=== PATIENT | female | born 1970 | race Caucasian/White ===

== ENCOUNTER 2018-02-24 13:50 | Emergency (ER) | payer SELFPAY ==
[2018-02-24 13:51] VITALS: BP 129/89; PULSE 70; RESP 16; TEMP 36.6; O2SAT 98; BMI 18.6
--- NOTE | 2018-02-24 15:19 | ED.VISSUMM ---
- ER Visit Summary Date of Service: 02/24/18 Chief Complaint: Dental pain and facial swelling History of Present Illness: The patient is a 47 F who presents with increasing dental pain for the past 4 days and now complains of facial swelling. Left side. She denies fever, chills night sweats. Has a history of rheumatic fever, murmur, SPE, IV drug use or being immune suppressed. She has no antibiotic allergies. She has no doctor. She states she is self-pay. She denies change in voice or difficulty swallowing. She denies any skin lesions or rash. She denies headache. Physical Examination: Vital signs are noted. HEENT exam is remarkable for strabismus. She has dental decay. The left lower first molar versus second bicuspid is decayed to the pulp/gumline. There is soft tissue swelling with facial swelling. There is no facial cellulitis. There is no trismus. There is no evidence of Isaías's angina. Trachea is midline. There is no carotid bruit. There is no stridor. Heart is regular without murmur, gallop or rub. Lungs are clear to auscultation. Neuro exam is nonfocal. Test Results: None Emergency Department Course and Treatment: Prescription for pen VK, Naprosyn and [place] and first dose in the department Treatment Plan: Outpatient follow-up with dentist. was informed to take his to the [facility] on Monday to be seen by a dentist. Disposition: Discharged to home Impression: Dental pain secondary to dental abscess This note was generated with [employer] dictation software. It may contain incorrect words, spelling, and punctuation that were not noted in review of the chart prior to signing ED Disposition - Plan for ED Patient: Disposition: Home or Assisted Living Chief Complaint: Dental Instructions: ED Abscess Dental Prescriptions: Hydrocodone Bitart/Apap 5-325 [[place] 5MG-325MG] 1 tab PO Q6H PRN PRN 3 Days #10 tab PRN Reason: Pain Naproxen [Naprosyn] 500 mg PO BID #14 tab Penicillin V Potassium 500 mg PO 4X/DAY #40 tab Referrals: Care Physician,No Primary [Primary Care Provider] - Additional Instructions: Go to [facility] Monday to be seen by dentist. If unable to open mouth completely, fever with chills or trouble swallowing or breathing return to the emergency department.
[2018-02-24] MEDS: Penicillin Vk 250 MG Tablet 500 MG PO (16:00)
[2018-02-24] MEDS: Naproxen 250 MG Tablet 500 MG PO (16:00)
[2018-02-24] MEDS: HYDROcodone Bitartrate/Apap 5/325 Tablet PO (16:00)
== END 2018-02-24 16:02 | disposition home or self-care (01) ==
LOC: ED 15:50
PROVIDERS: Emergency Provider Emergency Medicine
DX: K04.7 Periapical abscess without sinus (principal); K02.9 Dental caries, unspecified; K05.10 Chronic gingivitis, plaque induced
CPT/HCPCS: 99283

== ENCOUNTER → 2018-08-31 10:12 | Outpatient (CLI) | payer BC, SELFPAY ==
[2018-08-31 14:13] LABS: Prolactin 5.6 ng/mL; Thyroid Stim Hormone (TSH) 1.71 uIU/mL (0.358-3.74)
== END ==
PROVIDERS: Family Provider Family Medicine; PCP Family Medicine; Visit Provider Family Medicine
DX: N64.3 Galactorrhea not associated with childbirth (principal)
CPT/HCPCS: 36415; 84146; 84443

== ENCOUNTER → 2018-09-11 09:10 | Outpatient (CLI) | payer BC, SELFPAY ==
--- NOTE | 2018-09-11 09:12 | BI_ITS ---
MAMMOGRAPHY - BILATERAL DIAGNOSTIC REASON FOR EXAM: Female, 48 years old. PERTINENT HISTORY: FAM HX -MAT GMA AGE 40-50S PRIOR 10+ YRS AGO -NOT AVAILABLE FOR COMPARISON BILAT DISCHARGE X 2-3 YRS GREEN/WHITISH COLOR, SOMETIMES DISCHARGE IS A Tquot;RUSTYTquot; COLOR PT C/O BILAT BREAST PAIN AT TIMES, TODAY LEFT PAIN 12 OCLOCK BILAT EXC BX 10+ YRS AGO LT SKIN TAG AMD MOLE MARKED NO LUMPS FELT TODAY TECHNIQUE: Digital bilateral breast kalli (3D mammographic acquisition) in the CC and MLO projections. 2-D mediolateral oblique (MLO) and craniocaudad (CC) views of both breasts were obtained. CAD: Full Field Digital Mammography with Computer Added Detection was performed. COMPARISON: None. FINDINGS: Breast Composition: The breasts are extremely dense, which lowers the sensitivity of mammography. There are no dominant masses or suspicious calcifications. Due to the fact the patient has nipple discharge ultrasound study would be recommended. No other significant abnormalities are identified. BI/DIAG MAMM W/CAD, BILAT IMPRESSION: Further ultrasonographic evaluation recommended, as described above. (I) ASSESSMENT CATEGORY: BIRADS Category 0: Incomplete. Need additional imaging evaluation. A letter regarding these results will be sent to the patient by the facility within 30 days. Approximately 10% of breast cancers are not detected by mammography. A normal mammogram should not delay biopsy of a clinically suspicious abnormality. Electronically Signed: Amando Martinez, at 10:40 EDT Tel , Service support ,
--- NOTE | 2018-09-11 09:43 | US_ITS ---
STUDY: ULTRASOUND BREAST - RIGHT REASON FOR EXAM: Female, 48 years old. BILAT DISHARGE PAIN UIQ PER PATIENT MAMMO TODAY ALSO TECHNIQUE: Axial and longitudinal images of the RIGHT breast were performed with a high resolution ultrasound transducer. COMPARISON: None. FINDINGS: RIGHT Breast: There is a lesion #1 in the retroareolar region. The lesion measures 0.7 x 1 x 2.3 cm in size. Clock notation: 1 o'clock position. Posterior Enhancement: No. Posterior Shadowing: None. Margins: Sharp and smooth. Echogenicity: Hypoechoic. Compression effect on Shape: No change. IMPRESSION: Probably benign lesion. No definite abnormality is seen that explains the nipple discharge further evaluation by MRI without and with IV contrast of the breast would be recommended to exclude a neoplastic process. ASSESSMENT CATEGORY: BIRADS Category 0: Incomplete. Need additional imaging evaluation. A letter regarding these results will be sent to the patient by the facility within 30 days. Electronically Signed: Amando Martinez, at 16:41 EDT Tel , Service support , STUDY: ULTRASOUND BREAST - LEFT REASON FOR EXAM: Female, 48 years old. Nipple discharge TECHNIQUE: Axial and longitudinal images of the LEFT breast were performed with a high resolution ultrasound transducer. COMPARISON: None. FINDINGS: LEFT Breast: There is a lesion #1 in the upper outer quadrant. The lesion measures 0.7 x 0.8 x 0.4 cm in size. Clock notation: 9 o'clock position. Distance from nipple: 2 cm. Posterior Enhancement: No. Posterior Shadowing: None. Margins: Sharp and smooth. Echogenicity: Hypoechoic. Compression effect on Shape: No change. There is a lesion #2 in the upper outer quadrant. The lesion measures 0.5 x 0.4 x 0.2 cm in size. Clock notation: 11 o'clock position. Distance from nipple: 6 cm. Posterior Enhancement: No Posterior Shadowing: None. Margins: Sharp and smooth. Echogenicity: Hypoechoic Compression effect on Shape: No change. US/Breast Limited Unilateral IMPRESSION: Probably benign lesions. No definite abnormality is seen that explains the nipple discharge further evaluation by MRI without and with IV contrast of the breast would be recommended to exclude a neoplastic process ASSESSMENT CATEGORY: BIRADS Category 0: Incomplete. Need additional imaging evaluation. A letter regarding these results will be sent to the patient by the facility within 30 days. Electronically Signed: Amando Martinez, at 16:46 EDT Tel , Service support ,
[2018-09-11 12:01] LABS: Absolute Lymphocyte Count 1.67 X10^3/ul (0.83-4.51); Absolute Neutrophil Count 7.6 X10^3/uL (2.0-7.7); Basophil# 0.03 X10^3/uL; Basophil% 0.3 % (0-1); Hematocrit 36.9 % (37-47); Hemoglobin 11.6 g/dl (12.0-15.0); Lymphocyte # 1.67 X10^3/ul (4.0); Lymphocyte % 16.9 % (19-41); Mean Corp Hgb Conc 31.4 g/gl (32-36); Mean Corpuscular Hgb 29.5 pg (27.0-32.0); Mean Corpuscular Volume 93.9 fL (81-99); Mean Platelet Vol. 9.4 fl (6.2-12.0); Monocyte# 0.48 X10^3/uL; Monocyte% 4.9 % (0-10); Neutrophil # 7.58 X10^3/uL (2.7-7.7); Neutrophil % 76.8 % (47-70); POSITIVE COUNT NO; POSITIVE DIFFERENTIAL NO; POSITIVE MORPHOLOGY NO; Platelet Count 282 K/mm3 (150-450); RBC Distribution Width SD 58.1 fl (35.1-43.9); Red Blood Count 3.93 M/mm3 (4.2-5.4); White Blood Count 9.9 K/mm3 (4.4-11.0)
[2018-09-11 16:31] LABS: Chlamydia Trachomatis by PCR Negative (Negative); Neisserai gonorrhoeae by PCR Negative (Negative); Probe Check PASS; Sample Adequacy Control PASS; Specimen Processing Control PASS
[2018-09-13 13:07] LABS: HPV APTIMA, High Risk Negative (Negative)
== END ==
LOC: OPUS 09:13 → PAVLAB 11:46
PROVIDERS: Nurse Practitioner Women's Health; Family Provider Family Medicine; PCP Family Medicine; Referring Provider Obstetrics & Gynecology; Visit Provider Obstetrics & Gynecology
DX: Z12.4 Encounter for screening for malignant neoplasm of cervix (principal); Z11.3 Encounter for screening for infections with a predominantly sexual mode of transmission; N92.1 Excessive and frequent menstruation with irregular cycle; N64.52 Nipple discharge
CPT/HCPCS: 36415; 76642; 77066; 85025; 87491; 87591; 87624; 88175; G0145

== ENCOUNTER → 2018-09-18 08:08 | Outpatient (CLI) | payer BC, SELFPAY ==
[2018-09-11 11:14] VITALS: BMI 18.6
--- NOTE | 2018-09-18 08:09 | US_ITS ---
STUDY: ULTRASOUND OF THE FEMALE PELVIS - COMPLETE REASON FOR EXAM: Female, 48 years old. Menorrhagia. LMP: August 14, 2018. TECHNIQUE: Transabdominal and Transvaginal TECHNICAL QUALITY: Adequate. COMPARISON: None. FINDINGS: The uterus is retroverted and is in a midline position. The uterus measures 8.9 cm x 6.1 cm x 5.4 cm. Normal uterine cervix. The endometrium measures 6.0 mm in thickness, and is hyperechoic. There is no demonstrated endometrial mass. There is no demonstrated myometrial mass. I.U.D. - The patient does not have an I.U.D. The right ovary is visualized. The right ovary measures 4.3 cm x 2.5 cm x 2.9 cm. 2 dominant follicles are seen. The larger measures 1.8 cm x 1.5 cm x 1.0 cm. There is also evidence of a 1.3 cm x 1.6 cm x 1.2 cm hypoechoic nodular density. This may represent an hemorrhagic cyst. Follow-up is recommended. There is no visualized right adnexal mass or complex lesion. There is normal arterial and normal venous vascularity. The left ovary is visualized. The left ovary measures 4.0 cm x 1.9 cm x 1.8 cm. There is no left ovarian cyst or ovarian mass. There is no visualized left adnexal mass or complex lesion. There is normal arterial and normal venous vascularity. There is no fluid in the cul-de-sac. The pre void volume of the bladder was 71.3 ml. Polycystic ovary disease: No. US/Pelvic (Non ) IMPRESSION: 2 dominant follicles are seen in the right ovary. Is also suggestion of a 1.3 cm x 1.6 cm x 1.2 cm hemorrhagic cyst in the right ovary. Electronically Signed: Eric Vela, at 13:26 EDT , Service support ,
--- NOTE | 2018-09-18 08:09 | US_ITS ---
STUDY: ULTRASOUND OF THE FEMALE PELVIS - COMPLETE REASON FOR EXAM: Female, 48 years old. Menorrhagia. LMP: August 14, 2018. TECHNIQUE: Transabdominal and Transvaginal TECHNICAL QUALITY: Adequate. COMPARISON: None. FINDINGS: The uterus is retroverted and is in a midline position. The uterus measures 8.9 cm x 6.1 cm x 5.4 cm. Normal uterine cervix. The endometrium measures 6.0 mm in thickness, and is hyperechoic. There is no demonstrated endometrial mass. There is no demonstrated myometrial mass. I.U.D. - The patient does not have an I.U.D. The right ovary is visualized. The right ovary measures 4.3 cm x 2.5 cm x 2.9 cm. 2 dominant follicles are seen. The larger measures 1.8 cm x 1.5 cm x 1.0 cm. There is also evidence of a 1.3 cm x 1.6 cm x 1.2 cm hypoechoic nodular density. This may represent an hemorrhagic cyst. Follow-up is recommended. There is no visualized right adnexal mass or complex lesion. There is normal arterial and normal venous vascularity. The left ovary is visualized. The left ovary measures 4.0 cm x 1.9 cm x 1.8 cm. There is no left ovarian cyst or ovarian mass. There is no visualized left adnexal mass or complex lesion. There is normal arterial and normal venous vascularity. There is no fluid in the cul-de-sac. The pre void volume of the bladder was 71.3 ml. Polycystic ovary disease: No. US/Transvaginal Non- IMPRESSION: 2 dominant follicles are seen in the right ovary. Is also suggestion of a 1.3 cm x 1.6 cm x 1.2 cm hemorrhagic cyst in the right ovary. Electronically Signed: Eric Vela, at 13:26 EDT , Service support ,
== END ==
PROVIDERS: Family Provider Family Medicine; PCP Family Medicine; Referring Provider Nurse Practitioner Women's Health; Visit Provider Nurse Practitioner Women's Health
DX: N92.1 Excessive and frequent menstruation with irregular cycle (principal)
CPT/HCPCS: 76830; 76856; 93976

== ENCOUNTER 2018-10-19 16:57 | Emergency (ER) | payer BC, SELFPAY ==
[2018-10-01 13:40] VITALS: BMI 18.6
[2018-10-19 16:58] VITALS: BP 130/74; PULSE 71; RESP 16; TEMP 36.4; O2SAT 98; BMI 20.9
--- NOTE | 2018-10-19 17:33 | CT_ITS ---
STUDY: CT ABDOMEN AND PELVIS WITH CONTRAST REASON FOR EXAM: Female, 48 years old. Left lower quadrant pain. RADIATION DOSAGE (If Supplied By Facility): CTDIvol = ( 13.38 ) mGy, DLP = ( 318.26 ) mGycm TECHNIQUE: Transaxial images were obtained from the dome of the diaphragm to the symphysis pubis without oral contrast. 100ML IV Isovue 300 was administered. Sagittal and coronal images were reconstructed. Individualized dose optimization techniques were used for this CT. COMPARISON: None. FINDINGS: The visualized lung bases are unremarkable. The visualized portions of the heart are within normal limits. Normal liver. Normal gallbladder and extrahepatic biliary system. Normal spleen. Normal pancreas. Normal bilateral adrenal glands. Normal right kidney. Normal left kidney. Evaluation of the GI tract is limited by absence of oral contrast. Cannot exclude stomach wall thickening. No dilated loops of bowel or evidence for obstruction. Cannot exclude segmental thickening of the beyer of the small or large bowel. Cannot exclude enteritis or colitis. There is very marked diffuse fecal retention. Appendix within normal limits. Normal abdominal aorta. Normal inferior vena cava. Normal retroperitoneum. Normal urinary bladder. Normal visualized uterus. There are bilateral ovarian cysts, as much is 2.7 cm on the left. Both ovaries appear prominent. Suggest repeat pelvic ultrasound. Normal abdominal wall. Normal osseous structures. CT/Abdomen/Pelvis W IV Cont ONLY IMPRESSION: Very marked diffuse fecal retention. Bilateral prominent ovaries with probable cysts, especially on the left. Electronically Signed: Marcos Gonzales MD at 19:08 EDT , Service support ,
--- NOTE | 2018-10-19 17:37 | ED.VISSUMM ---
- ER Visit Summary Date of Service: 10/19/18 Chief Complaint: Left lower quadrant abdominal pelvic pain. History of Present Illness: The patient is a 48 F history of depression. Scheduled for D&C in mid October due to heavy vaginal bleeding. Patient states she had a recent heavy period but that has stopped for several weeks. She is been constipated for more than a month. Today says she had a vaginal discharge that looked like wet coffee ground material. But otherwise is not bleeding. Denies any dysuria fever. Complaining of left lower quadrant medially pain. Had a recent ultrasound was really unremarkable. She denies nausea, vomiting or diarrhea. No melena or fever. No dysuria. No prior abdominal surgeries. Physical Examination: Well-appearing female no acute distress. Vital signs are stable afebrile. HEENT exam unremarkable. Lungs clear to auscultation. Heart regular rhythm no murmur. Abdomen soft. Nondistended. Normal bowel sounds. Very minimal left lower quadrant just lateral to the umbilicus and inferior tenderness. Otherwise completely nondistended. Nontender. No signs of obstruction. Both the right upper right lower quadrant unremarkable. No hernias or masses. Normal bowel sounds. No peritoneal signs. Patient is moving all 4 extremities. Neurologically she is awake and alert. Tender. Test Results: CBC has a white count of 6. Hemoglobin 10.7. No bands. Lites lites unremarkable. Normal creatinine gap. UA shows 10-25 white cells but no nitrates or bacteria. Serum test negative. CAT scan abdomen pelvis with IV contrast only shows bilateral small ovarian cyst that was seen in her prior pelvic ultrasound. Significant diffuse constipation. The appendix was normal. I did review the film that was read by the radiologist. Emergency Department Course and Treatment: The prescription left medial to the left lower quadrant abdominal pain that is very mild on exam. I went back to discuss to the patient her test results and discharge her and go over her plan she got upset with nursing staff and that I had not been able to make it back and she left prior to being discharged. We will attempt to call her via phone. I was going to give her magnesium citrate for home. Treatment Plan: Left prior to discharge Disposition: Discharge Impression: Acute abdominal pain secondary to constipation Left prior to discharge This note was generated with [facility] dictation software. It may contain incorrect words, spelling, and punctuation that were not noted in review of the chart prior to signing ED Disposition - Plan for ED Patient: Referrals: Stephanie Aguilar MD [Primary Care Provider] -
[2018-10-19 17:52] LABS: Absolute Lymphocyte Count 1.56 X10^3/ul (0.83-4.51); Absolute Neutrophil Count 4.1 X10^3/uL (2.0-7.7); Basophil# 0.03 X10^3/uL; Basophil% 0.5 % (0-1); Eosinophil# 0.18 X10^3/uL; Eosinophils% 2.9 % (0-5); Hematocrit 34.2 % (37-47); Hemoglobin 10.7 g/dl (12.0-15.0); Lymphocyte # 1.56 X10^3/ul (4.0); Lymphocyte % 25.3 % (19-41); Mean Corp Hgb Conc 31.3 g/gl (32-36); Mean Corpuscular Hgb 28.5 pg (27.0-32.0); Mean Corpuscular Volume 91.2 fL (81-99); Mean Platelet Vol. 10.1 fl (6.2-12.0); Monocyte# 0.33 X10^3/uL; Monocyte% 5.3 % (0-10); Neutrophil # 4.06 X10^3/uL (2.7-7.7); Neutrophil % 65.8 % (47-70); Platelet Count 207 K/mm3 (150-450); RBC Distribution Width CV 16.1 % (11.6-14.6); RBC Distribution Width SD 54.2 fl (35.1-43.9); Red Blood Count 3.75 M/mm3 (4.2-5.4); White Blood Count 6.2 K/mm3 (4.4-11.0)
[2018-10-19 18:03] LABS: POSITIVE COUNT NO; POSITIVE DIFFERENTIAL NO; POSITIVE MORPHOLOGY NO
[2018-10-19 18:04] LABS: Anion Gap 4 (5-15); BUN 8 mg/dL (7-18); BUN/Creat Ratio 10.3 RATIO (10-20); Calcium,Total 8.8 mg/dL (8.5-10.1); Chloride 109 mmol/L (98-107); Creatinine, Serum 0.78 mg/dL (0.55-1.02); EST Glomerular Filtration Rate 84 mL/min (>60); Est Glom Filt Rate - Afr Amer 101 mL/min (>60); Estimated Creatinine Clearance 82.02 ml/min; Glucose 108 mg/dL (74-106); Potassium 3.9 mmol/L (3.5-5.1); Sodium Level 142 mmol/L (136-145)
[2018-10-19 18:10] LABS: Bacteria 0 SEEN /hpf (None Seen); Mucous, Urine 0 SEEN /hpf (<or=2+); Red Blood Cells-Urine 0 SEEN /hpf (0-5)
[2018-10-19 18:18] LABS: Color, Urine Yellow (Yellow); Glucose, Dipstick Normal (Normal); Ketone-Dipstick Negative (Negative); Leukocyte Esterase-Dipstick 25 /ul (Negative); Nitrite-Dipstick Negative (Negative); Occult Blood-Urine 50 /ul (Negative); Protein-Dipstick Negative (Negative); Urine Bilirubin Dipstick Negative (Negative); Urine Clarity Sl. Cloudy (Clear); Urine Urobilinogen 1 mg/dl (Normal)
[2018-10-19 18:21] LABS: Internal QC Validated? YES +Cl - CLEAR BKGD; Pregnancy, Serum, hCG Quali. NEGATIVE Negative
[2018-10-19 18:31] LABS: Squamous Epithelial Cells - UA 0-5 SEEN /hpf (5-10); White Blood Cells 10-25 SEEN /hpf (0-5)
[2018-10-19 19:53] VITALS: BP 130/79; PULSE 64; RESP 14; O2SAT 98
--- NOTE | 2018-10-19 20:51 | ED.RN ---
pt was very agitated about waiting for physician. was yelling at this RN across [facility] while discharging another pt. frustrated with pt but pt would not stay. informed MD and he stated he ordered mag citrate for pt for her constipation. this RN called patient on phone and informed her. pt was receptive to information but stated she does not want to come back in. This RN stated she can get the medication over the counter as well.
== END 2018-10-19 20:57 | disposition home or self-care (01) ==
LOC: ED 17:44
PROVIDERS: Emergency Provider Emergency Medicine; Family Provider Family Medicine; PCP Family Medicine
DX: K59.00 Constipation, unspecified (principal); N83.202 Unspecified ovarian cyst, left side; N83.201 Unspecified ovarian cyst, right side; F32.9 Major depressive disorder, single episode, unspecified; Z72.0 Tobacco use
CPT/HCPCS: 74177; 80048; 81001; 84703; 85025; 99284; Q9967; A4216

== ENCOUNTER 2018-12-19 12:04 | Emergency (ER) | payer BC, SELFPAY ==
[2018-11-01 11:39] VITALS: BMI 20.9
[2018-12-19 12:06] VITALS: BP 127/80; PULSE 80; RESP 14; TEMP 36.6; O2SAT 97; BMI 20.9
--- NOTE | 2018-12-19 12:43 | CT_ITS ---
STUDY: CT BRAIN WITHOUT CONTRAST REASON FOR EXAM: Female, 48 years old. Is RADIATION DOSAGE (If Supplied By Facility): CTDIvol = ( 44.99 ) mGy, DLP = ( 745.49 ) mGycm TECHNIQUE: Transaxial CT imaging of the brain was performed without administration of intravenous contrast material. Individualized dose optimization techniques were used for this CT. COMPARISON: No relevant priors. FINDINGS: Normal soft tissue structures. Normal calvarium. Normal size ventricles and extra-axial spaces for the patient's age. Normal white matter tracts of the cerebral hemispheres. Normal basal ganglia and thalami. Normal brainstem. Normal cerebellum. There is no intracranial hemorrhage. There are no findings of an acute ischemic infarction. Normal visualized paranasal sinuses. CT/Brain/Head without Contrast IMPRESSION: Normal unenhanced CT scan of the brain. Electronically Signed: Rocio Smith, at 13:48 EDT Tel , Service support ,
[2018-12-19 13:05] LABS: Absolute Neutrophil Count 4.5 X10^3/uL (2.0-7.7); Basophil# 0.03 X10^3/uL; Basophil% 0.5 % (0-1); Eosinophil# 0.21 X10^3/uL; Eosinophils% 3.2 % (0-5); Hematocrit 37.6 % (37-47); Hemoglobin 11.9 g/dl (12.0-15.0); Lymphocyte % 19.7 % (19-41); Mean Corp Hgb Conc 31.6 g/gl (32-36); Mean Corpuscular Hgb 27.8 pg (27.0-32.0); Mean Corpuscular Volume 87.9 fL (81-99); Mean Platelet Vol. 9.6 fl (6.2-12.0); Monocyte# 0.59 X10^3/uL; Neutrophil # 4.45 X10^3/uL (2.7-7.7); Neutrophil % 67.4 % (47-70); Platelet Count 200 K/mm3 (150-450); RBC Distribution Width CV 16.6 % (11.6-14.6); Red Blood Count 4.28 M/mm3 (4.2-5.4); White Blood Count 6.6 K/mm3 (4.4-11.0)
[2018-12-19 13:07] LABS: POSITIVE COUNT NO; POSITIVE DIFFERENTIAL NO; POSITIVE MORPHOLOGY NO
[2018-12-19 13:12] LABS: Internal QC Validated? YES +Cl - CLEAR BKGD; Pregnancy, Serum, hCG Quali. NEGATIVE Negative
[2018-12-19 13:22] LABS: ALB/GLOB Ratio 1.2 RATIO (0.9-2.4); AST(SGOT) 19 U/L (15-37); Alanine Aminotransfer ALT/SGPT 22 U/L (13-56); Albumin, Serum 3.7 g/dL (3.2-5.0); Alkaline Phosphatase 58 U/L (45-117); Anion Gap 5 (5-15); BUN 14 mg/dL (7-18); BUN/Creat Ratio 17.1 RATIO (10-20); Calcium,Total 8.9 mg/dL (8.5-10.1); Chloride 111 mmol/L (98-107); Creatinine, Serum 0.82 mg/dL (0.55-1.02); EST Glomerular Filtration Rate 79 mL/min (>60); Est Glom Filt Rate - Afr Amer 96 mL/min (>60); Globulin 3.2 g/dL (2.2-4.2); Glucose 84 mg/dL (74-106); Protein, Total 6.9 g/dL (6.4-8.2); Sodium Level 140 mmol/L (136-145)
--- NOTE | 2018-12-19 13:25 | RAD_ITS ---
STUDY: X-RAY - RIGHT RADIUS AND ULNA REASON FOR EXAM: Female, 48 years old. TECHNIQUE: view(s) of the forearm. COMPARISON: None. FINDINGS: There is no demonstrated soft tissue swelling. Normal visualized radius. Normal visualized ulna. RAD/Forearm 2 Views IMPRESSION: Normal x-ray examination of the radius and ulna. Electronically Signed: Rocio Smith, at 13:48 EDT Tel , Service support ,
[2018-12-19 13:29] LABS: Amphetamine Urine VISTA NEGATIVE (<1000 ng/mL); Barbiturate Urine VISTA NEGATIVE (< 200 ng/mL); Benzodiazepine Urine VISTA NEGATIVE (< 200 ng/mL); Cocaine Urine VISTA NEGATIVE (< 300 ng/mL); Ecstacy Urine VISTA NEGATIVE (< 500 ng/mL); Methadone Urine VISTA NEGATIVE (< 300 ng/mL); PCP Urine VISTA NEGATIVE (< 25 ng/mL); THC Urine VISTA NEGATIVE (< 50 ng/mL); Vista UDS pH Range 5
--- NOTE | 2018-12-19 14:00 | NURSING ---
told marcin, crisis, about patient
--- NOTE | 2018-12-19 14:06 | ED.VIS.PSYCH ---
History of Present Illness Chief Complaint: Suicidal Informant: Patient Onset: Hours - around 12 Conflict: - - unknown Timing: Continuous Current Severity: Severe Maximum Severity: Severe Associated Symptoms: Depressed, Suicidal Thoughts Specific plan (suicidal thought): overdosed on her medications Narrative: Patient states after she got off of work last night, which was around 11, at some point she overdosed on a handful of her Klonopin 0.5 mg tablets that she is prescribed. She does not know how many she took but estimates it was over 10. There are still 10-20 left in her bottle. She states she took an extra Paxil yesterday as well while she was at work. She states that she was trying to kill herself and doing these overdosing yesterday/last night. She tells nursing here, just let me go home so that I can finish what I started. states he talked to her on his way home from work at 1:30 AM last night and notes that she was talking like she is now which is not typical of her. He is concerned about what could be going on and assumes that it is due to the medications that she took. She states she took no other pills, illicit substances, or medications. 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 Past Medical History - Allergies and Home Meds Allergies/Adverse Reactions: Allergies No Known Allergies Allergy (Verified 11/01/18 11:39) Primary Care Physician: Stephanie Aguilar MD [Primary Care Provider] - Lives: Spouse/ Significant Other Smoking Status: Light Smoker (<10/day) Drugs: None Review of Systems General: Denies: Chills, Fever, Sweats Eyes: Denies: Visual changes - bilaterally, Diplopia ENT: Denies: Rhinorrhea, Sore throat Cardiovascular: Denies: Chest pain, Palpitations Respiratory: Denies: Dyspnea, Cough, Dyspnea on exertion Gastrointestinal: Denies: Abdominal pain, Nausea, Vomiting, Diarrhea, Melena, Hematochezia Genitourinary: Denies: Dysuria, Hematuria, Frequency Musculoskeletal: Denies: Back pain, Extremity Pain Skin: Denies: Rash, Wounds Neurological: Denies: Headache, Weakness, Numbness Psych: Reports: Depression, Anxiety, Suicidal thoughts, Suicidal ideations Physical Exam Vital Signs/Narrative: Vital Signs Temp Pulse Resp BP Pulse Ox 12/19/18 12:06 98 F 80 14 127/80 H 97 Inital Vital Signs reviewed: Yes General: Well nourished, Well developed Head: Normocephalic, Atraumatic Eyes: Perrl, EOMI, - - lazy right eye, chronic per pt/ ENT: Moist mucous membranes, No rhinorrhea Neck: Supple, Nontender Cardiovascular: Regular rate, Regular rhythm, No murmurs Respiratory: No distress, CTA bilaterally, Chest nontender Abdomen: Soft, Nontender, Nondistended, Normal bowel sounds Back: Nontender, Normal Inspection Extremities: Nontender, No Edema Skin: Normal color, No rash, No Trauma Neurological: Alert, Oriented x3, Cranial nerves II-XII grossly intact, Normal Strength, Normal Sensation, Normal Gait Psych: Normal Speech Pattern, Depressed, Incoherent thoughts - at times; just focusing on wanting to go home so that she can finish what she started, Suicidal thoughts, Poor Insight, Poor Judgement. Negative for: Homicidal thoughts, Hallucinations, Delusions Diagnostic/Tx/Re-eval Clinical Impression(s) from Imaging Studies Brain CT 12/19/18 12:43 IMPRESSION: Normal unenhanced CT scan of the brain. Electronically Signed: Rocio Smith, at 13:48 EDT Tel , Service support , Forearm X-Ray 12/19/18 13:25 IMPRESSION: Normal x-ray examination of the radius and ulna. Electronically Signed: Rocio Smith, at 13:48 EDT Tel , Service support , Labs, , toxicology all negative. This is not surprising given that clonazepam often does not trigger the benzodiazepine test. Alcohol is negative. I do not think an ingestion of either of these medications would be solely responsible for her behavior, she does not appear to be able to reason with me or her right now, continuing to say that she wants to go home. However, when discussing a contusion on her forearm, which we x-rayed and is negative, she becomes quite verbally hostile since I elicited a minor amount of temporary pain during the exam, and demands AMA papers and states things like I know my rights, I can leave if I want to. Given this I do not think she has acute delirium and she is medically cleared for psychiatric evaluation. Crisis evaluated her and agrees she should be admitted to a psychiatric facility so we have pink slipped her. I ordered Geodon for the nurses to give if needed, she was becoming quite agitated and threatening to leave, however before medicating her we had crisis talk with her at her initial evaluation first. ED Disposition - Plan for ED Patient: Disposition: Psychiatric Hospital or Unit Diagnosis: Suicide gesture, Intentional benzodiazepine overdose Referrals: Stephanie Aguilar MD [Primary Care Provider] -
--- NOTE | 2018-12-19 14:11 | NURSING ---
LORE, CRISIS, COMING IN TO SEE PATIENT
[2018-12-19 14:13] VITALS: RESP 22
[2018-12-19 14:19] LABS: Bacteria 0 SEEN /hpf (None Seen); Mucous, Urine 0 SEEN /hpf (<or=2+); Red Blood Cells-Urine 0 SEEN /hpf (0-5)
--- NOTE | 2018-12-19 14:23 | NURSING ---
LORE, CRISIS, IN ROOM
[2018-12-19] MEDS: Ziprasidone IM 20 MG/ML VIAL 10 MG IM (14:43)
[2018-12-19 14:52] LABS: Color, Urine Yellow (Yellow); Glucose, Dipstick Normal (Normal); Ketone-Dipstick Negative (Negative); Leukocyte Esterase-Dipstick 25 /ul (Negative); Nitrite-Dipstick Positive (Negative); Occult Blood-Urine Negative /ul (Negative); Protein-Dipstick Negative (Negative); Specific Gravity, Urine 1.015 (1.002-1.030); Urine Bilirubin Dipstick Negative (Negative); Urine Clarity Sl. Cloudy (Clear); Urine Urobilinogen Normal (Normal)
[2018-12-19 14:54] LABS: Acetaminophen (Tylenol) Level < 2.0 ug/mL (10.0-30.0); Salicylate 4.3 mg/dL (2.8-20.0)
[2018-12-19 15:11] LABS: Squamous Epithelial Cells - UA 10-25 SEEN /hpf (5-10); White Blood Cells 0-5 SEEN /hpf (0-5)
--- NOTE | 2018-12-19 15:56 | NURSING ---
NO OLD EKGS
--- NOTE | 2018-12-19 16:06 | EKG12_ITS ---
Test Reason : MHC Blood Pressure : / mmHG Vent. Rate : 062 BPM Atrial Rate : 062 BPM P-R Int : 128 ms QRS Dur : 086 ms QT Int : 402 ms P-R-T Axes : -06 054 036 degrees QTc Int : 408 ms Normal sinus rhythm Normal ECG Confirmed by MEGHANN BRENNAN, GUNNER ([id number]), proposal editor KEVIN KATZ ([id number]) on 12/21/2018 10:50:58 AM Referred By: KAMARI Confirmed By:JOVON ZAVALETA MD
[2018-12-19 17:02] VITALS: RESP 18
--- NOTE | 2018-12-19 17:44 | NURSING ---
CALLED CRISIS FOR UPDATE. THEY WILL CALL US BACK
[2018-12-19 19:35] VITALS: BP 136/78; PULSE 66; RESP 14; TEMP 36.4; O2SAT 99
[2018-12-19 20:01] VITALS: BP 138/68; PULSE 66; RESP 17; O2SAT 98
== END 2018-12-19 20:02 ==
PROVIDERS: Emergency Provider Emergency Medicine; Family Provider Family Medicine; PCP Family Medicine
DX: T42.4X2A Poisoning by benzodiazepines, intentional self-harm, initial encounter (principal); F43.10 Post-traumatic stress disorder, unspecified; H53.031 Strabismic amblyopia, right eye
CPT/HCPCS: 70450; 73090; 80053; 80307; 80320; 80329; 81001; 84703; 85025; 93005; 96372; 99285; G0480; J3486

== ENCOUNTER 2019-04-01 23:38 | Emergency (ER) | payer SELFPAY ==
[2019-04-01 23:38] VITALS: BP 118/73; PULSE 66; RESP 14; TEMP 36.7; O2SAT 100; BMI 20.9
--- NOTE | 2019-04-01 23:48 | ED.VIS.GEN ---
History of Present Illness Chief Complaint: Dental Informant: Patient Onset: Weeks - 1 Narrative: 1 week worsening right lower dental pain, hot and cold sensitivities. No fevers. History of poor dentition. No current dentist. Has had problems with this tooth in the past. No trouble swallowing. Prior similar symptoms: Yes Past Medical History - Allergies and Home Meds Allergies/Adverse Reactions: Allergies No Known Allergies Allergy (Verified 04/01/19 23:41) Primary Care Physician: Stephanie Aguilar MD [Primary Care Provider] - Smoking Status: Current every day smoker Review of Systems All systems negative except as indicated General: Denies: Chills, Fever, Sweats Eyes: Denies: Visual changes - bilaterally, Diplopia ENT: Denies: Rhinorrhea, Sore throat Cardiovascular: Denies: Chest pain, Palpitations Respiratory: Denies: Dyspnea, Cough, Dyspnea on exertion Gastrointestinal: Denies: Abdominal pain, Nausea, Vomiting, Diarrhea, Melena, Hematochezia Genitourinary: Denies: Dysuria, Hematuria, Frequency Musculoskeletal: Denies: Back pain, Extremity Pain Skin: Denies: Rash, Wounds Neurological: Denies: Headache, Weakness, Numbness Physical Exam Vital Signs/Narrative: Vital Signs Temp Pulse Resp BP Pulse Ox 04/01/19 23:38 98.0 F 66 14 118/73 100 Inital Vital Signs reviewed: Yes General: Well nourished, Well developed, No Acute Distress Head: Normocephalic, Atraumatic Eyes: Perrl, EOMI ENT: Moist mucous membranes, No rhinorrhea, - - Missing tooth 30 and 31, Decay at the base of 29 and 28, no fluctuance, no subungual edema. Tender percussion tooth 29. Airway patent. Neck: Supple, Nontender Cardiovascular: Regular rate, Regular rhythm, No murmurs Respiratory: No distress, CTA bilaterally, Chest nontender Abdomen: Soft, Nontender, Nondistended, Normal bowel sounds Back: Nontender, Normal Inspection Extremities: Nontender, No edema Skin: Normal color, No rash Neurological: Alert, Oriented x3, Cranial nerves II-XII grossly intact, Normal Strength, Normal Sensation Psychological: Normal affect, Normal Mood Diagnostic/Tx/Re-eval - Medical Decision Making Patient with dental caries with dentalgia. No signs of abscess. Offered dental block however she declined. Prescription for ibuprofen and penicillin filled here at the hospital to start taking. Dental list given. Follow-up with dentist for definitive treatment. ED Disposition - Plan for ED Patient: Disposition: Home or Assisted Living Diagnosis: Dental cavities, Dentalgia Instructions: Dental Cavity Prescriptions: Ibuprofen [Motrin] 600 mg PO Q6H PRN PRN #20 tablet PRN Reason: Pain Score 1-10/10 Penicillin V Potassium 500 mg PO 4X/DAY #40 tablet Referrals: Stephanie Aguilar MD [Primary Care Provider] - Additional Instructions: follow up with dentist for definitive treatment.
[2019-04-02 00:10] VITALS: RESP 14
== END 2019-04-02 00:11 | disposition home or self-care (01) ==
LOC: ED 04-02 00:06
PROVIDERS: Emergency Provider Emergency Medicine; Family Provider Family Medicine; PCP Family Medicine
DX: K02.9 Dental caries, unspecified (principal); F17.200 Nicotine dependence, unspecified, uncomplicated
CPT/HCPCS: 99282

== ENCOUNTER 2019-05-21 08:20 | Day surgery (SDC) | payer BC, SELFPAY ==
[2019-05-13 10:45] VITALS: BMI 20.9
[2019-05-21] VITALS (12 sets, daily range): BP systolic 83–120; BP diastolic 42–72; PULSE 59–96; RESP 14–16; TEMP 36.2–36.5; O2SAT 93–100; BMI 20.3
--- NOTE | 2019-05-21 06:49 | PCM.HPOB.BLA ---
- Problem List (1) Abnormal uterine bleeding (AUB) Status: Acute Comment: d and c hysterosocpy liam ablation, laparosopic bilateral salpingectomy (2) Galactorrhea Status: Acute (3) Irregular menses Status: Acute History and Physical Date of Admission: 05/21/19 Intake Vital Signs 05/13/19 Body Mass Index (BMI) 20.9 05/13/19 Height 5 ft 6 in 05/13/19 Weight: 131 lb 6 oz 05/13/19 Body Mass Index (BMI) 21.2 05/13/19 Blood Pressure 116/72 Intake Visit Reasons: pre op Allergies No Known Allergies Allergy (Verified 04/01/19 23:41) [facility] Medical History Galactorrhea (Acute) PTSD (post-traumatic stress disorder) (Acute) Strabismic amblyopia, right eye (Acute) Tobacco dependence (Acute) Surgical History H/O ovarian cystectomy (Acute) History of bilateral breast biopsy (Acute) Family History Father Cancer Lung Grandmother Breast cancer Kidney disease Uncle Myocardial infarction Mother Myocardial infarction Social History (Updated 05/13/19 @ 11:10 by Sheryl Puga MD) 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 Female Reproductive History Menopausal Symptoms: No night sweats Pregancy History 2 Elective abortions Hx Para 1 Spontaneous abortions Hx # Term Pregnancies Ectopic pregnancies Hx # Pregnancies Multiple births # of living children Past Pregnancies Del. Date Name GA/Weeks Outcome Route Bth Weight Infant Gen Labor Lgth Anesthesia Del Locatn Provider FOB Unknown -1998 ROS Const Constitutional: Denies fatigue, night sweats, weight gain or weight loss ENT ENT: Reports system reviewed and no additional complaints, except as docu Cardio Card: Denies chest pain Resp Resp: Denies cough or dyspnea GI GI: Reports as per HPI; denies abdominal pain, constipation, nausea or vomiting : Denies nipple discharge, urinary frequency, urinary incontinence, urinary hesitancy, urinary urgency, vaginal discharge, vaginal dryness, vaginal odor or vaginal itching Musc Musc: Denies joint pain, back pain or muscle weakness Skin Skin/Breast: Denies hair loss, change in hair, dry skin, breast lump, breast pain, breast skin changes or nipple discharge Neuro Neuro: Reports system reviewed and no additional complaints, except as docu Psych Psych: Reports system reviewed and no additional complaints, except as docu Endo Endo: Denies cold intolerance, excessive sweating, heat intolerance or increased thirst Mahesh/Lymph Hematologic/Lymphatic: Denies easy bleeding, Denies easy bruising, Denies enlarged lymph nodes Exam Const General: cooperative, healthy appearing, comfortable, no acute distress, well developed Orientation: alert [facility] Head: normal to inspection, normocephalic Ears: hearing grossly normal bilaterally, external ears normal Nose: external nose normal, nares normal Face and sinus: normal facial exam Neck Neck: normal visual inspection, no lymphadenopathy Thyroid: thyroid normal Chest Chest palpation & inspection: normal inspection of the chest Resp Effort & Inspection: normal respiratory effort Cardio Rate: regular rate Rhythm: regular rhythm GI Inspection: normal to inspection, non-distended Palpation: soft, no hepatosplenomegaly Musc Other: gross motor intact no deficits, full bilateral strength Skin General: no rashes or lesions noted Neuro General: alert, awake, moves all extremities, no focal motor deficits Motor: muscle tone normal throughout Extrem General: normal to inspection, no pedal edema Psych Appearance: grossly normal Mental Status: mental status grossly normal Affect: normal affect Speech and Movement: speech and movement normal Assessment & Plan Problems 1. Abnormal uterine bleeding (AUB) N93.9 d and c hysterosocpy liam ablation, laparosopic bilateral salpingectomy Plan After discussing the patient's diagnosis and treatment plan options, patient wishes to proceed with surgical management. I have discussed with the patient the risks, benefits, and alternatives of the procedure which include but are not limited to risks of anesthesia, bleeding, infection, possible damage to bowel, bladder, or surrounding vasculature which could lead to additional surgery to evaluate any complications. Patient agrees to procedure and wishes to proceed. ACOG/uptodate references given for additional information regarding procedure. Coding Level of Care Code No Charge Diagnoses Abnormal uterine bleeding (AUB) N93.9 UPDATE- I have seen the patient and performed any clinically relevant updates to the history and physical exam. Sheryl Puga MD
--- NOTE | 2019-05-21 08:37 | EKG12_ITS ---
Test Reason : PRE OP Blood Pressure : / mmHG Vent. Rate : 072 BPM Atrial Rate : 072 BPM P-R Int : 168 ms QRS Dur : 078 ms QT Int : 388 ms P-R-T Axes : 067 056 056 degrees QTc Int : 424 ms Sinus rhythm with Premature supraventricular complexes Otherwise normal ECG When compared with ECG of 19-DEC-2018 16:21, Premature supraventricular complexes are now Present Confirmed by ОЛЬГА WARREN ([id number]), online editor SRINIVASA WHITLOCK ([id number]) on 05/24/2019 11:38:17 AM Referred By: Sheryl Puga Confirmed By:ОЛЬГА WARREN
--- NOTE | 2019-05-21 08:43 | PCM.OPRPT ---
Problem List (1) Abnormal uterine bleeding (AUB) Status: Acute Comment: d and c hysterosocpy rochelle ablation, laparosopic bilateral salpingectomy (2) Galactorrhea Status: Acute (3) Irregular menses Status: Acute Report of Operation Date of Procedure: 05/21/19 Pre-Operative Diagnosis: aub sterilization Post-Operative Diagnosis: same plus pelvic adhesions Surgery/Procedure Performed:: d nd c hysteroscopy laparoscopic bilateral salpingectomy Description of Surgical Findings:: bilateral ovarian to ovarian fossa adhesions sigmoid to pelvic side wall adhesions clubbed tubes environmental health officer: Izabela Diaz Type of Anesthesia:: General Special Medications: none Specimen's removed: tubes emc Drains: none Estimated Blood Loss (mL): minimal Fluids Replaced: crystalloid Description of Procedure: Patient was taken in the operating room and was placed under general anesthesia was prepped and draped in normal sterile fashion in the dorsal lithotomy position. Bladder was drained of clear urine and SCDs were on preoperatively. Uterus was sounded and a uterine manipulator was placed after dilating. Attention was then paid to the abdominal portion of the procedure and the umbilicus was elevated with towel clamps and injected with Marcaine and after a 5 mm incision was made and the Veress needle was entered into the abdomen confirmed to be intra-abdominal with a low opening pressure of less than 5 mmHg. Abdomen was insufflated with CO2 gas and a 5 mm optical trocar was placed under direct visualization. A left lower quadrant 5 mm port and a 5 mm port suprapubically were placed under direct visualization. Uterus was well visualized and bilateral fallopian tubes identified and significant scar tissue was seen which was taken down sharply and with the Enseal device. Ovarian fossa adhesions were also seen and taken down sharply with upper endoscopic scissors. Gama placed over the area to obtain excellent hemostasis. And bilateral tubes were elevated and transecting across the mesosalpinx and the attachment to the uterine corpus bilaterally the tubes were removed without complication. Excellent hemostasis was noted. Fallopian tubes were removed through the lower port sites without complication. Liver and upper abdomen were visualized notably within normal limits and no other gross abnormalities were seen in the abdomen. All instruments removed from the abdomen after gas was desufflated. Port sites were closed with 3-0 Monocryl Steri's and op sites were applied. A weighted speculum was placed in the vagina and the anterior lip of the cervix was grasped with a single-tooth tenaculum. A paracervical block was placed with 1% lidocaine. Cervix was progressively dilated to allow passage of a 5 mm hysteroscope. The lining was fully visualized and noted to have no significant lesions. Uterine sounded to 9 cm. Curettage was performed and moderate amount of tissue removed, sent to pathology. The Rochelle device was opened and the cavity length was found to be 5 cm. Device was inserted into the uterus and balloon inflated and device deployed. Integrity of the cavity was confirmed and a 2 minute treatment cycle was completed without complication. All instruments were removed from the vagina and excellent hemostasis was noted. Patient was awoken and taken to recovery in stable condition. Grafts/Implants Used: none - Complications none - Admit VTE Documentation VTE Present on Admission: No Multi Select Codes - Urinary/Genital Urinary/Genital CPT Codes: 12858 Rochelle/Novasure, 19866 Laproscopic BS/O
--- NOTE | 2019-05-21 08:49 | PCM.DC.TUB ---
Discharge Diet: No Restrictions - Increase fluid intake for the next 48 hours. Discharge Activity: Return to Normal Activity, May Drive - when you are no longer taking narcotic pain medications., May Shower, May Take a Tub Bath - in 7 days Additional Activity Instructions:: Ambulate often the next week after surgery. Nothing in the vagina for 5 days. Call your doctor if your incision/area has: Continuous Slow Oozing, Sudden Increased Bleeding, Increased Pain/ Swelling, Increased Redness, Foul Smelling Discharge Call your doctor if you observe: Fever of 101 or Higher Allergies/Adverse Reactions: Allergies No Known Allergies Allergy (Verified 05/14/19 13:05) Medications to take at Discharge Naproxen [Naprosyn] 250 - 500 mg PO Q8H PRN PRN #30 tab 05/21/19 Oxycodone HCl/Acetaminophen [Percocet 5-325] 1 - 2 tablet PO Q6H PRN PRN 7 Days #15 tablet 05/21/19 The following prescriptions were given: Naproxen [Naprosyn] 250 - 500 mg PO Q8H PRN PRN #30 tab PRN Reason: MILD PAIN Transmission Status: Pending to [facility] Oxycodone HCl/Acetaminophen [Percocet 5-325] 1 - 2 tablet PO Q6H PRN PRN 7 Days #15 tablet PRN Reason: Pain Transmission Status: Sent to [facility] Orders to be completed after discharge: Type & Screen Time Frame: 05/21/19, Facility: [facility], Location: Laboratory CBC-Complete Blood Cnt No Diff Time Frame: 05/21/19, Facility: [facility], Location: Laboratory ,Urine Time Frame: 05/21/19, Facility: [facility], Location: Laboratory Primary Care Physician: Stephanie Aguilar MD [Primary Care Provider] - Test Results: Test results from this visit will be discussed in further detail at your follow-up appointment, if applicable. Please Follow Up With: Sheryl Puga MD - [phone]
[2019-05-21 08:53] LABS: Internal QC Validated? YES +Cl - CLEAR BKGD; Pregnancy, Urine Negative Negative
[2019-05-21 08:54] LABS: Hematocrit 38.4 % (37-47); Hemoglobin 11.9 g/dL (12.0-15.0); Mean Corpuscular Hgb 28.1 pg (27.0-32.0); Mean Corpuscular Volume 90.6 fL (81-99); Mean Platelet Vol. 10.1 fl (6.2-12.0); Platelet Count 247 K/mm3 (150-450); RBC Distribution Width CV 17.2 % (11.6-14.6); RBC Distribution Width SD 57.8 fl (35.1-43.9); Red Blood Count 4.24 M/mm3 (4.2-5.4); White Blood Count 6.8 K/mm3 (4.4-11.0)
[2019-05-21] MEDS: Lactated Ringers 1,000 ML 125 ML IV (09:04)
--- NOTE | 2019-05-21 10:05 | FALS_PTH ---
PATIENT: THAO EDWARDS LOC: [facility] U#:[id number] AGE/SX: 48/F ROOM: RE05/21/[address]: Dr. Sheryl Puga MD : 1970 BED: DIS: 05/21/2019 SPEC #: [id number] RECD: 05/21/19 12:28 STATUS: LATISHA LEONEL #: [id number] NICHOLE: 05/21/19 10:[address]: Sheryl Puga DEPT: SURGICAL PATHOLOGY RECD BY: Octaviano Hills ENTERED: 05/21/19 13:13 SP TYPE: FALL TUBES OTHR DR: Dr. Stephanie Aguilar MD Tissues: A - Fallopian tube B - Endometrium, NOS Procedures: Surgery Specimen Level II Surgery Specimen Level IV HEADER OPERATION: Hysteroscopy, D & C Rochelle, laparoscopic salpingectomy PRE-OP DIAGNOSIS: Abnormal uterine bleeding, galactorrhea, irregular menses TISSUE SUBMITTED: A. Bilateral fallopian tubes, B. Endometrial curettings MICROSCOPIC DIAGNOSIS A. Right and left fallopian tubes, salpingectomies: Two complete segments of benign fallopian tubes. Paratubal cyst. B. Endometrium, curettings: Transition endometrium. Rare fragments of benign superficial endocervix. AM:maribel 05/22/19 MICROSCOPIC DESCRIPTION Slides are reviewed. GROSS DESCRIPTION A - Received is one container labeled with the patient's name and designated bilateral fallopian tubes. The fallopian tubes are not identified as right or left. One fallopian tube measures 6.5 cm in length and up to 0.5 cm in diameter. The fimbrial end is identified. A paratubal cyst is noted measuring 1 x 0.5 x 0.5 cm. The second fallopian tubes measures 5 cm in length and 0.7 cm in diameter. A fimbrial end is not identified. Sections of both fallopian tubes reveal unremarkable cut surfaces. Lye Machine Operator sections are submitted in two cassettes as follows: 1 - one fallopian tube and paratubal cyst, 2 - second fallopian tube. B - Received in fixative is one container labeled with the patient's name and designated endometrial curettings. The specimen consists of multiple irregular fragments of martinez-pink soft tissue that in aggregate measure 2.5 x 2.5 x 0.3 cm. The specimen is totally submitted in one cassette. / SJ:maribel 05/21/19 TC:5 CPT: 25832, 85257 x2
[2019-05-21] MEDS: Bupivacaine 0.25% 30 ML Vial (11:00)
== END 2019-05-21 16:37 | disposition home or self-care (01) ==
LOC: SDC 08:21 → AC 08:22
PROVIDERS: Family Provider Family Medicine; PCP Family Medicine; Referring Provider Obstetrics & Gynecology; Visit Provider Obstetrics & Gynecology
PROC: 0U5B8ZZ Destruction of Endometrium, Via Natural or Artificial Opening Endoscopic (ICD-10-PCS; CPT 58558; principal; 2019-05-21 09:50)
DX: N93.9 Abnormal uterine and vaginal bleeding, unspecified (principal); N83.8 Other noninflammatory disorders of ovary, fallopian tube and broad ligament; N73.6 Female pelvic peritoneal adhesions (postinfective); Z30.2 Encounter for sterilization; F17.200 Nicotine dependence, unspecified, uncomplicated
CPT/HCPCS: 00840; 58563; 58661; 81025; 85027; 86850; 86900; 86901; 88302; 88305; 93005; J7120; C1760; J2405

== ENCOUNTER → 2019-05-28 13:57 | Outpatient (CLI) | payer BC, SELFPAY ==
[2019-05-28 11:08] VITALS: BMI 20.3
== END ==
PROVIDERS: Family Provider Family Medicine; PCP Family Medicine; Visit Provider Nurse Practitioner Women's Health
DX: N39.0 Urinary tract infection, site not specified (principal)
CPT/HCPCS: 87086; 87088; 87186

== ENCOUNTER 2019-06-04 01:15 | Inpatient (IN) | payer BC, SELFPAY ==
[2019-06-03 13:39] VITALS: BMI 20.3
[2019-06-04] VITALS (40 sets, daily range): BP systolic 90–119; BP diastolic 40–76; PULSE 57–81; RESP 6–27; TEMP 36.7–36.9; O2SAT 77–100; BMI 20.2; BMI 21.1
--- NOTE | 2019-06-04 01:16 | RAD_ITS ---
STUDY: X-RAY CHEST REASON FOR EXAM: Female, 48 years old. Chest pain. TECHNIQUE: Single AP portable view of the chest. COMPARISON: None. FINDINGS: The lungs are clear and slightly hyperexpanded. There is no demonstrated pleural abnormality. Normal size heart. Normal mediastinum and kadi. Normal visualized pulmonary arteries. Normal visualized aortic arch and descending thoracic aorta. Normal visualized thoracic spine. Normal visualized ribs, clavicles, and shoulders. There is no demonstrated abnormality of the visualized soft tissue structures of the upper abdomen. RAD/Chest 1 View (Portable) IMPRESSION: Slightly hyperexpanded lungs otherwise normal x-ray examination of the chest. Electronically Signed: Jacque Shetty MD at 2:07 EST , Service support ,
[2019-06-04] MEDS: Ondansetron 4 MG/2 ML Vial IV (01:20)
[2019-06-04 01:26] LABS: Absolute Lymphocyte Count 4.91 X10^3/uL (0.83-4.51); Absolute Neutrophil Count 7.6 X10^3/uL (2.0-7.7); Basophil# 0.07 X10^3/uL; Basophil% 0.5 % (0-1); Eosinophil# 0.46 X10^3/uL; Eosinophils% 3.3 % (0-5); Hematocrit 33.2 % (37-47); Hemoglobin 10.6 g/dL (12.0-15.0); Lymphocyte # 4.91 X10^3/ul (4.0); Lymphocyte % 35.5 % (19-41); Mean Corp Hgb Conc 31.9 g/dL (32-36); Mean Corpuscular Hgb 28.4 pg (27.0-32.0); Mean Platelet Vol. 10.6 fl (6.2-12.0); Monocyte# 0.72 X10^3/uL; Monocyte% 5.2 % (0-10); NRBC Flagged by Analyzer 0 % (0-5); Neutrophil # 7.63 X10^3/uL (2.7-7.7); Neutrophil % 55.2 % (47-70); POSITIVE MORPHOLOGY YES; Platelet Count 274 K/mm3 (150-450); RBC Distribution Width SD 51.8 fl (35.1-43.9); Red Blood Count 3.73 M/mm3 (4.2-5.4); White Blood Count 13.8 K/mm3 (4.4-11.0)
[2019-06-04] MEDS: Heparin Injection (Vial) 5,000 UNIT/ML VIAL 3600 UNIT IV (01:27)
--- NOTE | 2019-06-04 01:27 | ED.DCSUM_ITS ---
History of Present Illness Chief Complaint: CPR Informant: Patient, Family Narrative: Patient pulled out of the car in the triage area by nursing staff. On arrival to the room 2 no pulse was felt and CODE BLUE was called. CPR was started and after a few chest compressions patient started to moan. She is placed on nasal cannula and hooked up to patient monitor. She became nauseated and did vomit. arrives to the room stating that approximately 15 minutes prior to arrival patient is complained of chest pain into her back and down both arms. She then became unresponsive in the car on the way to the hospital. - Past Medical History (1) Abnormal uterine bleeding (AUB) Status: Chronic Comment: d and c hysterosocpy liam ablation, laparosopic bilateral salpingectomy (2) Tobacco dependence Status: Chronic (3) PTSD (post-traumatic stress disorder) Status: Chronic Past Medical History - Allergies and Home Meds Allergies/Adverse Reactions: Allergies No Known Allergies Allergy (Verified 06/03/19 13:25) Primary Care Physician: Stephanie Aguilar MD [Primary Care Provider] - Doctors: Dr. Puga Surgical History: - - Recent uteroscopy and tubal ligation Lives: Spouse/ Significant Other Smoking Status: Current every day smoker Review of Systems ROS: Unable to Obtain - Patient not able to answer questions on arrival Physical Exam Vital Signs/Narrative: Vital Signs Pulse Resp 06/04/19 01:16 74 6 L Inital Vital Signs reviewed: Yes General: Well nourished, Well developed ENT: Moist mucous membranes Neck: Supple Cardiovascular: Regular rate, Regular rhythm Respiratory: CTA bilaterally Abdomen: Soft, Nontender Neurological: - - Patient became alert after a few chest compressions. She had a difficult time answering questions initially due to her nausea. She is moving all 4 extremities. Diagnostic/Tx/Re-eval 06/04/19 01:16 Chest 1 View (Portable) [RAD] Stat Laboratory Results 06/04/19 01:15 WBC 13.8 H RBC 3.73 L Hgb 10.6 L Hct 33.2 L MCV 89.0 MCH 28.4 MCHC 31.9 L RDW Std Deviation 51.8 H RDW Coeff of Zuleyma 16.0 H Plt Count 274 MPV 10.6 Immature Gran % (Auto) 0.300 Neut % (Auto) 55.2 Lymph % (Auto) 35.5 Floyd % (Auto) 5.2 Eos % (Auto) 3.3 Baso % (Auto) 0.5 Absolute Neuts (auto) 7.6 Absolute Lymphs (auto) 4.91 H Nucleated RBC % 0 - EKG Initial EKG Interpretation: Sinus Rhythm - Sinus at [address] elevation. - Medical Decision Making EKG obtained reveals acute ST elevation in the anterior leads. I did discuss this with her as well as our ability to perform heart cath and cardiac stenting here at this hospital. I did discuss with her we do not have surgical backup if she would need surgical intervention. She agrees to proceed. I discussed the case with Dr. Gruber. Patient has been given Zofran for nausea and will attempt to take aspirin and Brilinta. Heparin has been ordered. Hospitalist has been contacted to escort the patient to the Assurance Specialist. - Critical Care Time Critical care time (excluding procedures): 30-74 minutes ED Disposition - Plan for ED Patient: Disposition: Acute Care Hospital [facility] Diagnosis: STEMI (ST elevation myocardial infarction) Referrals: Stephanie Aguilar MD [Primary Care Provider] -
[2019-06-04 01:30] LABS: Differential Indicated SCAN CRITERIA MET
[2019-06-04] MEDS: TICAGRELOR 90 MG TABLET 180 MG PO (01:31)
[2019-06-04] MEDS: 0.9% Normal Saline 1,000 ML 1000 ML IV (01:32)
[2019-06-04] MEDS: 0.9% Normal Saline 1,000 ML 999 ML IV (01:35)
[2019-06-04] MEDS: Aspirin 81 MG TAB.CHEW 324 MG PO (01:37)
[2019-06-04 01:40] LABS: AST(SGOT) 16 U/L (15-37); Alanine Aminotransfer ALT/SGPT 26 U/L (13-56); Albumin, Serum 4.1 g/dL (3.2-5.0); Alkaline Phosphatase 58 U/L (45-117); Anion Gap 8 (5-15); BUN 18 mg/dL (7-18); BUN/Creat Ratio 15.8 RATIO (10-20); Bilirubin, Direct 0.15 mg/dL (0.00-0.30); Calcium,Total 9.1 mg/dL (8.5-10.1); Chloride 107 mmol/L (98-107); Creatinine, Serum 1.14 mg/dL (0.55-1.02); EST Glomerular Filtration Rate 54 mL/min (>60); Est Glom Filt Rate - Afr Amer 65 mL/min (>60); Estimated Creatinine Clearance 57.45 ml/min; Globulin 3.2 g/dL (2.2-4.2); Glucose 151 mg/dL (74-106); Lipase 96 U/L (73-393); Potassium 3.2 mmol/L (3.5-5.1); Protein, Total 7.3 g/dL (6.4-8.2); Sodium Level 138 mmol/L (136-145)
[2019-06-04 01:41] LABS: Internal QC Validated? YES +Cl - CLEAR BKGD; Pregnancy, Serum, hCG Quali. NEGATIVE Negative
[2019-06-04 01:44] LABS: Alcohol, Blood (Medical)-Serum < 3.0 mg/dL
[2019-06-04 01:48] LABS: D-Dimer Quantitative (DVT/PE) 0.93 FEU/ug/m (0.27-0.49); International Normalized Ratio 1.1; Partial Thromboplast Time 28.5 Seconds (24.1-36.2); Prothrombin Time (Protime)PT. 13.9 SECONDS (11.7-14.9)
--- NOTE | 2019-06-04 01:48 | ED.RN ---
SESAR FROM LAB CALLED WITH D-DIMER 0.93.
[2019-06-04 01:51] LABS: Reactive Lymphocyte 1+
--- NOTE | 2019-06-04 01:57 | ED.RN ---
LACTIC ACID 2.5 PER SESAR IN LAB.
[2019-06-04 01:58] LABS: Lactic Acid 2.5 mmol/L (0.4-1.9)
--- NOTE | 2019-06-04 02:13 | ED.RN ---
0113 - PULSE PRESENT 0114 - PT VOMITING. PT STARTING TO ANSWER QUESTIONS
--- NOTE | 2019-06-04 03:00 | PCM.HP.STD ---
Problem List (1) STEMI (ST elevation myocardial infarction) Status: Acute (2) Tobacco dependence Status: Chronic (3) PTSD (post-traumatic stress disorder) Status: Chronic History of Present Illness Date of Admission: 06/04/19 Chief Complaint: chest pain,cardiac arrest resucitated , STEMI The patient is a 48 year old female with a past medical history of smoking, dysfunctional uterine bleeding status post partial hysterectomy 2 weeks ago presents to the emergency room with acute chest pain. The onset of pain began 20 minutes prior to arrival by personal vehicle to the hospital upon arrival patient was found to be pulseless and apneic and CPR was initiated for a very brief period of time, chest compressions revived the patient almost immediately. EKG was done which found ST elevations in anterior leads and STEMI alert was called the patient was found to have a 90% lesion in her left anterior descending artery which was balloon angioplastied and stented. The patient was stabilized from the [facility] [employer] and transferred to the ICU for intensive care monitoring. Past Medical History Past Medical History (Chronic Problems): Chronic Problems (Last Updated 06/03/19 @ 13:28 by Stephanie Kam) Abnormal uterine bleeding (AUB) (Chronic) d and c hysterosocpy liam ablation, laparosopic bilateral salpingectomy Tobacco dependence (Chronic) Strabismic amblyopia of right eye (Chronic) PTSD (post-traumatic stress disorder) (Chronic) Medical History: Medical History (Last Updated 06/03/19 @ 13:28 by Stephanie Kam) Galactorrhea N64.3 PTSD (post-traumatic stress disorder) F43.10 Status post hysteroscopy Onset Date: ~05/21/19 Z98.890 D&C lap BS Strabismic amblyopia, right eye H53.031 Tobacco dependence F17.200 Allergies No Known Allergies Allergy (Verified 06/03/19 13:25) Home Medications: Ambulatory Orders Medication Instructions Recorded NK 06/03/19 Surgical History: Surgical History (Last Reviewed 06/03/19 @ 13:25 by Stephanie Kam) H/O ovarian cystectomy Z98.890, Z87.42 Left History of bilateral breast biopsy Z98.890 Surgical History: - - Recent uteroscopy and tubal ligation Lives: Spouse/ Significant Other Smoking Status: Current every day smoker Tobacco Use: Cigarettes - *Family History Maternal Family History: Family History (Last Reviewed 06/03/19 @ 13:25 by Stephanie Kam) Father Cancer Grandmother Breast cancer Kidney disease Uncle Myocardial infarction Mother Myocardial infarction History Items: No pertinent history Review of Systems Constitutional: Denies: Chills, Fever, Weight Change HEENT: Denies: Head Aches, Sinus Congestion, Sinus Drainage Cardiovascular: Reports: Chest Pain. Denies: Palpitations Respiratory: Reports: Shortness of breath at rest. Denies: Cough, Sputum production Gastrointestinal: Denies: Abdominal Pain, Nausea, Vomiting Genitourinary: Denies: Dysuria Musculoskeletal: Denies: Joint Pain, Joint Tenderness Skin: Denies: Rash, Wounds Neurological: Denies: Numbness, Tingling, Focal weakness Psychiatric: Reports: Anxiety. Denies: Depression, Homicidal Ideations, Suicidal Ideations Hematologic/ Lymphatic: Denies: Easy Bruising, Easy Bleeding VTE Information - Inpt Only VTE Present on Admission: No VTE Mechan Device Prophylaxis: None VTE Pharm Prophylaxis ordered?: Yes Patient Problems: Active and Suspected Problems (Last Updated 06/03/19 @ 13:28 by Stephanie Kam) STEMI (ST elevation myocardial infarction) (Acute) - Physical Exam Vitals/I&O's: Vital Signs Temp Pulse Resp BP Pulse Ox 98.1 F 80 24 H 107/40 L 100 06/04/19 01:26 06/04/19 01:45 06/04/19 01:45 06/04/19 01:45 06/04/19 01:45 Oxygen Flow Rate (L/min) 3 Oxygen Delivery Method Nasal Cannula Weight: 132 lb 15.02 oz Body Mass Index (BMI) 20.2 General: Alert, Oriented x3, Cooperative HEENT: Atraumatic, Normocephalic Neck: Supple Lungs: Clear to auscultation, Normal air movement Cardiovascular: Regular rate, Normal S1, Normal S2, No murmurs Abdomen: Bowel Sounds Present, Soft, Non Tender Extremities: No edema Skin: No rashes Musculoskeletal: No Tenderness to Palpation of Joints or Extremities Neurological: Neuro grossly intact Psych/Mental Status: Appropriate, Anxious Laboratory Results 06/04/19 01:15: WBC 13.8 H, RBC 3.73 L, Hgb 10.6 L, Hct 33.2 L, MCV 89.0, MCH 28.4, MCHC 31.9 L, RDW Std Deviation 51.8 H, RDW Coeff of Zuleyma 16.0 H, Plt Count 274, MPV 10.6, Immature Gran % (Auto) 0.300, Neut % (Auto) 55.2, Lymph % (Auto) 35.5, [place] % (Auto) 5.2, Eos % (Auto) 3.3, Baso % (Auto) 0.5, Absolute Neuts (auto) 7.6, Absolute Lymphs (auto) 4.91 H, Nucleated RBC % 0, Reactive Lymphocytes 1+ 06/04/19 01:15: D-Dimer Quant (PE/DVT) 0.93 H* 06/04/19 01:15: Sodium 138, Potassium 3.2 L, Chloride 107, Carbon Dioxide 23.0, Anion Gap 8, BUN 18, Creatinine 1.14 H, Estim Creat Clear Calc 57.45, Est GFR (MDRD) Af Amer 65, Est GFR (MDRD) Non-Af 54 L, BUN/Creatinine Ratio 15.8, Glucose 151 H, Calcium 9.1, Total Bilirubin 0.50, Direct Bilirubin 0.15, AST 16, ALT 26, Alkaline Phosphatase 58, Troponin I < 0.015, Total Protein 7.3, Albumin 4.1, Globulin 3.2, Lipase 96 06/04/19 01:15: Ethyl Alcohol < 3.0 06/04/19 01:15: Serum , Qual NEGATIVE 06/04/19 01:15: PT 13.9, INR 1.1, APTT 28.5 06/04/19 01:28: Lactic Acid 2.5 H* Current Medications Sodium Chloride () 1,000 mls @ 150 mls/hr IV .Q6H40M [facility] Assessment/Plan All Active Problems (Last Updated 06/03/19 @ 13:28 by Stephanie Kam) STEMI (ST elevation myocardial infarction) (Acute) Irregular menses (Acute) Galactorrhea (Acute) Chronic Problems (Last Updated 06/03/19 @ 13:28 by Stephanie Kam) Abnormal uterine bleeding (AUB) (Chronic) d and c hysterosocpy liam ablation, laparosopic bilateral salpingectomy Tobacco dependence (Chronic) Strabismic amblyopia of right eye (Chronic) PTSD (post-traumatic stress disorder) (Chronic) Plan 1. Pain/cardiac arrest/ST elevation MA?patient resuscitated successfully with heart catheterization and stent placed transferred to the intensive care unit for care. Dr. Gruber presided over the case and will manage her cardiac care in the intensive care unit. 2. Tobacco dependence?cessation encouraged 3. DVT prophylaxis?patient will be heparinized Continue routine medications for chronic medical conditions Code Visit Inpatient E&M: 83254 Init Hosp L3
--- NOTE | 2019-06-04 03:04 | EKG12_ITS ---
Test Reason : POST CATH Blood Pressure : / mmHG Vent. Rate : 079 BPM Atrial Rate : 079 BPM P-R Int : 196 ms QRS Dur : 084 ms QT Int : 412 ms P-R-T Axes : 072 067 056 degrees QTc Int : 472 ms Normal sinus rhythm Normal ECG When compared with ECG of 04-JUN-2019 01:19, MANUAL COMPARISON REQUIRED, DATA IS UNCONFIRMED Confirmed by MEGHANN BRENNAN, GUNNER ([id number]), editor school photograph SRINIVASA WHITLOCK ([id number]) on 06/17/2019 12:52:31 PM Referred By: Ramses Garibay Confirmed By:JOVON ZAVALETA MD
--- NOTE | 2019-06-04 03:04 | ECHOD_ITS ---
Reason For Study: CAD/ASHD Procedure This was a 2D Doppler, Color Flow transthoracic echocardiogram. The study was technically difficult. Exam performed portable in ICU/CCU. Left Ventricle Normal size and thickness. The estimated ejection fraction is 65 %. Normal diastology for age. No regional wall motion abnormalities noted. Right Ventricle Normal size and thickness. A moderator band is seen in the right ventricle. Normal systolic function. Atria Normal left atrium. Normal right atrium. Normal atrial septum. Mitral Valve The mitral valve is structurally normal. No prolapse or stenosis seen. Trivial posteriorly directed mitral valve insufficiency. Tricuspid Valve Normal tricuspid valve. Trivial tricuspid valve insufficiency. Right ventricular systolic pressure estimated to be 30 mmHg. Aortic Valve Trisinus/trileaflet aortic valve. Pulmonic Valve Normal pulmonic valve. Great Vessels Normal aortic root. Normal arch. Normal inferior vena cava. Inferior vena cava collapse with sniff. Pericardium/Pleural No pericardial effusion. MMode/2D Measurements & Calculations LVIDd: 4.4 cm IVSd: 1.1 cm Ao root diam: 2.8 cm LVIDs: 2.9 cm LVPWd: 0.89 cm RVDd: 3.3 cm FS: 35.5 % LAV(MOD-bp): 40.9 ml LA A4 area: 15.5 cm2 LA dimension(2D): 2.8 cm LAV(MOD-bp) Indexed: 24.1 ml/m2 LAV(MOD-sp2): 30.1 ml LAV(MOD-sp4): 43.8 ml RA A4 area: 12.3 cm2 Time Measurements MV dec time: 0.21 sec Doppler Measurements & Calculations MV E max hossein: 101.5 cm/sec Lat Peak E' Hossein: 11.3 cm/sec Med Peak E' Hossein: 11.1 cm/sec MV A max hossein: 84.4 cm/sec E/E' lat: 9.0 E/E' med: 9.1 MV E/A: 1.2 Ao V2 max: 154.5 cm/sec LV V1 max: 97.0 cm/sec PA V2 max: 123.1 cm/sec Ao max P.6 mmHg LV V1 max P.8 mmHg TR max hossein: 251.3 cm/sec TR max P.3 mmHg Interpretation Summary The estimated ejection fraction is 65 %. Normal diastology for age. Trivial posteriorly directed mitral valve insufficiency. Trivial tricuspid valve insufficiency. Right ventricular systolic pressure estimated to be 30 mmHg. There is no comparison study available. Ordering Physician: Clifford Gruber Referring Physician: Ramses Garibay Performed By: Kylah Lentz, GUILLERMINA, RVT
[2019-06-04] MEDS: 0.9% Normal Saline 1,000 ML 150 ML IV (03:10)
--- NOTE | 2019-06-04 03:13 | CL.I_ITS ---
Patient Name: THAO EDWARDS Study Date: 06/04/2019 Performing: Clifford Gruber MD Ht: 68.11 inches 173 cm : 1970 Wt: 132.28 lbs 60 kg Age: 48 Gender: female BSA: 1.72 PROCEDURE(S) PERFORMED [id number], BRIT AND/OR PTCA, ARTERY OR GRAFT, SINGLE VESSEL SY26-QMC/COR/LV CLINICAL PROFILE AND CO-MORBIDITIES Patient presents with STEMI for emergent cardiac cath. Indications: ACS <= 24 hrs, Worsening Angina, Suspected CAD Heart Failure: None Stress/Imaging Stress/Image Study Performed: No Angina Classification Anginal Classification w/in 2 Weeks: CCS IV CAD Presentations: STEMI. Symptom onset Date/Time: 06/04/2019 23:00:00 Time Estimated Comorbidities/Risk Factors: Current/Recent Smoker (< 1year) Family History of Premature CAD CONCLUSIONS Normal LV size, wall motion,and systolic function Perserved Left Ventricular systolic function with normal EDP LVEF: by LV gram 75 % Non obstructive coronary arteries Single vessel CAD of the mid LAD Successful PTCA/BRIT mid LAD with a 2.25 x 16 Promus Synergy, post dilated with a 2.5 x 12 NC, followe d proximally with a 3.0 x 8 NC balloon; 85%-->0%, no dissection. RECOMMENDATIONS Referred for immediate PCI Highly recommend quitting all tobacco products Follow up with primary railway signalling engineer Risk factor modification ASA Indefinitley Plavix for at least 12 months Routine post interventional care Refer for Outpatient Cardiac Rehab Manual sheath removal per protocol Follow up with Dr. Gruber Stress echo in 2-3 weeks to eval DIAG and RCA lesions. No additional PCI of DIAG perfomed given pt's recent OB/Gyne surgery and ongoing uterine bleeding, as well as uncertain severity of DIAG lesion. Remove sheath at 0730 this am. Pt too thin for Mynx closure. DESCRIPTION OF PROCEDURE The patient arrived to the procedure lab. The risks and benefits of the procedure as well as a full d escription of our services here and lack of surgical backup were fully explained to the patient and/o r their significant other prior to the catheterization. The Timeout was completed, verifying the desire ect patient and procedure. The patient's procedural site was prepped and draped in the usual fashion. Local anesthetic was given subcutaneously to right groin region with Lidocaine 2%. Using a modified Seldinger technique, arterial access was obtained via the right femoral artery, a 6Fr sheath was inse rted.. Right Coronary Artery selective angiography was then performed in multiple views using a 4 Fr . 3DRC catheter. Left Coronary Artery selective angiography was performed in multiple views using a 6 Fr.. Left Ventriculography was performed in HARDY projection using a 4 Fr. Pigtail catheter. LV to AO pullback pressures were then recorded ebu 3.5 Guide catheter was inserted and engaged into the LCA. runthrough Guide wire was advanced to the LAD. emerge 2.00 x 12 Balloon catheter was advanced across lesion in the LAD, mid. PTCA balloo n inflated at 6 atms for 7 secs. Angiogram performed post balloon dilatation. synergy 2.25 x 16 Drug Eluting stent was advanced across the lesion in the LAD, mid. Angiogram performed post stent deployme nt. nc emerge 2.5 x 12 Balloon catheter was inserted post stent. Balloon catheter was inserted post s tent 3.00 x 8 Angiogram performed post balloon dilatation. The arterial sheath was sutured in place and capped CORONARY ANGIOGRAPHY DOMINANCE: Right Dominant LEFT HEART ASSESSMENT Left Ventricular Ejection Fraction: by LV Gram 75 % Normal Left Ventricular systolic function LVEDP: 15 mmHg Normal Left Ventricular End Diastolic Pressure Normal LV wall motion LEFT MAIN: Angiographically normal LEFT ANTERIOR DESCENDING ARTERY: MID LAD: 85 % Stenosis DIAGONAL 1: Proximal - 60 % Stenosis CIRCUMFLEX ARTERY: Angiographically normal RIGHT CORONARY ARTERY: MID RCA: Moderate luminal irregularities up to 50% INTERVENTION INFORMATION LESION SITE: LAD (Mid) Lesion Complexity: High/C, lesion at bifurcation: No, thrombus present: No, lesion length: 16 mm, cul prit lesion: Yes Pre Stenosis: 85 % Pre intervention HOWARD flow: 3 PROCEDURE: Drug Eluting Stent with pre and post dilatation Post Stenosis: 0 % Post intervention HOWARD flow: 3 Lesion Devices: Vonjourtronic 6 Fr EBU3.5 100cm Guide Catheter Shaquille Sci EMERGE MR 2.00x12 BALLOON Shaquille Sci Synergy MR BRIT 2.25x16 Shaquille Sci NC EMERGE MR 3.00x08 BALLOON Shaquille Sci NC EMERGE MR 2.50x12 BALLOON COMPLICATIONS No Complications PROCEDURE MEDICATIONS Oxygen: 2 L/min via nasal cannula Heparin 6000 unit(s) IV 06/04/2019 02:21:49 Nitro 200 mcg IC 06/04/2019 02:22:19 Nitro 200 mcg IC 06/04/2019 02:22:19 SUMMARY OF HEMODYNAMIC DATA Time AIR REST ECG 01:55:07 AO 128/67 (92) SA 02:17:19 AO 109/61 (82) 02:20:50 LV 101/-8, 15 02:41:28 LV 100/-8, 15 02:41:35 LVp 101/-7, 15 02:41:58 AOp 95/50 (70) 02:42:03 Signed By Clifford Gruber MD On 06/04/2019 8:40:13 AM Signed By Clifford Gruber MD On 06/04/2019 03:12:45 Clifford Gruber MD
[2019-06-04 04:11] LABS: Hematocrit 28.2 % (37-47); Mean Corp Hgb Conc 31.9 g/dL (32-36); Mean Corpuscular Hgb 28.6 pg (27.0-32.0); Mean Corpuscular Volume 89.5 fL (81-99); Mean Platelet Vol. 10.4 fl (6.2-12.0); Platelet Count 205 K/mm3 (150-450); RBC Distribution Width CV 16.2 % (11.6-14.6); RBC Distribution Width SD 53.1 fl (35.1-43.9); Red Blood Count 3.15 M/mm3 (4.2-5.4); White Blood Count 14.9 K/mm3 (4.4-11.0)
[2019-06-04 04:24] LABS: Cholesterol 156 mg/dL (200); High Density Lipoprotein 69 mg/dL; Triglycerides 27 mg/dL; Very Low Density Lipoprotein 5 mg/dL (5-40)
[2019-06-04 04:55] LABS: ALB/GLOB Ratio 1.2 RATIO (0.9-2.4); AST(SGOT) 16 U/L (15-37); Alanine Aminotransfer ALT/SGPT 23 U/L (13-56); Albumin, Serum 3.2 g/dL (3.2-5.0); Alkaline Phosphatase 49 U/L (45-117); Anion Gap 5 (5-15); BUN 14 mg/dL (7-18); Calcium,Total 7.6 mg/dL (8.5-10.1); Chloride 112 mmol/L (98-107); Creatinine, Serum 0.78 mg/dL (0.55-1.02); EST Glomerular Filtration Rate 84 mL/min (>60); Est Glom Filt Rate - Afr Amer 101 mL/min (>60); Estimated Creatinine Clearance 82.57 ml/min; Globulin 2.6 g/dL (2.2-4.2); Glucose 109 mg/dL (74-106); Potassium 3.7 mmol/L (3.5-5.1); Protein, Total 5.8 g/dL (6.4-8.2); Sodium Level 139 mmol/L (136-145)
[2019-06-04 04:59] LABS: Bacteria 0 SEEN /hpf (None Seen); Mucous, Urine 0 SEEN /hpf (<or=2+); Red Blood Cells-Urine 0 SEEN /hpf (0-5); White Blood Cells 0 SEEN /hpf (0-5)
[2019-06-04 05:16] LABS: Color, Urine Yellow (Yellow); Glucose, Dipstick Normal (Normal); Ketone-Dipstick Negative (Negative); Leukocyte Esterase-Dipstick Negative /ul (Negative); Nitrite-Dipstick Negative (Negative); Occult Blood-Urine Negative /ul (Negative); Protein-Dipstick Negative (Negative); Urine Bilirubin Dipstick Negative (Negative); Urine Clarity Clear (Clear); Urine Urobilinogen Normal (Normal); Urine pH 6.5 (5.0 - 8.0)
[2019-06-04 05:31] LABS: Reflex Lactate? Y
[2019-06-04 05:37] LABS: Squamous Epithelial Cells - UA 0-5 SEEN /hpf (5-10)
[2019-06-04 06:11] LABS: Amphetamine Urine VISTA NEGATIVE (<1000 ng/mL); Barbiturate Urine VISTA NEGATIVE (< 200 ng/mL); Benzodiazepine Urine VISTA NEGATIVE (< 200 ng/mL); Cocaine Urine VISTA NEGATIVE (< 300 ng/mL); Ecstacy Urine VISTA NEGATIVE (< 500 ng/mL); Methadone Urine VISTA NEGATIVE (< 300 ng/mL); PCP Urine VISTA NEGATIVE (< 25 ng/mL); THC Urine VISTA NEGATIVE (< 50 ng/mL); Vista UDS pH Range 6
[2019-06-04 06:12] LABS: Lactic Acid 0.7 mmol/L (0.4-1.9)
[2019-06-04 06:38] LABS: Prealbumin 14.8 mg/dL (20.0-40.0)
[2019-06-04 07:15] LABS: ACT Activated Clotting Time 142 sec (74-137)
--- NOTE | 2019-06-04 07:45 | CRPHASE1_ITS ---
Patient Communication PHII Cardiac Rehab Discussed with Patient:: Yes Guide to Cardiac Rehab Given to Patient:: Yes Cardiac Rehab Facility Choice List Given to Patient:: Yes Choice Program [facility] CR PHII:: Communication Given to CR, Refer to [facility] Risk Factors/Lifestyle Smoking Status: Current every day smoker Hx Hypertension: No Hx Diabetes Mellitus Type 1: No Hx Diabetes Mellitus Type 2: No Hx Metabolic Disorders: No Hx Dyslipidemia: No Hx Obesity: No Height: 5 ft 8 in Weight:: 132 lb BMI: 20.0 Stress: Recent, Long-standing Family History: Family History (Last Reviewed 06/03/19 @ 13:25 by Stephanie Kam) Father Cancer Grandmother Breast cancer Kidney disease Uncle Myocardial infarction Mother Myocardial infarction Laboratory Values: Cardiac Rehab Phase I Labs Triglycerides 27 mg/dL (-199) 06/04/19 04:00 Cholesterol 156 mg/dL (200) 06/04/19 04:00 LDL Cholesterol 82 mg/dL (0-130) 06/04/19 04:00 HDL Cholesterol 69 mg/dL (40-) 06/04/19 04:00 Issues Affecting Care:: None Knowledge of Condition:: No Hospital Course Presenting Symptoms:: PT STATES SHE HAD CP, INTO HER BACK AND DOWN LT ARM. NAUSEA AND SWEATING Medical/Surgical History CAD:: Yes Pulmonary:: No COPD:: No Asthma:: No Diabetes:: No Hypertension:: No Dyslipidemia:: No Arrhythmias:: No PE:: No DVT:: No PVD:: No PAD:: No GERD:: No Cancer:: No Renal:: No Thyroid:: No PTCA:: Yes - STENT X1 ICD:: No Pacemaker:: No Discharge/Home/Social Eval Discharge Disposition: Home Marital Status: Cardiac Rehabilitation Info Cardiac Rehabilitation Program Information: Cardiac Rehabilitation is important for patients like you who are recovering from a heart problem. Cardiac rehabilitation programs are recognized as integral to the continued care of the patient with coronary heart disease. The cardiac rehabilitation program is designed to optimize a patient's physical, psychological, and social functioning. Health director of critical care work in cardiac rehabilitation programs and assist you with getting the treatments you need to get stronger and healthier - like exercise, healthy eating habits, and medications. Cardiac rehabilitation has been show to help people with heart problems live longer and have better life enjoyment than people who do not go to cardiac rehabilitation. Please contact the Cardiac Rehabilitation Program at [facility] at in two weeks if you have not heard from them.
--- NOTE | 2019-06-04 07:48 | CRPH1.INST_ITS ---
General Education CAD and cardiac anatomy and function:: Not instructed Explanation of diagnoses and procedures:: Not instructed Sign/Symptoms of [place]:: Not instructed Antiplatelet therapy: Patient communicates acknowledgment, Needs reinforcement Proper use of NTG-SL: Not instructed Emergency procedures and activation of EMS: Patient communicates acknowledgment Compliance of all prescribed medications: Patient communicates acknowledgment Smoking Patient Nicotine/Smoking Risk Factors Are:: Cigarettes Recommendations Include:: Smoking cessation strategies/Smoking packet, Second- hand smoke recommendation, Participation in a smoking cessation program, Previous smoker; encourage continued cessation - CR BOOKLET ALSO GIVEN OF RISK FACTORS Nicotine/Smoking Response Code:: Not instructed Dyslipidemia Patient Dyslipidemia Risk Factors Are:: Total Cholesterol - 156, Triglycerides - 27, HDL - 69, LDL - 82 Recommendations Include:: Lipid profile provided Dyslipidemia Response Code:: Not instructed Overweight/Obesity Patient Overweight/Obesity Risk Factors Are:: BMI Normal [18-25 & < 65 years old] Overweight/Obesity:: Not instructed Hypertension Patient Hypertension Risk Factors Are:: No documented hx of HTN Heart Disease Patient Heart Disease Risk Factors Are:: Family history of heart disease < 65 years old - MOTHER , HEART DISEASE Heart Disease Response Code:: Not instructed Diabetes Patient Diabetes Risk Factors Are:: No documented hx of diabetes Metabolic Syndrome Metabolic Syndrome Response Code:: Not instructed Sedentary Sedentary Response Code:: Not instructed Stress Recommendations Include:: Identification of stressors, and assessment of coping skills, Stress management techniques - PT STATES SHE DOES HAVE STRESS, SOURCE (S) NOT ADDRESSES AT THIS TIME
--- NOTE | 2019-06-04 07:57 | NURSING ---
0757- Jaime RN from laboratory apparatus glass grinder here to pull sheath. 0801- Dr Gruber at bedside. 0802- sheath pulled. 117/71, hr 79. 0805- 130/64, HR 74. 96% on RA. 0810- 107/59 HR 72 0815- 115/61 HR 72 0820- 107/65 HR 70 0825- 101/64 HR 72. 0826- Hemostasis. 5lb sandbag placed.
--- NOTE | 2019-06-04 09:58 | PN.CARD_ITS ---
Subjectve: Patient seen and examined this morning conjunction with [employer] Instructor staff and ICU nursing staff. Telemetry overnight is negative. EKG is pending. Right groin is clean/dry/intact without evidence of thrills, bruits or hematoma. Sheath to be removed this morning. Patient denies any chest pain. Hemoglobin and creatinine are within nominal limits. Echo pending. Peak troponin 0 0.140 thus far. Objective: Vital Signs Temp Pulse Resp BP Pulse Ox 98.0 F 67 20 H 115/74 98 06/04/19 03:05 06/04/19 09:30 06/04/19 09:30 06/04/19 09:30 06/04/19 09:30 Oxygen Flow Rate (L/min) 2 Oxygen Delivery Method Room Air Weight: 132 lb Body Mass Index (BMI) 21.1 Intake and Output for Last 24 Hours 06/02/19 06/03/19 06/04/19 23:59 23:59 23:59 Intake Total 2000 / 2000 Output Total 500 / 500 Balance 1500 / 1500 General: Awake, Alert, Oriented x 3 HEENT: PERRL, EOMI, Sclera Non Icteric Neck: Supple, Good ROM, No Lymph Node Enlargement Lungs: Clear to auscultation Cardiovascular: Regular Rhythm, Normal S1, Normal S2, No Murmurs, No Rubs, No Gallops Vascular: No Carotid Bruits, Normal Femoral Pulses, Normal Radial Pulses, Normal Dorsalis Pedal Pulse, Normal Posterior Tibial Pulses Abdomen: Bowel Sounds Present, Soft, Non Tender, No HSM, No Organomegaly Extremities: No Cyanosis, No Clubbing, No edema Neurological: No Focal Motor or Sensory Deficit 06/04/19 01:15: WBC 13.8 H, RBC 3.73 L, Hgb 10.6 L, Hct 33.2 L, MCV 89.0, MCH 28.4, MCHC 31.9 L, Plt Count 274, MPV 10.6, Immature Gran % (Auto) 0.300, Neut % (Auto) 55.2, Lymph % (Auto) 35.5, [place] % (Auto) 5.2, Eos % (Auto) 3.3, Baso % (Auto) 0.5, Absolute Neuts (auto) 7.6, Nucleated RBC % 0 06/04/19 01:15: D-Dimer Quant (PE/DVT) 0.93 H* 06/04/19 01:15: Sodium 138, Potassium 3.2 L, Chloride 107, Carbon Dioxide 23.0, Anion Gap 8, BUN 18, Creatinine 1.14 H, Est GFR (MDRD) Af Amer 65, Est GFR (MDRD) Non-Af 54 L, BUN/Creatinine Ratio 15.8, Glucose 151 H, Calcium 9.1, Total Bilirubin 0.50, Direct Bilirubin 0.15, Troponin I < 0.015 06/04/19 01:15: PT 13.9, INR 1.1, APTT 28.5 06/04/19 01:28: Lactic Acid 2.5 H* 06/04/19 04:00: Triglycerides 27, Cholesterol 156, LDL Cholesterol 82, VLDL C holesterol 5, HDL Cholesterol 69 06/04/19 04:00: WBC 14.9 H, RBC 3.15 L, Hgb 9.0 L, Hct 28.2 L, MCV 89.5, MCH 28.6, MCHC 31.9 L, Plt Count 205, MPV 10.4 06/04/19 04:00: Sodium 139, Potassium 3.7, Chloride 112 H, Carbon Dioxide 22.0, Anion Gap 5, BUN 14, Creatinine 0.78, Est GFR (MDRD) Af Amer 101, Est GFR (MDRD) Non-Af 84, BUN/Creatinine Ratio 18.0, Glucose 109 H, Calcium 7.6 L, Total Bilirubin 0.50 06/04/19 04:00: Troponin I 0.120 H 06/04/19 04:45: Urine Color Yellow, Urine Clarity Clear, Urine pH 6.5, Ur Specific [place] 1.010, Urine Protein Negative, Urine Glucose (UA) Normal, Urine Ketones Negative, Urine Occult Blood Negative, Urine Nitrite Negative, Urine Bilirubin Negative, Urine Urobilinogen Normal, Ur Leukocyte Esterase Negative, U rine RBC 0 SEEN, Urine WBC 0 SEEN 06/04/19 05:40: Lactic Acid 0.7 06/04/19 06:50: Troponin I 0.140 H Rhythm: Telemetry negative. EKG: Pending ECHO: Pending Stress Test: Cardiac Cath: PCI: CT Surgery: Holter monitor: EPS: PPM: CXR: Chest CT Scan: Medical Necessity - Tobacco Use Smoking Status: Current every day smoker Tobacco Use: Cigarettes Assessment/Plan 1. Coronary artery disease: The patient presents with new onset substernal chest pain and anterior ST elevation myocardial infarction with acute STEMI team activated followed by emergent angioplasty and drug-eluting stenting to the mid LAD receiving a 2.25X 16 Promus Synergy stent, postdilated for appropriate vessel apposition. In addition the patient has a possibly significant proximal diagonal branch which was left for medical management she just had recent partial hysterectomy and continues to have vaginal bleeding postoperatively. In addition she has a 50% mid RCA stenosis, both of which will be evaluated with stress testing in 2 to 3 weeks time. The patient will continue baby aspirin, Brilinta, beta blockers, and ARB's. In addition she will undergo a 2D echo with Doppler to document her baseline LV function post procedure. If the patient has evidence of anterior anterior lateral or inferior/posterior ischemia on stress testing, I have a low threshold for the patient to return for elective PCI of her diagonal branch and/or her mid RCA in 3 weeks time. If however her stress test is negative we will continue medical management going forward. 2. Hyperlipidemia: Patient be treated with aggressive antilipid therapy. Repeat lipid profile in 6 weeks time. 3. Tobacco cessation: I have strongly encouraged the patient discontinue all tobacco products, and to that end I have placed her on a nicotine patch at 14 mg followed by as needed Ativan. Hopefully the patient will withdraw from tobacco addiction while she is here in the hospital. I also strongly encouraged her to discontinue all tobacco products as well to assist his with tobacco cessation. 4. The patient continue ICU therapy for the next 24 hours possibly discharge home tomorrow pending her troponins or telemetry. 5. Thank you very much for the opportunity to precipitate in the cardiac care of your patient. Code Visit Inpatient E&M: 66194 Subs Hosp L2
--- NOTE | 2019-06-04 10:00 | EKG12_ITS ---
Test Reason : AM EKG Blood Pressure : / mmHG Vent. Rate : 066 BPM Atrial Rate : 066 BPM P-R Int : 182 ms QRS Dur : 094 ms QT Int : 426 ms P-R-T Axes : 055 059 054 degrees QTc Int : 446 ms Normal sinus rhythm Normal ECG Confirmed by COLUMBA BRENNAN, RAMSES ([id number]), editor managing director SALENA BURDEN ([id number]) on 06/12/2019 1:17:44 PM Referred By: Ramses Garibay Confirmed By:RAMSES WATERMAN MD
[2019-06-04] MEDS: Metoprolol Tartrate 25 MG Tablet 12.5 MG PO ×2 (11:25→22:18)
[2019-06-04] MEDS: Aspirin E.C. 81 MG Tablet PO (11:25)
[2019-06-04] MEDS: TICAGRELOR 90 MG TABLET PO ×2 (11:25→22:17)
[2019-06-04] MEDS: Acetaminophen 325 MG Tablet 650 MG PO (11:25)
[2019-06-04] MEDS: 0.9% Saline Lock 10 ML Syringe IV (11:26)
[2019-06-04] MEDS: Losartan Potassium 25 MG Tablet 12.5 MG PO (13:28)
--- NOTE | 2019-06-04 13:44 | CASEMGMT ---
RN CM Assessment Presentation: STEMI Intro role of CM and purpose of RN CM assessment to patient in room. Pt is awake, alert and able to participate in assessment. Demographics, PCP and Pharmacy verified. Pt states she is generally independent, no use of DME, works. PCP: Dr. Aguilar Specialists: Dr. Gruber Preferred Pharmacy: [facility]. Insurance: [place] Prescription Benefit: no. Pt states her insurance does not cover medications. RN CM called to [facility] to verify that they do not submit her prescriptions to any insurance, but they use a saver card. Pt states her insurance has an [employer] account for reimbursement of medical expenses and she can use this for prescriptions. -Brilinta savings card given to pt for 30 day free, however after 30 days, cost will be prohibitive for this pt. Note placed on front of chart to update cardiology also. -Explained savings card and 30 day free, but also let pt know to speak with cardiology on f/u visit re: further medications as Brilinta cost will be prohibitive. Discounted Brilinta cost ranges from $378.76 to $409.21 LNOK: Living Arrangements: Lives independently with her . States no care needs at home. Transportation: Drives or family can drive. DME: none Patient DC goals: Home DC PLAN: Home Christina PAVON RN ACM
[2019-06-04 15:16] LABS: ACT Activated Clotting Time 208 sec (74-137)
[2019-06-04 15:16] LABS: ACT Activated Clotting Time 153 sec (74-137)
[2019-06-04] MEDS: Atorvastatin Calcium 80 MG Tablet PO (22:17)
[2019-06-04] MEDS: MELATONIN 3 MG TABLET 6 MG PO (22:17)
[2019-06-05] VITALS (15 sets, daily range): BP systolic 95–115; BP diastolic 45–65; PULSE 61–78; RESP 11–24; TEMP 36.1–36.9; O2SAT 96–100
[2019-06-05 04:23] LABS: Absolute Lymphocyte Count 1.95 X10^3/uL (0.83-4.51); Absolute Neutrophil Count 4.4 X10^3/uL (2.0-7.7); Basophil# 0.04 X10^3/uL; Basophil% 0.6 % (0-1); Eosinophil# 0.39 X10^3/uL; Eosinophils% 5.4 % (0-5); Hematocrit 28.2 % (37-47); Lymphocyte # 1.95 X10^3/ul (4.0); Lymphocyte % 26.9 % (19-41); Mean Corp Hgb Conc 31.9 g/dL (32-36); Mean Corpuscular Hgb 29.1 pg (27.0-32.0); Mean Corpuscular Volume 91.3 fL (81-99); Mean Platelet Vol. 10.7 fl (6.2-12.0); Monocyte# 0.45 X10^3/uL; Monocyte% 6.2 % (0-10); NRBC Flagged by Analyzer 0 % (0-5); Neutrophil % 60.6 % (47-70); Platelet Count 191 K/mm3 (150-450); RBC Distribution Width CV 16.6 % (11.6-14.6); RBC Distribution Width SD 54.2 fl (35.1-43.9); Red Blood Count 3.09 M/mm3 (4.2-5.4); White Blood Count 7.3 K/mm3 (4.4-11.0)
[2019-06-05 04:33] LABS: Anion Gap 4 (5-15); BUN 10 mg/dL (7-18); Chloride 113 mmol/L (98-107); Creatinine, Serum 0.62 mg/dL (0.55-1.02); EST Glomerular Filtration Rate 108 mL/min (>60); Est Glom Filt Rate - Afr Amer 130 mL/min (>60); Estimated Creatinine Clearance 104.89 ml/min; Glucose 102 mg/dL (74-106); Sodium Level 142 mmol/L (136-145)
--- NOTE | 2019-06-05 09:23 | PN.CARD_ITS ---
Subjectve: Patient feeling much better this morning, no 24-hour events. Telemetry negative. EKG shows normal sinus rhythm with resolution of her anterior ST el evation. Right groin is clean/dry/intact without evidence of thrills, bruits or hematoma. Hemoglobin and creatinine are within nominal limits. Objective: Vital Signs Temp Pulse Resp BP Pulse Ox 97 F L 69 17 111/58 L 100 06/05/19 08:00 06/05/19 08:00 06/05/19 08:00 06/05/19 08:00 06/05/19 08:00 Oxygen Flow Rate (L/min) 2 Oxygen Delivery Method Room Air Weight: 130 lb 4.691 oz Body Mass Index (BMI) 21.1 Intake and Output for Last 24 Hours 06/03/19 06/04/19 06/05/19 23:59 23:59 23:59 Intake Total 3550 / 3890 430 / 430 Output Total 1250 / 1750 900 / 900 Balance 2300 / 2140 -470 / -470 General: Awake, Alert, Oriented x 3 HEENT: PERRL, EOMI, Sclera Non Icteric Neck: Supple, Good ROM, No Lymph Node Enlargement Lungs: Clear to auscultation Cardiovascular: Regular Rhythm, Normal S1, Normal S2, No Murmurs, No Rubs, No Gallops Vascular: No Carotid Bruits, Normal Femoral Pulses, Normal Radial Pulses, Normal Dorsalis Pedal Pulse, Normal Posterior Tibial Pulses Abdomen: Bowel Sounds Present, Soft, Non Tender, No HSM, No Organomegaly Extremities: No Cyanosis, No Clubbing, No edema Neurological: No Focal Motor or Sensory Deficit 06/05/19 03:50: WBC 7.3, RBC 3.09 L, Hgb 9.0 L, Hct 28.2 L, MCV 91.3, MCH 29.1, MCHC 31.9 L, Plt Count 191, MPV 10.7, Immature Gran % (Auto) 0.300, Neut % (Auto) 60.6, Lymph % (Auto) 26.9, [place] % (Auto) 6.2, Eos % (Auto) 5.4 H, Baso % (Auto) 0.6, Absolute Neuts (auto) 4.4, Nucleated RBC % 0 06/05/19 03:50: Sodium 142, Potassium 4.0, Chloride 113 H, Carbon Dioxide 25.0, Anion Gap 4 L, BUN 10, Creatinine 0.62, Est GFR (MDRD) Af Amer 130, Est GFR (MDRD) Non-Af 108, BUN/Creatinine Ratio 16.0, Glucose 102, Calcium 8.0 L Rhythm: EKG: ECHO: Stress Test: Cardiac Cath: PCI: CT Surgery: Holter monitor: EPS: PPM: CXR: Chest CT Scan: Medical Necessity - Tobacco Use Smoking Status: Current every day smoker Tobacco Use: Cigarettes Assessment/Plan 1. Coronary artery disease: The patient presents with new onset substernal chest pain and anterior ST elevation myocardial infarction with acute STEMI team activated followed by emergent angioplasty and drug-eluting stenting to the mid LAD receiving a 2.25X 16 Promus Synergy stent, postdilated for appropriate vessel apposition. In addition the patient has a possibly significant proximal diagonal branch which was left for medical management she just had recent partial hysterectomy and continues to have vaginal bleeding postoperatively. In addition she has a 50% mid RCA stenosis, both of which will be evaluated with stress testing in 2 to 3 weeks time. The patient will continue baby aspirin, Brilinta, beta blockers, and ARB's. 2D echo with Doppler done yesterday, which shows intact LV function, and relatively normal pulmonary pressures. No pericardial effusion. If the patient has evidence of anterior anterior lateral or inferior/posterior ischemia on stress testing, I have a low threshold for the patient to return for elective PCI of her diagonal branch and/or her mid RCA in 3 weeks time. If however her stress test is negative we will continue medical management going forward. Patient may return to work on Monday. 2. Hyperlipidemia: Patient be treated with aggressive antilipid therapy. Repeat lipid profile in 6 weeks time. 3. Tobacco cessation: I have strongly encouraged the patient discontinue all tobacco products, and to that end I have placed her on a nicotine patch at 14 mg followed by as needed Ativan. Hopefully the patient will withdraw from tobacco addiction while she is here in the hospital. I also strongly encouraged her to discontinue all tobacco products as well to assist his with tobacco cessation. 4. Patient may be discharged home. Peak troponin 0 0.14. 5. Thank you very much for the opportunity to precipitate in the cardiac care of your patient. Follow-up with Dr. Gruber going forward. Code Visit Inpatient E&M: 44529 Subs Hosp L2
[2019-06-05] MEDS: Metoprolol Tartrate 25 MG Tablet 12.5 MG PO (09:40)
[2019-06-05] MEDS: Aspirin E.C. 81 MG Tablet PO (09:41)
[2019-06-05] MEDS: TICAGRELOR 90 MG TABLET PO (09:41)
[2019-06-05] MEDS: Losartan Potassium 25 MG Tablet 12.5 MG PO (09:42)
--- NOTE | 2019-06-05 10:00 | EKG12_ITS ---
Test Reason : CP Blood Pressure : / mmHG Vent. Rate : 061 BPM Atrial Rate : 061 BPM P-R Int : 186 ms QRS Dur : 096 ms QT Int : 438 ms P-R-T Axes : 079 074 031 degrees QTc Int : 440 ms Normal sinus rhythm ST elevation consider anterior injury or acute infarct ACUTE CA / STEMI Abnormal ECG Confirmed by SULEMA BRENNAN, NIYA ([id number]), assignment desk editor KEVIN KATZ ([id number]) on 06/18/2019 9:55:07 AM Referred By: Ramses Garibay Confirmed By:NIYA LEONE MD
--- NOTE | 2019-06-05 10:09 | PCM.DC ---
- Discharge Diagnoses Current Active Problems: Current Active and Chronic Problems (Last Updated 06/04/19 @ 09:31 by Jenn Issa) Atherosclerosis of coronary artery of [place] heart without angina pectoris (Chronic) STEMI (ST elevation myocardial infarction) (Acute) You will use the following diet at home:: Cardiac Your food should be the consistency of: Regular Discharge Activity: Return to Normal Activity Return to work on:: 06/10/19 Weight Bearing Status: Full weight bearing Call your doctor if you observe: Fever of 101 or Higher, Shortness of breath, Dizziness, Fainting spells, Swelling in the ankles, Chest pain, Increased palpitations (irregular heartbeat), Uncontrolled pain Instructions: Coronary Stents, Heart Attack Allergies/Adverse Reactions: Allergies No Known Allergies Allergy (Verified 06/03/19 13:25) Medications to take at Discharge Aspirin E.C. [Ecotrin] 81 mg PO DAILY@0800 #90 tab 06/05/19 Atorvastatin Calcium [Lipitor] 80 mg PO QHS #90 tab 06/05/19 Losartan Potassium [Cozaar] 12.5 mg PO DAILY #90 tab 06/05/19 Metoprolol Tartrate [Lopressor (beta gm)] 12.5 mg PO BID #90 tab 06/05/19 Ticagrelor [Brilinta] 90 mg PO BID #90 tab 06/05/19 The following prescriptions were given: Ticagrelor [Brilinta] 90 mg PO BID #90 tab Transmission Status: Pending to [facility] Losartan Potassium [Cozaar] 12.5 mg PO DAILY #90 tab Transmission Status: Pending to [facility] Aspirin E.C. [Ecotrin] 81 mg PO DAILY@0800 #90 tab Transmission Status: Pending to [facility] Atorvastatin Calcium [Lipitor] 80 mg PO QHS #90 tab Transmission Status: Pending to [facility] Metoprolol Tartrate [Lopressor (beta gm)] 12.5 mg PO BID #90 tab Transmission Status: Pending to [facility] Orders to be completed after discharge: Phase II, Outpatient Cardiac Rehab Location: None Selected Primary Care Physician: Stephanie Aguilar MD [Primary Care Provider] - Please follow up with your Primary Care Physician in: 1 week. Test Results: Test results from this visit will be discussed in further detail at your follow-up appointment, if applicable. Please Follow Up With: Clifford Gruber MD When: 2-4 weeks.
--- NOTE | 2019-06-05 11:17 | CASEMGMT ---
BECKY MCLEOD NOTE: BECKY MCLEOD informed pt had questions re: medications and cost and would like to talk to BECKY MCLEOD. BECKY MCLEOD to room to talk with pt. She voiced concerns re: cost of meds that she will be discharging home on. Call placed to [facility]. Brilinta savings card applied. Cost of Brilinta for 30-days will be $5. Remainder of meds that were e-scribed will all be under $10. Pt made aware of this. Also reinforced with pt the importance of not stopping the Brilinta and to talk with building drafter about other alternatives to this medication as refills will be not be affordable. Pt voices understanding. Vanna PAVON RN, CM
--- NOTE | 2019-06-05 13:45 | PCM.DC.SUM ---
Discharge Date and Diagnosis - Problem List Patient Problems: Active and Suspected Problems (Last Updated 06/04/19 @ 09:31 by Jenn Issa) STEMI (ST elevation myocardial infarction) (Acute) Date of Admission: 06/04/19 Date of Discharge: 06/05/19 - Primary Discharge Diagnosis Active and Suspected Problems (Last Updated 06/04/19 @ 09:31 by Jenn Issa) #1 cardiac arrest resuscitated with chest compressions, no intubation or mechanical ventilation performed. #[address] elevation SD. #3 lactic acidosis, attributed to cardiac arrest. - Secondary Discharge Diagnosis Chronic Problems (Last Updated 06/04/19 @ 09:31 by Jenn Issa) Atherosclerosis of coronary artery of [place] heart without angina pectoris (Chronic) Abnormal uterine bleeding (AUB) (Chronic) d and c hysterosocpy liam ablation, laparosopic bilateral salpingectomy Tobacco dependence (Chronic) Strabismic amblyopia of right eye (Chronic) PTSD (post-traumatic stress disorder) (Chronic) Hospital Course and Treatment Imaging Results: Clinical Impression(s) from Imaging Studies Chest X-Ray 06/04/19 01:16 IMPRESSION: Slightly hyperexpanded lungs otherwise normal x-ray examination of the chest. Electronically Signed: Jacque Shetty MD at 2:07 EST , Service support , Dr. Gruber, cardiology. Procedures: 2-D Echocardiogram, Cardiac catheterization, CPR performed, EKG Summary of Care Provided: Patient seen and examined on the day of discharge and appeared to be stable to be discharged home. She denied any more chest pain or shortness of breath. She ambulated last night and she did very well. Denies dizziness or lightheadedness. Her vital signs are stable. The patient is a 48 year old F patient was found unresponsive in her car, there was no pulse and [facility] was called. CPR started and after few chest compressions, patient started to woke up. Later, patient's arrived and he mentioned that the patient complained of chest pain prior to the arrival to the hospital where she was found on her car in the parking lot near to the triage area. She went into cardiac arrest which was resuscitated and she was found to have acute ST depression SD. Patient was not intubated and there was no indication for mechanical ventilation. Patient underwent emergent cardiac catheterization, found to have 85% stenosis on the mid LAD, status post PTCA/BRIT to mid LAD. Later, patient was admitted to intensive care unit and she was started on aspirin, Brilinta, losartan and metoprolol as well as statins. Her routine blood work was remarkable for leukocytosis which is attributed to acute stress and illness, found to have lactic acid of 2.5 which also attributed to cardiac arrest and returned back to normal after treatment. There was no evidence of infection, sepsis or severe sepsis. 2D echocardiogram revealed ejection fraction 65%, normal by histology, RVSP of 30 mm.Hg. afterwards, patient did very well, her vital signs were stable. She remained without chest pain or shortness of breath overnight. She ambulated without any difficulties and no symptoms. Patient discharged home in a stable medical condition, discharged on aspirin, Brilinta, Lipitor, losartan and metoprolol, counseled about smoking cessation, plan to follow-up with PCP in 1 week and follow-up with cardiology in 2 to 4 weeks. Patient Problems: Active and Suspected Problems (Last Updated 06/04/19 @ 09:31 by Jenn Issa) STEMI (ST elevation myocardial infarction) (Acute) - Physical Exam Vitals/I&O's: Vital Signs Temp Pulse Resp BP Pulse Ox 97.8 F 69 17 103/55 L 99 06/05/19 10:23 06/05/19 10:23 06/05/19 10:23 06/05/19 10:23 06/05/19 10:23 Oxygen Flow Rate (L/min) 2 Oxygen Delivery Method Room Air Weight: 130 lb 4.691 oz Body Mass Index (BMI) 21.1 Intake and Output for Last 24 Hours 06/03/19 06/04/19 06/05/19 23:59 23:59 23:59 Intake Total 3550 / 3890 430 / 430 Output Total 1250 / 1750 900 / 900 Balance 2300 / 2140 -470 / -470 General: Alert, Oriented x3, Cooperative, No apparent distress HEENT: Atraumatic, PERRLA, EOMI, Normocephalic Oral: Moist Mucosa, No Gingival or Mucosal Lesions/ Ulcerations Neck: Supple, No JVD, Negative Carotid Bruits, Trachea Midline, Thyroid Normal Size and Texture Lungs: Clear to auscultation, Normal air movement, No rhonchi, No wheeze, No rales Cardiovascular: Regular rate, Regular Rhythm, Normal S1, Normal S2, PMI Normal Abdomen: Bowel Sounds Present, Soft, Non Tender, Non-Distended, No Hepato-splenomegaly Extremities: No clubbing, No cyanosis, No edema Skin: No rashes, No breakdown Lymphatic: No Cervical, Supraclavicular, or Inguinal Adenopathy Neurological: Cranial nerves II-XII grossly intact, Motor Exam 5/5 strength throughout Psych/Mental Status: Normal Affect, Appropriate Laboratory Results 06/04/19 02:19: Activated Clotting Time 153 H 06/04/19 02:42: Activated Clotting Time 208 H 06/05/19 03:50: WBC 7.3, RBC 3.09 L, Hgb 9.0 L, Hct 28.2 L, MCV 91.3, MCH 29.1, MCHC 31.9 L, RDW Std Deviation 54.2 H, RDW Coeff of Zuleyma 16.6 H, Plt Count 191, MPV 10.7, Immature Gran % (Auto) 0.300, Neut % (Auto) 60.6, Lymph % (Auto) 26.9, [place] % (Auto) 6.2, Eos % (Auto) 5.4 H, Baso % (Auto) 0.6, Absolute Neuts (auto) 4.4, Absolute Lymphs (auto) 1.95, Nucleated RBC % 0 06/05/19 03:50: Sodium 142, Potassium 4.0, Chloride 113 H, Carbon Dioxide 25.0, Anion Gap 4 L, BUN 10, Creatinine 0.62, Estim Creat Clear Calc 104.89, Est GFR (MDRD) Af Amer 130, Est GFR (MDRD) Non-Af 108, BUN/Creatinine Ratio 16.0, Glucose 102, Calcium 8.0 L Current Medications Acetaminophen (Tylenol) 650 mg PO Q6H PRN PRN PRN Reason: Pain Score 1-04/04 Last Admin: 06/04/19 11:25 Dose: 650 mg Documented by: Aspirin (Ecotrin) 81 mg PO DAILY@0800 [facility] Last Admin: 06/05/19 09:41 Dose: 81 mg Documented by: Atorvastatin Calcium (Lipitor) 80 mg PO QHS [facility] Last Admin: 06/04/19 22:17 Dose: 80 mg Documented by: Atropine Sulfate () 0.5 mg IV UD PRN PRN Reason: HR <50 bpm Heparin Sodium (Beef Lung) (Heparin 500 Unit/5 Ml (100/Ml)) 500 unit IV UD PRN PRN Reason: HEPARIN FLUSH Last Admin: 06/04/19 07:04 Dose: 500 unit Documented by: Sodium Chloride () 250 mls @ 15 mls/hr IV .[id number] PRN PRN Reason: Saline Flush Labetalol HCl (Trandate) 5 mg IV X1 PRN PRN Reason: SBP > 160 when pulling sheath Lorazepam (Ativan) 0.5 mg PO Q8H PRN PRN PRN Reason: ANXIETY Losartan Potassium (Cozaar) 12.5 mg PO DAILY [facility] Last Admin: 06/05/19 09:42 Dose: 12.5 mg Documented by: Melatonin (Melatonin) 6 mg PO QHS PRN PRN PRN Reason: SLEEP Last Admin: 06/04/19 22:17 Dose: 6 mg Documented by: Metoclopramide HCl (Reglan) 5 mg IV Q6H PRN PRN PRN Reason: NAUSEA/VOMITING Metoprolol Tartrate (Lopressor (Beta Aden)) 12.5 mg PO BID [facility] Last Admin: 06/05/19 09:40 Dose: 12.5 mg Documented by: Morphine Sulfate () 2 mg IV Q4H PRN PRN PRN Reason: Mild back pain (-2) Nicotine (Nicoderm Cq (Pbkc)) 14 mg TRANSDERM. DAILY [facility] Last Admin: 06/05/19 09:40 Dose: 14 mg Documented by: Nitroglycerin (Nitrostat) 0.4 mg SUBLINGUAL Q5M PRN PRN Reason: CARDIAC/CHEST PAIN Sodium Chloride () 500 ml IV BOLUS PRN PRN Reason: VASO-VAGAL PROTOCOL Sodium Chloride () 10 - 40 ml IV UD PRN PRN Reason: SALINE FLUSH Last Admin: 06/04/19 11:26 Dose: 30 ml Documented by: Ticagrelor (Brilinta) 90 mg PO BID [facility] Last Admin: 06/05/19 09:41 Dose: 90 mg Documented by: Discharge Activity: Return to Normal Activity Return to work on:: 06/10/19 Weight Bearing Status: Full weight bearing Call your doctor if you observe: Fever of 101 or Higher, Shortness of breath, Dizziness, Fainting spells, Swelling in the ankles, Chest pain, Increased palpitations (irregular heartbeat), Uncontrolled pain Home Medications: Medications to take at Discharge Aspirin E.C. [Ecotrin] 81 mg PO DAILY@0800 #90 tab 06/05/19 Atorvastatin Calcium [Lipitor] 80 mg PO QHS #90 tab 06/05/19 Losartan Potassium [Cozaar] 12.5 mg PO DAILY #90 tab 06/05/19 Metoprolol Tartrate [Lopressor (beta aden)] 12.5 mg PO BID #90 tab 06/05/19 Ticagrelor [Brilinta] 90 mg PO BID #90 tab 06/05/19 Following Prescrptions Were Given to Patient: Ticagrelor [Brilinta] 90 mg PO BID #90 tab Transmission Status: Received by [facility] Losartan Potassium [Cozaar] 12.5 mg PO DAILY #90 tab Transmission Status: Received by [facility] Aspirin E.C. [Ecotrin] 81 mg PO DAILY@0800 #90 tab Transmission Status: Received by [facility] Atorvastatin Calcium [Lipitor] 80 mg PO QHS #90 tab Transmission Status: Received by [facility] Metoprolol Tartrate [Lopressor (beta aden)] 12.5 mg PO BID #90 tab Transmission Status: Received by [facility] Other Amb Orders: Phase II, Outpatient Cardiac Rehab Location: None Selected Primary Care Physician: Stephanie Aguilar MD [Primary Care Provider] - Please follow up with your Primary Care Physician in: 1 week. Please Follow Up With: Clifford Gruber MD When: 2-4 weeks. Patient Instructions: Coronary Stents, Heart Attack Disposition: Home Minutes spent on discharge:: 32 Patient Condition:: Stable Medical Necessity - Tobacco Use Smoking Status: Current every day smoker Tobacco Use: Cigarettes Meaningful Use Info Meaningful Use Diagnoses (Choose all that apply): AMI - AMI Aspirin given w/in 24hrs of arrival?: Yes ASA at discharge?: Yes Statins at discharge?: Yes Landon/ARB at discharge?: Yes Beta Aden at discharge?: Yes Done w/ Acute SD measure.: Yes Documented LVEF (%): 65 Code Visit Inpatient E&M: 33215 Disch Hosp
== END 2019-06-05 11:30 | disposition home or self-care (01) | DRG 246 ==
LOC: ED 01:32 → ICU 03:08
PROVIDERS: Internal Medicine Cardiovascular Disease; Admitting Provider Family Medicine; Emergency Provider Emergency Medicine; Family Provider Family Medicine; PCP Family Medicine; Referring Provider Family Medicine; Visit Provider Hospitalist
DX: I21.09 ST elevation (STEMI) myocardial infarction involving other coronary artery of anterior wall (principal); I46.2 Cardiac arrest due to underlying cardiac condition; E87.2 Acidosis; F17.210 Nicotine dependence, cigarettes, uncomplicated; I25.10 Atherosclerotic heart disease of native coronary artery without angina pectoris; Z82.49 Family history of ischemic heart disease and other diseases of the circulatory system
CPT/HCPCS: 71045; 80048; 80053; 80061; 80076; 80307; 80320; 81001; 83605; 83690; 84134; 84484; 84703; 85025; 85027; 85347; 85379; 85610; 85730; 92941; 93005; 93306; 93458; 99285; 99406; J7030; J7040; A4216; C1725; C1769; C1874; C1887; C9606; G0480; J2405; Q9967

== ENCOUNTER → 2019-06-21 10:01 | Outpatient (CLI) | payer BC, SELFPAY ==
[2019-06-04 03:04] VITALS: BMI 21.1
[2019-06-17 09:27] VITALS: BMI 20.5
--- NOTE | 2019-06-21 10:03 | STE_ITS ---
Reason For Study: CAD/ASHD Stress Results Protocol: Stress Echocardiogram Maximum Predicted HR: 171 bpm Target HR: 145 bpm % Maximum Predicted HR: 85 % Heart Stage Duration Rate BP Comment (mm:ss) (bpm) PT TOOK METOPROLOL, PT C/O CP 5/10 PRIOR TO STARTING. STATES BASELINE 66 122/70SHE ALWAYS FEELS CP. DR GRUBER AWARE. TOLD TO PROCEED. OSMANY PROTOCOL- STAGE 1 3:00 113 144/74SL SOB, CP REMAINS 5/10 OSMANY PROTOCOL- STAGE 2 3:00 107 138/68SL SOB, CP REMAINS 5/10 OSMANY PROTOCOL- STAGE 3 3:00 118 150/78SL SOB, CP REMAINS 5/10 OSMANY PROTOCOL- STAGE 4 1:37 146 / SOB, CP UNCHANGED RECOVERY 81 118/72SOB SUBSIDED, CP REMAINS UNCHANGED Stress Duration: 10:37 mm:ss Maximum Stress HR: 146 bpm Baseline Echocardiogram Findings The estimated ejection fraction is 65 %. Stress Echo Wall motion Data Resting WM Intermediate WM Stress WM Resting Wall Motion Wall Motion Stress No regional wall motion No regional wall motion abnormalities noted. abnormalities noted. EKG Data The baseline ECG displays normal sinus rhythm. The patient exercised according to the regular Osmany protocol for a total duration of 10:37. The maximum heart rate attained was 146 beats per minute. This was 85% of maximum predicted heart rate. The patient exercised into stage 4 of the Osmany protocol. During stress, there were no ST or T wave changes noted to suggest ischemia. No arrhythmias noted. No clinical angina was noted. Interpretation Summary The estimated ejection fraction is 65 %. Normal, adequate, treadmill echocardiogram. Negative for ischemia by EKG and echocardiographic criteria. No anginal symptoms noted. No arrhythmias noted. Appropriate blood pressure response to exercise. Average exercise capacity for age. Test terminated due to attainment target heart rate and dyspnea. The patient had baseline atypical 5 out of 10 chest pain at the beginning of the procedure which did not worsen during exercise. Final LVEF is 75%. No complications. Ordering Physician: Mj^Rosaura^Katia^^PA Referring Physician: Clifford Gruber Performed By: Lila Johnson LEXX
== END ==
PROVIDERS: Family Provider Family Medicine; PCP Family Medicine; Referring Provider Internal Medicine Cardiovascular Disease; Visit Provider Internal Medicine Cardiovascular Disease
DX: I25.10 Atherosclerotic heart disease of native coronary artery without angina pectoris (principal); I25.2 Old myocardial infarction; Z95.5 Presence of coronary angioplasty implant and graft
CPT/HCPCS: 93017; 93350

== ENCOUNTER 2019-07-12 15:05 | Emergency (ER) | payer BC, SELFPAY ==
[2019-06-17 09:27] VITALS: BMI 20.5
[2019-07-12 15:06] VITALS: BP 108/56; PULSE 65; RESP 20; TEMP 36.4; O2SAT 100; BMI 19.8
--- NOTE | 2019-07-12 15:24 | EKG12_ITS ---
Test Reason : CP Blood Pressure : / mmHG Vent. Rate : 063 BPM Atrial Rate : 063 BPM P-R Int : 150 ms QRS Dur : 086 ms QT Int : 432 ms P-R-T Axes : 068 073 062 degrees QTc Int : 442 ms Normal sinus rhythm Normal ECG Confirmed by SULEMA BRENNAN, NIYA ([id number]), book or script editor KEVIN KATZ ([id number]) on 07/16/2019 9:04:49 AM Referred By: BUFFY/DEVI Confirmed By:NIYA LEONE MD
--- NOTE | 2019-07-12 15:25 | RAD_ITS ---
STUDY: X-RAY CHEST REASON FOR EXAM: Female, 49 years old. Sob and weakness TECHNIQUE: 2 frontal images of the chest were obtained. COMPARISON: June 04, 2019 FINDINGS: The lungs remain hyperinflated. There is no new focal consolidation. Normal size heart. Normal mediastinum and kadi. Normal visualized pulmonary arteries. Normal visualized aortic arch and descending thoracic aorta. Normal visualized thoracic spine. Normal visualized ribs, clavicles, and shoulders. There is no demonstrated abnormality of the visualized soft tissue structures of the upper abdomen. RAD/Chest 1 View (Portable) IMPRESSION: No acute cardiopulmonary process. Electronically Signed: Lenore Ny MD at 16:01 EST Tel , Service support ,
--- NOTE | 2019-07-12 15:26 | ED.VIS.GEN ---
History of Present Illness Chief Complaint: Nausea/Vomiting Informant: Patient, Family Onset: Today Narrative: Patient presents stating that she does feel sick. Sounds like she felt okay when she left to go to work today. That was approximately 2 hours ago. While going to work patient started to feel ill with dizziness and lightheadedness. She felt nauseated. Patient had a STEMI and cardiac arrest approximate 1 month ago and states that she had significant nausea prior to the onset of this. She denies any chest pain or abdominal pain currently. - Past Medical History (1) Atherosclerosis of coronary artery of [place] heart without angina pectoris Status: Chronic (2) History of ST elevation myocardial infarction (STEMI) Status: Chronic (3) History of coronary artery stent placement Status: Chronic Comment: BRIT mid LAD with a 2.25 x 16 Promus Synergy 06/04/2019 (4) History of sudden cardiac arrest successfully resuscitated Status: Chronic (5) PTSD (post-traumatic stress disorder) Status: Chronic Past Medical History - Allergies and Home Meds Allergies/Adverse Reactions: Allergies No Known Allergies Allergy (Verified 07/12/19 15:06) Primary Care Physician: Stephanie Aguilar MD [Primary Care Provider] - Prior records reviewed: Yes Surgical History: - - Recent uteroscopy and tubal ligation Lives: Spouse/ Significant Other Smoking Status: Current every day smoker - Family History Maternal Family History: Family History (Last Reviewed 06/17/19 @ 09:27 by Anna Rosenbaum) Father Cancer Grandmother Breast cancer Kidney disease Uncle Myocardial infarction Mother Myocardial infarction Family History: Reports: No pertinent history Review of Systems General: Denies: Chills, Fever Eyes: Denies: Visual changes - bilaterally ENT: Denies: Bilateral ear pain Cardiovascular: Denies: Chest pain, Palpitations Respiratory: Reports: Dyspnea, Cough, Sputum Gastrointestinal: Reports: Nausea, Vomiting. Denies: Abdominal pain Genitourinary: Denies: Dysuria Musculoskeletal: Denies: Swelling, Extremity Pain Skin: Denies: Rash Neurological: Denies: Headache Allergy: Denies: Uticaria Physical Exam Vital Signs/Narrative: Vital Signs Temp Pulse Resp BP Pulse Ox 07/12/19 15:06 97.6 F L 65 20 H 108/56 L 100 Inital Vital Signs reviewed: Yes General: Well nourished, Well developed Head: Normocephalic ENT: Moist mucous membranes Neck: Supple Cardiovascular: Regular rate, Regular rhythm Respiratory: No distress, CTA bilaterally Abdomen: Soft, Nontender, Hypoactive bowel sounds Extremities: Nontender Skin: Pallor Neurological: Alert, Oriented x3 Psychological: - - Flat affect Diagnostic/Tx/Re-eval Impressions Chest X-Ray 07/12/19 15:25 IMPRESSION: No acute cardiopulmonary process. Electronically Signed: Lenore Ny MD at 16:01 EST Tel , Service support , 07/12/19 15:25 Chest 1 View (Portable) [RAD] Stat Laboratory Results 07/12/19 07/12/19 15:10 15:10 WBC 10.7 RBC 3.88 L Hgb 11.3 L Hct 35.4 L MCV 91.2 MCH 29.1 MCHC 31.9 L RDW Std Deviation 55.7 H RDW Coeff of Zuleyma 16.7 H Plt Count 255 MPV 10.2 Immature Gran % (Auto) 0.300 Neut % (Auto) 75.2 H Lymph % (Auto) 15.3 L Miner % (Auto) 4.4 Eos % (Auto) 4.4 Baso % (Auto) 0.4 Absolute Neuts (auto) 8.1 H Absolute Lymphs (auto) 1.64 Nucleated RBC % 0 Sodium 141 Potassium 3.6 Chloride 110 H Carbon Dioxide 24.0 Anion Gap 7 BUN 11 Creatinine 0.89 Estim Creat Clear Calc 71.22 Est GFR (MDRD) Af Amer 86 Est GFR (MDRD) Non-Af 71 BUN/Creatinine Ratio 12.3 Glucose 121 H Calcium 9.0 Total Bilirubin 0.90 Direct Bilirubin 0.26 AST 22 ALT 42 Alkaline Phosphatase 72 Troponin I < 0.015 Total Protein 7.2 Albumin 3.8 Globulin 3.4 Lipase 79 - EKG Initial EKG Interpretation: Sinus Rhythm - Sinus at 63 with no acute ischemia. - Medical Decision Making Patient is given IV fluids and Phenergan. On repeat evaluation she does feel improved. She was offered something to eat or drink here but wishes to just eat at home. Although nursing notes do document the patient's only symptom prior to her last AR was nausea and vomiting that is not accurate. Patient had been complaining of pain in her chest, back, and left arm before becoming unresponsive and after regaining responsiveness. Patient is adamant that she has had none of those symptoms currently. 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 Patient be given a prescription for Phenergan at home. ED Disposition - Plan for ED Patient: Disposition: Home or Assisted Living Diagnosis: Vomiting Instructions: VOMITING (6y-Adult) Prescriptions: proMETHazine tablet [Phenergan] 0.5 - 1 tab PO Q6H PRN PRN #10 tab PRN Reason: Nausea Transmission Status: Pending to [id number] Referrals: Stephanie Aguilar MD [Primary Care Provider] - 3-5 Days if not improving Clifford Gruber MD [STAFF PHYSICIAN] - As Needed
[2019-07-12 15:37] LABS: Absolute Lymphocyte Count 1.64 X10^3/uL (0.83-4.51); Absolute Neutrophil Count 8.1 X10^3/uL (2.0-7.7); Basophil# 0.04 X10^3/uL; Basophil% 0.4 % (0-1); Eosinophil# 0.47 X10^3/uL; Eosinophils% 4.4 % (0-5); Hematocrit 35.4 % (37-47); Hemoglobin 11.3 g/dL (12.0-15.0); Lymphocyte # 1.64 X10^3/ul (4.0); Lymphocyte % 15.3 % (19-41); Mean Corp Hgb Conc 31.9 g/dL (32-36); Mean Corpuscular Hgb 29.1 pg (27.0-32.0); Mean Corpuscular Volume 91.2 fL (81-99); Mean Platelet Vol. 10.2 fl (6.2-12.0); Monocyte# 0.47 X10^3/uL; Monocyte% 4.4 % (0-10); NRBC Flagged by Analyzer 0 % (0-5); Neutrophil # 8.05 X10^3/uL (2.7-7.7); Neutrophil % 75.2 % (47-70); Platelet Count 255 K/mm3 (150-450); RBC Distribution Width CV 16.7 % (11.6-14.6); RBC Distribution Width SD 55.7 fl (35.1-43.9); Red Blood Count 3.88 M/mm3 (4.2-5.4); White Blood Count 10.7 K/mm3 (4.4-11.0)
[2019-07-12 15:52] LABS: AST(SGOT) 22 U/L (15-37); Alanine Aminotransfer ALT/SGPT 42 U/L (13-56); Albumin, Serum 3.8 g/dL (3.2-5.0); Alkaline Phosphatase 72 U/L (45-117); Anion Gap 7 (5-15); BUN 11 mg/dL (7-18); BUN/Creat Ratio 12.3 RATIO (10-20); Bilirubin, Direct 0.26 mg/dL (0.00-0.30); Chloride 110 mmol/L (98-107); Creatinine, Serum 0.89 mg/dL (0.55-1.02); EST Glomerular Filtration Rate 71 mL/min (>60); Est Glom Filt Rate - Afr Amer 86 mL/min (>60); Estimated Creatinine Clearance 71.22 ml/min; Globulin 3.4 g/dL (2.2-4.2); Glucose 121 mg/dL (74-106); Lipase 79 U/L (73-393); Potassium 3.6 mmol/L (3.5-5.1); Protein, Total 7.2 g/dL (6.4-8.2); Sodium Level 141 mmol/L (136-145)
[2019-07-12] MEDS: proMETHazine 25 MG/ML Syringe 12.5 MG IV (16:05)
[2019-07-12] MEDS: 0.9% Normal Saline 1,000 ML 150 ML IV (16:05)
[2019-07-12 17:22] VITALS: PULSE 74; RESP 19
== END 2019-07-12 17:27 | disposition home or self-care (01) ==
PROVIDERS: Emergency Provider Emergency Medicine; PCP Family Medicine
DX: R11.2 Nausea with vomiting, unspecified (principal); I25.2 Old myocardial infarction; I25.10 Atherosclerotic heart disease of native coronary artery without angina pectoris; F17.200 Nicotine dependence, unspecified, uncomplicated; Z86.74 Personal history of sudden cardiac arrest; Z95.5 Presence of coronary angioplasty implant and graft; Z79.02 Long term (current) use of antithrombotics/antiplatelets; Z79.899 Other long term (current) drug therapy
CPT/HCPCS: 71045; 80048; 80076; 83690; 84484; 85025; 93005; 96361; 96374; 99284

== ENCOUNTER 2019-08-15 22:40 | Observation (INO) | payer BC, SELFPAY ==
[2019-08-15 22:42] VITALS: BP 157/128; PULSE 65; RESP 30; TEMP 36.6; O2SAT 100; BMI 21.4
--- NOTE | 2019-08-15 23:09 | EKG12_ITS ---
Test Reason : CP Blood Pressure : / mmHG Vent. Rate : 063 BPM Atrial Rate : 063 BPM P-R Int : 144 ms QRS Dur : 082 ms QT Int : 438 ms P-R-T Axes : 073 070 061 degrees QTc Int : 448 ms Normal sinus rhythm Normal ECG Confirmed by MEGHANN BRENNAN, GUNNER ([id number]), editor at large SALENA BURDEN ([id number]) on 08/19/2019 2:22:48 PM Referred By: JOE Confirmed By:JOVON ZAVALETA MD
--- NOTE | 2019-08-15 23:10 | ED.DCSUM_ITS ---
History of Present Illness Chief Complaint: Chest Pain Informant: Patient, Family Onset: Today Current Severity: Moderate Maximum Severity: Moderate Narrative: Patient presents secondary to shortness of breath and chest pain. She states she was on a break at work around 9 PM when she felt short of breath. Within the next hour she started noticing some heaviness in her chest that radiated through to her back and up to the left shoulder. She states symptoms seem to be improving now. In route with EMS she was given aspirin as well as 3 sublingual nitroglycerin. Patient noted no change in the pain with that. Past history significant for cardiac arrest with STEMI and cardiac stent placement in May. She is no longer on Brilinta but is on Plavix and aspirin. - Past Medical History (1) STEMI (ST elevation myocardial infarction) Status: Resolved (2) Atherosclerosis of coronary artery of [place] heart without angina pectoris Status: Chronic (3) History of coronary artery stent placement Status: Chronic Comment: BRIT mid LAD with a 2.25 x 16 Promus Synergy 06/04/2019 (4) History of sudden cardiac arrest successfully resuscitated Status: Chronic (5) PTSD (post-traumatic stress disorder) Status: Chronic Past Medical History - Allergies and Home Meds Allergies/Adverse Reactions: Allergies No Known Allergies Allergy (Verified 07/12/19 15:06) Primary Care Physician: Stephanie Aguilar MD [Primary Care Provider] - Doctors: Dr. Gruber Prior records reviewed: Yes Surgical History: - - Recent uteroscopy and tubal ligation Lives: Spouse/ Significant Other Smoking Status: Current every day smoker - Family History Maternal Family History: Family History (Last Reviewed 06/17/19 @ 09:27 by Anna Rosenbaum) Father Cancer Grandmother Breast cancer Kidney disease Uncle Myocardial infarction Mother Myocardial infarction Family History: Reports: No pertinent history Review of Systems General: Denies: Chills, Fever Eyes: Denies: Visual changes - bilaterally ENT: Denies: Bilateral ear pain Cardiovascular: Reports: Chest pain. Denies: Palpitations, Heart racing Respiratory: Reports: Dyspnea. Denies: Cough Gastrointestinal: Denies: Abdominal pain, Nausea, Vomiting, Diarrhea Genitourinary: Denies: Dysuria Musculoskeletal: Denies: Extremity Pain Skin: Denies: Rash Neurological: Denies: Headache Allergy: Denies: Uticaria Physical Exam Vital Signs/Narrative: Vital Signs Temp Pulse Resp BP Pulse Ox 08/15/19 22:42 97.9 F 65 30 H 157/128 H 100 Inital Vital Signs reviewed: Yes General: Well nourished, Well developed Head: Normocephalic ENT: Moist mucous membranes Neck: Supple Cardiovascular: Regular rate, Regular rhythm Respiratory: No distress, CTA bilaterally Abdomen: Soft, Nontender Back: Nontender Extremities: Nontender, - - Strong and equal distal pulses Skin: Normal color Neurological: Alert, Oriented x3 Psychological: - - Anxious Diagnostic/Tx/Re-eval Impressions Chest X-Ray 08/15/19 23:12 IMPRESSION: 1. No acute cardiopulmonary disease. No significant interval change. 2. COPD. at 2354 Reported and signed by: Fuentes Lopez MD Electronically Signed: Fuentes Lopez, at 23:53 EST Tel , Service support , Chest CTA 08/16/19 23:37 IMPRESSION: 1. No PE, pneumonia, or acute chest disease identified. 2. Moderate emphysema. No pneumothorax. Individualized dose optimization techniques were used for this CT. at 6238 Reported and signed by: Fuentes Lopez MD Electronically Signed: Fuentes Lopez, at 1:37 EST Tel , Service support , 08/15/19 23:12 Chest 1 View (Portable) [RAD] Stat 08/16/19 23:37 CTA Chest W/WO Contrast [CT] Stat Laboratory Results 08/15/19 08/15/19 08/15/19 22:50 22:50 22:50 WBC 7.0 RBC 3.72 L Hgb 10.8 L Hct 34.1 L MCV 91.7 MCH 29.0 MCHC 31.7 L RDW Std Deviation 56.7 H RDW Coeff of Zuleyma 16.9 H Plt Count 243 MPV 10.6 Immature Gran % (Auto) 0.400 Neut % (Auto) 57.2 Lymph % (Auto) 29.0 Bledsoe % (Auto) 6.0 Eos % (Auto) 6.4 H Baso % (Auto) 1.0 Absolute Neuts (auto) 4.0 Absolute Lymphs (auto) 2.04 Nucleated RBC % 0 D-Dimer Quant (PE/DVT) 0.84 H* Sodium 141 Potassium 3.7 Chloride 110 H Carbon Dioxide 23.0 Anion Gap 8 BUN 12 Creatinine 0.79 Estim Creat Clear Calc 80.64 Est GFR (MDRD) Af Amer 99 Est GFR (MDRD) Non-Af 82 BUN/Creatinine Ratio 15.1 Glucose 81 Calcium 9.2 Troponin I < 0.015 - EKG Initial EKG Interpretation: Sinus Rhythm - Sinus at 63 with no acute ischemia. - Medical Decision Making Patient been given 3 sublingual nitroglycerin with squad without improvement. Blood pressure is in the mid to upper 90s systolic. She was given 2 mg of morphine along with Zofran and IV fluids. On repeat evaluation she is improved, but states she still has pressure in her chest. Given her significant cardiac history I did recommend observation overnight for cycling of cardiac enzymes to ensure she does not have any acute event. She is in agreement with this and I will speak with the hospitalist. ED Disposition - Plan for ED Patient: Disposition: Acute Care [facility] Diagnosis: Chest pain Referrals: Stephanie Aguilar MD [Primary Care Provider] -
--- NOTE | 2019-08-15 23:12 | RAD_ITS ---
HISTORY: CHEST PAIN EXAMINATION/TECHNIQUE: XR Chest 1 View: Portable COMPARISON: 07/12/2019 FINDINGS: Cardiac telemetry leads in place. No significant change. Normal heart size. Hyperinflation compatible with COPD. No vascular congestion, pleural effusion, or acute pulmonary infiltration. No pneumothorax. The bony thorax appears intact. RAD/Chest 1 View (Portable) IMPRESSION: 1. No acute cardiopulmonary disease. No significant interval change. 2. COPD. at 2354 Reported and signed by: Fuentes Lopez MD Electronically Signed: Fuentes Lopez, at 23:53 EST Tel , Service support ,
[2019-08-15 23:19] LABS: Absolute Lymphocyte Count 2.04 X10^3/uL (0.83-4.51); Basophil# 0.07 X10^3/uL; Eosinophil# 0.45 X10^3/uL; Eosinophils% 6.4 % (0-5); Hematocrit 34.1 % (37-47); Hemoglobin 10.8 g/dL (12.0-15.0); Lymphocyte # 2.04 X10^3/ul (4.0); Mean Corp Hgb Conc 31.7 g/dL (32-36); Mean Corpuscular Volume 91.7 fL (81-99); Mean Platelet Vol. 10.6 fl (6.2-12.0); Monocyte# 0.42 X10^3/uL; NRBC Flagged by Analyzer 0 % (0-5); Neutrophil # 4.02 X10^3/uL (2.7-7.7); Neutrophil % 57.2 % (47-70); Platelet Count 243 K/mm3 (150-450); RBC Distribution Width CV 16.9 % (11.6-14.6); RBC Distribution Width SD 56.7 fl (35.1-43.9); Red Blood Count 3.72 M/mm3 (4.2-5.4)
[2019-08-15] MEDS: 0.9% Normal Saline 1,000 ML 150 ML IV (23:26)
[2019-08-15] MEDS: Morphine 4 MG/ML Syringe 2 MG IV (23:26)
[2019-08-15] MEDS: Ondansetron 4 MG/2 ML Vial IV (23:26)
[2019-08-15 23:29] LABS: D-Dimer Quantitative (DVT/PE) 0.84 FEU/ug/m (0.27-0.49)
[2019-08-15 23:35] LABS: Anion Gap 8 (5-15); BUN 12 mg/dL (7-18); BUN/Creat Ratio 15.1 RATIO (10-20); Calcium,Total 9.2 mg/dL (8.5-10.1); Chloride 110 mmol/L (98-107); Creatinine, Serum 0.79 mg/dL (0.55-1.02); EST Glomerular Filtration Rate 82 mL/min (>60); Est Glom Filt Rate - Afr Amer 99 mL/min (>60); Estimated Creatinine Clearance 80.64 ml/min; Glucose 81 mg/dL (74-106); Potassium 3.7 mmol/L (3.5-5.1); Sodium Level 141 mmol/L (136-145)
[2019-08-15 23:50] VITALS: BP 103/67; PULSE 52; RESP 18; O2SAT 96; O2SAT 98
[2019-08-16] VITALS (27 sets, daily range): BP systolic 91–124; BP diastolic 28–74; PULSE 57–76; RESP 14–18; TEMP 36.6–37; O2SAT 97–99; BMI 20.9; BMI 21.0
--- NOTE | 2019-08-16 02:16 | HP.PCM_ITS ---
Problem List (1) Chest pain Status: Acute (2) History of sudden cardiac arrest successfully resuscitated Status: Chronic (3) History of ST elevation myocardial infarction (STEMI) Status: Chronic (4) History of coronary artery stent placement Status: Chronic Comment: BRIT mid LAD with a 2.25 x 16 Promus Synergy 06/04/2019 (5) Atherosclerosis of coronary artery of [place] heart without angina pectoris Status: Chronic (6) Tobacco dependence Status: Chronic (7) PTSD (post-traumatic stress disorder) Status: Chronic (8) Abnormal uterine bleeding (AUB) Status: Chronic Comment: d and c hysterosocpy liam ablation, laparosopic bilateral salpingectomy (9) Tobacco dependence Status: Chronic (10) 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 Her chest pain started about 30 minutes prior to presentation. 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 Her symptoms started first with shortness of breath and about 30 minutes thereafter she developed excruciating chest pain as stated above. Associated with symptoms is nausea, dry heaving, and diaphoresis. Paramedics brought her to emergency department. En-route to the emergency department she was given 3 baby aspirin and 3 nitroglycerin which she thinks did not help the pain. She denies any aggravating factors. At the emergency department she was given morphine that helped with her pain. After her ST elevation [place] (May 2019)with stent patient was on Brilinta but because of cost, Brilinta was changed to Plavix. Patient thought that her Plavix was prescribed twice a day but she is only able to take it once a day in the morning. She is on metoprolol twice daily that she takes usually only in the mornings. On 06/04/2019 patient had a drug-eluting stent stent placed in the LAD. Her mother from heart attack at age 61. Her mother's first heart attack was between age 51-52. Past Medical History Past Medical History (Chronic Problems): Chronic Problems (Last Reviewed 08/16/19 @ 03:[address] Gumaro Loaiza MD) History of sudden cardiac arrest successfully resuscitated (Chronic 06/04/19) History of [address] elevation myocardial infarction (STEMI) (Chronic 06/04/19) History of coronary artery stent placement (Chronic 06/04/19) BRIT mid LAD with a 2.25 x 16 Promus Synergy 06/04/2019 Atherosclerosis of coronary artery of [place] heart without angina pectoris (Chronic) Tobacco dependence (Chronic) PTSD (post-traumatic stress disorder) (Chronic) Abnormal uterine bleeding (AUB) (Chronic) d and c hysterosocpy liam ablation, laparosopic bilateral salpingectomy Tobacco dependence (Chronic) Strabismic amblyopia of right eye (Chronic) PTSD (post-traumatic stress disorder) (Chronic) Medical History: Medical History (Last Reviewed 08/16/19 @ 03:[address] Gumaro Loaiza MD) History of sudden cardiac arrest successfully resuscitated (Chronic) Onset Date: 06/04/[address] elevation myocardial infarction (STEMI) (Chronic) Onset Date: 06/04/19 I25.2 Atherosclerosis of coronary artery of [place] heart without angina pectoris (Chronic) I25.10 Tobacco dependence (Chronic) F17.200 PTSD (post-traumatic stress disorder) (Chronic) F43.10 Galactorrhea N64.3 Status post hysteroscopy Onset Date: 05/21/19 Z98.890 D&C lap BS Strabismic amblyopia, right eye H53.031 Allergies No Known Allergies Allergy (Verified 07/12/19 15:06) Home Medications: Ambulatory Orders Medication Instructions Recorded Aspirin E.C. [Ecotrin] 81 mg PO DAILY@0800 #90 tab 06/05/19 atorvastatin 80 mg tablet 80 mg PO QHS #90 tab 06/17/19 clopidogrel 75 mg tablet 75 mg PO .COMPLEX #94 tab 06/17/19 metoprolol tartrate 25 mg tablet 12.5 mg PO BID #90 tab 06/17/19 nitroglycerin 0.4 mg sublingual 0.4 mg SUBLINGUAL Q5-15M PRN 06/17/19 tablet Surgical History: Surgical History (Last Reviewed 08/16/19 @ 03:[address] Gumaro Loaiza MD) History of coronary artery stent placement (Chronic) Onset Date: 06/04/19 Z95.5 BRIT mid LAD with a 2.25 x 16 Promus Synergy 06/04/2019 H/O ovarian cystectomy Z98.890, Z87.42 Left History of bilateral breast biopsy Z98.890 Surgical History: - - Recent uteroscopy and tubal ligation Lives: Spouse/ Significant Other Smoking Status: Current every day smoker - *Family History Maternal Family History: Family History (Last Reviewed 08/16/19 @ 03:[address] Gumaro Loaiza MD) Father Cancer Grandmother Breast cancer Kidney disease Uncle Myocardial infarction Mother Myocardial infarction History Items: No pertinent history Review of Systems Constitutional: Denies: Chills, Fever, Weight Change HEENT: Denies: Head Aches, Sinus Congestion, Sinus Drainage Cardiovascular: Reports: Chest Pain, Heaviness. Denies: Palpitations Respiratory: Reports: Shortness of Breath. Denies: Cough Gastrointestinal: Reports: Nausea. Denies: Abdominal Pain, Vomiting Genitourinary: Denies: Dysuria Musculoskeletal: Denies: Joint Pain, Joint Tenderness Skin: Denies: Rash, Wounds Neurological: Denies: Numbness, Tingling, Focal weakness Psychiatric: Denies: Anxiety, Depression, Homicidal Ideations, Suicidal Ideations Hematologic/ Lymphatic: Denies: Easy Bruising, Easy Bleeding VTE Information - Inpt Only VTE Present on Admission: No VTE Mechan Device Prophylaxis: None VTE Pharm Prophylaxis ordered?: Yes Patient Problems: Active and Suspected Problems (Last Reviewed 08/16/19 @ 03:[address] Gumaro Loaiza MD) Chest pain (Acute) - Physical Exam Vitals/I&O's: Vital Signs Temp Pulse Resp BP Pulse Ox 97.9 F 58 L 15 113/57 L 98 08/15/19 22:42 08/16/19 01:53 08/16/19 01:53 08/16/19 01:53 08/16/19 01:53 Oxygen Delivery Method Room Air Weight: 60.4 kg Body Mass Index (BMI) 21.4 Intake and Output for Last 24 Hours 08/14/19 08/15/19 08/16/19 23:59 23:59 23:59 Intake Total 1000 / 1000 Balance 1000 / 1000 General: Alert, Oriented x3, Cooperative HEENT: Atraumatic, PERRLA, EOMI, Normocephalic Neck: Supple, No JVD, Negative Carotid Bruits Lungs: Clear to auscultation, Normal air movement Cardiovascular: Normal S1, Normal S2, No murmurs, Bradycardic Abdomen: Bowel Sounds Present, Soft, Non Tender Extremities: No edema, Capillary Refill Less than 3 Seconds Skin: No rashes, No breakdown Musculoskeletal: No Tenderness to Palpation of Joints or Extremities Neurological: Cranial nerves II-XII grossly intact Psych/Mental Status: Normal Affect, Appropriate Laboratory Results 08/15/19 22:50: WBC 7.0, RBC 3.72 L, Hgb 10.8 L, Hct 34.1 L, MCV 91.7, MCH 29.0, MCHC 31.7 L, RDW Std Deviation 56.7 H, RDW Coeff of Zuleyma 16.9 H, Plt Count 243, MPV 10.6, Immature Gran % (Auto) 0.400, Neut % (Auto) 57.2, Lymph % (Auto) 29.0, Piatt % (Auto) 6.0, Eos % (Auto) 6.4 H, Baso % (Auto) 1.0, Absolute Neuts (auto) 4.0, Absolute Lymphs (auto) 2.04, Nucleated RBC % 0 08/15/19 22:50: D-Dimer Quant (PE/DVT) 0.84 H* 08/15/19 22:50: Sodium 141, Potassium 3.7, Chloride 110 H, Carbon Dioxide 23.0, Anion Gap 8, BUN 12, Creatinine 0.79, Estim Creat Clear Calc 80.64, Est GFR (MDRD) Af Amer 99, Est GFR (MDRD) Non-Af 82, BUN/Creatinine Ratio 15.1, Glucose 81, Calcium 9.2, Troponin I < 0.015 Current Medications Sodium Chloride () 1,000 mls @ 150 mls/hr IV .Q6H40M [facility] Last Infusion: 08/16/19 01:35 Dose: Infused Documented by: Assessment/Plan All Active Problems (Last Reviewed 08/16/19 @ 03:[address] Gumaro Loaiza MD) Chest pain (Acute) STEMI (ST elevation myocardial infarction) (Resolved) The patient is a 49 year old F with a significant history of ST elevation [place] status post stent in May 2019; and tobacco abuse who presents emergency department with excruciating substernal chest pain; shortness of breath; nausea with dry heaving and diaphoresis concerning for typical chest pain. Chest pain Place on a monitored bed at PCU CXR independently reviewed confirms no acute cardiopulmonary process. D-dimer was elevated. Follow-up chest CTA showed no acute cardiopulmonary process. It showed moderate emphysema. EKG independently reviewed confirms sinus rhythm. Continue ASA 81 mg p.o. daily. At the emergency department due to low normal blood pressure nitroglycerin was not given. Morphine was given. Patient had some relief with morphine. Morphine as needed for pain Anti-P2Y12 Receptor antibody:Continue 75 mg of Plavix daily Metoprolol continued. Serial cardiac enzymes Stat EKG as needed for chest pain On 06/04/2019 patient had a drug-eluting stent stent placed in the LAD. Stress echocardiogram on 06/21/2019 was unremarkable. Due to patient having a recent stent; still smoking and not not taking her medication as prescribed patient is a high risk. Will consult cardiology. Keep patient n.p.o. Tobacco abuse Counseled Nicotine patch placed at the emergency department. Nicotine patch continued. DVT prophylaxis Heparin subcutaneous Advance care planning including discussion of various types of code was discussed. Patient elected to be DNR CCA with no compression but with intubation. She does not want to live indefinitely on mechanical ventilation . Patient stated that her will make further decisions if she is unable to make her wishes known. Advised to get a living will or power of mergers and acquisitions attorney. Time for advanced care planning was 16 minutes. Code Visit Inpatient E&M: 88463 Init Hosp L2 Procedures: 74645 Advncd Care Plan addl 30 Min
--- NOTE | 2019-08-16 03:20 | EKG12_ITS ---
Test Reason : CP ADMIT Blood Pressure : / mmHG Vent. Rate : 061 BPM Atrial Rate : 061 BPM P-R Int : 184 ms QRS Dur : 094 ms QT Int : 434 ms P-R-T Axes : 068 067 058 degrees QTc Int : 436 ms Normal sinus rhythm Normal ECG When compared with ECG of 12-JUL-2019 15:08, No significant change was found Confirmed by MEGHANN BRENNAN, GUNNER ([id number]), scientific publications editor SALENA BURDEN ([id number]) on 08/19/2019 2:49:44 PM Referred By: DR NAILS Confirmed By:JOVON ZAVALETA MD
[2019-08-16] MEDS: Heparin Injection (Vial) 5,000 UNIT/ML VIAL 5000 UNIT SC ×2 (06:20→21:53)
[2019-08-16] MEDS: Clopidogrel Bisulfate 75 MG Tablet PO (09:44)
[2019-08-16] MEDS: Aspirin E.C. 81 MG Tablet PO (09:44)
--- NOTE | 2019-08-16 10:41 | PCM.CONS.C ---
<SilvereveFrancy madera - Last Filed: 08/16/19 12:12> Reason for Consult History of Present Illness: The patient is a 49 year old F [] Past Medical History Allergies/Adverse Reactions: Allergies No Known Allergies Allergy (Verified 07/12/19 15:06) Home Medications: Ambulatory Orders Medication Instructions Recorded Aspirin E.C. [Ecotrin] 81 mg PO DAILY@0800 #90 tab 06/05/19 atorvastatin 80 mg tablet 80 mg PO QHS #90 tab 06/17/19 clopidogrel 75 mg tablet 75 mg PO .COMPLEX #94 tab 06/17/19 metoprolol tartrate 25 mg tablet 12.5 mg PO BID #90 tab 06/17/19 nitroglycerin 0.4 mg sublingual 0.4 mg SUBLINGUAL Q5-15M PRN 06/17/19 tablet Past Medical History (Chronic Problems): Chronic Problems (Last Reviewed 08/16/19 @ 03:[address] Gumaro Loaiza MD) History of sudden cardiac arrest successfully resuscitated (Chronic 06/04/19) History of ST elevation myocardial infarction (STEMI) (Chronic 06/04/19) History of coronary artery stent placement (Chronic 06/04/19) BRIT mid LAD with a 2.25 x 16 Promus Synergy 06/04/2019 Atherosclerosis of coronary artery of [place] heart without angina pectoris (Chronic) Tobacco dependence (Chronic) PTSD (post-traumatic stress disorder) (Chronic) Abnormal uterine bleeding (AUB) (Chronic) d and c hysterosocpy liam ablation, laparosopic bilateral salpingectomy Tobacco dependence (Chronic) Strabismic amblyopia of right eye (Chronic) PTSD (post-traumatic stress disorder) (Chronic) Objective: Vital Signs Temp Pulse Resp BP Pulse Ox 97.8 F 63 18 97/53 L 97 08/16/19 09:40 08/16/19 09:40 08/16/19 09:40 08/16/19 09:40 08/16/19 09:40 Oxygen Delivery Method Room Air Weight: 129 lb 13.636 oz Body Mass Index (BMI) 20.9 Intake and Output for Last 24 Hours 08/14/19 08/15/19 08/16/19 23:59 23:59 23:59 Intake Total 1050 / 1050 Balance 1050 / 1050 08/15/19 22:50: WBC 7.0, RBC 3.72 L, Hgb 10.8 L, Hct 34.1 L, MCV 91.7, MCH 29.0, MCHC 31.7 L, Plt Count 243, MPV 10.6, Immature Gran % (Auto) 0.400, Neut % (Auto) 57.2, Lymph % (Auto) 29.0, Ventura % (Auto) 6.0, Eos % (Auto) 6.4 H, Baso % (Auto) 1.0, Absolute Neuts (auto) 4.0, Nucleated RBC % 0 08/15/19 22:50: D-Dimer Quant (PE/DVT) 0.84 H* 08/15/19 22:50: Sodium 141, Potassium 3.7, Chloride 110 H, Carbon Dioxide 23.0, Anion Gap 8, BUN 12, Creatinine 0.79, Est GFR (MDRD) Af Amer 99, Est GFR (MDRD) Non-Af 82, BUN/Creatinine Ratio 15.1, Glucose 81, Calcium 9.2, Troponin I < 0.015 08/16/19 03:34: Troponin I < 0.015 08/16/19 06:24: Troponin I < 0.015 08/16/19 09:25: Troponin I < 0.015 Rhythm: EKG: ECHO: Stress Test: Cardiac Cath: PCI: CT Surgery: Holter monitor: EPS: PPM: CXR: Chest CT Scan: Assessment/Plan Patient was seen, evaluated and discussed with JOEL Odom. Agree with above. 49-year-old female with recent STEMI coming back to the hospital with symptoms similar to her presentation at the time of her ID. We will proceed with coronary angiography to evaluate her coronary arteries. Risks and benefits discussed with the patient in detail. Patient prefers this approach as well. 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 <Rosaura Barker M - Last Filed: 08/16/19 12:45> Problem List (1) Chest pain Status: Acute (2) Atherosclerosis of coronary artery of [place] heart without angina pectoris Status: Chronic (3) Tobacco dependence Status: Chronic (4) Tobacco dependence Status: Chronic Reason for Consult Date of Consultation: 08/16/19 History of Present Illness: This is a 49-year-old female that we were asked to consult on for chest discomfort. Patient had a [facility] in May 2019. At that time she did have cardiac arrest and did require CPR. It was felt that this was related to PEA. She did urgently undergo a heart catheterization and had stenting to her LAD. She was also noted to have 50% stenosis of her RCA. Post hospital stay she did undergo a stress echocardiogram which was negative. Patient presented to the hospital last night with chest discomfort. She states that this occurred while she was working. This was similar to what she had prior to her myocardial infarction. She was given 3 nitroglycerin which did not help. She states that the discomfort was significant for approximately 30 minutes. She notes that she still feels uncomfortable in her chest. She also does note that she has been fatigued since her previous ID. And she also notes that she continues to have heartburn symptoms since her previous ID. Her troponins were negative x3. She was noted to have an elevated d-dimer and did undergo a CTA which was negative. It did demonstrate moderate emphysema. She does have a history of smoking and does not plan on quitting. She cannot tell me if she has been compliant with her Plavix. She feels that she may have missed a few doses. She is does have a strong family history for early coronary artery disease. Past Medical History Surgical History: - - Recent uteroscopy and tubal ligation - *Family History Maternal Family History: Family History (Last Reviewed 08/16/19 @ 03:[address] Gumaro Loaiza MD) Father Cancer Grandmother Breast cancer Kidney disease Uncle Myocardial infarction Mother Myocardial infarction History Items: No pertinent history Lives: Spouse/ Significant Other Smoking Status: Current every day smoker Tobacco Use: Cigarettes Review of Systems - Review of Systems General: Reports: Fatigue, Malaise. Denies: Fever, Night Sweats, Weakness, Decreased Appetite HEENT: Denies: Vision Change, Blurred Vision, Head Aches Cardiovascular: Reports: Chest Discomfort, Chest Pressure. Denies: Shortness of Breath with Exertion, Orthopnea, Peripheral Edema, Palpitations, Lightheadedness, Dizziness, Near Syncope, Syncope Respiratory: Denies: Cough Gastrointestinal: Reports: Heart Burn Genitourinary: Reports: Hematuria. Denies: Dysuria Muscoloskeletal: Denies: Myalgias, Muscle Weakness, Muscle Cramps Skin: Denies: Rash Neurological: Denies: Dizziness Objective: Vital Signs Temp Pulse Resp BP Pulse Ox 97.8 F 63 18 97/53 L 97 08/16/19 09:40 08/16/19 09:40 08/16/19 09:40 08/16/19 09:40 08/16/19 09:40 Oxygen Delivery Method Room Air Weight: 129 lb 13.636 oz Body Mass Index (BMI) 20.9 Intake and Output for Last 24 Hours 08/14/19 08/15/19 08/16/19 23:59 23:59 23:59 Intake Total 1050 / 1050 Balance 1050 / 1050 General: Healthy Appearing, Awake, Alert, Oriented x 3, No Acute Distress HEENT: Atraumatic, Normocephalic, PERRL, EOMI Oral: Moist Mucosa Neck: Supple, No JVD Lungs: Diminished Pedro Bases, Expiratory Wheezes-Right Cardiovascular: Regular Rhythm, Normal S1, Normal S2, No Murmurs Vascular: No Carotid Bruits, Normal Radial Pulses Abdomen: Bowel Sounds Present, Soft, Non Tender, No HSM, No Organomegaly Extremities: No Cyanosis, No Clubbing, No edema Neurological: No Focal Motor or Sensory Deficit, CN II-XII Intact 08/15/19 22:50: WBC 7.0, RBC 3.72 L, Hgb 10.8 L, Hct 34.1 L, MCV 91.7, MCH 29.0, MCHC 31.7 L, Plt Count 243, MPV 10.6, Immature Gran % (Auto) 0.400, Neut % (Auto) 57.2, Lymph % (Auto) 29.0, Ventura % (Auto) 6.0, Eos % (Auto) 6.4 H, Baso % (Auto) 1.0, Absolute Neuts (auto) 4.0, Nucleated RBC % 0 08/15/19 22:50: D-Dimer Quant (PE/DVT) 0.84 H* 08/15/19 22:50: Sodium 141, Potassium 3.7, Chloride 110 H, Carbon Dioxide 23.0, Anion Gap 8, BUN 12, Creatinine 0.79, Est GFR (MDRD) Af Amer 99, Est GFR (MDRD) Non-Af 82, BUN/Creatinine Ratio 15.1, Glucose 81, Calcium 9.2, Troponin I < 0.015 08/16/19 03:34: Troponin I < 0.015 08/16/19 06:24: Troponin I < 0.015 08/16/19 09:25: Troponin I < 0.015 Rhythm: EKG: ECHO: Stress Test: Cardiac Cath: PCI: CT Surgery: Holter monitor: EPS: PPM: CXR: Chest CT Scan: Assessment/Plan 1. Chest discomfort: With patient's history of coronary artery disease and recent stenting and similar symptoms to her previous myocardial infarction would like to pursue a diagnostic heart catheterization. Would like to also pursue this because it appears that she may have missed a few doses of her antiplatelet. 2. Coronary artery disease: Based on the above we will be pursuing a heart catheterization. Would recommend continued Plavix, aspirin,statin. It appears that her losartan has been discontinued due to low blood pressure readings. 3. Tobacco abuse: Strongly encouraged smoking cessation. Addendum: Heart catheterization demonstrated patent LAD stent and flow wire to her RCA was negative. Feel that her chest discomfort could be related to possible microvascular disease. Due to her low blood pressure readings do not feel that she would be able to tolerate isosorbide or Norvasc. We will add Ranexa 500 mg twice a day.
[2019-08-16] MEDS: Clopidogrel Bisulfate 300 MG Tablet PO (10:55)
--- NOTE | 2019-08-16 10:55 | CASEMGMT ---
According to the [place] website, the following are in-network tertiary facilities: [facility], [facility], [facility], [facility], [facility], [facility], [facility], [facility], [facility], and . Luz Maria PENA CM
[2019-08-16] MEDS: Morphine 2 MG/ML Syringe IV ×2 (11:00→16:06)
[2019-08-16] MEDS: 0.9% Saline Lock 10 ML Syringe IV ×2 (11:00→16:06)
[2019-08-16] MEDS: DiphenhydrAMINE 25 MG Capsule 50 MG PO (11:39)
--- NOTE | 2019-08-16 12:49 | PN_ITS ---
Patient Problems: Active and Suspected Problems (Last Reviewed 08/16/19 @ 03:[address] Gumaro Loaiza MD) Chest pain (Acute) Reason for Visit: chest pain Subjective: Still chest pain. Feels similar but also different than other chest pain events. Vitals/I&O's: Vital Signs Temp Pulse Resp BP Pulse Ox 36.6 C 63 18 97/53 L 97 08/16/19 09:40 08/16/19 09:40 08/16/19 09:40 08/16/19 09:40 08/16/19 09:40 Oxygen Delivery Method Room Air Weight: 58.9 kg Body Mass Index (BMI) 20.9 Intake and Output for Last 24 Hours 08/14/19 08/15/19 08/16/19 23:59 23:59 23:59 Intake Total 1170 / 1170 Balance 1170 / 1170 General: Alert, No apparent distress HEENT: Atraumatic, Normocephalic Oral: Moist Mucosa, No Gingival or Mucosal Lesions/ Ulcerations Neck: No Nodes, Trachea Midline Lungs: Clear to auscultation, Normal air movement, No rhonchi, No wheeze, No rales Cardiovascular: Regular rate, Regular Rhythm, Normal S1, Normal S2, No murmurs Abdomen: Bowel Sounds Present, Soft, Non Tender, Non-Distended, No Hepato- splenomegaly Extremities: No edema, No Calf Tenderness Skin: No rashes, No breakdown Psych/Mental Status: Normal Affect, Appropriate Laboratory Results 08/15/19 22:50: WBC 7.0, RBC 3.72 L, Hgb 10.8 L, Hct 34.1 L, MCV 91.7, MCH 29.0, MCHC 31.7 L, RDW Std Deviation 56.7 H, RDW Coeff of Zuleyma 16.9 H, Plt Count 243, MPV 10.6, Immature Gran % (Auto) 0.400, Neut % (Auto) 57.2, Lymph % (Auto) 29.0, Lander % (Auto) 6.0, Eos % (Auto) 6.4 H, Baso % (Auto) 1.0, Absolute Neuts (auto) 4.0, Absolute Lymphs (auto) 2.04, Nucleated RBC % 0 08/15/19 22:50: D-Dimer Quant (PE/DVT) 0.84 H* 08/15/19 22:50: Sodium 141, Potassium 3.7, Chloride 110 H, Carbon Dioxide 23.0, Anion Gap 8, BUN 12, Creatinine 0.79, Estim Creat Clear Calc 80.64, Est GFR (MDRD) Af Amer 99, Est GFR (MDRD) Non-Af 82, BUN/Creatinine Ratio 15.1, Glucose 81, Calcium 9.2, Troponin I < 0.015 08/16/19 03:34: Troponin I < 0.015 08/16/19 06:24: Troponin I < 0.015 08/16/19 09:25: Troponin I < 0.015 Current Medications Acetaminophen (Tylenol) 650 mg PO Q6H PRN PRN PRN Reason: Pain Score 1-10/Temp > 100.7 F Amlodipine Besylate (Norvasc) 2.5 mg PO DAILY [facility] Aspirin (Ecotrin) 81 mg PO DAILY@0800 [facility] Last Admin: 08/16/19 09:44 Dose: 81 mg Documented by: Atorvastatin Calcium (Lipitor) 80 mg PO QHS [facility] Clopidogrel Bisulfate (Plavix) 75 mg PO DAILY [facility] Last Admin: 08/16/19 09:44 Dose: 75 mg Documented by: Glucagon () 1 mg IM .X1 PRN PRN Reason: Hypoglycemia Heparin Sodium (Beef Lung) (Heparin 500 Unit/5 Ml (100/Ml)) 500 unit IV UD PRN PRN Reason: HEPARIN FLUSH Heparin Sodium (Porcine) (Heparin Na) 5,000 unit SC Q8 [facility] Last Admin: 08/16/19 06:20 Dose: 5,000 unit Documented by: Dextrose (Dextrose 10%-Water) 250 mls @ 999 mls/hr IV .Q16M PRN; Protocol PRN Reason: HYPOGLYCEMIA Sodium Chloride () 250 mls @ 15 mls/hr IV .[id number] PRN PRN Reason: Saline Flush Sodium Chloride () 250 mls @ 15 mls/hr IV .[id number] PRN PRN Reason: Additional IVPB Infusion Sodium Chloride () 1,000 mls @ 0 mls/hr IV .Q0M [facility] Labetalol HCl (Trandate) 5 mg IV X1 PRN PRN Reason: SBP > 160 prior to sheath pull Stop: 08/18/19 12:42 Metoprolol Tartrate (Lopressor (Beta Aden)) 12.5 mg PO BID [facility] Last Admin: 08/16/19 10:46 Dose: Not Given Documented by: Morphine Sulfate () 2 mg IV Q3H PRN PRN PRN Reason: Pain Score 6-10/10 Last Admin: 08/16/19 11:00 Dose: 2 mg Documented by: Nicotine (Nicoderm Cq (Pbkc)) 14 mg TRANSDERM. DAILY [facility] Ranolazine (Ranexa) 500 mg PO BID [facility] Sodium Chloride () 10 - 40 ml IV UD PRN PRN Reason: SALINE FLUSH Last Admin: 08/16/19 11:00 Dose: 10 ml Documented by: STROKE Vital Signs/Narrative: Vital Signs Temp Pulse Resp BP Pulse Ox 08/16/19 09:40 36.6 C 63 18 97/53 L 97 Medical Necessity - Tobacco Use Smoking Status: Current every day smoker Tobacco Use: Cigarettes Assessment/Plan All Active Problems (Last Reviewed 08/16/19 @ 03:[address] Gumaro Loaiza MD) Chest pain (Acute) STEMI (ST elevation myocardial infarction) (Resolved) 1. chest pain * plan for [facility] today * on ASA, clopidogrel, atorvastatin Code Visit OBSV E&M: 91824 Subsequent observation care L2
[2019-08-16 12:51] LABS: ACT Activated Clotting Time 186 sec (74-137)
--- NOTE | 2019-08-16 12:53 | CL.I_ITS ---
Patient Name: THAO EDWARDS Study Date: 08/16/2019 Performing: Clifford Gruber MD Ht: 66 inches 167.64 cm : 1970 Wt: 128.99 lbs 58.51 kg Age: 49 Gender: female BSA: 1.66 PROCEDURE(S) PERFORMED [id number]/COR/LV [id number], CORONARY OR GRAFT, INITIAL VESSEL CLINICAL PROFILE AND CO-MORBIDITIES Indications: ACS <= 24 hrs, Worsening Angina, Stable Known CAD Heart Failure: None Stress/Imaging Date: 06/21/2019 Stress Echocardiogram: Negative Angina Classification Anginal Classification w/in 2 Weeks: CCS IV CAD Presentations: Unstable angina. Comorbidities/Risk Factors: Current/Recent Smoker (< 1year) Hypertension Dyslipidemia Prior PCI CONCLUSIONS Normal LV size, wall motion,and systolic function Single vessel CAD of the RCA Widely patent LAD stent Non obstructive coronary arteries Negative FFR of RCA. RECOMMENDATIONS Management as per referring Supervisor Dock Staged for FFR Highly recommend quitting all tobacco products Follow up with primary supervisor testing Risk factor modification ASA Indefinitley Plavix for at least 12 months Routine post interventional care Refer for Outpatient Cardiac Rehab Manual sheath removal per protocol Manual sheath removal Start amlodipine 2.5 mg po daily for microvascular vasospasm., DESCRIPTION OF PROCEDURE The patient arrived to the procedure lab. The risks and benefits of the procedure as well as a full d escription of our services here and lack of surgical backup were fully explained to the patient and/o r their significant other prior to the catheterization. The Timeout was completed, verifying the desire ect patient and procedure. The patient's procedural site was prepped and draped in the usual fashion. Local anesthetic was given subcutaneously to right groin region with Lidocaine 2%. Using a modified Seldinger technique, arterial access was obtained via the right femoral artery, a 4Fr sheath was inse rted. Left Coronary Artery selective angiography was performed in multiple views using a 4 Fr. JL5 c atheter. Right Coronary Artery selective angiography was then performed in multiple views using a 4 F r. 3DRC catheter. Left Ventriculography was performed in HARDY projection using a 4 Fr. Pigtail cathete r. LV to AO pullback pressures were then recordedThe images were reviewed and options discussed. A decision was then made to proceed with an Intervention, IVUS or other adjunct procedure. Arterial sheath was exchanged for a 6 Fr Sheath. HS 1 Guide catheter was inserted and engaged int o the RCA. The FFR/iFR wire was inserted. Adenosine was then given per protocol. FFR Ratio Baseline: 1.0 FFR Ratio post Adenosine: 0.94 The FFR/iFR wire was then removed. The arterial sheath was sutur ed in place and capped CORONARY ANGIOGRAPHY DOMINANCE: Right Dominant LEFT HEART ASSESSMENT Left Ventricular Ejection Fraction: by LV Gram 65 % Normal Left Ventricular systolic function Normal LV wall motion LEFT MAIN: Angiographically normal LEFT ANTERIOR DESCENDING ARTERY: MID LAD: Previously placed stent is patent DIAGONAL 1: Proximal - Mild luminal irregularities less than 30% CIRCUMFLEX ARTERY: Angiographically normal RIGHT CORONARY ARTERY: MID RCA: Moderate luminal irregularities up to 50% INTERVENTION INFORMATION LESION SITE: RCA (Mid) Lesion Complexity: High/C, lesion at bifurcation: No, thrombus present: No, lesion length: 24 mm, cul prit lesion: Yes Pre Stenosis: 50 % Pre intervention HOWARD flow: 3 PROCEDURE: FFR Post Stenosis: 50 % Post intervention HOWARD flow: 3 Lesion Devices: [employer] 6 Fr HS1 100cm Guide Catheter IGT Devices ( [facility]) Coronary FFR Wire COMPLICATIONS No Complications PROCEDURE MEDICATIONS Oxygen: 2 L/min via nasal cannula Adenosine drip for FFR 16 ml IV @ 08/16/2019 12:38:47 Heparin 4000 unit(s) IV 08/16/2019 12:31:16 Nitro 200 mcg IC 08/16/2019 12:23:12 Nitro 200 mcg IC 08/16/2019 12:23:12 IV Bolus: .9 NaCl 400 ml total throughout procedure 08/16/2019 12:42:10 SUMMARY OF HEMODYNAMIC DATA Time AIR REST ECG 11:58:17 AO 122/61 (85) SA 12:18:32 LV 128/-15, 13 12:27:32 LV 128/-15, 14 12:27:39 LVp 137/-20, 14 12:28:02 AOp 132/69 (93) 12:28:07 Signed By Clifford Gruber MD On 08/16/2019 12:52:41 Clifford Gruber MD
[2019-08-16 13:51] LABS: ACT Activated Clotting Time 158 sec (74-137)
[2019-08-16] MEDS: Atorvastatin Calcium 80 MG Tablet PO (21:52)
[2019-08-16] MEDS: Metoprolol Tartrate 25 MG Tablet 12.5 MG PO (21:52)
--- NOTE | 2019-08-16 23:37 | CT_ITS ---
HISTORY: SOB SINCE 2099, SUBSTERNAL CP RADIATING TO LEFT ARM, NAUSEA, OH IN DEC EXAMINATION: CTA Chest W Contrast Injection TECHNIQUE: Helically acquired images were obtained of the chest following IV contrast as per pulmonary angiogram protocol with 3D reconstructions. A radiation dose optimization technique was used for this scan. IV Contrast dosage and agent: 75mL [id number]-370 IV COMPARISON: Portable chest 08/15/2019 FINDINGS: PULMONARY ARTERIES: Normal in caliber. No pulmonary embolism. AORTA AND GREAT VESSELS: No aortic aneurysm or dissection. HEART AND PERICARDIUM: Heart size is normal. No pericardial effusion. MEDIASTINUM AND JOSE RAMON: No mediastinal or hilar adenopathy. LUNGS, PLEURA AND LARGE AIRWAYS: Hyperinflation with bilateral moderate centrilobular emphysema. Right apical mild pleural parenchymal scarring and left apical minor scarring. No acute infiltrate or suspicious lesion. No pneumothorax. BONES: No acute osseous abnormality. UPPER ABDOMEN: No acute pathology. CT/CTA Chest W/WO Contrast IMPRESSION: 1. No PE, pneumonia, or acute chest disease identified. 2. Moderate emphysema. No pneumothorax. Individualized dose optimization techniques were used for this CT. at 0138 Reported and signed by: Fuentes Lopez MD Electronically Signed: Fuentes Lopez, at 1:37 EST Tel , Service support ,
[2019-08-17 02:04] VITALS: BP 108/50; PULSE 73; RESP 18; TEMP 36.9; O2SAT 97
[2019-08-17] MEDS: Morphine 2 MG/ML Syringe IV (02:05)
[2019-08-17] MEDS: 0.9% Saline Lock 10 ML Syringe IV (02:05)
[2019-08-17 02:59] VITALS: PULSE 67
[2019-08-17 06:18] VITALS: BP 95/53; PULSE 72; RESP 18; TEMP 36.5; O2SAT 97
[2019-08-17] MEDS: Heparin Injection (Vial) 5,000 UNIT/ML VIAL 5000 UNIT SC (06:20)
[2019-08-17 06:55] VITALS: PULSE 59
--- NOTE | 2019-08-17 08:38 | PCM.DC ---
- Discharge Diagnoses Current Active Problems: Current Active and Chronic Problems (Last Reviewed 08/16/19 @ 03:[address] Gumaro Loaiza MD) Chest pain (Acute) You will use the following diet at home:: Cardiac Your food should be the consistency of: Regular Your liquids should be the consistency of: Regular/Thin Discharge Activity: Return to Normal Activity Call your doctor if you observe: Shortness of breath, Chest pain Allergies/Adverse Reactions: Allergies No Known Allergies Allergy (Verified 07/12/19 15:06) Medications to take at Discharge Aspirin E.C. [Ecotrin] 81 mg PO DAILY@0800 #90 tab 06/05/19 atorvastatin 80 mg tablet 80 mg PO QHS #90 tab 06/17/19 clopidogrel 75 mg tablet 75 mg PO .COMPLEX #94 tab 06/17/19 metoprolol tartrate 25 mg tablet 12.5 mg PO BID #90 tab 06/17/19 nitroglycerin 0.4 mg sublingual tablet 0.4 mg SUBLINGUAL Q5-15M PRN 06/17/19 Amlodipine [Norvasc] 2.5 mg PO DAILY #30 tab 08/17/19 Omeprazole 20 mg PO DAILY #30 tablet.dr 08/17/19 The following prescriptions were given: Amlodipine [Norvasc] 2.5 mg PO DAILY #30 tab Transmission Status: Pending to [facility] [place] Omeprazole 20 mg PO DAILY #30 tablet. Orders to be completed after discharge: Phase II, Outpatient Cardiac Rehab Location: None Selected Primary Care Physician: Stephanie Aguilar MD [Primary Care Provider] - Within 2 Weeks Test Results: Test results from this visit will be discussed in further detail at your follow-up appointment, if applicable. Please Follow Up With: Rosaura Novak When: 09/04/2019, already scheduled Please Follow Up With: Jl Nicolas MD - gastroenterology When: 1-2 months Proposed Discharge Date: 08/17/19
--- NOTE | 2019-08-17 08:40 | PCM.WORK.EX ---
Work/School Excuse Work/School Excuse for:: Patient Please excuse this person from:: Work From: 08/15/19 through: 08/17/19 Restrictions: Other - None
--- NOTE | 2019-08-17 08:42 | PCM.DC.SUM ---
Discharge Date and Diagnosis - Problem List Patient Problems: Active and Suspected Problems (Last Reviewed 08/16/19 @ 03:[address] Gumaro Loaiza MD) Chest pain (Acute) Date of Admission: 08/16/19 Date of Discharge: 08/17/19 - Primary Discharge Diagnosis Active and Suspected Problems (Last Reviewed 08/16/19 @ 03:[address] Gumaro Loaiza MD) Chest pain (Acute) - Secondary Discharge Diagnosis Chronic Problems (Last Reviewed 08/16/19 @ 03:[address] Gumaro Loaiza MD) History of sudden cardiac arrest successfully resuscitated (Chronic 06/04/19) History of ST elevation myocardial infarction (STEMI) (Chronic 06/04/19) History of coronary artery stent placement (Chronic 06/04/19) BRIT mid LAD with a 2.25 x 16 Promus Synergy 06/04/2019 08/16/2019:Normal LV size, wall motion,and systolic function; Single vessel CAD of the RCA; Widely patent LAD stent. Non obstructive coronary arteries. Negative FFR of RCA. Atherosclerosis of coronary artery of [place] heart without angina pectoris (Chronic) Tobacco dependence (Chronic) PTSD (post-traumatic stress disorder) (Chronic) Abnormal uterine bleeding (AUB) (Chronic) d and c hysterosocpy liam ablation, laparosopic bilateral salpingectomy Tobacco dependence (Chronic) Strabismic amblyopia of right eye (Chronic) PTSD (post-traumatic stress disorder) (Chronic) Hospital Course and Treatment Imaging Results: Clinical Impression(s) from Imaging Studies Chest X-Ray 08/15/19 23:12 IMPRESSION: 1. No acute cardiopulmonary disease. No significant interval change. 2. COPD. at 2354 Reported and signed by: Fuentes Lopez MD Electronically Signed: Fuentes Lopez at 23:53 EST Tel , Service support , Chest CTA 08/16/19 23:37 IMPRESSION: 1. No PE, pneumonia, or acute chest disease identified. 2. Moderate emphysema. No pneumothorax. Individualized dose optimization techniques were used for this CT. at 0138 Reported and signed by: Fuentes Lopez MD Electronically Signed: Fuentes Lopez, at 1:37 EST Tel , Service support , Clifford Gruber MD: cardiology Operations: None Procedures: Cardiac catheterization - CONCLUSIONS Normal LV size, wall motion,and systolic function Single vessel CAD of the RCA Widely patent LAD stent Non obstructive coronary arteries Negative FFR of RCA. 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 Chest pain was midsternal going to her back and up to her left shoulder. Similar but somewhat different than what she has had with previous myocardial infarctions. Patient brought in and her initial work-up was unremarkable. Patient underwent a left heart catheterization that showed a normal LV, wall motion and systolic function. She did have a single-vessel disease involving the mid right coronary but was only 50%. Cardiology recommending amlodipine 2.5 mg daily for microvascular vasospasm though that was not clearly identified on the heart catheterization. Discussed with the patient further about the etiology of her chest pain as she also underwent a CT angiogram that was negative for pulmonary embolism. Given this could be also esophageal spasm. Patient does have a reported history of reflux occurs frequently. Patient advised to take 20 mg omeprazole [id number] daily. Recommend patient follow-up with gastroenterology patient will be following up with cardiology next month. Patient may return to normal work duties. [] Patient Problems: Active and Suspected Problems (Last Reviewed 08/16/19 @ 03:[address] Gumaro Loaiza MD) Chest pain (Acute) - Physical Exam Vitals/I&O's: Vital Signs Temp Pulse Resp BP Pulse Ox 36.5 C L 59 L 18 95/53 L 97 08/17/19 06:18 08/17/19 06:55 08/17/19 06:18 08/17/19 06:18 08/17/19 06:18 Oxygen Delivery Method Room Air Weight: 58.9 kg Body Mass Index (BMI) 20.9 Intake and Output for Last 24 Hours 08/15/19 08/16/19 08/17/19 23:59 23:59 23:59 Intake Total 1829 / 1829 150 / 150 Balance 1829 150 / 150 General: Alert, No apparent distress HEENT: Atraumatic, Normocephalic Oral: Moist Mucosa, No Gingival or Mucosal Lesions/ Ulcerations Skin: - - groin site without ecchymosis Psych/Mental Status: Normal Affect, Appropriate Laboratory Results 08/16/19 09:25: Troponin I < 0.015 08/16/19 12:41: Activated Clotting Time 186 H 08/16/19 13:44: Activated Clotting Time 158 H Current Medications Acetaminophen (Tylenol) 650 mg PO Q6H PRN PRN PRN Reason: Pain Score 1-10/Temp > 100.7 F Amlodipine Besylate (Norvasc) 2.5 mg PO DAILY [facility] Aspirin (Ecotrin) 81 mg PO DAILY@0800 [facility] Last Admin: 08/16/19 09:44 Dose: 81 mg Documented by: Atorvastatin Calcium (Lipitor) 80 mg PO QHS [facility] Last Admin: 08/16/19 21:52 Dose: 80 mg Documented by: Clopidogrel Bisulfate (Plavix) 75 mg PO DAILY [facility] Last Admin: 08/16/19 09:44 Dose: 75 mg Documented by: Glucagon () 1 mg IM .X1 PRN PRN Reason: Hypoglycemia Heparin Sodium (Beef Lung) (Heparin 500 Unit/5 Ml (100/Ml)) 500 unit IV UD PRN PRN Reason: HEPARIN FLUSH Heparin Sodium (Porcine) (Heparin Na) 5,000 unit SC Q8 [facility] Last Admin: 08/17/19 06:20 Dose: 5,000 unit Documented by: Dextrose (Dextrose 10%-Water) 250 mls @ 999 mls/hr IV .Q16M PRN; Protocol PRN Reason: HYPOGLYCEMIA Sodium Chloride () 250 mls @ 15 mls/hr IV .[id number] PRN PRN Reason: Saline Flush Sodium Chloride () 250 mls @ 15 mls/hr IV .[id number] PRN PRN Reason: Additional IVPB Infusion Sodium Chloride () 1,000 mls @ 0 mls/hr IV .Q0M [facility] Labetalol HCl (Trandate) 5 mg IV X1 PRN PRN Reason: SBP > 160 prior to sheath pull Stop: 08/18/19 12:42 Metoprolol Tartrate (Lopressor (Beta Aden)) 12.5 mg PO BID [facility] Last Admin: 08/16/19 21:52 Dose: 12.5 mg Documented by: Morphine Sulfate () 2 mg IV Q3H PRN PRN PRN Reason: Pain Score 6-10/10 Last Admin: 08/17/19 02:05 Dose: 2 mg Documented by: Nicotine (Nicoderm Cq (Pbkc)) 14 mg TRANSDERM. DAILY [facility] Last Admin: 08/16/19 15:18 Dose: 14 mg Documented by: Sodium Chloride () 10 - 40 ml IV UD PRN PRN Reason: SALINE FLUSH Last Admin: 08/17/19 02:05 Dose: 10 ml Documented by: Discharge Diet: Low fat/ Low Cholesterol Discharge Activity: Return to Normal Activity Call your doctor if you observe: Shortness of breath, Chest pain Home Medications: Medications to take at Discharge Aspirin E.C. [Ecotrin] 81 mg PO DAILY@0800 #90 tab 06/05/19 atorvastatin 80 mg tablet 80 mg PO QHS #90 tab 06/17/19 clopidogrel 75 mg tablet 75 mg PO .COMPLEX #94 tab 06/17/19 metoprolol tartrate 25 mg tablet 12.5 mg PO BID #90 tab 06/17/19 nitroglycerin 0.4 mg sublingual tablet 0.4 mg SUBLINGUAL Q5-15M PRN 06/17/19 Amlodipine [Norvasc] 2.5 mg PO DAILY #30 tab 08/17/19 Omeprazole 20 mg PO DAILY #30 tablet. 08/17/19 Following Prescrptions Were Given to Patient: Amlodipine [Norvasc] 2.5 mg PO DAILY #30 tab Transmission Status: Pending to [facility] [place] Omeprazole 20 mg PO DAILY #30 tablet.dr Chang Amb Orders: Phase II, Outpatient Cardiac Rehab Location: None Selected Primary Care Physician: Stephanie Aguilar MD [Primary Care Provider] - Within 2 Weeks Please Follow Up With: Rosaura Novak When: 09/04/2019, already scheduled Please Follow Up With: Jl Nicolas MD - gastroenterology When: 1-2 months Patient Instructions: CHEST PAIN, NonCardiac Disposition: Home Minutes spent on discharge:: 28 Patient Condition:: Good Medical Necessity - Tobacco Use Smoking Status: Current every day smoker Tobacco Use: Cigarettes Meaningful Use Info Meaningful Use Diagnoses (Choose all that apply): None applicable Code Visit OBSV E&M: 89552 Observation care discharge
[2019-08-17 09:27] VITALS: BP 98/52; PULSE 74; RESP 18; TEMP 36.8; O2SAT 98
[2019-08-17] MEDS: Aspirin E.C. 81 MG Tablet PO (09:32)
[2019-08-17] MEDS: Clopidogrel Bisulfate 75 MG Tablet PO (09:43)
[2019-08-17 09:48] VITALS: PULSE 74
[2019-08-17] MEDS: Metoprolol Tartrate 25 MG Tablet 12.5 MG PO (09:48)
[2019-08-17] MEDS: amLODIPine 2.5 MG Tablet PO (09:49)
== END 2019-08-17 08:40 | disposition home or self-care (01) ==
LOC: ED 08-16 01:52 → PCU 08-16 03:13
PROVIDERS: Admitting Provider Hospitalist; Emergency Provider Emergency Medicine; PCP Family Medicine
DX: R07.89 Other chest pain (principal); I25.10 Atherosclerotic heart disease of native coronary artery without angina pectoris; R06.02 Shortness of breath; I25.2 Old myocardial infarction; F43.12 Post-traumatic stress disorder, chronic; H53.031 Strabismic amblyopia, right eye; F17.210 Nicotine dependence, cigarettes, uncomplicated; Z86.74 Personal history of sudden cardiac arrest; Z79.899 Other long term (current) drug therapy; Z79.82 Long term (current) use of aspirin; Z79.02 Long term (current) use of antithrombotics/antiplatelets; Z95.5 Presence of coronary angioplasty implant and graft; E78.5 Hyperlipidemia, unspecified
CPT/HCPCS: 36415; 71045; 71275; 80048; 84484; 85025; 85347; 85379; 93005; 93458; 93571; 96361; 96372; 96374; 96375; 96376; 99218; 99285; 99406; J0153; J7040; Q9967; A4216; C1769; C1887; C1894; G0378; J2405

== ENCOUNTER → 2019-08-27 | Outpatient (CLI) | payer BC, SELFPAY ==
[2019-08-16 03:36] VITALS: BMI 20.9
--- NOTE | 2019-08-27 10:26 | PCM.CR.HP2 ---
CR - History & Physical - General Arrival date:: 08/27/19 Arrival time:: 10:05 Date of Referral:: 06/04/19 Date of CR Evaluation:: 08/27/19 Referring Physician: DR. WARREN Primary Diagnosis: PCI WITH STENT - History of Present Cardiac Event Onset Date: Enter Onset Date of cardiac illnesses in Comment field below Current stable Angina Pectoris:: No Acute Myocardial Infarction within 12 months:: Yes Coronary Artery Bypass Graft:: No Heart valve replacement or repair:: No PTCA or coronary stenting:: Yes - STENT 1 Heart or Heart-Lung Transplant:: No Heart Failure EF <35%:: No - EF 65% Type of Symptoms:: CHEST PAIN THAT RADIATED TO THE BACK AND DOWN HER ARM Interventions with present event:: STENT X1 Were there any complications?: NONE - Medications Home Medications: Ambulatory Orders Medication Instructions Recorded Aspirin E.C. [Ecotrin] 81 mg PO DAILY@0800 #90 tab 06/05/19 atorvastatin 80 mg tablet 80 mg PO QHS #90 tab 06/17/19 clopidogrel 75 mg tablet 75 mg PO .COMPLEX #94 tab 06/17/19 metoprolol tartrate 25 mg tablet 12.5 mg PO BID #90 tab 06/17/19 nitroglycerin 0.4 mg sublingual 0.4 mg SUBLINGUAL Q5-15M PRN 06/17/19 tablet Amlodipine [Norvasc] 2.5 mg PO DAILY #30 tab 08/17/19 Omeprazole 20 mg PO DAILY #30 tablet. 08/17/19 - Allergies Allergies/Adverse Reactions: Allergies No Known Allergies Allergy (Verified 07/12/19 15:06) - Sleep Disorder Evaluation Hx of Sleep Apnea: No Do you snore loudly (louder than talking or can be heard through closed doors)?: No Do you often feel tired/ fatigued/ sleepy during daytime?: No Has anyone observed you stop breathing during sleep?: No History of Hypertension (for STOP score): No STOP Results: Negative Advanced Directives - Advanced Directives Power of Customer Service Supervisor: No - PT REQUESTS INFO., WILL TAKE HER AND TO [facility] FOR PACKET TODA Living Will: No Advance Directives Information Provided: No Advance Directives on File: No DNR Order?:: No Past Medical History - Past Medical Illness Medical History: Past Medical History (Last Reviewed 08/16/19 @ 03:[address] Gumaro Loaiza MD) History of sudden cardiac arrest successfully resuscitated (Chronic) Onset Date: 06/04/[address] elevation myocardial infarction (STEMI) (Chronic) Onset Date: 06/04/19 I25.2 Atherosclerosis of coronary artery of [place] heart without angina pectoris (Chronic) I25.10 Tobacco dependence (Chronic) F17.200 PTSD (post-traumatic stress disorder) (Chronic) F43.10 Galactorrhea N64.3 Status post hysteroscopy Onset Date: 05/21/19 Z98.890 D&C lap BS Strabismic amblyopia, right eye H53.031 - Past Surgical History Surgical History: Past Surgical History (Last Updated 08/16/19 @ 13:43 by Anna Rosenbaum) History of coronary artery stent placement (Chronic) Onset Date: 06/04/19 Z95.5 BRIT mid LAD with a 2.25 x 16 Promus Synergy 06/04/2019 08/16/2019:Normal LV size, wall motion,and systolic function; Single vessel CAD of the RCA; Widely patent LAD stent. Non obstructive coronary arteries. Negative FFR of RCA. H/O ovarian cystectomy Z98.890, Z87.42 Left History of bilateral breast biopsy Z98.890 Surgical History: hysterectomy - PARTIAL HYSTERECTOMY, - - Recent uteroscopy and tubal ligation - Family History Summary Family History: Family History (Last Reviewed 08/16/19 @ 03:[address] Gumaro Loaiza MD) Father Cancer Lung Grandmother Breast cancer Kidney disease Uncle Myocardial infarction Mother Myocardial infarction Social History - Smoking History Smoking Status: Current every day smoker Years Smokin Packs Smoked per Day: 1 Hx Tobacco Use: Yes Hx Smoking Exposure: Yes - Alcohol Use Alcohol Usage: No - Substance Abuse Hx Substance Use: No - Occupation Occupation (List type of work in comments):: Employed Hours worked per day:: 8 Returned to work on:: 08/19/19 - Hobbies, Recreation, Social Activities Hobbies: None Recreational Activities: I am able to engage in most, but not all activities Social Environment - Status Marital Status: - Current Living Arrangements Living Environment:: Spouse - Children How many children do you have?: 1 Do any of your children live nearby?: No - Safety Do you feel safe in your surroundings?: Yes - Assistance Do you need any assistance at home?: NONE Review of Systems - Review of Systems Hints: Right click = Denies (Slash). Left click = Reports ([place]) Review of Present Symptoms: Reports: Shortness of Breath with Exertion, Fatigue, Appetite - Normal, Sleep - Normal. Denies: Shortness of Breath at Rest, PVD, Operative Discomfort, Angina, Wound Healing, Dizziness/Lightheadedness, Heart Arrhythmia/Irregularities - Pain Is Patient Pain Free?: Yes Risk Factor Assessment - Chief Complaint Chief Complaint: CURRENT PCI WITH STENT PT HERE TODAY FOR INITIAL CR EVALUATION - Vital Signs Temperature: 98.6 F Respiratory Rate: 16 Pulse Ox: 99 Blood Pressure: 102/60 Nailbeds:: PINK - Pulse Pulse Rate: 56 Pulse Rhythm: Regular - Hypertension How long have you been treated?: NEVER DIAGNOSED Blood Pressure Sitting - Left Arm: 102/60 - Stress Stress: Recent, Long-standing, Work-related, Home/Family - IM ALL ABOUT THE STRESS - Blood Cholesterol/Lipids Total Cholesterol (mg/dL) Goal = less than 200 mg/dL: 156 HDL Cholesterol (mg/dL) Goal = less than 40 mg/dL: 69 LDL Cholesterol (mg/dL) Goal = less than 70 mg/dL: 82 Triglycerides (mg/dL) Goal = less than 150 mg/dL: 27 - Obesity Height: 5 ft 6 in Weight:: 129 lb Weight in Pounds: 129.0 lbs Weight Source: Stated by Patient Body Mass Index (BMI): 20.8 Nutritional Referral for Obesity: No - Physical Inactivity Physical Inactivity: Physically demanding job - Risk Stratification Risk Guidelines: Lowest Risk: Risk Factor for Dyslipidemia, Risk Factor for Diabetes, Risk Factor for Obesity, Risk Factor for Hypertension, Risk Factor for Sedentary Lifestyle, Risk Factor for Depression - PT STATES HAS HAD SOME ANXIETY AND DEPRESSION IN PAST, Highest Risk: Risk Factor for Smoking - For Smoking Smoking Risk Guidelines: Smoking Low Risk: None or quit greater than 6 months ago. Smoking Moderate Risk: Smoker or quit 6 months or less ago. Smoking High Risk: Smoker - For Dyslipidemia Dyslipidemia Risk Guidelines: Low Risk: Moderate Risk: High Risk: 15-25% fat 25.1-29% fat >/= 30% fat. <7% sat fat 7-9% sat fat >9% sat fat. <150 mg chol 150-299 mg chol >/= 300 mg chol. LDL <100 LDL 100-129 LDL >/= 130. Chol/HDL ratio <5.0 Chol/HDL ratio 5.0-6.0 Chol/HDL ratio >6.0. Triglycerides <100 Triglycerides 100-149 Triglycerides >/= 150 - For Diabetes Mellitus Diabetes Risk Guidelines: Diabetes Low Risk: HgA1c <6.5% and/or FBG <120. Diabetes Moderate Risk: HgA1c 6.6-7.9% and/or FBG 120-180. Diabetes High Risk: HgA1c >/= 8% and/or FBG >180 - For Obesity/Overweight Obesity/Overweight Risk Guidelines: Obesity Low Risk: BMI <25.0. Obesity Moderate Risk: BMI 25-29.9. Obesity High Risk: BMI >/= 30.0 - For Hypertension Hypertension Risk Guidelines: Hypertension Low Risk: Systolic <120 and Diastolic <80. Hypertension Moderate Risk: Systolic 120-139 and Diastolic 80-89. Hypertension High Risk: Systolic >/= 140 and Diastolic >/= 90 - For Sedentary Lifestyle Sedentary Lifestyle Risk Guidelines: Sedentary Lifestyle Low Risk: >/= 1,500 kcal/week. Sedentary Lifestyle Moderate Risk: 700-1,499 kcal/week. Sedentary Lifestyle High Risk: < 700 kcal/week - For Depression Depression Risk Guidelines: Depression Low Risk: Not clinically depressed. Depression Moderate Risk: Mildly depressed. Depression High Risk: Clinically depressed - Family History Family History: Family History (Last Reviewed 08/16/19 @ 03:[address] Gumaro Loaiza MD) Father Cancer Grandmother Breast cancer Kidney disease Uncle Myocardial infarction Mother Myocardial infarction Motivation - Motivation to Participate On a scale of 1 to 10, how prepared are you to commit to attending program?: 3 What do you see as barriers to successfully being able to complete the program?: WORK/SCHEDULING What do you see as the benefits of succesfully completing the program? In other words, what do you hope to get out of participating in the program?: IMPROVED ENERGY Are there issues you are dealing with that will interfere with completing the program?: CURRENTLY WORKING Do you have a spouse or signficant other, family or friends who will help support you to complete the program?: SPOUSE
--- NOTE | 2019-08-27 10:27 | CR.ITP_ITS ---
Diagnosis - General Information Admitting Diagnosis: PCI WITH STENT Personal Learning Style:: Audio/Visual, Demonstration, Group, Individual Preference, Written Barriers to Learning: No Barriers Stage of change r/t lifestyle modifications:: Action Gave educational material for:: Treating Heart Disease, Emotions & Heart Disease, Stress Management & Relaxation, Sleep Disorders & Heart Disease, How The Heart Works - INFORMED OF ONLINE EDUCATION MATERIAL AVAILABILITY, What it means to have Heart Disease, How Coronary Artery Disease is Diagnosed, Heart Procedures, What Heart Medications Do, Risk Factors & Modifications, Living an Active Life, Nutrition - Education/Goals Individual Counseling: Initial Assessment: Nicotine/Smoking, Stress - PT STATES STRESS HAS BEEN AN ISSUE Cardiac Rehabilitation Goals: 1. Maintain the individual as the primary focus of care. 2. To improve the patient's quality of life. 3. Identification of cardiac risk factors and provide cardiac risk factor management. 4. Enhance the psychosocial status of the patient. 5. Reconditioning enough to allow the patient to resume customary activities. 6. Control symptoms of cardiac disease Personal Goals: Initial Assessment: Improve management of stress and emotions, Improve energy level, Participate in home exercise program, Get back to work, or to resume activities faster, Improve knowledge of cardiac disease, Improve muscle strength and endurance, Improve diet and eating habits (eat healthier), Control risk factors (learn risk factor modification) Scale for measuring improvement of personal goals: Enter appropriate number in Comments. 2 = Unchanged. 3 = Slightly Better. 4 = Moderate Improvement. 5 = Met my Goal - Diagnosis & Disease Process Outcomes/Goals: Pt IDs own risk factors & lifestyle modifications by Session 10, Verbalizes symptoms of angina & response by session 3., Pt independently manages, Other Additional Outcomes/Goals: Plan/Interventions: Assist Pt to ID & engage in lifestyle modification to reduce CVD risk, Instruct on individual risk factors, Review symptoms of angina & emergency actions, Review secondary diagnosis & identify educational needs., Other see comment - Safety Referral to Physical Therapy: No Referral to [facility] Case Management: No Fall Risk Assessed:: Yes - PT STEADY ON FEET Assistive Devices:: None - NEW START CR PATIENT Exercise - Initial Assessment - Visit Date of Eval: 08/27/19 Mets: Pre-: >5 METS for 30 minutes by discharge - Physician Prescribed Exercise Modalities: Treadmill, Biodyne, Rower, Airdyne, NuStep, SciFit Frequency: 3x/week for 12 weeks [36 sessions] Intensity: 60-80% of age predicted maximum heart rate reserve Target Heart Rate:: 111-145 Resting Blood Pressure: 102/60 EKG Type: NSR - Outcomes & Goals Goals:: Verbalizes understanding of THR, RPE & goal METS by session 6, Documents in home exercise log/reports 30 min aerobic 5 day/wk by DC, Demonstrates accurate pulse taking by DC, Other additional outcome/goals: see below - Intervention & Plan Exercise Program Goals: Instruct on personal THR & RPE, Instruct on MET level & personal MET goal, Show patient to take own pulse /validate performance until accurate, Instruct on home exercise, Other additional plan/int - Physical Activity Home Exercise Physical Activity - Home Exercise: Safe Exercise, Warm-up, Self-monitoring, Cool-Down, Home Exercise > 30 min Daily, Sitting Time <3 hours/daily - Intervention & Plan Plan/Intervention: Instruct warm-up & cool-down if exercising at > 2 METs, Instruct on symptoms of exercise intolerance & actions to take - NEW START CR PATIENT, Instruct & monitor on saf, Assess intial functional capacity & safety risk, Other See below Nutrition - Initial Assessment - Program Goals Nutrition Program Goals: LDL <100 optimal. 100 - 129 Near optimal. 130 - 159 Borderline High. 160 - 189 High. Total Cholesterol <200 desirable. 200 - 239 Borderline High. >/= 240 High. HDL < 40 Low >/=60 High. Triglycerides <150 desirable. <199 optimal. VlDL 5 - 40. HgbA1C <7%. BMI <25 Patient has diagnosis of Hyperlipidemia (ICD E78)?: No - Visit Date of Assessment:: 08/27/19 - Cholesterol/Lipids Triglycerides (mg/dL): 27 Total Cholesterol (mg/dL): 156 LDL Cholesterol (mg/dL): 82 HDL Cholesterol (mg/dL): 69 Lipid Medication: ATORVASTATIN Determine presence & major risk factors that modify LDL goal: Cigarette smoking, Hypertension or hypertensive medication, Low HDL cholesterol <40 mg/dL*, Family history of premature CHD in Male < 55 years: female <65 yearsFa, Age men > 45 years; women >/= 55 years Outcomes/Goals: Pt IDs own risk factors & lifestyle modifications by Session 10, Verbalizes symptoms of angina & response by session 3., Pt independently manages, Other Additional Outcomes/Goals: Intervention/Plan: Advocate for lipid panel cholesterol medication if applicable, Instruct on personal lipid levels & lipid goals/NCEP guidelines, Instruct on cholesterol, Other additional plan/int Referral to dietitian:: No - Diabetes (Other Core Measures) Diabetes Type: Not Applicable - Weight Mgt (Other Care) Not Applicable: No Height: 5 ft 6 in Weight:: 129 lb BMI: 20.8 Diagnosis Overweight/Obesity BMI> 30% ICD-10 E66: No Intervention/Plan: Other additional plan/interventions - Healthy Eating Habits Will attend diet classes:: Yes Outcomes/Goals:: Consume diet rich in vegs,fruits,whole grain/high fiber,fish,lean meat, Limit sat/trans fats,cholesterol & added salts & sugars, Other additional outcome/goals: Intervention/Plan:: Assess current eating habits, Other Additional plan/interventions - Education Gave educational materials for:: Signs & symptoms of hypoglycemia, Signs & symptoms of hyperglycemia, Relate diabetes to coronary artery disease, Healthy eating Medical - Initial Assessment - Visit Date of Eval: 08/27/19 - Medication Compliance Preventative Medication(s):: Aspirin, Clopidogrel/P2Y12 inhibit, Statin/lipid, Beta gm H/O mental health issues: depression, anxiety, or addiction?: Yes Doesn?t believe in the benefits of treatment?: Yes - PT AND TALK ABOUT PREVIOUS TX FOR ANXIETY AND DEPRESSION Believes medications are unnecessary or harmful?: Yes Has a concern about medication side effects?: Yes Expresses concern over the cost of medications?: No Outcomes/Goals: Verbalizes medications,desired effect & common side effects @ DC, Pt self-reports following medication regimen, Keeps card in wallet w/medications listed by DC, Other additional outcome/goals: Interventions/plans: Instruct on medication effects & side effects, Review medication list w/patient every two weeks, Instruct importance of taking meds as ordered & assist problem solving, Other additional - Tobacco Use Tobacco Use: Cigarettes How many cigarettes do you smoke per day?: 20 Years Smokin Do you use smokeless tobacco?: No Outcomes/Goals: Smoking cessation achieved or maintained by discharge, Identify aids/strategies for achieving smoking cessation by session 6 - PT NOT INTERESTED IN QUITING SMOKING AT PRESENT, Other additional outcome/goals Interventions/plan: Instruct on effects of smoking & provide smoking cessation resource, Assist pt to set quit date & provide encouragement, Assist pt to develop strategies to achieve/maintain quit date, Assist pt w/nicotine replacement & medication for cessation success, Other additional plan/interventions - Hypertension Resting Blood Pressure:: 102/60 [employer] Hypertension Guidelines: [place] [employer] Hypertension Guidelines. Normal BP Less than 120/80. Elevated BP 120/80. Hypertension Stage 1: BP 130-139/80-89. Hypertesnion Stage 2: BP 140 or higher/90 or higher. Hypertension Crisis: BP higher than 180/120 Outcomes/Goals: Able to verbalize/achieve optimal blood pressure <130/80, Incorporates diet changes & exercise for blood pressure control by DC, Other additional outcomes/goals Interventions/plan: Instruct on optimal blood pressure, hypertension & medications, Instruct on effects of sodium, alcohol, stress, exercise &hypertension, Other additional plan/interventions - Tobacco Cessation Referral Smoking Cessation Referral:: No - PT DECLINES AT PRESENT Individual Education/Counseling:: No Education Schedule Given:: Yes - INFORMED OF ON-LINE MATERIAL WELL Psychosocial - Initial Assess - VIsit Date of Eval: 08/27/19 History of previous Mental disease:: Yes - ANXIETY AND DEPRESSION History of Emotional Disorders: Anxious, Depression Self-reported stressors: Financial, Medical/Health, Other - NORMAL LIFE - Target Goals Target Goals: Assess presence or absence of depression. Using a valid screening tool, maximizes coping skills. Positive support system - Psychosocial Test Tool Used:: PHQ-9 Questionnaire phq-9 Severity: Severity. 1-4 Minimal Depression. 5-9 Mild Depression. 10-14 Moderate Depression. 15-19 Moderately Sever Depression. 20-27 Severe Depression. Rule: See PHQ-9 Score: 2 Total Score:: 2 - Referral to Behavioral Health PS - Interventions: Yes Attend Stress Management Classes - ATTEND CR CLASSES, No Referral to Behavioral Health if PHQ-9 score >9:, No Referral to [facility], No Referral to Physician if PHQ-9 if score is 5-9: - Outcomes/Goals: See list Psychosocial Outcomes/Goals:: ID's personal stressors & 2 strategies to manage stress by discharge, Other Additional outcome/goals: - Intervention/Plan: See List Interventions/Plan:: Assess stressors,coping strategies & signs of derpression on admission, Instruct/assist pt to develop coping & personal stress Mgt strategies - PT STATES SHE WAS ON MEDICATION IN PAST FOR ANXIETY/DEPRESSION, Refer to Behavioral Health if appropriate, Refer to Physician if appropriate, Instruct patient to recognize signs & symptoms of depression, Instruct patient to recog, Other additional plan/intervention Patient Health Questionnaire Initial Assessment 1. Little interest or pleasure in doing things: Not at all 2. Feeling down, depressed, or hopeless: Not at all 3. Trouble falling or staying asleep, or sleeping too much: Several days 4. Feeling tired or having little energy: Several days 5. Poor appetite or overeating: Not at all 6. Feeling bad about yourself -- or that you are a failure or have let yourself or your family down: Not at all 7. Trouble concentrating on things, such as reading the newspaper or watching television: Not at all 8. Moving or speaking so slowly that other people could have noticed. Or the opposite - being so fidgety or restless that you have been moving around a lot more than usual: Not at all 9. Thoughts that you would be better off , or of hurting yourself in some way: Not at all How difficult have these problems made it for you to do your work, take care of things at home, or get along with other people?: Somewhat difficult Total Score: 2 TIESHA-Q SV Test - Statements CAD is a disease of the arteries in the heart: False Examples of risk factors for heart disease: True Angina is chest pain or discomfort: True The benefits of resistance training include: True Eating more meat and dairy products: I Don't Know Anti-platelet medications such as aspirin are important: True The only effective way to manage stress: False An exercise warm-up slowly increases heart rate: I Don't Know Prepared, processed foods usually have high sodium: True Depression is common after a heart attack: True The statin medications lower cholesterol: True To control blood pressure, lower the amount of sodium: True If someone gets chest discomfort during walking: False Transfats are partially hydrogenated vegetable oils: True Sleep apnea that is not treated increases the risk: I Don't Know To control cholesterol, one should become a vegetarian: False Someone knows if he/she is exercising at the right level: I Don't Know Diabetes cannot be prevented with exercise & health eating: False Stress is a large risk for heart attack: True A diet that can help lower blood pressure is rich in: I Don't Know - Total Score Total Correct Responses: 15 Self-Efficacy Initial Assessment We would like to know how confident you are in doing certain activities. Please select your confidence level for:: Select your confidence level for the following using the scale 1-10 where 1 is not at all confident and 10 is totally confident. Your score is the average of all 6 responses. Fatigue: How confident are you that you can keep the fatigue caused by your disease from interfering with the things you want to do? Select Number: 5 Physical Discomfort or Pain: How confident are you that you can keep the physical discomfort or pain of your disease from interfering with the things you want to do? Select Number: 5 Emotional Distress: How confident are you that you can keep the emotional distress caused by your disease from interfering with the things you want to do? Select Number: 3 Other Symptoms or Health Problems: How confident are you that you can keep other symptoms or health problems from interfering with the things you want to do? Different Tasks and Activities: How confident are you that you can do the different tasks and activities needed to manage your health condition so as to reduce your need to see a doctor? Select Number: 3 Medication: How confident are you that you can do things other than just taking medication to reduce how much your illness affects your everyday life? Select Number: 3 - PT DIDN'T ANSWER 34 Nutrition Survey - Nutrition Survey Instructions Scoring Instructions: Scoring is as follows: Yes = 1 points. No = 0 point. Patient score that is >/=12 is considered to be at potential nutritional risk and could benefit from a referral to a registered dietitian. - Nutrition Survey Initial Have you lost >10 lbs over the past 2 months without trying?: No Are you following a special diet at home for diabetes, low fat, or low salt?: No Are you interested in meeting with a dietitian for help understanding your diet?: Yes Do you eat less than 3 meals a day?: Yes Do you eat fatty meats (lundberg, sausage, ribs, etc), fried foods, desserts, large amounts of salad dressings, margarine, butter, or cheese most days?: Yes Do you have food allergies? [Enter types in comment field]: No Do you eat in restaurants more than 3 times a week?: Yes Do you season food with salt, seasoning salt, or garlic salt?: Yes Do you used canned, boxed, frozen meals, or soups, seasoning packets?: Yes Total Score:: 6
[2019-08-27 10:56] VITALS: BP 102/60; PULSE 56; RESP 16; TEMP 37; O2SAT 99; BMI 20.8
[2019-08-27 11:30] VITALS: BP 102/60; BMI 20.8
== END | disposition home or self-care (01) ==
PROVIDERS: PCP Family Medicine; Referring Provider Internal Medicine Cardiovascular Disease; Visit Provider Internal Medicine Cardiovascular Disease
DX: Z95.5 Presence of coronary angioplasty implant and graft (principal)

== ENCOUNTER 2019-09-04 06:17 | Outpatient (RCR) | payer BC, SELFPAY ==
[2019-08-27 10:56] VITALS: BMI 20.8
== END 2019-09-24 23:59 ==
LOC: CR 06:17
PROVIDERS: PCP Family Medicine; Referring Provider Internal Medicine Cardiovascular Disease; Visit Provider Internal Medicine Cardiovascular Disease
DX: I25.2 Old myocardial infarction (principal); I21.3 ST elevation (STEMI) myocardial infarction of unspecified site; Z95.5 Presence of coronary angioplasty implant and graft; Z86.74 Personal history of sudden cardiac arrest
CPT/HCPCS: 93798

== ENCOUNTER → 2020-01-14 | Outpatient (CLI) | payer BC, SELFPAY ==
[2019-08-27 11:30] VITALS: BMI 20.8
[2019-09-04 14:24] VITALS: BMI 20.8
== END | disposition home or self-care (01) ==
LOC: MTDU 18:04
PROVIDERS: PCP Family Medicine; Referring Provider Family Medicine; Visit Provider Family Medicine
DX: Z20.828 Contact with and (suspected) exposure to other viral communicable diseases (principal)
CPT/HCPCS: 87635; G2023; U0003

== ENCOUNTER → 2020-02-12 | Outpatient (CLI) | payer BC, SELFPAY ==
[2019-08-27 11:30] VITALS: BMI 20.8
[2020-01-23 10:28] VITALS: BMI 19.7
--- NOTE | 2020-02-12 11:09 | ECHOD_ITS ---
Reason For Study: CP Procedure This was a 2D Doppler, Color Flow transthoracic echocardiogram. Exam performed in department. Left Ventricle Normal size and thickness. The estimated ejection fraction is 65 %. Normal diastology for age. No regional wall motion abnormalities noted. Right Ventricle Normal size and thickness. Normal systolic function. Atria Normal left atrium. Normal right atrium. Normal atrial septum. Mitral Valve Mild diffuse mitral valve thickening. Mild (1+) posteriorly directed mitral valve insufficiency. Tricuspid Valve Normal tricuspid valve. Trivial tricuspid valve insufficiency. Right ventricular systolic pressure estimated to be 29 mmHg. Aortic Valve Normal aortic valve. Trisinus/trileaflet aortic valve. Pulmonic Valve Normal pulmonic valve. Great Vessels Normal aortic root. Normal arch. Normal inferior vena cava. Inferior vena cava collapse with sniff. Pericardium/Pleural No pericardial effusion. MMode/2D Measurements & Calculations LVIDd: 4.5 cm IVSd: 0.82 cm LA dimension: 2.9 cm LVIDs: 3.0 cm LVPWd: 0.78 cm RVDd: 2.9 cm FS: 32.4 % LAV(MOD-bp): 40.2 ml LA A4 area: 13.5 cm2 RA A4 area: 9.4 cm2 LAV(MOD-bp) Indexed: 25.0 ml/m2 LAV(MOD-sp2): 43.2 ml LAV(MOD-sp4): 30.2 ml Time Measurements MV dec time: 0.33 sec Doppler Measurements & Calculations MV E max hossein: 92.9 cm/sec Lat Peak E' Hossein: 12.3 cm/sec Med Peak E' Hossein: 10.8 cm/sec MV A max hossein: 63.0 cm/sec E/E' lat: 7.6 E/E' med: 8.6 MV E/A: 1.5 MV V2 max: 137.4 cm/sec MV P1/2t max hossein: 137.4 cm/sec Ao V2 max: 153.6 cm/sec MV max P.6 mmHg MV P1/2t: 84.9 msec Ao max P.4 mmHg MV V2 mean: 62.1 cm/sec MV dec slope: 474.1 cm/sec2 Ao V2 mean: 97.2 cm/sec MV mean P.9 mmHg MVA(P1/2t): 2.6 cm2 Ao mean P.5 mmHg MV V2 VTI: 44.2 cm Ao V2 VTI: 35.1 cm LV V1 max: 108.7 cm/sec MR max hossein: 532.8 cm/sec PA V2 max: 84.7 cm/sec LV V1 max P.7 mmHg MR max P.6 mmHg LV V1 mean P.5 mmHg MR mean hossein: 428.7 cm/sec LV V1 mean: 74.4 cm/sec MR mean P.7 mmHg LV V1 VTI: 26.1 cm MR VTI: 205.5 cm TR max hossein: 237.7 cm/sec TR max P.6 mmHg Interpretation Summary The estimated ejection fraction is 65 %. Normal diastology for age. Mild (1+) posteriorly directed mitral valve insufficiency. Trivial tricuspid valve insufficiency. Right ventricular systolic pressure estimated to be 29 mmHg. Compared to echo report dated 06/04/2019, LV function has remained the same, mitral regurgitation has gone from trivial to mild, RVSP has remained the same. Ordering Physician: Clifford Gruber Referring Physician: Stephanie Aguilar Performed By: Hansel Hernandez RCS
== END | disposition home or self-care (01) ==
LOC: CVS 11:09
PROVIDERS: PCP Family Medicine; Referring Provider Internal Medicine Cardiovascular Disease; Visit Provider Internal Medicine Cardiovascular Disease
DX: R07.9 Chest pain, unspecified (principal); I25.10 Atherosclerotic heart disease of native coronary artery without angina pectoris; E78.5 Hyperlipidemia, unspecified; F17.200 Nicotine dependence, unspecified, uncomplicated
CPT/HCPCS: 93306

== ENCOUNTER → 2020-02-19 11:01 | Outpatient (CLI) | payer BC, SELFPAY ==
[2019-08-27 11:30] VITALS: BMI 20.8
[2020-01-23 10:28] VITALS: BMI 19.7
--- NOTE | 2020-02-19 11:03 | STE_ITS ---
Reason For Study: CHEST PAIN Stress Results Protocol: [facility]smany Protocol Maximum Predicted HR: 171 bpm Target HR: 145 bpm % Maximum Predicted HR: 85 % DurationHeart Rate Stage (mm:ss) (bpm) BP Comment BASELINE 72 108/72 STAGE 1 3:00 107 120/70SLIGHT SOB STAGE 2 3:00 114 120/60SLIGHT SOB STAGE 3 3:00 130 132/52SOB, NO CHEST PAIN STAGE 4 1:00 146 / SOB, NO CHEST PAIN RECOVERY 97 112/68 Stress Duration: 10:00 mm:ss Maximum Stress HR: 146 bpm Baseline Echocardiogram Findings The estimated ejection fraction is 65 %. Stress Echo Wall motion Data Resting WM Intermediate WM Stress WM Resting Wall Motion Wall Motion Stress No regional wall motion No regional wall motion abnormalities noted. abnormalities noted. EKG Data The baseline ECG displays normal sinus rhythm. The patient exercised according to the regular Osmany protocol for a total duration of 10:01. The maximum heart rate attained was 151 beats per minute. This was 88% of maximum predicted heart rate. The patient exercised into stage 4 of the Osmany protocol. During stress, there were no ST or T wave changes noted to suggest ischemia. No arrhythmias noted. No clinical angina was noted. Interpretation Summary The estimated ejection fraction is 65 %. Normal, adequate, treadmill echocardiogram. Negative for ischemia by EKG and echocardiographic criteria. No anginal symptoms noted. No arrhythmias noted. Appropriate blood pressure response to exercise. Average exercise capacity for age. Test terminated due to dyspnea and target heart rate achieved. Final LVEF is 75%. Patient tolerated procedure well. No complications. Ordering Physician: Clifford Gruber Referring Physician: Clifford Gruber Performed By: Cee Villegas RDCS
== END ==
LOC: CVS 11:03
PROVIDERS: PCP Family Medicine; Referring Provider Internal Medicine Cardiovascular Disease; Visit Provider Internal Medicine Cardiovascular Disease
DX: R07.9 Chest pain, unspecified (principal); I25.10 Atherosclerotic heart disease of native coronary artery without angina pectoris; F17.200 Nicotine dependence, unspecified, uncomplicated; Z95.5 Presence of coronary angioplasty implant and graft
CPT/HCPCS: 93017; 93350

== ENCOUNTER 2020-04-27 21:36 | Emergency (ER) | payer BC, SELFPAY ==
[2019-08-27 11:30] VITALS: BMI 20.8
[2020-01-23 10:28] VITALS: BMI 19.7
[2020-04-27 21:36] VITALS: BP 129/61; PULSE 65; RESP 14; TEMP 36.6; O2SAT 100; BMI 19.5
--- NOTE | 2020-04-27 21:47 | EKG12_ITS ---
Test Reason : REPEAT Blood Pressure : / mmHG Vent. Rate : 061 BPM Atrial Rate : 061 BPM P-R Int : 170 ms QRS Dur : 078 ms QT Int : 404 ms P-R-T Axes : 077 074 071 degrees QTc Int : 406 ms Normal sinus rhythm Normal ECG Confirmed by SULEMA BRENNAN, NIYA ([id number]), editorial specialist KEVIN KATZ ([id number]) on 04/30/2020 11:33:41 AM Referred By: MARSHALL Confirmed By:NIYA LEONE MD
--- NOTE | 2020-04-27 21:48 | ED.DCSUM_ITS ---
History of Present Illness Informant: Patient Onset: Today Timing: Continuous Quality: Pain, Sharp, Tightness Location: Substernal Current Severity: Moderate Maximum Severity: Severe Worsened By: Nothing Relieved By: NTG Associated Symptoms: Nausea, Vomiting, Lightheadedness Narrative: Patient is a 49-year-old female with history of coronary artery disease status post PCI 11 months ago presenting with sudden onset of chest pain. 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 She suddenly had pain in the center of her chest that radiated to her back. She states the front of her chest it feels sharp and is an aching sensation in her back. She states it was approximately 20 minutes prior to arrival. She has associated dizziness and nausea and vomiting. She denies any shortness of breath. She notes has had a cough for the past few days. She states it feels similar but different from her prior heart attack. She did throw up prior to arrival. She did take 2 nitroglycerin with some improvement of her symptoms in route. She denies any known sick contacts or exposures to Covid. She denies any diarrhea or change in bowel habits. She has had some mild lower extremity edema that is been followed with her c java developer, Dr. Grbuer. This is unchanged. No other complaints at this time. Prior Similar Symptoms: With Prior RI CVD Risk Factors: Smoking <Patricia Carney - Last Filed: 04/27/20 23:21> <Corbin Soto - Last Filed: 04/28/20 01:05> Chief Complaint: Chest Pain Past Medical History Past Medical History: - - Hyperlipidemia, coronary artery disease, PTSD Surgical History: hysterectomy - PARTIAL HYSTERECTOMY, - - Recent uteroscopy and tubal ligation Lives: Spouse/ Significant Other Smoking Status: Current every day smoker - Family History Maternal Family History: Family History (Last Reviewed 01/23/20 @ 10:28 by Anna Rosenbaum) Father Cancer Grandmother Breast cancer Kidney disease Uncle Myocardial infarction Mother Myocardial infarction Family History: Reports: No pertinent history <Patricia Carney - Last Filed: 04/27/20 23:21> - Family History Maternal Family History: Family History (Last Reviewed 01/23/20 @ 10:28 by Anna Rosenbaum) Father Cancer Grandmother Breast cancer Kidney disease Uncle Myocardial infarction Mother Myocardial infarction <Corbin Soto - Last Filed: 04/28/20 01:05> - Allergies and Home Meds Allergies/Adverse Reactions: Allergies atorvastatin Adverse Reaction (Intermediate, Verified 04/27/20 21:42) GI upset,nausea Primary Care Physician: Stephanie Aguilar MD [Primary Care Provider] - Review of Systems General: Denies: Chills, Fever, Sweats Eyes: Denies: Visual changes - bilaterally, Diplopia ENT: Denies: Rhinorrhea, Sore throat Cardiovascular: Reports: Chest pain. Denies: Palpitations Respiratory: Reports: Cough. Denies: Dyspnea, Dyspnea on exertion Gastrointestinal: Reports: Nausea, Vomiting. Denies: Abdominal pain, Diarrhea, Melena, Hematochezia Genitourinary: Denies: Dysuria, Hematuria, Frequency Musculoskeletal: Denies: Back pain, Extremity Pain Skin: Denies: Rash, Wounds Neurological: Denies: Headache, Weakness, Numbness <Patricia Carney - Last Filed: 04/27/20 23:21> Physical Exam Vital Signs/Narrative: Vital Signs Temp Pulse Resp BP Pulse Ox 04/27/20 21:36 97.8 F 65 14 129/61 H 100 Inital Vital Signs reviewed: Yes General: Well nourished, Well developed, No Acute Distress, - - anxious Head: Normocephalic, Atraumatic Eyes: Perrl, EOMI ENT: Moist mucous membranes, No rhinorrhea Neck: Supple, Nontender, No JVD Cardiovascular: Regular rate, Regular rhythm, No murmurs Respiratory: No distress, CTA bilaterally, Chest nontender. Negative for: Diminished, Decreased Air Movement Abdomen: Soft, Nontender, Nondistended, Normal bowel sounds Back: Nontender, Normal Inspection Extremities: Nontender, No edema, - - 2+ pulses radial and DP Skin: Normal color, No rash Neurological: Alert, Oriented x3, Cranial nerves II-XII grossly intact, Normal Strength, Normal Sensation Psychological: Normal affect, Normal Mood <Patricia Carney - Last Filed: 04/27/20 23:21> Vital Signs/Narrative: Vital Signs Temp Pulse Resp BP Pulse Ox 04/28/20 01:00 59 L 18 106/78 98 04/28/20 00:00 57 L 14 138/75 H 96 04/27/20 23:00 56 L 18 126/62 H 98 04/27/20 22:26 58 L 12 124/62 H 98 04/27/20 21:54 99 04/27/20 21:53 76 149/77 H 04/27/20 21:36 97.8 F 65 14 129/61 H 100 <Corbin Soto - Last Filed: 04/28/20 01:05> Diagnostic/Tx/Re-eval Chest X-Ray - ED: 1 View, Read by ED Physician, No Acute Disease, - - hyperinflated Clinical Impression(s) from Imaging Studies Chest CTA 04/27/20 22:27 IMPRESSION: 1. No evidence of pulmonary embolus. 2. No aortic dissection or aneurysm. 3. Stable emphysematous changes of lungs without new infiltrate or mass. Electronically Signed: Moises Zaidi DO at 23:09 EST Tel [phone], Service support , Laboratory Data 04/27/20 04/27/20 04/27/20 21:40 21:40 21:40 WBC 9.7 RBC 4.40 Hgb 14.3 Hct 43.6 MCV 99.1 H MCH 32.5 H MCHC 32.8 RDW Std Deviation 49.9 H RDW Coeff of Zuleyma 13.5 Plt Count 220 MPV 11.1 Immature Gran % (Auto) 0.200 Neut % (Auto) 65.6 Lymph % (Auto) 25.3 [place] % (Auto) 5.7 Eos % (Auto) 2.8 Baso % (Auto) 0.4 Absolute Neuts (auto) 6.4 Absolute Lymphs (auto) 2.46 Nucleated RBC % 0 PT 13.2 INR 1.1 APTT 31.5 D-Dimer Quant (PE/DVT) 0.84 H* Sodium 140 Potassium 3.7 Chloride 106 Carbon Dioxide 28.0 Anion Gap 6 BUN 15 Creatinine 0.92 Estim Creat Clear Calc 64.11 Est GFR (MDRD) Af Amer 84 Est GFR (MDRD) Non-Af 69 BUN/Creatinine Ratio 16.4 Glucose 99 Calcium 9.9 Magnesium 2.1 Troponin I < 0.015 B-Natriuretic Peptide TSH 1.03 04/27/20 21:40 WBC RBC Hgb Hct MCV MCH MCHC RDW Std Deviation RDW Coeff of Zulyema Plt Count MPV Immature Gran % (Auto) Neut % (Auto) Lymph % (Auto) [place] % (Auto) Eos % (Auto) Baso % (Auto) Absolute Neuts (auto) Absolute Lymphs (auto) Nucleated RBC % PT INR APTT D-Dimer Quant (PE/DVT) Sodium Potassium Chloride Carbon Dioxide Anion Gap BUN Creatinine Estim Creat Clear Calc Est GFR (MDRD) Af Amer Est GFR (MDRD) Non-Af BUN/Creatinine Ratio Glucose Calcium Magnesium Troponin I B-Natriuretic Peptide 5.5 TSH - Rhythm Strip Rhythm Strip: Sinus Rhythm Rate: 62 Ectopy: None - EKG Initial EKG Interpretation: Sinus Rhythm, - - Normal sinus rhythm at a rate of 62 Poor baseline secondary to motion artifact Normal axis Normal intervals No findings consistent with ACS No change prior to prior EKG on 08/16/2019 Follow-up EKG Interpretation: Sinus Rhythm, - - Normal sinus rhythm at a rate of 61 Normal axis Normal intervals Normal ST segments Treatment: Aspirin, NTG Topical HOWARD Risk: H/O CAD, ASA within 7 days, Severe Angina </=24 hours Score: 3 - Medical Decision Making Patient evaluated for sudden onset of chest pain. Chest pain started proximally 20 minutes prior to arrival. Radiates to her back. She had similar pain like this in the past and sometimes it has led to a negative work-up at other times she is had coronary artery disease/acute RI requiring stent. Patient's last cardiac catheterization was 9 months ago which was showed 50% stenosis of RCA and recommended medical management/modification of lifestyle risk factors. She had a stress echo a months ago which was also grossly normal. Initial troponin is negative. Patient do not have any ischemic changes on her EKG. She does have an elevated D-dimer and CT is obtained which is also negative. She does have some mild emphysematous changes. Patient was initially treated with Nitropaste and morphine with only minimal improvement of her symptoms. She is then given an IV dose of Ativan which significantly improves her symptoms. Case is discussed with cardiology on-call, Dr. St, who feels that if her delta troponin is negative and she remains pain-free she could follow-up outpatient. Patient is agreeable with this plan. Patient be signed out to oncoming provider pending delta troponin and EKG for final disposition. <Patricia Carney - Last Filed: 04/27/20 23:21> - Medical Decision Making The patient's repeat EKG and cardiac enzymes were negative. She has stayed pain-free. She is resting comfortably. At this point, the patient will be discharged with outpatient follow-up with cardiology. <Corbin Soto - Last Filed: 04/28/20 01:05> ED Disposition <Patricia Carney - Last Filed: 04/27/20 23:21> <Corbin Soto - Last Filed: 04/28/20 01:05> - Plan for ED Patient: Diagnosis: Chest pain Instructions: ED Chest Pain Atypical Unkn Cause Referrals: Stephanie Aguilar MD [Primary Care Provider] -
[2020-04-27] MEDS: Morphine 4 MG/ML Syringe IV (21:51)
[2020-04-27] MEDS: Aspirin 81 MG TAB.CHEW 324 MG PO (21:51)
[2020-04-27 21:53] VITALS: BP 149/77; PULSE 76
[2020-04-27] MEDS: Nitroglycerin Oint 1 INCH PACKET 0.5 INCH TRANSDERM. (21:53)
[2020-04-27 21:54] VITALS: O2SAT 99
--- NOTE | 2020-04-27 22:03 | EKG12_ITS ---
Test Reason : CP Blood Pressure : / mmHG Vent. Rate : 062 BPM Atrial Rate : 062 BPM P-R Int : 160 ms QRS Dur : 076 ms QT Int : 408 ms P-R-T Axes : 082 075 078 degrees QTc Int : 414 ms Normal sinus rhythm Normal ECG Confirmed by SULEMA BRENNAN, NIYA ([id number]), associate editor KEVIN KATZ ([id number]) on 04/30/2020 11:33:30 AM Referred By: MARSHALL Confirmed By:NIYA LEONE MD
--- NOTE | 2020-04-27 22:05 | RAD_ITS ---
STUDY: X-RAY CHEST REASON FOR EXAM: Female, 49 years old. CHEST PAIN X 1 HR. PAIN IN MID-CEST AND BACK. HX OF PREVIOUS HEART ATTACK. TECHNIQUE: Single AP portable view of the chest. COMPARISON: 08/15/2019. FINDINGS: The lungs are clear and expanded. There is no demonstrated pleural abnormality. Normal size heart. Normal mediastinum and kadi. Normal visualized pulmonary arteries. Normal visualized aortic arch and descending thoracic aorta. Normal visualized thoracic spine. Normal visualized ribs, clavicles, and shoulders. There is no demonstrated abnormality of the visualized soft tissue structures of the upper abdomen. RAD/Chest 1 View (Portable) IMPRESSION: Normal x-ray examination of the chest. Electronically Signed: Diane George MD at 23:45 EST Tel , Service support ,
[2020-04-27 22:16] LABS: Absolute Lymphocyte Count 2.46 X10^3/uL (0.83-4.51); Absolute Neutrophil Count 6.4 X10^3/uL (2.0-7.7); Basophil# 0.04 X10^3/uL; Basophil% 0.4 % (0-1); Eosinophil# 0.27 X10^3/uL; Eosinophils% 2.8 % (0-5); Hematocrit 43.6 % (37-47); Hemoglobin 14.3 g/dL (12.0-15.0); Lymphocyte # 2.46 X10^3/ul (4.0); Lymphocyte % 25.3 % (19-41); Mean Corp Hgb Conc 32.8 g/dL (32-36); Mean Corpuscular Hgb 32.5 pg (27.0-32.0); Mean Corpuscular Volume 99.1 fL (81-99); Mean Platelet Vol. 11.1 fl (6.2-12.0); Monocyte# 0.55 X10^3/uL; Monocyte% 5.7 % (0-10); NRBC Flagged by Analyzer 0 % (0-5); Neutrophil # 6.39 X10^3/uL (2.7-7.7); Neutrophil % 65.6 % (47-70); Platelet Count 220 K/mm3 (150-450); RBC Distribution Width CV 13.5 % (11.6-14.6); RBC Distribution Width SD 49.9 fl (35.1-43.9); White Blood Count 9.7 K/mm3 (4.4-11.0)
[2020-04-27 22:21] LABS: International Normalized Ratio 1.1; Prothrombin Time (Protime)PT. 13.2 SECONDS (11.7-14.9)
[2020-04-27 22:22] LABS: Partial Thromboplast Time 31.5 Seconds (24.1-36.2)
[2020-04-27 22:26] VITALS: BP 124/62; PULSE 58; RESP 12; O2SAT 98
[2020-04-27 22:27] LABS: D-Dimer Quantitative (DVT/PE) 0.84 FEU/ug/m (0.27-0.49)
--- NOTE | 2020-04-27 22:27 | CT_ITS ---
STUDY: CTA CHEST REASON FOR EXAM: Female, 49 years old. Chest pain. Elevated d-dimer. History of [place] with cardiac stenting May 2019. RADIATION DOSAGE (If Supplied By Facility): CTDIvol = ( 5.09 ) mGy, DLP = ( 171.49 ) mGycm TECHNIQUE: The examination was performed with the intravenous administration of IV 75mL Isovue-370. Post-processing of the angiographic images was performed, with multiplanar reformation and 3D reconstruction. Individualized dose optimization techniques were used for this CT. COMPARISON: CTA of the chest, 08/16/2019. FINDINGS: Normal enhancement of the main pulmonary artery and right and left pulmonary arteries. Normal enhancement of the bilateral peripheral pulmonary arteries. There is no demonstrated pulmonary embolism. Normal thoracic aorta and visualized great vessels. There is no demonstrated aortic dissection. Normal heart and pericardium. Normal mediastinum. Normal hilar regions. Normal visualized trachea and bronchi. The lungs are hyper expanded, with flattening of the hemidiaphragms. Mild emphysematous changes in lungs without acute infiltrate or mass. Normal pleura. Normal chest wall structures. There are degenerative changes of thoracic spine. Normal visualized upper abdomen. CT/CTA Chest W/WO Contrast IMPRESSION: 1. No evidence of pulmonary embolus. 2. No aortic dissection or aneurysm. 3. Stable emphysematous changes of lungs without new infiltrate or mass. Electronically Signed: Moises Zaidi DO at 23:09 EST Tel [phone], Service support ,
[2020-04-27 22:33] LABS: Anion Gap 6 (5-15); BUN 15 mg/dL (7-18); BUN/Creat Ratio 16.4 RATIO (10-20); Calcium,Total 9.9 mg/dL (8.5-10.1); Chloride 106 mmol/L (98-107); Creatinine, Serum 0.92 mg/dL (0.55-1.02); EST Glomerular Filtration Rate 69 mL/min (>60); Est Glom Filt Rate - Afr Amer 84 mL/min (>60); Estimated Creatinine Clearance 64.11 ml/min; Glucose 99 mg/dL (74-106); Magnesium 2.1 mg/dL (1.6-2.6); Potassium 3.7 mmol/L (3.5-5.1); Sodium Level 140 mmol/L (136-145); Thyroid Stim Hormone (TSH) 1.03 uIU/mL (0.358-3.74)
[2020-04-27] MEDS: LORazepam 2 MG/ML Syringe 0.5 MG IV (22:47)
[2020-04-27 23:00] VITALS: BP 126/62; PULSE 56; RESP 18; O2SAT 98
[2020-04-27 23:05] LABS: BNP,B-Type NATRIURETIC PEPTIDE 5.5 pg/mL (0-100)
[2020-04-28] VITALS: BP 138/75; PULSE 57; RESP 14; O2SAT 96
[2020-04-28 01:00] VITALS: BP 106/78; PULSE 59; RESP 18; O2SAT 98
== END 2020-04-28 01:16 | disposition home or self-care (01) ==
LOC: ED 22:19
PROVIDERS: Emergency Medicine; Emergency Provider Emergency Medicine; PCP Family Medicine
DX: R07.9 Chest pain, unspecified (principal); I25.10 Atherosclerotic heart disease of native coronary artery without angina pectoris; I25.2 Old myocardial infarction; E78.5 Hyperlipidemia, unspecified; F17.200 Nicotine dependence, unspecified, uncomplicated; Z95.5 Presence of coronary angioplasty implant and graft; Z79.899 Other long term (current) drug therapy
CPT/HCPCS: 71045; 71275; 80048; 83735; 83880; 84443; 84484; 85025; 85379; 85610; 85730; 93005; 96374; 96375; 99285; Q9967; A4216

== ENCOUNTER → 2020-04-30 14:15 | Outpatient (CLI) | payer BC, SELFPAY ==
[2019-08-27 11:30] VITALS: BMI 20.8
[2020-04-27 21:36] VITALS: BMI 19.5
== END ==
PROVIDERS: PCP Family Medicine; Visit Provider Family Medicine
DX: Z20.828 Contact with and (suspected) exposure to other viral communicable diseases (principal)
CPT/HCPCS: 87635; U0003

== ENCOUNTER → 2020-06-04 10:54 | Outpatient (CLI) | payer BC, SELFPAY ==
[2019-08-27 11:30] VITALS: BMI 20.8
[2020-06-04 12:13] LABS: Absolute Lymphocyte Count 1.69 X10^3/uL (0.83-4.51); Absolute Neutrophil Count 4.8 X10^3/uL (2.0-7.7); Basophil# 0.06 X10^3/uL; Basophil% 0.8 % (0-1); Eosinophil# 0.28 X10^3/uL; Eosinophils% 3.9 % (0-5); Hematocrit 42.2 % (37-47); Hemoglobin 13.7 g/dL (12.0-15.0); Lymphocyte # 1.69 X10^3/ul (4.0); Lymphocyte % 23.3 % (19-41); Mean Corp Hgb Conc 32.5 g/dL (32-36); Mean Corpuscular Hgb 32.6 pg (27.0-32.0); Mean Corpuscular Volume 100.5 fL (81-99); Mean Platelet Vol. 10.9 fl (6.2-12.0); Monocyte# 0.42 X10^3/uL; Monocyte% 5.8 % (0-10); NRBC Flagged by Analyzer 0 % (0-5); Neutrophil # 4.79 X10^3/uL (2.7-7.7); Neutrophil % 66.2 % (47-70); Platelet Count 179 K/mm3 (150-450); RBC Distribution Width CV 13.3 % (11.6-14.6); RBC Distribution Width SD 49.5 fl (35.1-43.9); White Blood Count 7.2 K/mm3 (4.4-11.0)
[2020-06-04 12:22] LABS: Partial Thromboplast Time 31.2 Seconds (24.1-36.2); Prothrombin Time (Protime)PT. 13.1 SECONDS (11.7-14.9)
[2020-06-04 12:26] LABS: AST(SGOT) 19 U/L (15-37); Alanine Aminotransfer ALT/SGPT 33 U/L (13-56); Albumin, Serum 3.6 g/dL (3.2-5.0); Alkaline Phosphatase 74 U/L (45-117); Bilirubin, Direct 0.13 mg/dL (0.00-0.30); Globulin 3.2 g/dL (2.2-4.2); Protein, Total 6.8 g/dL (6.4-8.2)
== END ==
PROVIDERS: PCP Family Medicine; Visit Provider Family Medicine
DX: T07.XXXA Unspecified multiple injuries, initial encounter (principal)
CPT/HCPCS: 36415; 80076; 85025; 85610; 85730

== ENCOUNTER → 2020-07-28 10:43 | Outpatient (CLI) | payer BC, SELFPAY ==
[2019-08-27 11:30] VITALS: BMI 20.8
== END ==
PROVIDERS: PCP Family Medicine; Visit Provider Family Medicine
DX: Z20.822 Contact with and (suspected) exposure to COVID-19 (principal)
CPT/HCPCS: 87633; 87635; U0005; U0003

== ENCOUNTER 2020-08-03 19:39 | Emergency (ER) | payer BC, SELFPAY ==
[2019-08-27 11:30] VITALS: BMI 20.8
[2020-08-03 19:41] VITALS: BP 197/146; PULSE 102; RESP 16; TEMP 36.7; O2SAT 99; BMI 19.0
--- NOTE | 2020-08-03 20:04 | RAD_ITS ---
STUDY: X-RAY - RIGHT HAND REASON FOR EXAM: Female, 50 years old. SLAMMED HAND IN CAR DOOR. PAIN AND BRUISING AT BASE OF THUMB/BASE OF 1ST METACARPAL. ALSO BRUISING IN CENTER OF PALM AND CENTER OF BACK OF HAND. TECHNIQUE: 3 view(s) of the hand. COMPARISON: None. FINDINGS: A small corner chip fracture is present on the medial side of the head of the hamate bone just beneath the fifth metacarpal bone. Normal radiocarpal articulation. Normal distal radioulnar joint. Normal visualized carpal bones. Normal carpal articulations Normal carpometacarpal articulation of the thumb. Normal second through fifth carpometacarpal joints. Normal metacarpi. Normal metacarpophalangeal joint of the thumb. Normal interphalangeal joint of the thumb. Normal proximal and distal phalanges of the thumb. Normal metacarpophalangeal joints of the second through fifth fingers. Normal proximal and distal interphalangeal joints of the second through fifth fingers. Normal phalanges of the second through fifth fingers. The soft tissue structures are unremarkable. RAD/Hand Min 3 Views IMPRESSION: 1. A small corner chip fracture is present on the medial side of the head of the hamate bone just beneath the fifth metacarpal bone. Electronically Signed: Martin Miranda MD at 20:44 EST , Service support ,
--- NOTE | 2020-08-03 20:25 | ED.DCSUM_ITS ---
- ER Visit Summary Date of Service: 08/03/20 Chief Complaint: Right hand pain History of Present Illness: The patient is a 50 F presenting with right hand pain. Patient states just prior to arrival she accidentally slammed her right hand in a car door. She is right-handed. She denies other injuries. Physical Examination: Vitals are stable. Patient is afebrile. Alert no acute distress. HEENT exam is unremarkable. Neck is nontender Lungs are clear and equal bilaterally. Heart is regular rate and rhythm. Extremities bruising third and fourth metacarpal. Active full range of motion. Normal cap refill. Wrist is nontender. Skin is warm and dry. No focal neurologic deficit. Remainder of exam is unremarkable. Emergency Department Course and Treatment: Patient was given naproxen. Right hand x-ray read by myself and radiology shows small corner chip fracture is present on the medial side of the head of the hamate bone just beneath the fifth metacarpal bone. Patient continues to have pain and was given Ono. Ortho- Glass splint was applied. She is advised to follow-up with Dr. Josias Shane. Advised return to the ED for worsening complaints. Disposition: Discharge home Impression: Right hamate chip fracture This note was generated with [employer]) dictation software. It may contain incorrect words, spelling, and punctuation that were not noted in review of the chart imani or to signing ED Disposition - Plan for ED Patient: Instructions: ED Closed Hand Fracture (Adult) Prescriptions: Hydrocodone Bitart/Apap 5-325 [[place] 5MG-325MG] 1 tab PO Q6H PRN PRN 3 Days #10 tab PRN Reason: Pain Prescription Printed Referrals: Stephanie Aguilar MD [Primary Care Provider] - Josias Shane MD [STAFF PHYSICIAN] -
[2020-08-03] MEDS: Naproxen 500 MG Tablet PO (20:43)
--- NOTE | 2020-08-03 22:20 | DCINST.ED_ITS ---
ED Disposition - Plan for ED Patient: Instructions: ED Closed Hand Fracture (Adult) Prescriptions: Hydrocodone Bitart/Apap 5-325 [[place] 5MG-325MG] 1 tab PO Q6H PRN PRN 3 Days #10 tab PRN Reason: Pain Prescription Printed Referrals: Stephanie Aguilar MD [Primary Care Provider] - Josias Shane MD [STAFF PHYSICIAN] -
[2020-08-03 22:34] VITALS: BP 119/67
[2020-08-03] MEDS: HYDROcodone Bitartrate/Apap 5/325 Tablet PO (22:34)
== END 2020-08-03 22:40 | disposition home or self-care (01) ==
PROVIDERS: Emergency Provider Emergency Medicine; PCP Family Medicine
DX: S62.141A Displaced fracture of body of hamate [unciform] bone, right wrist, initial encounter for closed fracture (principal); I25.10 Atherosclerotic heart disease of native coronary artery without angina pectoris; I10 Essential (primary) hypertension; E78.00 Pure hypercholesterolemia, unspecified; Z72.0 Tobacco use; Z79.899 Other long term (current) drug therapy; W23.0XXA Caught, crushed, jammed, or pinched between moving objects, initial encounter; Y93.89 Activity, other specified; Y92.89 Other specified places as the place of occurrence of the external cause; Y99.8 Other external cause status
CPT/HCPCS: 29125; 73130; 99283

== ENCOUNTER → 2021-03-11 15:45 | Outpatient (CLI) | payer BC, SELFPAY ==
[2019-08-27 11:30] VITALS: BMI 20.8
--- NOTE | 2021-03-11 15:50 | RAD_ITS ---
STUDY: X-RAY - CERVICAL SPINE REASON FOR EXAM: Female, 50 years old. Neck pain MUSCLE SPASM TECHNIQUE: XR Spine Cervical 4 or 5 Views COMPARISON: None FINDINGS: Normal anterior atlantoaxial articulation. No acute findings of the odontoid process. There is straightening of the normal cervical lordosis. There is multi-level endplate spondylosis. There is multi-level degenerative disc disease with multilevel disc space narrowing. There is multi-level osseous foraminal stenosis. The soft tissue structures are unremarkable. RAD/Cerv Spine 4 or 5 Views IMPRESSION: There are degenerative changes as noted above. There is mild straightening of the normal cervical lordosis. This can suggest neck strain. Electronically Signed: Justin Monteiro MD at 15:35 EDT , Service support ,
[2021-03-11 17:55] LABS: Absolute Neutrophil Count 3.6 X10^3/uL (2.0-7.7); Basophil# 0.06 X10^3/uL; Basophil% 0.9 % (0-1); Eosinophil# 0.43 X10^3/uL; Eosinophils% 6.2 % (0-5); Hematocrit 43.7 % (37-47); Hemoglobin 14.9 g/dL (12.0-15.0); Lymphocyte % 33.3 % (19-41); Mean Corp Hgb Conc 34.1 g/dL (32-36); Mean Corpuscular Hgb 33.9 pg (27.0-32.0); Mean Corpuscular Volume 99.3 fL (81-99); Mean Platelet Vol. 11.1 fl (6.2-12.0); Monocyte# 0.47 X10^3/uL; Monocyte% 6.8 % (0-10); NRBC Flagged by Analyzer 0 % (0-5); Neutrophil # 3.63 X10^3/uL (2.7-7.7); Neutrophil % 52.7 % (47-70); Platelet Count 207 K/mm3 (150-450); RBC Distribution Width CV 12.3 % (11.6-14.6); White Blood Count 6.9 K/mm3 (4.4-11.0)
[2021-03-11 18:41] LABS: Vitamin B12 1154 pg/mL (211-911); Vitamin D,25 Hydroxy 33.6 ng/mL
[2021-03-11 18:49] LABS: ALB/GLOB Ratio 1.1 RATIO (0.9-2.4); AST(SGOT) 19 U/L (15-37); Alanine Aminotransfer ALT/SGPT 31 U/L (13-56); Albumin, Serum 4.2 g/dL (3.2-5.0); Alkaline Phosphatase 66 U/L (45-117); Anion Gap 6 (5-15); BUN 13 mg/dL (7-18); Calcium,Total 9.7 mg/dL (8.5-10.1); Chloride 106 mmol/L (98-107); Creatinine, Serum 0.93 mg/dL (0.55-1.02); EST Glomerular Filtration Rate 68 mL/min (>60); Est Glom Filt Rate - Afr Amer 82 mL/min (>60); Globulin 3.8 g/dL (2.2-4.2); Glucose 82 mg/dL (74-106); Potassium 3.8 mmol/L (3.5-5.1); Sodium Level 140 mmol/L (136-145)
== END ==
PROVIDERS: PCP Family Medicine; Referring Provider Family Medicine; Visit Provider Family Medicine
DX: M62.838 Other muscle spasm (principal); R53.83 Other fatigue; R63.4 Abnormal weight loss
CPT/HCPCS: 36415; 72050; 80053; 82306; 82607; 84443; 85025

== ENCOUNTER 2021-06-23 10:43 | Emergency (ER) | payer BC, SELFPAY ==
[2019-08-27 11:30] VITALS: BMI 20.8
[2021-06-23 10:44] VITALS: BP 116/93; PULSE 92; RESP 18; TEMP 36.4; O2SAT 100; BMI 18.1
--- NOTE | 2021-06-23 11:12 | EKG12_ITS ---
Test Reason : CP Blood Pressure : / mmHG Vent. Rate : 079 BPM Atrial Rate : 079 BPM P-R Int : 184 ms QRS Dur : 078 ms QT Int : 380 ms P-R-T Axes : 076 077 081 degrees QTc Int : 435 ms Normal sinus rhythm Normal ECG Confirmed by NIYA LEONE MD ([id number]), map editor WILFREDO LERMA ([id number]) on 06/29/2021 10:18:34 AM Referred By: ROBSON Confirmed By:NIYA LEONE MD
--- NOTE | 2021-06-23 11:25 | RAD_ITS ---
INDICATION: chest pain EXAMINATION/TECHNIQUE: X-RAY - XR Chest 1 View COMPARISON: 04/27/2020. FINDINGS: LINES/DEVICES: None. LUNGS: No consolidation, edema or effusion. No pneumothorax. MEDIASTINUM AND CARDIOVASCULAR STRUCTURES: Cardiac silhouette not enlarged. Central airways and mediastinal contour are unremarkable. BONES AND SOFT TISSUES: Unremarkable. RAD/Chest 1 View (Portable) IMPRESSION: No radiographic evidence of acute cardiopulmonary disease. Electronically Signed: Graham Mclaughlin MD at 13:04 EST Tel , Service support ,
[2021-06-23 11:30] LABS: Absolute Lymphocyte Count 0.38 X10^3/uL (0.83-4.51); Absolute Neutrophil Count 8.2 X10^3/uL (2.0-7.7); Basophil# 0.01 X10^3/uL; Basophil% 0.1 % (0-1); Eosinophils% 3.3 % (0-5); Hemoglobin 15.5 g/dL (12.0-15.0); Lymphocyte # 0.38 X10^3/ul (0.83-4.51); Lymphocyte % 4.2 % (19-41); Mean Corp Hgb Conc 35.2 g/dL (32-36); Mean Corpuscular Hgb 34.2 pg (27.0-32.0); Mean Corpuscular Volume 97.1 fL (81-99); Mean Platelet Vol. 10.9 fl (6.2-12.0); Monocyte# 0.14 X10^3/uL; Monocyte% 1.6 % (0-10); NRBC Flagged by Analyzer 0 % (0-5); Neutrophil # 8.17 X10^3/uL (2.7-7.7); Neutrophil % 90.6 % (47-70); POSITIVE DIFFERENTIAL YES; Platelet Count 153 K/mm3 (150-450); RBC Distribution Width CV 12.1 % (11.6-14.6); RBC Distribution Width SD 43.5 fl (35.1-43.9); Red Blood Count 4.53 M/mm3 (4.2-5.4)
[2021-06-23 11:33] LABS: Differential Indicated SCAN CRITERIA MET
[2021-06-23 11:46] LABS: Anion Gap 7 (5-15); BUN 19 mg/dL (7-18); BUN/Creat Ratio 21.7 RATIO (10-20); Calcium,Total 9.4 mg/dL (8.5-10.1); Chloride 108 mmol/L (98-107); Creatinine, Serum 0.88 mg/dL (0.55-1.02); EST Glomerular Filtration Rate 72 mL/min (>60); Est Glom Filt Rate - Afr Amer 88 mL/min (>60); Estimated Creatinine Clearance 60.66 ml/min; Glucose 102 mg/dL (74-106); Sodium Level 140 mmol/L (136-145); Troponin-I HS < 3 pg/mL (3.0-54.0)
[2021-06-23 11:47] LABS: Prothrombin Time (Protime)PT. 12.8 SECONDS (11.7-14.9)
[2021-06-23 12:12] LABS: Platelet Estimate ADEQUATE (ADEQ); Red Cell Morphology NORM C+C NORMAL (NORM C&C)
--- NOTE | 2021-06-23 12:41 | EX.ED.DYSGE1 ---
HPI History of Present Illness Chief Complaint: General Illness Narrative Narrative: 51-year-old female presenting with subjective fevers, chills, body aches, loss of taste and smell. She states she has been this way a couple of days. She has pain all over her entire body. She states that she has vomited a few times. No diarrhea no constipation. Patient denies abdominal pain. Patient was not vaccinated because she states she just does not trust it. PFSH [facility] Medical History Atherosclerosis of coronary artery of [place] heart without angina pectoris Galactorrhea History of ST elevation myocardial infarction (STEMI) (06/04/19) History of sudden cardiac arrest successfully resuscitated (06/04/19) Hyperlipidemia PTSD (post-traumatic stress disorder) Status post hysteroscopy (05/21/19) Strabismic amblyopia, right eye Tobacco dependence Home Medications aspirin 81 mg PO DAILY@0800 #90 tab 06/05/19 [Rx Last Taken 07/12/19] nitroglycerin 0.4 mg sublingual tablet 0.4 mg SUBLINGUAL Q5-15M PRN 06/17/19 [History Last Taken 07/12/19] omeprazole 20 mg PO DAILY #30 tablet. 08/17/19 [Rx Last Taken Unknown] lorazepam 0.5 mg tablet 0.5 mg PO Q6H PRN tab 09/04/19 [History Last Taken Unknown] tizanidine 2 mg tablet 2 mg PO Q6H PRN tab 09/04/19 [History Last Taken Unknown] metoprolol tartrate 25 mg tablet 12.5 mg PO QHS #90 tab 01/23/20 [Rx Last Taken Unknown] sertraline 50 mg PO DAILY 04/27/20 [History Last Taken Unknown] clopidogrel 75 mg tablet 75 mg PO DAILY #90 tab 06/30/20 [Rx Last Taken Unknown] rosuvastatin 10 mg tablet 10 mg PO DAILY #30 tab 03/12/21 [Rx Last Taken Unknown] ondansetron 4 mg PO Q8H PRN PRN #10 tab 06/23/21 [Rx Last Taken Unknown] Allergy/AdvReac Type Severity Reaction Status Date / Time atorvastatin AdvReac Intermediate GI Verified 06/23/21 11:54 upset,nausea Family History Father Cancer Lung Grandmother Breast cancer Kidney disease Uncle Myocardial infarction Mother Myocardial infarction Surgical History H/O ovarian cystectomy History of bilateral breast biopsy History of coronary artery stent placement (06/04/19) Social History 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 Smoking Status: Current every day smoker tobacco type: cigarettes Tobacco: How many years used: 35 alcohol intake: never substance use type: does not use caffeine: Yes what type of physical activity do you participate in: none seatbelt use: sometimes do you feel safe at home: Yes additional social history: - Bud AYALA ROS ED Constitutional Constitutional ED: Reports chills and fever(s) Eyes Eyes: Denies blurry vision or other ENT ENT ED: Denies ear pain, rhinorrhea or sore throat Respiratory/Chest Respiratory/Chest: Reports cough and dyspnea Gastrointestinal Gastrointestinal: Reports nausea and vomiting; Denies abdominal pain Genitourinary Genitourinary ED: Denies dysuria or hematuria Musculoskeletal Musculoskeletal: Reports myalgias; Denies arthralgias or neck pain Integumentary Denies Abrasions or rash Neurologic Neurologic: Denies headache(s), paresthesias or weakness EXAM Physical Exam Const Vital Signs: 06/23/21 10:44 06/23/21 11:12 Temperature 97.5 F L Temperature Source Temporal Pulse Rate 92 Respiratory Rate 18 Blood Pressure 116/93 H Blood Pressure Mean 100 Pulse Ox 100 Oxygen Delivery Method Room Air Room Air Positive well nourished General Appearance ED: NAD; Negative for pallor HEENT Reports moist mucous membranes Negative for trauma Eyes PERRL and EOMs intact bilaterally Neck no lymphadenopathy and supple Chest Wall inspection of chest normal Resp normal respiratory effort and clear to auscultation bilaterally GI normal to inspection, nondistended, normoactive bowel sounds Extremity normal to inspection General Extremety ED: Negative for edema or tenderness General Extremity: Negative for edema Neuro oriented x3, CN's II-XII intact bilaterally and no sensory deficits noted Sensorium / Orientation: alert Motor Exam: strength 5/5 throughout Psych mental status grossly normal Skin no rashes or lesions noted General Skin Exam: Negative for jaundice or pallor MDM MDM MDM Narrative Medical decision making narrative: Patient presenting with pain all over her whole body and symptoms of COVID-19 which is been present for about 3 days. Patient does not appear to be in respiratory distress. She is not hypoxic or tachypneic. Lungs are clear to auscultation. EKG on my interpretation shows a sinus rhythm at 79 bpm without sign of ischemic change. Blood work is obtained and her CBC shows no leukocytosis. She is lymphopenic. Renal function and electrolytes are normal. High-sensitivity troponin is less than 3. Chest x-ray on my interpretation shows no acute cardiopulmonary process and the radiologist does agree. Patient was given a dose of Zofran. Covid testing was negative today. She states that she is not interested in the monoclonal antibodies treatment. She is not hypoxic so she does not require any steroids. Patient counseled she will need to quarantine and alternate Tylenol ibuprofen at home. She is counseled to hydrate well. Impression: 1. Viral syndrome Lab Data Attestation: I reviewed the patient's lab results. Labs: Laboratory Results - last 24 hr 06/23/21 06/23/21 06/23/21 11:18 11:18 11:18 WBC 9.0 RBC 4.53 Hgb 15.5 H Hct 44.0 MCV 97.1 MCH 34.2 H MCHC 35.2 RDW Std Deviation 43.5 RDW Coeff of Zuleyma 12.1 Plt Count 153 MPV 10.9 Immature Gran % (Auto) 0.200 Neut % (Auto) 90.6 H Lymph % (Auto) 4.2 L [place] % (Auto) 1.6 Eos % (Auto) 3.3 Baso % (Auto) 0.1 Absolute Neuts (auto) 8.2 H Absolute Lymphs (auto) 0.38 L Nucleated RBC % 0 Differential Comment Platelet Estimate ADEQUATE RBC Morphology NORM C+C PT 12.8 INR 1.0 Sodium 140 Potassium 4.0 Chloride 108 H Carbon Dioxide 25.0 Anion Gap 7 BUN 19 H Creatinine 0.88 Estim Creat Clear Calc 60.66 Est GFR (MDRD) Af Amer 88 Est GFR (MDRD) Non-Af 72 BUN/Creatinine Ratio 21.7 H Glucose 102 Calcium 9.4 Troponin I High Sens < 3 L Radiography Diagnostic Testing: Clinical Impression(s) from Imaging Studies Chest X-Ray 06/23/21 11:25 IMPRESSION: No radiographic evidence of acute cardiopulmonary disease. Electronically Signed: Graham Mclaughlin MD at 13:04 EST Tel , Service support , Discharge Plan Triage Chief Complaint: General Illness ED Provider: Wilmer Aceves Dx/Rx/DC Orders Instructions: Coronavirus Disease 2019 (COVID-19): Caring for Yourself or Others Prescriptions: New ondansetron 4 mg tablet,disintegrating 4 mg PO Q8H PRN PRN (Reason: Nausea) Qty: 10 RF: 0 No Action nitroglycerin 0.4 mg tablet, sublingual 0.4 mg SUBLINGUAL Q5-15M PRN (Reason: chest pain) RF: 0 metoprolol tartrate 25 mg tablet 12.5 mg PO QHS Qty: 90 RF: 3 tizanidine 2 mg tablet 2 mg PO Q6H PRN (Reason: Anxiety) RF: 0 lorazepam 0.5 mg tablet 0.5 mg PO Q6H PRN (Reason: Anxiety) RF: 0 aspirin 81 MG tablet 81 mg PO DAILY@0800 Qty: 90 RF: 0 omeprazole 20 MG tablet,delayed release (DR/EC) 20 mg PO DAILY Qty: 30 RF: 0 sertraline 50 MG tablet 50 mg PO DAILY RF: 0 clopidogrel [Plavix] 75 mg tablet 75 mg PO DAILY Qty: 90 RF: 3 rosuvastatin [Crestor] 10 mg tablet 10 mg PO DAILY Qty: 30 RF: 11 Primary Care Provider: Stephanie Aguilar Referrals: Stephanie Aguilar MD [Primary Care Provider] - Disposition Disposition: Home, Self Care Discharge Date/Time: 06/23/21 13:09
[2021-06-23] MEDS: Ondansetron 4 MG/2 ML Vial IV (13:01)
== END 2021-06-23 13:09 | disposition home or self-care (01) ==
PROVIDERS: Emergency Provider Student in an Organized Health Care Education/Training Program; PCP Family Medicine
DX: B34.9 Viral infection, unspecified (principal); R68.83 Chills (without fever); R43.9 Unspecified disturbances of smell and taste; R50.9 Fever, unspecified; I25.10 Atherosclerotic heart disease of native coronary artery without angina pectoris; E78.5 Hyperlipidemia, unspecified; I25.2 Old myocardial infarction; F43.10 Post-traumatic stress disorder, unspecified; F17.210 Nicotine dependence, cigarettes, uncomplicated; Z86.74 Personal history of sudden cardiac arrest; Z79.82 Long term (current) use of aspirin; Z79.899 Other long term (current) drug therapy; Z79.02 Long term (current) use of antithrombotics/antiplatelets
CPT/HCPCS: 71045; 80048; 84484; 85025; 85610; 87426; 93005; 96374; 99284; A4216; J2405

== ENCOUNTER 2021-07-26 12:24 | Outpatient (CLI) | payer BC, SELFPAY ==
[2019-08-27 11:30] VITALS: BMI 20.8
--- NOTE | 2021-07-26 12:27 | BI_ITS ---
MAMMOGRAPHY - BILATERAL SCREENING REASON FOR EXAM: Female, 51 years old. Routine annual screening examination. History of prior bilateral breast discharge. PERTINENT HISTORY: Grandmother with breast cancer. TECHNIQUE: Digital bilateral breast flaco (3D mammographic acquisition) in the CC and MLO projections. 2-D mediolateral oblique (MLO) and craniocaudad (CC) views of both breasts were obtained. CAD: Full Field Digital Mammography with Computer Added Detection was performed. COMPARISON: Comparison is made with prior study dated 09/11/2018. FINDINGS: Breast Composition: The breasts are extremely dense, which lowers the sensitivity of mammography. There are no dominant masses or suspicious calcifications. No other significant abnormalities are identified. There has been no significant change since the prior study. BI/SCRN MAMM (CAD)W/FLACO BILAT IMPRESSION: Stable bilateral screening mammogram. Yearly follow-up mammogram recommended. (A) ASSESSMENT CATEGORY: BIRADS Category 1: Negative. A letter regarding these results will be sent to the patient by the facility within 30 days. Approximately 10% of breast cancers are not detected by mammography. A normal mammogram should not delay biopsy of a clinically suspicious abnormality. [id number] Electronically Signed: Eric Vela MD at 13:59 EST ,
== END 2021-07-26 23:59 | disposition short-term general hospital (02) ==
LOC: OPBI 12:25
PROVIDERS: PCP Family Medicine; Referring Provider Nurse Practitioner Women's Health; Visit Provider Nurse Practitioner Women's Health
DX: Z12.31 Encounter for screening mammogram for malignant neoplasm of breast (principal)
CPT/HCPCS: 77063; 77067

== ENCOUNTER 2021-08-17 16:12 | Outpatient (CLI) | payer BC, SELFPAY ==
[2019-08-27 11:30] VITALS: BMI 20.8
[2021-08-19 22:07] LABS: Chlamydia By Nucleic Acid AMP Negative (Negative)
[2021-08-20 09:28] LABS: Gonococcus By Nucleic Acid AMP Negative (Negative)
== END 2021-08-17 23:59 | disposition home or self-care (01) ==
PROVIDERS: PCP Family Medicine; Visit Provider Nurse Practitioner Women's Health
DX: Z11.3 Encounter for screening for infections with a predominantly sexual mode of transmission (principal); N76.0 Acute vaginitis
CPT/HCPCS: 87070; 87205; 87491; 87591

== ENCOUNTER 2022-04-04 15:44 | Emergency (ER) | payer BC, SELFPAY ==
[2019-08-27 11:30] VITALS: BMI 20.8
[2022-04-04 15:45] VITALS: BP 139/112; PULSE 60; RESP 20; TEMP 37.2; O2SAT 98; BMI 18.1
--- NOTE | 2022-04-04 15:47 | EKG12_ITS ---
Test Reason : INCREASED CP Blood Pressure : / mmHG Vent. Rate : 049 BPM Atrial Rate : 049 BPM P-R Int : 200 ms QRS Dur : 080 ms QT Int : 438 ms P-R-T Axes : 076 073 070 degrees QTc Int : 395 ms Sinus bradycardia with sinus arrhythmia Otherwise normal ECG Confirmed by SULEMA BRENNAN, NIYA ([id number]), editor publications SALENA BURDEN ([id number]) on 04/05/2022 9:22:34 AM Referred By: Confirmed By:NIYA LEONE MD
--- NOTE | 2022-04-04 16:00 | RAD_ITS ---
STUDY: X-RAY CHEST REASON FOR EXAM: Female, 51 years old. chest pain TECHNIQUE: AP portable COMPARISON: 06/23/2021 FINDINGS: The lungs are clear and expanded. There is no demonstrated pleural abnormality. Normal size heart. Normal mediastinum and kadi. Normal visualized pulmonary arteries. Normal visualized aortic arch and descending thoracic aorta. Normal visualized thoracic spine. Normal visualized ribs, clavicles, and shoulders. There is no demonstrated abnormality of the visualized soft tissue structures of the upper abdomen. RAD/Chest 1 View (Portable) IMPRESSION: Normal x-ray examination of the chest. Electronically Signed: Sharif Ayala MD at 16:18 EDT ,
[2022-04-04 16:10] LABS: Absolute Lymphocyte Count 1.84 X10^3/uL (0.83-4.51); Absolute Neutrophil Count 3.2 X10^3/uL (2.0-7.7); Basophil# 0.06 X10^3/uL; Basophil% 1.1 % (0-1); Eosinophil# 0.21 X10^3/uL; Eosinophils% 3.7 % (0-5); Hematocrit 40.8 % (37-47); Hemoglobin 13.6 g/dL (12.0-15.0); Lymphocyte # 1.84 X10^3/ul (0.83-4.51); Lymphocyte % 32.4 % (19-41); Mean Corp Hgb Conc 33.3 g/dL (32-36); Mean Corpuscular Hgb 32.9 pg (27.0-32.0); Mean Corpuscular Volume 98.8 fL (81-99); Mean Platelet Vol. 10.7 fl (6.2-12.0); Monocyte# 0.36 X10^3/uL; Monocyte% 6.3 % (0-10); NRBC Flagged by Analyzer 0 % (0-5); Neutrophil % 56.3 % (47-70); Platelet Count 185 K/mm3 (150-450); RBC Distribution Width CV 12.7 % (11.6-14.6); RBC Distribution Width SD 45.7 fl (35.1-43.9); Red Blood Count 4.13 M/mm3 (4.2-5.4); White Blood Count 5.7 K/mm3 (4.4-11.0)
[2022-04-04 16:22] VITALS: PULSE 51; RESP 16; O2SAT 100
[2022-04-04 16:23] LABS: Anion Gap 6 (5-15); BUN 19 mg/dL (7-18); BUN/Creat Ratio 21.4 RATIO (10-20); Calcium,Total 10.8 mg/dL (8.5-10.1); Chloride 107 mmol/L (98-107); Creatinine, Serum 0.89 mg/dL (0.55-1.02); EST Glomerular Filtration Rate 71 mL/min (>60); Est Glom Filt Rate - Afr Amer 86 mL/min (>60); Estimated Creatinine Clearance 59.97 ml/min; Glucose 82 mg/dL (74-106); Potassium 4.3 mmol/L (3.5-5.1); Sodium Level 142 mmol/L (136-145); Troponin-I HS 6 pg/mL (3.0-54.0)
--- NOTE | 2022-04-04 16:35 | EDS_ITS ---
HPI History of Present Illness Chief Complaint: Chest Pain Informant: patient Onset/Context/Timing Onset: Today Activity at onset: - (Woke with pain at 11 AM) Timing: Continuous Quality: Positive for Aching, Heaviness, Pressure, Sharp and Tightness Location: Left Parasternal Current Severity: Mild Maximum Severity: Moderate Narrative Narrative: Patient presents secondary to chest pain. She states she woke at 11 AM this morning with pain in the left parasternal region. She does have some shortness of breath. She is a history of prior STEMI and cardiac arrest with stent placement. She did take baby aspirin today. She states she is out of Crestor and has not been taking that recently. It appears patient had a stress echo in January 2020 that was unremarkable with an EF of 65%. [facility] Medical History (Updated 04/04/22 @ 20:[address] April Huerta MD) Atherosclerosis of coronary artery of [place] heart without angina pectoris Galactorrhea History of ST elevation myocardial infarction (STEMI) (06/04/19) History of sudden cardiac arrest successfully resuscitated (06/04/19) Hyperlipidemia PTSD (post-traumatic stress disorder) Status post hysteroscopy (05/21/19) Strabismic amblyopia, right eye Tobacco dependence Home Medications aspirin 81 mg tablet,delayed release 81 mg PO DAILY@0800 #90 tabs 06/05/19 [Rx Last Taken 07/12/19] nitroglycerin 0.4 mg sublingual tablet 0.4 mg sublingual Q5-15M PRN chest pain 06/17/19 [History Last Taken 07/12/19] lorazepam 0.5 mg tablet 0.5 mg PO Q6H PRN Anxiety 09/04/19 [History Last Taken Unknown] metoprolol tartrate 25 mg tablet 12.5 mg PO QHS #90 tabs 01/23/20 [Rx Last Taken Unknown] rosuvastatin 10 mg tablet (Crestor) 10 mg PO DAILY #30 tabs 03/12/21 [Rx Last Taken Unknown] clopidogrel 75 mg tablet (Plavix) 75 mg PO DAILY #90 tabs 07/27/21 [Rx Last Taken Unknown] sertraline 50 mg tablet (Zoloft) 200 mg PO DAILY 08/17/21 [History Last Taken Unknown] nitroglycerin 0.4 mg sublingual tablet 0.4 mg sublingual Q5M PRN chest pain #14 tabs 04/04/22 [Rx Last Taken Unknown] rosuvastatin 10 mg tablet (Crestor) 10 mg PO DAILY #30 tabs 04/04/22 [Rx Last Taken Unknown] Allergy/AdvReac Type Severity Reaction Status Date / Time atorvastatin AdvReac Intermediate GI Verified 04/04/22 15:45 upset,nausea Family History Father Cancer Lung Grandmother Breast cancer Kidney disease Uncle Myocardial infarction Mother Myocardial infarction Surgical History H/O ovarian cystectomy History of bilateral breast biopsy History of coronary artery stent placement (06/04/19) Social History 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 Smoking Status: Current every day smoker tobacco type: cigarettes Tobacco: How many years used: 35 alcohol intake: never substance use type: does not use caffeine: Yes what type of physical activity do you participate in: none seatbelt use: sometimes do you feel safe at home: Yes additional social history: - Bud AYALA ROS ED Constitutional Constitutional ED: Denies chills or fever(s) Eyes Eyes: Denies change in vision or discharge from eye(s) ENT ENT ED: Denies discharge from eye(s), rhinorrhea or sore throat Cardiovascular Cardiovascular: Reports chest pain; Denies palpitations Respiratory/Chest Respiratory/Chest: Reports dyspnea; Denies cough Gastrointestinal Gastrointestinal: Denies abdominal pain, diarrhea, nausea or vomiting Genitourinary Genitourinary ED: Denies dysuria Musculoskeletal Musculoskeletal: Denies back pain or extremity pain Integumentary Denies Abrasions or rash Neurologic Neurologic: Denies headache(s) or weakness Allergic/Immunologic Allergic/Immunologic ED: Denies lip swelling or urticaria EXAM Physical Exam Const Vital Signs: 04/04/22 15:45 04/04/22 16:22 04/04/22 16:29 Temperature 98.9 F Temperature Source Temporal Pulse Rate 60 51 L Respiratory Rate 20 H 16 Respiratory Effort Normal Non-Labored Blood Pressure 139/112 H Blood Pressure Mean 121 Pulse Ox 98 100 Oxygen Delivery Method Room Air Room Air 04/04/22 17:35 04/04/22 18:33 04/04/22 19:24 Temperature Temperature Source Pulse Rate 50 L 50 L 62 Respiratory Rate 18 18 18 Respiratory Effort Blood Pressure 132/65 H 125/74 H 131/79 H Blood Pressure Mean 87 91 96 Pulse Ox 99 100 98 Oxygen Delivery Method Room Air Room Air Room Air 04/04/22 20:05 Temperature Temperature Source Pulse Rate 52 L Respiratory Rate Respiratory Effort Blood Pressure 116/72 Blood Pressure Mean 86 Pulse Ox Oxygen Delivery Method Positive well nourished and well developed General Appearance ED: well developed HEENT Reports normocephalic and head/scalp atraumatic Eyes PERRL and EOMs intact bilaterally Neck supple Chest Wall inspection of chest normal Chest Narrative: Some reproducible chest wall tenderness. No crepitus. Resp normal respiratory effort and clear to auscultation bilaterally Cardio regular rate and regular rhythm GI normal to inspection, nondistended, normoactive bowel sounds Palpation: soft Back/Spine no CVA tenderness Extremity normal to inspection Neuro oriented x3 and no sensory deficits noted Sensorium / Orientation: alert Motor Exam: strength 5/5 throughout Psych mental status grossly normal Skin no rashes or lesions noted Heart Score History: Moderately Suspicious ECG: Normal Age: >45 - <65 years Risk Factors: >/= 3 Risk Factors or History of CAD Troponin: </= Normal Limit Score: 4 MDM MDM MDM Narrative Medical decision making narrative: Patient took 1 baby aspirin this morning. She was given 3 additional baby aspirin on arrival along with a dose of fentanyl for pain. EKG, chest x-ray, lab work obtained. Lab Data Attestation: I reviewed the patient's lab results. Labs: Laboratory Results - last 24 hr 04/04/22 04/04/22 04/04/22 16:00 16:00 16:54 WBC 5.7 RBC 4.13 L Hgb 13.6 Hct 40.8 MCV 98.8 MCH 32.9 H MCHC 33.3 RDW Std Deviation 45.7 H RDW Coeff of Zuleyma 12.7 Plt Count 185 MPV 10.7 Immature Gran % (Auto) 0.200 Neut % (Auto) 56.3 Lymph % (Auto) 32.4 [place] % (Auto) 6.3 Eos % (Auto) 3.7 Baso % (Auto) 1.1 H Absolute Neuts (auto) 3.2 Absolute Lymphs (auto) 1.84 Nucleated RBC % 0 D-Dimer Quant (PE/DVT) 0.89 H* Sodium 142 Potassium 4.3 Chloride 107 Carbon Dioxide 29.0 Anion Gap 6 BUN 19 H Creatinine 0.89 Estim Creat Clear Calc 59.97 Est GFR (MDRD) Af Amer 86 Est GFR (MDRD) Non-Af 71 BUN/Creatinine Ratio 21.4 H Glucose 82 Calcium 10.8 H Troponin I High Sens 6 04/04/22 18:05 WBC RBC Hgb Hct MCV MCH MCHC RDW Std Deviation RDW Coeff of Zuleyma Plt Count MPV Immature Gran % (Auto) Neut % (Auto) Lymph % (Auto) [place] % (Auto) Eos % (Auto) Baso % (Auto) Absolute Neuts (auto) Absolute Lymphs (auto) Nucleated RBC % D-Dimer Quant (PE/DVT) Sodium Potassium Chloride Carbon Dioxide Anion Gap BUN Creatinine Estim Creat Clear Calc Est GFR (MDRD) Af Amer Est GFR (MDRD) Non-Af BUN/Creatinine Ratio Glucose Calcium Troponin I High Sens 6 Radiography Chest X-Ray - ED: 1 View, Read by ED Physician and - (Hyperinflation with no focal infiltrate.) Diagnostic Testing: Clinical Impression(s) from Imaging Studies Chest X-Ray 04/04/22 16:00 IMPRESSION: Normal x-ray examination of the chest. Electronically Signed: Sharif Ayala MD at 16:18 EDT Reading Location ID and State: [place] / [place] , Service support , Chest CTA 04/04/22 17:31 IMPRESSION: ASHD. Minor atelectasis within the dependent portion of the left lower lobe No gross infiltration or pulmonary edema. No evidence for pulmonary embolus Electronically Signed: Sharif Ayala MD at 18:35 EDT , EKG Initial EKG: Attestation: I personally reviewed and interpreted this EKG as follows: Interpretation: Sinus Bradycardia (Sinus bradycardia 56 bpm with no acute ischemia.) Follow-up EKG: Attestation: I personally reviewed and interpreted this EKG as follows: Interpretation: Sinus Bradycardia (Sinus bradycardia at 49 bpm with sinus arrhythmia. No acute ischemia.) Treatment and Re-Evaluation Narrative: Patient is had intermittent waxing and waning pain while here in the emergency room. She was given a second dose of fentanyl for pain. Repeat EKG revealed no acute ischemic changes. Lab work is largely unremarkable. Troponin is normal at 6 on 2 different readings. D-dimer was slightly elevated at 0.89. CTA of the chest is obtained that reveals no acute findings. Patient does have history of coronary disease with a cardiac arrest. She is very anxious about her chest pain. It appears the patient has not been seen in the office in the last 2 years for follow-up. She is also currently out of her Crestor. I spoke with cardiology, Dr. St. He believes the patient should be able to be seen in the office within the next week. I will write her a refill of her Crestor and her nitroglycerin. Return instructions are provided. Discharge Plan Triage Chief Complaint: Chest Pain ED Provider: April Huerta Dx/Rx/DC Orders Clinical Impression: Chest pain Instructions: ED Chest Pain, Uncertain Cause Prescriptions: New rosuvastatin [Crestor] 10 mg tablet 10 mg PO DAILY Qty: 30 0RF nitroglycerin 0.4 mg tablet, sublingual 0.4 mg sublingual Q5M PRN (Reason: chest pain) Qty: 14 0RF Rx Instructions: do not exceed 3 doses per episode No Action nitroglycerin 0.4 mg tablet, sublingual 0.4 mg SUBLINGUAL Q5-15M PRN (Reason: chest pain) Rx Instructions: until response; do not exceed 3 doses per episode metoprolol tartrate 25 mg tablet 12.5 mg PO QHS Qty: 90 3RF lorazepam 0.5 mg tablet 0.5 mg PO Q6H PRN (Reason: Anxiety) Label Comments: TAKE 1 TABLET up to every 6 hours, as needed for severe anxiety. aspirin 81 MG tablet 81 mg PO DAILY@0800 Qty: 90 0RF sertraline [Zoloft] 50 mg tablet 200 mg PO DAILY rosuvastatin [Crestor] 10 mg tablet 10 mg PO DAILY Qty: 30 11RF clopidogrel [Plavix] 75 mg tablet 75 mg PO DAILY Qty: 90 3RF Primary Care Provider: Stephanie Aguilar Referrals: Song St MD [Med Staff - Active Staff] - As soon as possible Stephanie Aguilar MD [Primary Care Provider] - Disposition Disposition: Home, Self Care
[2022-04-04] MEDS: fentaNYL 100 MCG/2 ML Ampul 12.5 MCG IV (16:50)
[2022-04-04] MEDS: 0.9% Normal Saline 1,000 ML 150 ML IV (16:51)
[2022-04-04] MEDS: Aspirin 81 MG TAB.CHEW 243 MG PO (16:51)
[2022-04-04 17:22] LABS: D-Dimer Quantitative (DVT/PE) 0.89 FEU/ug/m (0.27-0.49)
--- NOTE | 2022-04-04 17:31 | CT_ITS ---
STUDY: CTA CHEST REASON FOR EXAM: Female, 51 years old. chest pain RADIATION DOSAGE (If Supplied By Facility): CTDIvol = ( 7.38 ) mGy, DLP = ( 150.83 ) mGycm TECHNIQUE: The examination was performed with the intravenous administration of IV 100mL Isovue-370. Post-processing of the angiographic images was performed, with multiplanar reformation and 3D reconstruction. Individualized dose optimization techniques were used for this CT. COMPARISON: 04/27/2020 FINDINGS: Normal enhancement of the main pulmonary artery and right and left pulmonary arteries. Normal enhancement of the bilateral peripheral pulmonary arteries. There is no demonstrated pulmonary embolism. Normal thoracic aorta and visualized great vessels. There is no demonstrated aortic dissection. Heart is normal in size. There is coronary artery stent.. Normal mediastinum. Normal hilar regions. Normal visualized trachea and bronchi. The lungs are well expanded. There is minor atelectasis within the dependent portion of the left lower lobe. No focal infiltration or pulmonary nodule. Normal pleura. Normal chest wall structures. Normal osseous structures. Normal visualized upper abdomen. CT/CTA Chest W/WO Contrast IMPRESSION: ASHD. Minor atelectasis within the dependent portion of the left lower lobe No gross infiltration or pulmonary edema. No evidence for pulmonary embolus Electronically Signed: Sharif Ayala MD at 18:35 EDT ,
[2022-04-04 17:35] VITALS: BP 132/65; PULSE 50; RESP 18; O2SAT 99
--- NOTE | 2022-04-04 18:10 | EKG12_ITS ---
Test Reason : CP Blood Pressure : / mmHG Vent. Rate : 056 BPM Atrial Rate : 056 BPM P-R Int : 172 ms QRS Dur : 094 ms QT Int : 406 ms P-R-T Axes : 072 072 066 degrees QTc Int : 391 ms Sinus bradycardia Otherwise normal ECG Confirmed by SULEMA BRENNAN, NIYA ([id number]), editor managing director SALENA BURDEN ([id number]) on 04/05/2022 9:22:52 AM Referred By: ROSALINDA/JOE Confirmed By:NIYA LEONE MD
[2022-04-04] MEDS: fentaNYL 100 MCG/2 ML Ampul 25 MCG IV (18:24)
[2022-04-04 18:30] LABS: Troponin-I HS 6 pg/mL (3.0-54.0)
[2022-04-04 18:33] VITALS: BP 125/74; PULSE 50; RESP 18; O2SAT 100
[2022-04-04 19:24] VITALS: BP 131/79; PULSE 62; RESP 18; O2SAT 98
[2022-04-04 20:05] VITALS: BP 116/72; PULSE 52
== END 2022-04-04 20:17 | disposition home or self-care (01) ==
PROVIDERS: Emergency Provider Emergency Medicine; PCP Family Medicine; Visit Provider Emergency Medicine
DX: R07.9 Chest pain, unspecified (principal); I25.10 Atherosclerotic heart disease of native coronary artery without angina pectoris; R06.02 Shortness of breath; E78.5 Hyperlipidemia, unspecified; F17.210 Nicotine dependence, cigarettes, uncomplicated; Z79.82 Long term (current) use of aspirin
CPT/HCPCS: 71045; 71275; 80048; 84484; 85025; 85379; 93005; 99285; J7030; Q9967; A4216

== ENCOUNTER → 2022-06-10 | Outpatient (CLI) | payer BC, SELFPAY ==
[2019-08-27 11:30] VITALS: BMI 20.8
[2022-06-10 17:48] LABS: Absolute Lymphocyte Count 1.76 X10^3/uL (0.83-4.51); Absolute Neutrophil Count 3.2 X10^3/uL (2.0-7.7); Basophil# 0.05 X10^3/uL; Basophil% 0.9 % (0-1); Eosinophil# 0.13 X10^3/uL; Eosinophils% 2.4 % (0-5); Hemoglobin 14.4 g/dL (12.0-15.0); Lymphocyte # 1.76 X10^3/ul (0.83-4.51); Lymphocyte % 31.8 % (19-41); Mean Corp Hgb Conc 32.7 g/dL (32-36); Mean Corpuscular Hgb 33.6 pg (27.0-32.0); Mean Corpuscular Volume 102.6 fL (81-99); Mean Platelet Vol. 10.9 fl (6.2-12.0); Monocyte# 0.33 X10^3/uL; NRBC Flagged by Analyzer 0 % (0-5); Neutrophil # 3.24 X10^3/uL (2.7-7.7); Neutrophil % 58.5 % (47-70); Platelet Count 176 K/mm3 (150-450); RBC Distribution Width CV 12.5 % (11.6-14.6); RBC Distribution Width SD 46.5 fl (35.1-43.9); Red Blood Count 4.29 M/mm3 (4.2-5.4); White Blood Count 5.5 K/mm3 (4.4-11.0)
[2022-06-10 18:30] LABS: ALB/GLOB Ratio 1.2 RATIO (0.9-2.4); AST(SGOT) 19 U/L (15-37); Alanine Aminotransfer ALT/SGPT 24 U/L (13-56); Albumin, Serum 4.1 g/dL (3.2-5.0); Alkaline Phosphatase 63 U/L (45-117); Anion Gap 3 (5-15); BUN 13 mg/dL (7-18); BUN/Creat Ratio 15.1 RATIO (10-20); Calcium,Total 9.7 mg/dL (8.5-10.1); Chloride 106 mmol/L (98-107); Cholesterol 246 mg/dL (200); Creatinine, Serum 0.86 mg/dL (0.55-1.02); EST Glomerular Filtration Rate 74 mL/min (>60); Est Glom Filt Rate - Afr Amer 89 mL/min (>60); Globulin 3.4 g/dL (2.2-4.2); Glucose 93 mg/dL (74-106); High Density Lipoprotein 82 mg/dL; Potassium 4.3 mmol/L (3.5-5.1); Protein, Total 7.5 g/dL (6.4-8.2); Sodium Level 139 mmol/L (136-145); Triglycerides 87 mg/dL; Very Low Density Lipoprotein 17 mg/dL (5-40)
== END | disposition home or self-care (01) ==
LOC: BFHLAB 15:19
PROVIDERS: PCP Family Medicine; Visit Provider Family Medicine
DX: I21.02 ST elevation (STEMI) myocardial infarction involving left anterior descending coronary artery (principal)
CPT/HCPCS: 36415; 80053; 80061; 85025

== ENCOUNTER 2022-07-08 10:53 | Inpatient (IN) | payer BC, SELFPAY ==
[2019-08-27 11:30] VITALS: BMI 20.8
[2022-07-08] VITALS (22 sets, daily range): BP systolic 88–119; BP diastolic 46–75; PULSE 58–79; RESP 10–24; TEMP 36.1–36.6; O2SAT 95–100; BMI 18.6
[2022-07-08 10:10] LABS: Absolute Lymphocyte Count 2.19 X10^3/uL (0.83-4.51); Absolute Neutrophil Count 3.3 X10^3/uL (2.0-7.7); Basophil# 0.04 X10^3/uL; Basophil% 0.7 % (0-1); Eosinophil# 0.23 X10^3/uL; Eosinophils% 3.8 % (0-5); Hematocrit 34.6 % (37-47); Hemoglobin 11.5 g/dL (12.0-15.0); Lymphocyte # 2.19 X10^3/ul (0.83-4.51); Lymphocyte % 35.9 % (19-41); Mean Corp Hgb Conc 33.2 g/dL (32-36); Mean Corpuscular Hgb 32.1 pg (27.0-32.0); Mean Corpuscular Volume 96.6 fL (81-99); Mean Platelet Vol. 10.7 fl (6.2-12.0); Monocyte# 0.38 X10^3/uL; Monocyte% 6.2 % (0-10); NRBC Flagged by Analyzer 0 % (0-5); Neutrophil # 3.25 X10^3/uL (2.7-7.7); Neutrophil % 53.2 % (47-70); Platelet Count 161 K/mm3 (150-450); RBC Distribution Width CV 12.5 % (11.6-14.6); RBC Distribution Width SD 44.4 fl (35.1-43.9); Red Blood Count 3.58 M/mm3 (4.2-5.4); White Blood Count 6.1 K/mm3 (4.4-11.0)
[2022-07-08 10:19] LABS: International Normalized Ratio 1.4; Prothrombin Time (Protime)PT. 16.4 SECONDS (11.7-14.9)
[2022-07-08 10:27] LABS: Anion Gap 6 (5-15); BUN 18 mg/dL (7-18); BUN/Creat Ratio 23.5 RATIO (10-20); Calcium,Total 8.2 mg/dL (8.5-10.1); Chloride 107 mmol/L (98-107); Creatinine, Serum 0.76 mg/dL (0.55-1.02); EST Glomerular Filtration Rate 84 mL/min (>60); Est Glom Filt Rate - Afr Amer 102 mL/min (>60); Glucose 90 mg/dL (74-106); Potassium 3.8 mmol/L (3.5-5.1); Sodium Level 134 mmol/L (136-145); Troponin-I HS 68 pg/mL (3.0-54.0)
--- NOTE | 2022-07-08 10:59 | PCM.HP.STD ---
HPI - General General Date of Admission: 07/08/22 Date of Service: 07/08/22 Chief Complaint: Chest pain HPI Narrative THAO EDWARDS, is a 52 F with a history of car disease and a STEMI in 2019 with a stent and anxiety who presented to [facility] 07/08/2022 for a stress test and had a STEMI in the stress lab. She was taken to the [facility] and had a stent placed to a 90% lesion on her diagonal and she was transferred to the ICU. At time of evaluation she reports that she still having little bit of chest pain but it is better than prior to the stent and she is not in acute distress, no complaints of her breathing, reports intermittent headaches and anxiety but denies any other complaints. Reports she has been having this chest pain on and off that has been relieved with nitro over the past month or so. [facility] Medical History Atherosclerosis of coronary artery of [place] heart without angina pectoris Galactorrhea History of ST elevation myocardial infarction (STEMI) (06/04/19) History of sudden cardiac arrest successfully resuscitated (06/04/19) Hyperlipidemia PTSD (post-traumatic stress disorder) Status post hysteroscopy (05/21/19) Strabismic amblyopia, right eye Tobacco dependence Home Medications aspirin 81 mg tablet,delayed release 81 mg PO DAILY@0800 #90 tabs 06/05/19 [Rx Last Taken 07/12/19] lorazepam 0.5 mg tablet 0.5 mg PO Q6H PRN Anxiety 09/04/19 [History Last Taken Unknown] metoprolol tartrate 25 mg tablet 12.5 mg PO QHS #90 tabs 01/23/20 [Rx Last Taken Unknown] rosuvastatin 10 mg tablet (Crestor) 10 mg PO DAILY #30 tabs 03/12/21 [Rx Last Taken Unknown] clopidogrel 75 mg tablet (Plavix) 75 mg PO DAILY #90 tabs 07/27/21 [Rx Last Taken Unknown] sertraline 50 mg tablet (Zoloft) 200 mg PO DAILY 08/17/21 [History Last Taken Unknown] nitroglycerin 0.4 mg sublingual tablet 0.4 mg sublingual Q5M PRN chest pain #14 tabs 04/04/22 [Rx Last Taken Unknown] Allergy/AdvReac Type Severity Reaction Status Date / Time atorvastatin AdvReac Intermediate GI Verified 04/07/22 10:51 upset,nausea Family History Father Cancer Lung Grandmother Breast cancer Kidney disease Uncle Myocardial infarction Mother Myocardial infarction Surgical History H/O ovarian cystectomy History of bilateral breast biopsy History of coronary artery stent placement (06/04/19) Social History 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 Smoking Status: Current every day smoker tobacco type: cigarettes Tobacco: How many years used: 35 alcohol intake: never substance use type: does not use caffeine: Yes what type of physical activity do you participate in: none seatbelt use: sometimes do you feel safe at home: Yes additional social history: - Bud JAMIE Constitutional Constitutional: Denies chills, fever(s) or night sweats Eyes Eyes: Reports other Details: Chronically worsening vision ENT HEENT: Reports other Details: Intermittent headaches in the back of her head symmetrically ; Denies nasal congestion or sore throat Cardiovascular Cardiovascular: Reports chest pain and other Details: Chest pain improved from before stent Respiratory/Chest Respiratory/Chest: Denies cough or productive cough Gastrointestinal Gastrointestinal: Reports other Details: denies changes in bowel or bladder ; Denies abdominal pain Genitourinary Genitourinary: Reports other Details: denies changes in urination Musculoskeletal Musculoskeletal: Denies joint pain Neurologic Neurologic: Denies dizziness, focal weakness, numbness or tingling Psychiatric Psychiatric: Denies anxiety Hematologic/Lymphatic Hematologic/Lymphatic: Denies easy bleeding Allergic/Immunologic Allergic/Immunologic: Reports other Details: denies rashes Vital Signs Vital Signs Vital Signs: 07/08/22 10:30 07/08/22 10:12 07/08/22 10:12 Temperature 96.9 F L 96.9 F L Temperature Source Temporal Temporal Pulse Rate 60 60 58 L Respiratory Rate 10 L 14 18 Blood Pressure 97/59 L 97/53 L Blood Pressure [BP] 97/53 L Blood Pressure Mean 71 67 Blood Pressure Mean [BP] 67 Blood Pressure Source Monitor Monitor Blood Pressure Source [BP] Monitor Blood Pressure Position Semi-Fowlers Semi-Fowlers Blood Pressure Position [BP] Semi-Fowlers Blood Pressure Location Left Arm Left Arm Blood Pressure Location [BP] Left Arm Pulse Ox 100 100 Oxygen Delivery Method Nasal Cannula Nasal Cannula Nasal Cannula Oxygen Flow Rate (L/min) 2 2 2 Weight Weight: 115 kg Body Mass Index (BMI) 39.6 Physical Exam Const alert and no apparent distress Constitutional Narrative: Oriented HEENT normocephalic and head/scalp atraumatic Eyes Eyes Narrative: EOM grossly intact, anicteric Neck supple Resp normal respiratory effort and clear to auscultation bilaterally Cardio regular rate and regular rhythm GI soft to palpation, non-tender and non-distended Extremity Extremity Narrative: No edema appreciated Neuro moves all extremities Neuro Narrative: No overt focal deficits appreciated Psych Psych Narrative: Cooperative Results Lab / Micro Data Result Diagrams: 07/08/22 09:55 07/08/22 09:55 Labs: Laboratory Results - last 24 hr 07/08/22 09:55: WBC 6.1, RBC 3.58 L, Hgb 11.5 L, Hct 34.6 L, MCV 96.6, MCH 32.1 H, MCHC 33.2, RDW Std Deviation 44.4 H, RDW Coeff of Zuleyma 12.5, Plt Count 161, MPV 10.7, Immature Gran % (Auto) 0.200, Neut % (Auto) 53.2, Lymph % (Auto) 35.9, [place] % (Auto) 6.2, Eos % (Auto) 3.8, Baso % (Auto) 0.7, Absolute Neuts (auto) 3.3, Absolute Lymphs (auto) 2.19, Nucleated RBC % 0 07/08/22 09:55: Sodium 134 L, Potassium 3.8, Chloride 107, Carbon Dioxide 21.0, Anion Gap 6, BUN 18, Creatinine 0.76, Est GFR (MDRD) Af Amer 102, Est GFR (MDRD) Non-Af 84, BUN/Creatinine Ratio 23.5 H, Glucose 90, Calcium 8.2 L, Troponin I High Sens 68 H 07/08/22 09:55: PT 16.4 H, INR 1.4 Assessment & Plan Assessment/Plan (1) STEMI (ST elevation myocardial infarction): PLAN: Plan #STEMI Status post stent to a 90% lesion in her diagonal Spoke with cardiology?aspirin, Brilinta and switch to aspirin and Plavix at home as they are unable to afford Brilinta Statin On telemetry Cardiology managing. No bruising at site of entry on right wrist appreciated #Anxiety Continue Haydee Has lorazepam on her home med list though it appears she just intermittently has received 3-day supplies over the past several years. She has had significant anxiety and is currently in a stressful situation so we will add 0.5 mg p.o. every 8 as needed of the Ativan #DVT ppx: SCDs ordered Naomi Castellon MD Charges/Coding Visit Charges Inpatient E&M: 91718 Init Hosp L2
[2022-07-08] MEDS: LORazepam 0.5 MG Tablet PO ×2 (11:28→21:06)
[2022-07-08 12:07] LABS: Amphetamine Urine VISTA NEGATIVE (<1000 ng/mL); Barbiturate Urine VISTA NEGATIVE (< 200 ng/mL); Benzodiazepine Urine VISTA POSITIVE (< 200 ng/mL); Cocaine Urine VISTA NEGATIVE (< 300 ng/mL); Ecstacy Urine VISTA NEGATIVE (< 500 ng/mL); Methadone Urine VISTA NEGATIVE (< 300 ng/mL); PCP Urine VISTA NEGATIVE (< 25 ng/mL); THC Urine VISTA POSITIVE (< 50 ng/mL); Vista UDS pH Range 6
[2022-07-08] MEDS: Sertraline 100 MG Tablet 200 MG PO (12:22)
--- NOTE | 2022-07-08 13:30 | EKG12_ITS ---
Test Reason : AM EKG Blood Pressure : / mmHG Vent. Rate : 059 BPM Atrial Rate : 059 BPM P-R Int : 178 ms QRS Dur : 086 ms QT Int : 430 ms P-R-T Axes : 067 075 084 degrees QTc Int : 425 ms Sinus bradycardia Otherwise normal ECG Confirmed by COLUMBA BRENNAN, RONY ([id number]), digital editor SALENA BURDEN ([id number]) on 07/13/2022 10:12:16 AM Referred By: Francy Crawford Confirmed By:RONY WATERMAN MD
--- NOTE | 2022-07-08 13:39 | CON.PCM.CA_ITS ---
Assessment & Plan Assessment/Plan (1) STEMI (ST elevation myocardial infarction): PLAN: Treated with BRIT to D1. Admit to CCU. Recommend ASA, brilinta (can switch to plavix at the time of discharge), statin, BB HPI Consult Data Date of Consult: 07/08/22 HPI Narrative Reason for Consultation: STEMI HPI Narrative: THAO EDWARDS, is a 52 F who presented for a stress test. After the test she started having CP and lateral ST elevation. A STEMI alert was called and she underwent emergent coronary angiography which revealed 90% stenosis in D1. This was treated with BRIT. CP improved but patient continues to have some CP. She is also very anxious. EF is preserved ROS: All systems reviewed. All else is negative except that in the HPI [facility] Medical History Atherosclerosis of coronary artery of wiyot heart without angina pectoris Galactorrhea History of ST elevation myocardial infarction (STEMI) (06/04/19) History of sudden cardiac arrest successfully resuscitated (06/04/19) Hyperlipidemia PTSD (post-traumatic stress disorder) Status post hysteroscopy (05/21/19) Strabismic amblyopia, right eye Tobacco dependence Home Medications aspirin 81 mg tablet,delayed release 81 mg PO DAILY@0800 #90 tabs 06/05/19 [Rx Last Taken 07/12/19] lorazepam 0.5 mg tablet 0.5 mg PO Q6H PRN Anxiety 09/04/19 [History Last Taken Unknown] metoprolol tartrate 25 mg tablet 12.5 mg PO QHS #90 tabs 01/23/20 [Rx Last Taken Unknown] rosuvastatin 10 mg tablet (Crestor) 10 mg PO DAILY #30 tabs 03/12/21 [Rx Last Taken Unknown] clopidogrel 75 mg tablet (Plavix) 75 mg PO DAILY #90 tabs 07/27/21 [Rx Last Taken Unknown] sertraline 50 mg tablet (Zoloft) 200 mg PO DAILY 08/17/21 [History Last Taken Unknown] nitroglycerin 0.4 mg sublingual tablet 0.4 mg sublingual Q5M PRN chest pain #14 tabs 04/04/22 [Rx Last Taken Unknown] Allergy/AdvReac Type Severity Reaction Status Date / Time atorvastatin AdvReac Intermediate GI Verified 04/07/22 10:51 upset,nausea Family History Father Cancer Lung Grandmother Breast cancer Kidney disease Uncle Myocardial infarction Mother Myocardial infarction Surgical History H/O ovarian cystectomy History of bilateral breast biopsy History of coronary artery stent placement (06/04/19) Social History 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 Smoking Status: Current every day smoker tobacco type: cigarettes Tobacco: How many years used: 35 alcohol intake: never substance use type: does not use caffeine: Yes what type of physical activity do you participate in: none seatbelt use: sometimes do you feel safe at home: Yes additional social history: - Bud Physical Exam Const alert and oriented x3 HEENT normocephalic Eyes no scleral icterus Cardio regular rate and regular rhythm Risk Stratification Risk Stratification Applicable: No Charges/Coding Visit Charges Inpatient E&M: 93280 Init Hosp L2 Objective Data Vital Signs: Vital Signs Temp Pulse Resp BP Pulse Ox O2 Del Method O2 Flow Rate 96.9 F L 66 14 101/57 L 99 Nasal Cannula 2 07/08/22 10:30 07/08/22 13:00 07/08/22 13:00 07/08/22 13:00 07/08/22 13:00 07/08/22 13:00 07/08/22 12:30 Oxygen Flow Rate (L/min) 2 Oxygen Delivery Method Nasal Cannula Weight: 253 lb 8.505 oz Body Mass Index (BMI) 39.6 Intake & Output: Intake and Output for Last 24 Hours 07/06/22 07/07/22 07/08/22 23:59 23:59 23:59 Output Total 150 / 150 Balance -150 / -150 Lab / Micro Data Result Diagrams: 07/08/22 09:55 07/08/22 09:55 Labs: Laboratory Results - last 24 hr 07/08/22 09:55: WBC 6.1, RBC 3.58 L, Hgb 11.5 L, Hct 34.6 L, MCV 96.6, MCH 32.1 H, MCHC 33.2, RDW Std Deviation 44.4 H, RDW Coeff of Zuleyma 12.5, Plt Count 161, MPV 10.7, Immature Gran % (Auto) 0.200, Neut % (Auto) 53.2, Lymph % (Auto) 35.9, Bowman % (Auto) 6.2, Eos % (Auto) 3.8, Baso % (Auto) 0.7, Absolute Neuts (auto) 3.3, Absolute Lymphs (auto) 2.19, Nucleated RBC % 0 07/08/22 09:55: Sodium 134 L, Potassium 3.8, Chloride 107, Carbon Dioxide 21.0, Anion Gap 6, BUN 18, Creatinine 0.76, Est GFR (MDRD) Af Amer 102, Est GFR (MDRD) Non-Af 84, BUN/Creatinine Ratio 23.5 H, Glucose 90, Calcium 8.2 L, Troponin I High Sens 68 H 07/08/22 09:55: PT 16.4 H, INR 1.4 07/08/22 11:45: Urine Opiates Screen POSITIVE H, Urine Methadone Screen NEGATIVE, Ur Barbiturates Screen NEGATIVE, Ur Phencyclidine Scrn NEGATIVE, Ur Amphetamines Screen NEGATIVE, MDMA (Ecstasy) Screen NEGATIVE, U Benzodiazepines Scrn POSITIVE H, Urine Cocaine Screen NEGATIVE, U Cannabinoids Screen POSITIVE H , Ur Drug Screen Comment Cardiology Labs/Tests 07/08/22 09:55: WBC 6.1, RBC 3.58 L, Hgb 11.5 L, Hct 34.6 L, MCV 96.6, MCH 32.1 H, MCHC 33.2, Plt Count 161, MPV 10.7, Immature Gran % (Auto) 0.200, Neut % (Auto) 53.2, Lymph % (Auto) 35.9, Bowman % (Auto) 6.2, Eos % (Auto) 3.8, Baso % (Auto) 0.7, Absolute Neuts (auto) 3.3, Nucleated RBC % 0 07/08/22 09:55: Sodium 134 L, Potassium 3.8, Chloride 107, Carbon Dioxide 21.0, Anion Gap 6, BUN 18, Creatinine 0.76, Est GFR (MDRD) Af Amer 102, Est GFR (MDRD) Non-Af 84, BUN/Creatinine Ratio 23.5 H, Glucose 90, Calcium 8.2 L 01/13/23 09:55: PT 16.4 H, INR 1.4 Rhythm: EKG: ECHO: Stress Test: Cardiac Cath: PCI: CT Surgery: Holter monitor: EPS: PPM: CXR: Chest CT Scan:
--- NOTE | 2022-07-08 14:04 | CL.I_ITS ---
Patient Name: THAO EDWARDS Study Date: 07/08/2022 Performing: Vincent Crawford MD Ht: 66 inches 167.64 cm : 1970 Wt: 115.1 lbs 52.16 kg Age: 52 Gender: female BSA: 1.58 PROCEDURE(S) PERFORMED DC01-(93659)LHC/COR/LV IC16-(06240/C9606)AMI, BRIT OR PTCA, ARTERY/GRAFT, SINGLE VESSEL CLINICAL PROFILE AND CO-MORBIDITIES Indications: ACS <= 24 hrs Heart Failure: None Stress/Imaging Stress/Image Study Performed: No CAD Presentations: STEMI. Symptom onset Date/Time: 07/08/22 8:50:00 Time Estimated CONCLUSIONS CAD as described. Preserved EF. No significant or MR. Successful BRIT to D1 RECOMMENDATIONS DESCRIPTION OF PROCEDURE The patient arrived to the procedure lab. The risks and benefits of the procedure as well as a full description of our services here and lack of surgical backup were fully explained to the patient and/or their significant other prior to the catheterization. The Timeout was completed, verifying the correct patient and procedure. The patient's procedural site was prepped and draped in the usual fashion. Local anesthetic was given subcutaneously to right radial region with Lidocaine 2%. Using a modified Seldinger technique, arterial access was obtained via the right radial artery, a 6Fr sheath was inserted.. Left Coronary Artery selective angiography was performed in multiple views using a 5 Fr. JL 3.5 catheter. Right Coronary Artery selective angiography was then performed in multiple views using a 5 Fr. JR 4 catheter. Left Ventriculography was performed in HARDY projection using a 5 Fr. Pigtail catheter XB 3.0 Guide catheter was inserted and engaged into the LCA. BMW Guide wire was advanced to the 1st Diagonal. Emerge 2.00x20 Balloon catheter was inserted. PTCA balloon inflated at 6 atms for 13 secs. Resolute 2.5x30 Drug Eluting stent was inserted. Angiogram performed post stent deployment. The arterial sheath was pulled and a TR Band was applied for hemostasis w/16 air CORONARY ANGIOGRAPHY DOMINANCE: Right Dominant LEFT HEART ASSESSMENT Left Ventricular Ejection Fraction: by LV Gram 60 % Normal LV wall motion LEFT MAIN: Mild luminal irregularities LEFT ANTERIOR DESCENDING ARTERY: Mild luminal irregularities, Previously placed stent is patent DIAGONAL 1: Proximal - 90 % Stenosis CIRCUMFLEX ARTERY: Mild luminal irregularities RIGHT CORONARY ARTERY: MID RCA: 50 % Stenosis VALVE FINDINGS: No Aortic Valve Stenosis No Mitral Insufficency INTERVENTION INFORMATION LESION SITE: 1st Diagonal (Proximal) Lesion Complexity: High/C, chronic total occlusion: No, lesion at bifurcation: No, thrombus present: No, lesion length: 28 mm, culprit lesion: Yes, Previously treated lesion: No Pre Stenosis: 90 % Pre intervention HOWARD flow: 3 PROCEDURE: Drug Eluting Stent with pre dilatation. Post Stenosis: 0 % Post intervention HOWARD flow: 3 Lesion Devices: Cordis 5F XB3 100cm Guide Catheter Garay .014 190cm BMW [place] Straight Shaquille Sci EMERGE MR 2.00x20 BALLOON Medtronic Resolute Ulices RX BRIT 2.5x30 COMPLICATIONS No Complications PROCEDURE MEDICATIONS Morphine 2 mg IV Versed 1 mg IV Fentanyl 50 mcg IV Brilinta 180 mg PO @ 07/08/2022 09:21:54 Heparin 4000 unit(s) IV 07/08/2022 09:21:58 Heparin given IA 07/08/2022 09:27:50 Zofran 4 mg IV 07/08/2022 09:22:08 IV Bolus: .9 NaCl 500 ml total 07/08/2022 09:30:38 SUMMARY OF HEMODYNAMIC DATA Time AIR REST ECG 09:21:03 AO 82/58 (69) SA 09:29:19 LV 98/0, 11 09:32:38 LV 104/8, 19 09:32:44 LVp 95/1, 10 09:33:24 AOp 103/57 (75) 09:33:29 AO 102/51 (75) 09:42:00 LV 133/7, 16 09:52:29 LV 133/10, 29 09:52:35 LV 126/4, 21 09:53:15 LV 135/0, 19 09:53:21 LVp 138/2, 19 09:53:35 AOp 134/68 (95) 09:53:40 Signed By Vincent Crawford MD On 07/08/2022 14:03:35 Vincent Crawford MD
--- NOTE | 2022-07-08 14:08 | CRPHASE1 ---
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 Our purpose is to help you have a full recovery and achieve the goals you set for yourself. Over the years many of our patients have returned to activities they assumed they would never do again! We can help restore your confidence and motivation to make lifestyle changes that can have a significant impact on your health and quality of life! We can help answer questions and concerns you may have about exercise, lifestyle, medications, diet, stress and anxiety which are common following a hospitalization. WE monitor ECG and vital signs during exercise and discuss your progress with you and report to your physician(s). Cardiac Rehab is proven to help reduce readmissions, improve functional capacity and lower recurrence of problems with your heart. Our Cardiac Rehab program is Certified by the [place] [employer] Pulmonary [employer] (AACVPR) and Accredited by the [place] [employer] through our [facility]. You can contact us at . We invite you to call us with your questions or to get started in our program. If you have other questions or concerns be sure to ask your physician/provider during your follow-up visit. WE look forward to seeing you!
--- NOTE | 2022-07-08 14:09 | CRPH1.INSTRU ---
General Education CAD and cardiac anatomy and function:: Patient communicates acknowledgment, Needs reinforcement Explanation of diagnoses and procedures:: Patient communicates acknowledgment, Needs reinforcement Sign/Symptoms of [place]:: Patient communicates acknowledgment, Needs reinforcement Antiplatelet therapy: Patient communicates acknowledgment, Needs reinforcement Proper use of NTG-SL: Patient communicates acknowledgment, Needs reinforcement Emergency procedures and activation of EMS: Patient communicates acknowledgment, Needs reinforcement Compliance of all prescribed medications: Patient communicates acknowledgment, Needs reinforcement Smoking Patient Nicotine/Smoking Risk Factors Are:: Cigarettes Recommendations Include:: Participation in a smoking cessation program Nicotine/Smoking Response Code:: Patient communicates acknowledgment, Needs reinforcement Dyslipidemia Patient Dyslipidemia Risk Factors Are:: Total Cholesterol, Triglycerides, HDL, LDL Recommendations Include:: Lipid profile provided Dyslipidemia Response Code:: Patient communicates acknowledgment, Needs reinforcement Overweight/Obesity Patient Overweight/Obesity Risk Factors Are:: BMI Normal [18-25 & < 65 years old] Recommendations Include:: Exercise 5-7 times/week Overweight/Obesity:: Patient communicates acknowledgment, Needs reinforcement Hypertension Recommendations Include:: Maintain BP <130/85, Moderation of ETOH Hypertension:: Patient communicates acknowledgment, Needs reinforcement Heart Disease Patient Heart Disease Risk Factors Are:: Previous cardiac event Recommendations Include:: Educated family members of their risk Heart Disease Response Code:: Patient communicates acknowledgment, Needs reinforcement Diabetes Patient Diabetes Risk Factors Are:: No documented hx of diabetes Sedentary Patient Sedentary Risk Factors Are:: Lack of regular exercise Recommendations Include:: Aerobic exercise 5-7 times/week for 20-30 minutes continuously, Benefits of regular exercise, Discussed home walking program, Monitored Outpatient Cardiac Rehab Sedentary Response Code:: Patient communicates acknowledgment, Needs reinforcement
[2022-07-08 14:21] LABS: Internal QC Validated? YES +Cl - CLEAR BKGD; Pregnancy, Urine Negative Negative
[2022-07-08] MEDS: 0.9% Normal Saline 1,000 ML 100 ML IV (16:08)
--- NOTE | 2022-07-08 16:27 | STRESSREP ---
Stress Test Report Pharmacologic myocardial perfusion stress test. 52-year-old lady with a history of coronary artery disease Resting EKG demonstrates sinus bradycardia with a rate of 51 bpm. Resting blood pressure is 100/60 mmHg. 0.4 mg of regadenoson was infused per usual protocol followed by rapid intravenous saline flush injection. Continuous EKG monitoring was performed. The maximum heart rate was 111 bpm which was 66% of max impacted heart rate the maximum workload was 1 metabolic equivalent. At rest there were no ST or T wave changes noted to suggest ischemia and at peak infusion nonspecific ST changes were noted with did not meet the criteria for ischemia. At approximately 6 minutes postinfusion patient started complaining of chest discomfort and ST elevation was noted in lead V5 and V6 with ST depression noted in lead V3 and V4. [address] elevation was also noted in lead I and aVL. The patient was administered sublingual nitroglycerin. Premature ventricular complexes were noted. By approximately 9-1/[address] changes returned back to normal. Patient however continued to have chest discomfort and a STEMI was called and the patient was transferred to the cardiac catheterization laboratory. . Myocardial perfusion protocol. 10.1 mCi of technetium 99m sestamibi was injected at rest. 0.4 mg of regadenoson was infused per usual protocol. At peak infusion 35 mCi of technetium 99m sestamibi was injected. Stress images could not be obtained due to patient transitioning with an acute ischemic event. Perfusion SPECT analysis: Review of the rest images demonstrate normal uptake of tracer noted in all areas of the myocardium. Normal resting myocardial perfusion test. Acute coronary ischemia noted immediately post stress. Patient transferred to the cardiac catheterization lab.
--- NOTE | 2022-07-08 17:26 | CASEMGMT ---
Social Work Referral received from RN that pt is expressing concerns over financial situation. SW met with pt and introduced self and role of SW. Pt willing and eager to speak with SW regarding needs. Pt tearful on and off throughout conversation and displaying anxiety over financial problems. Pt lives with her Dylan and does not reveal any concerns with this relationship. Pt states Dylan works flight crew ordnanceman and has health insurance benefits. 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 Pt states 's income is able to cover the rent and utilities but it is not enough to cover monthly expenses and often pt is hungry and unable to afford food. Pt and spouse do have vehicles and transportation is not a concern. SW assisted pt in completing Medicaid application and faxed to [employer]. Original returned to pt with instruction to followup with [employer] in timely manner. Per pt request, SW provided pt with packet of informaton for disability. SW discussed with pt [employer], [employer] and [employer] with food information, [employer] and prescription assistance. Pt was unaware of available community services and was accepting of all written information given including services mentioned. Pt tearful after conversation. SW inquired about mental health. Pt states diagnosis of depression, PTSD and anxiety. Pt follows with PCP for medication management but pt states the medication is not enough to help her. SW inquired about suicidal thoughts. Pt states she attempted suicide in 2019 and was placed in psychiatric hospital for 10 days. When asked if she has attempted suicide any other time pt states, Not that anyone knows about. Pt states that she has been thinking about suicide on and off over the last couple years but now thinks about suicide daily. When asked if she has a plan, pt states not so much of a plan as an idea. Pt refusing to disclose her idea to this SW. SW stepped out of room and reentered with collaborating SW. Suicide questions asked again and pt answers are the same. Prior to completion of assessment pt's spouse entered the room. Pt immediately states, I am done with this conversation. SW exited the room. Phone call to Dr. Castellon and updated on conversation regarding suicide with pt. Per Dr. Castellon, pt to have sitter and to be evaluated by crisis for suicide ideation when medically cleared. SW spoke with bedside nurse Angelita and explained above. SW will remain available as further needs arise. Plan: Suicide precautions, Crisis evaluation when medically cleared. MARY uYen
[2022-07-08] MEDS: TICAGRELOR 90 MG TABLET PO (21:06)
[2022-07-08] MEDS: MELATONIN 3 MG TABLET PO (21:07)
[2022-07-08] MEDS: Acetaminophen 325 MG Tablet 650 MG PO (21:07)
[2022-07-09] VITALS (15 sets, daily range): BP systolic 92–114; BP diastolic 42–68; PULSE 56–69; RESP 13–24; TEMP 36.6–37.2; O2SAT 97–100
[2022-07-09 05:14] LABS: Absolute Lymphocyte Count 1.67 X10^3/uL (0.83-4.51); Basophil# 0.04 X10^3/uL; Basophil% 0.8 % (0-1); Eosinophil# 0.27 X10^3/uL; Eosinophils% 5.1 % (0-5); Hematocrit 36.3 % (37-47); Hemoglobin 11.8 g/dL (12.0-15.0); Lymphocyte # 1.67 X10^3/ul (0.83-4.51); Lymphocyte % 31.3 % (19-41); Mean Corp Hgb Conc 32.5 g/dL (32-36); Mean Corpuscular Hgb 32.1 pg (27.0-32.0); Mean Corpuscular Volume 98.6 fL (81-99); Mean Platelet Vol. 10.7 fl (6.2-12.0); Monocyte# 0.31 X10^3/uL; Monocyte% 5.8 % (0-10); NRBC Flagged by Analyzer 0 % (0-5); Neutrophil # 3.03 X10^3/uL (2.7-7.7); Neutrophil % 56.8 % (47-70); Platelet Count 146 K/mm3 (150-450); RBC Distribution Width CV 12.8 % (11.6-14.6); RBC Distribution Width SD 46.4 fl (35.1-43.9); Red Blood Count 3.68 M/mm3 (4.2-5.4); White Blood Count 5.3 K/mm3 (4.4-11.0)
[2022-07-09 05:39] LABS: ALB/GLOB Ratio 1.1 RATIO (0.9-2.4); AST(SGOT) 12 U/L (15-37); Alanine Aminotransfer ALT/SGPT 18 U/L (13-56); Alkaline Phosphatase 44 U/L (45-117); Anion Gap 5 (5-15); BUN 15 mg/dL (7-18); BUN/Creat Ratio 21.6 RATIO (10-20); Calcium,Total 8.3 mg/dL (8.5-10.1); Chloride 112 mmol/L (98-107); Cholesterol 160 mg/dL (200); EST Glomerular Filtration Rate 94 mL/min (>60); Est Glom Filt Rate - Afr Amer 114 mL/min (>60); Estimated Creatinine Clearance 77.47 ml/min; Globulin 2.7 g/dL (2.2-4.2); Glucose 86 mg/dL (74-106); High Density Lipoprotein 74 mg/dL; Potassium 4.1 mmol/L (3.5-5.1); Protein, Total 5.7 g/dL (6.4-8.2); Sodium Level 142 mmol/L (136-145); Thyroid Stim Hormone (TSH) 1.64 uIU/mL (0.358-3.74); Triglycerides 53 mg/dL; Very Low Density Lipoprotein 11 mg/dL (5-40)
--- NOTE | 2022-07-09 07:36 | PCM.PN.HOSP ---
Subjective Subjective Sitting up in bed no acute distress. Reports she still has some chest soreness in the center of her chest but better than yesterday. No problems with her breathing. Did have to have a safety and security manager placed yesterday due to suicidal ideation with possible plan and unclear intent voiced to social work yesterday. Denying SI today Objective Data Objective Data Vital Signs: Vital Signs Temp Pulse Resp BP Pulse Ox O2 Del Method O2 Flow Rate 98.2 F 60 15 98/62 97 Room Air 2 07/09/22 04:00 07/09/22 07:00 07/09/22 07:00 07/09/22 07:00 07/09/22 07:00 07/09/22 07:00 07/08/22 12:30 Oxygen Flow Rate (L/min) 2 Oxygen Delivery Method Room Air Weight: 52.2 kg Body Mass Index (BMI) 18.6 Intake & Output: Intake and Output for Last 24 Hours 07/07/22 07/08/22 07/09/22 23:59 23:59 23:59 Intake Total 760 / 760 953 / 953 Output Total 150 / 150 Balance 610 / 610 953 / 953 Lab / Micro Data Result Diagrams: 07/09/22 04:50 07/09/22 04:50 Labs: Laboratory Results - last 24 hr 07/08/22 09:55: WBC 6.1, RBC 3.58 L, Hgb 11.5 L, Hct 34.6 L, MCV 96.6, MCH 32.1 H, MCHC 33.2, RDW Std Deviation 44.4 H, RDW Coeff of Zuleyma 12.5, Plt Count 161, MPV 10.7, Immature Gran % (Auto) 0.200, Neut % (Auto) 53.2, Lymph % (Auto) 35.9, [place] % (Auto) 6.2, Eos % (Auto) 3.8, Baso % (Auto) 0.7, Absolute Neuts (auto) 3.3, Absolute Lymphs (auto) 2.19, Nucleated RBC % 0 07/08/22 09:55: Sodium 134 L, Potassium 3.8, Chloride 107, Carbon Dioxide 21.0, Anion Gap 6, BUN 18, Creatinine 0.76, Est GFR (MDRD) Af Amer 102, Est GFR (MDRD) Non-Af 84, BUN/Creatinine Ratio 23.5 H, Glucose 90, Calcium 8.2 L, Troponin I High Sens 68 H 07/08/22 09:55: PT 16.4 H, INR 1.4 07/08/22 11:45: Urine Opiates Screen POSITIVE H, Urine Methadone Screen NEGATIVE, Ur Barbiturates Screen NEGATIVE, Ur Phencyclidine Scrn NEGATIVE, Ur Amphetamines Screen NEGATIVE, MDMA (Ecstasy) Screen NEGATIVE, U Benzodiazepines Scrn POSITIVE H, Urine Cocaine Screen NEGATIVE, U Cannabinoids Screen POSITIVE H, Ur Drug Screen Comment 07/08/22 11:45: Urine Test Negative 07/09/22 04:50: WBC 5.3, RBC 3.68 L, Hgb 11.8 L, Hct 36.3 L, MCV 98.6, MCH 32.1 H, MCHC 32.5, RDW Std Deviation 46.4 H, RDW Coeff of Zuleyma 12.8, Plt Count 146 L, MPV 10.7, Immature Gran % (Auto) 0.200, Neut % (Auto) 56.8, Lymph % (Auto) 31.3, [place] % (Auto) 5.8, Eos % (Auto) 5.1 H, Baso % (Auto) 0.8, Absolute Neuts (auto) 3.0, Absolute Lymphs (auto) 1.67, Nucleated RBC % 0 07/09/22 04:50: Sodium 142, Potassium 4.1, Chloride 112 H, Carbon Dioxide 25.0, Anion Gap 5, BUN 15, Creatinine 0.70, Estim Creat Clear Calc 77.47, Est GFR (MDRD) Af Amer 114, Est GFR (MDRD) Non-Af 94, BUN/Creatinine Ratio 21.6 H, Glucose 86, Calcium 8.3 L, Total Bilirubin 0.50, AST 12 L, ALT 18, Alkaline Phosphatase 44 L, Total Protein 5.7 L, Albumin 3.0 L, Globulin 2.7, Albumin/Globulin Ratio 1.1, Triglycerides 53, Cholesterol 160, LDL Cholesterol 75, VLDL Cholesterol 11, HDL Cholesterol 74, TSH 1.64 Physical Exam Const alert and no apparent distress Constitutional Narrative: Oriented HEENT normocephalic and head/scalp atraumatic Eyes Eyes Narrative: EOM grossly intact, anicteric Neck supple Resp normal respiratory effort and clear to auscultation bilaterally Cardio regular rate and regular rhythm GI soft to palpation, non-tender and non-distended Extremity Extremity Narrative: No edema appreciated Neuro moves all extremities Neuro Narrative: No overt focal deficits appreciated Psych Psych Narrative: Cooperative Assessment & Plan Assessment/Plan (1) STEMI (ST elevation myocardial infarction): PLAN: Plan #STEMI Status post stent to a 90% lesion in her diagonal Spoke with cardiology?aspirin, Brilinta and switch to aspirin and Plavix at home as they are unable to afford Brilinta Statin On telemetry Cardiology managing. No bruising at site of entry on right wrist appreciated 07/09: Denies worsening chest pain, no problems with her breathing. Tolerating medications. Once cleared for discharge from cardiology standpoint we will have her evaluated by crisis. We will switch from Brilinta to Plavix on discharge due to financial concerns voiced by Ms. Man and her #Anxiety/suicidal ideation Continue Haydee Has lorazepam on her home med list though it appears she just intermittently has received 3-day supplies over the past several years. She has had significant anxiety and is currently in a stressful situation so we will add 0.5 mg p.o. every 8 as needed of the Ativan 07/09: Was evaluated by social work yesterday and she was tearful and when inquired about her mental health she reported that she attempted suicide in 2019 and was placed in a psychiatric hospital for 10 days. When she had been asked if she had attempted suicide any other time she stated not that anyone knows about. She thinks about suicide daily and when asked about a plan by social work said not so much of a plan as an idea. And would not disclose this idea any further. Social work stepped out and reentered with collaborating social work and asked the same questions again and she answered the same until her spouse entered the room and she immediately stated I am done with conversation. Exited the room. I spoke with social work and given her history of suicide attempt, current stresses, suicidal ideation daily with developing plan that she would not disclose do not feel that she is safe, patient to have sitter and once cleared by cardiology for discharge will need evaluated by crisis. Decide precautions. #DVT ppx: SCDs ordered Naomi Castellon MD Charges/Coding Visit Charges Inpatient E&M: 95469 Subs Hosp L2
[2022-07-09 08:58] LABS: Hemoglobin A1c 5.1 % (3.8-5.6)
[2022-07-09] MEDS: TICAGRELOR 90 MG TABLET PO (09:11)
[2022-07-09] MEDS: Aspirin 81 MG TAB.CHEW PO (09:11)
[2022-07-09] MEDS: Sertraline 100 MG Tablet 200 MG PO (09:12)
--- NOTE | 2022-07-09 10:00 | EKG12_ITS ---
Test Reason : POST STEMI-STENT Blood Pressure : / mmHG Vent. Rate : 060 BPM Atrial Rate : 060 BPM P-R Int : 188 ms QRS Dur : 098 ms QT Int : 432 ms P-R-T Axes : 064 061 068 degrees QTc Int : 432 ms Normal sinus rhythm Normal ECG Confirmed by COLUMBA BRENNAN, RONY ([id number]), editor department SALENA BURDEN ([id number]) on 07/13/2022 10:12:29 AM Referred By: Francy Crawford Confirmed By:RONY WATERMAN MD
--- NOTE | 2022-07-09 10:12 | PN.CARD_ITS ---
Subjective Subjective The patient was seen and evaluated. And appears to be doing well this morning. From the cardiac standpoint has had no chest pain Objective Data Vital Signs: Vital Signs Temp Pulse Resp BP Pulse Ox O2 Del Method O2 Flow Rate 97.9 F 69 17 99/57 L 99 Room Air 2 07/09/22 08:00 07/09/22 09:00 07/09/22 09:00 07/09/22 09:00 07/09/22 09:00 07/09/22 09:00 07/08/22 12:30 Oxygen Flow Rate (L/min) 2 Oxygen Delivery Method Room Air Weight: 117 lb 8.102 oz Body Mass Index (BMI) 18.6 Intake & Output: Intake and Output for Last 24 Hours 07/07/22 07/08/22 07/09/22 23:59 23:59 23:59 Intake Total 760 / 760 953 / 953 Output Total 150 / 150 Balance 610 / 610 953 / 953 Lab / Micro Data Result Diagrams: 07/09/22 04:50 07/09/22 04:50 Labs: Laboratory Results - last 24 hr 07/08/22 09:55: Sodium 134 L, Potassium 3.8, Chloride 107, Carbon Dioxide 21.0, Anion Gap 6, BUN 18, Creatinine 0.76, Est GFR (MDRD) Af Amer 102, Est GFR (MDRD) Non-Af 84, BUN/Creatinine Ratio 23.5 H, Glucose 90, Calcium 8.2 L, Troponin I High Sens 68 H 07/08/22 09:55: PT 16.4 H, INR 1.4 07/08/22 11:45: Urine Opiates Screen POSITIVE H, Urine Methadone Screen N EGATIVE, Ur Barbiturates Screen NEGATIVE, Ur Phencyclidine Scrn NEGATIVE, Ur Amphetamines Screen NEGATIVE, MDMA (Ecstasy) Screen NEGATIVE, U Benzodiazepines Scrn POSITIVE H, Urine Cocaine Screen NEGATIVE, U Cannabinoids Screen POSITIVE H , Ur Drug Screen Comment 07/08/22 11:45: Urine Test Negative 07/09/22 04:50: WBC 5.3, RBC 3.68 L, Hgb 11.8 L, Hct 36.3 L, MCV 98.6, MCH 32.1 H, MCHC 32.5, RDW Std Deviation 46.4 H, RDW Coeff of Zuleyma 12.8, Plt Count 146 L, MPV 10.7, Immature Gran % (Auto) 0.200, Neut % (Auto) 56.8, Lymph % (Auto) 31.3, [place] % (Auto) 5.8, Eos % (Auto) 5.1 H, Baso % (Auto) 0.8, Absolute Neuts (auto) 3.0, Absolute Lymphs (auto) 1.67, Nucleated RBC % 0 07/09/22 04:50: Sodium 142, Potassium 4.1, Chloride 112 H, Carbon Dioxide 25.0, Anion Gap 5, BUN 15, Creatinine 0.70, Estim Creat Clear Calc 77.47, Est GFR (MDRD) Af Amer 114, Est GFR (MDRD) Non-Af 94, BUN/Creatinine Ratio 21.6 H, Glucose 86, Calcium 8.3 L, Total Bilirubin 0.50, AST 12 L, ALT 18, Alkaline Phosphatase 44 L, Total Protein 5.7 L, Albumin 3.0 L, Globulin 2.7, [place] min/Globulin Ratio 1.1, Triglycerides 53, Cholesterol 160, LDL Cholesterol 75, VLDL Cholesterol 11, HDL Cholesterol 74, TSH 1.64 07/09/22 04:50: Hemoglobin A1c 5.1 Cardiology Labs/Tests 07/08/22 09:55: Sodium 134 L, Potassium 3.8, Chloride 107, Carbon Dioxide 21.0, Anion Gap 6, BUN 18, Creatinine 0.76, Est GFR (MDRD) Af Amer 102, Est GFR (MDRD) Non-Af 84, BUN/Creatinine Ratio 23.5 H, Glucose 90, Calcium 8.2 L 07/08/22 09:55: PT 16.4 H, INR 1.4 07/09/22 04:50: WBC 5.3, RBC 3.68 L, Hgb 11.8 L, Hct 36.3 L, MCV 98.6, MCH 32.1 H, MCHC 32.5, Plt Count 146 L, MPV 10.7, Immature Gran % (Auto) 0.200, Neut % (Auto) 56.8, Lymph % (Auto) 31.3, [place] % (Auto) 5.8, Eos % (Auto) 5.1 H, Baso % (Auto) 0.8, Absolute Neuts (auto) 3.0, Nucleated RBC % 0 07/09/22 04:50: Sodium 142, Potassium 4.1, Chloride 112 H, Carbon Dioxide 25.0, Anion Gap 5, BUN 15, Creatinine 0.70, Est GFR (MDRD) Af Amer 114, Est GFR (MDRD) Non-Af 94, BUN/Creatinine Ratio 21.6 H, Glucose 86, Calcium 8.3 L, Total Bilirubin 0.50, Triglycerides 53, Cholesterol 160, LDL Cholesterol 75, VLDL Cholesterol 11, HDL Cholesterol 74 07/09/22 04:50: Hemoglobin A1c 5.1 Rhythm: EKG: ECHO: Stress Test: Cardiac Cath: PCI: CT Surgery: Holter monitor: EPS: PPM: CXR: Chest CT Scan: Physical Exam Const alert and no apparent distress Constitutional Narrative: Oriented HEENT normocephalic and head/scalp atraumatic Eyes Eyes Narrative: EOM grossly intact, anicteric Neck supple Resp normal respiratory effort and clear to auscultation bilaterally Cardio regular rate and regular rhythm GI soft to palpation, non-tender and non-distended Extremity Extremity Narrative: No edema appreciated Neuro moves all extremities Neuro Narrative: No overt focal deficits appreciated Psych Psych Narrative: Cooperative Assessment & Plan Assessment/Plan (1) History of ST elevation myocardial infarction (STEMI): PLAN: Patient presented with an ST elevation myocardial infarction involving the diagonal branch. This was successfully stented. She appears to doing well this morning. I would not recommend that we make any changes. She will continue on the same medication. From my standpoint she can be discharged for outpatient follow-up. Above discussed with hospitalist. (2) History of coronary artery stent placement: PLAN: She does have a history of previous stenting of the left anterior descending artery. She should call continue with aggressive risk factor modification. I would not make any major changes. She would remain on the beta-gm, aspirin, Brilinta or clopidogrel and high intensity statin. (3) Hyperlipidemia: PLAN: She will continue on high intensity statin.
--- NOTE | 2022-07-09 10:27 | CASEMGMT ---
Addendum entered by Maru Wright 07/09/22 11:14: Social Work SW called crisis again, the floor worker is w/another pt and is to call SW back when able. DIANA Mckeon Original Note: Social Work As per physician, pt is medically cleared for discharge and ready to see crisis. SW called [facility], message left for floor worker to call this SW back. AVTAR MckeonS
--- NOTE | 2022-07-09 11:30 | NURSING ---
pt made aware her status was changed to pcu status. Pt states do I get to go home now? Explained to patient and , who is at bedside, the patient will need mental health evaluation prior to discharge. Pt states can't I go home and have them call me? Explained to patient that evaluation takes place in hospital prior to discharge. Pt and upset. Pt states then I'll just sign myself out. Pt made aware the physician signed a pink slip so she could not leave until mental health evaluates her. Support given.
--- NOTE | 2022-07-09 12:26 | CASEMGMT ---
Addendum entered by Maru Wright 07/09/22 12:58: Social Work SW did call crisis and asked them to fax over the note from the phone conversation. DIANA Mckeon Original Note: Social Work As per RN, crisis is to call pt in the room. RN asked SW to speak w/pt and as they are upset. SW spoke w/pt and in room, RN also present. explained that he is upset about how pt has been treated in the hospital, yesterday in particular. Pt states she did not know she was pinkslipped. They both spoke about how things have been and how difficult it has been. SW attempted to offer supportive listening. Pt and continuously stated they just want to go home. SW explained that based on the conversation w/the SW yesterday, we are going to have crisis see pt to make sure she is safe to go home. Pt stated that she did not say anything yesterday to the SW and that they just talked about resources. SW again reiterated that based on the conversation yesterday, we called crisis to ensure pt is safe before going home. SW offered to call the patient advocate for them, would like to speak w/him. SW explained will leave a message for him to call them. As per RN, crisis is to call pt in the room. SW explained if she is cleared by crisis she will be able to go home today. Pt and have no further comments or questions at this time. Crisis did call the pt, and pt is now cleared. RN notified by crisis, she will let physician know. SW left a message for the pt advocate to call pt and at home next week. DIANA Mckeon
--- NOTE | 2022-07-09 13:07 | CASEMGMT ---
BECKY CM: Face to face with pt at bedside. Pt alert, eating lunch. Provided pt with Brilinta savings card in case Brilinta is prescribed at discharge. Pt denies any questions or other concerns with discharge. Afshin Fitzgerald RN CM
--- NOTE | 2022-07-09 13:07 | NURSING ---
Spoke with [facility] regarding patient's assessment. Izabela states patient is able to be discharged home and will fax over resources to give to patient and assessment to place on chart. Dr Castellon, pt and made aware.
--- NOTE | 2022-07-09 14:12 | PCM.DC ---
Discharge Instructions Diet Discharge Diet: - (DASH diet recommended) Activity Discharge Activity: Return to Normal Activity Follow Up Care Test Results: Test results from this visit will be discussed in further detail at your follow-up appointment, if applicable. Discharge Plan Admission Admit Date/Time: 07/08/22 10:53 Primary Reason for Your Visit: Heart Attack Attending Provider: Naomi Castellon Primary Care Provider: Stephanie Aguilar Consulting Providers: Rosaura Barker ; Francy Crawford Instructions Patient Instructions: Know the Symptoms of Depression, Suicide Warning Signs What To Do, Suicide Recognize Own Warnings, Coronary Angioplasty Stenting Dc Additional Instructions / Restrictions: DISCHARGE INSTRUCTIONS PLEASE READ ? Your metoprolol tartrate that he took twice daily was changed to metoprolol succinate that you will take once daily, please only take metoprolol succinate 25 mg once daily and do not take metoprolol titrate ?Would advise smoking cessation ?Continue your aspirin and Plavix and it is important that you take these daily and consistently ?You will need to follow-up with cardiology upon discharge, contact information provided, please call upon discharge to schedule your hospital follow-up appointment ?If you have any thoughts of harming yourself please call to contact the National suicide prevention Lifeline. You can also text HOME [phone] from anywhere in the [place], this is a crisis text line, or proceed to your nearest emergency department -Please call your primary care provider's office upon discharge to schedule a hospital follow up within 1 week. -For any concerning signs or symptoms please call 911 or proceed to the nearest emergency department Discharge Orders/Prescriptions Prescriptions: New metoprolol succinate 25 mg Tablet Extended Release 24 Hr 25 mg PO DAILY 30 Days Qty: 30 0RF Continued lorazepam 0.5 mg tablet 0.5 mg PO Q6H PRN (Reason: Anxiety) Label Comments: TAKE 1 TABLET up to every 6 hours, as needed for severe anxiety. aspirin 81 MG tablet 81 mg PO DAILY@0800 Qty: 90 0RF sertraline [Zoloft] 50 mg tablet 200 mg PO DAILY nitroglycerin 0.4 mg tablet, sublingual 0.4 mg sublingual Q5M PRN (Reason: chest pain) Qty: 14 0RF Rx Instructions: do not exceed 3 doses per episode rosuvastatin [Crestor] 10 mg tablet 10 mg PO DAILY Qty: 30 11RF clopidogrel [Plavix] 75 mg tablet 75 mg PO DAILY Qty: 90 3RF Discontinued metoprolol tartrate 25 mg tablet 12.5 mg PO QHS Qty: 90 3RF Referrals / Follow Up: Stephanie Aguilar MD [Primary Care Provider] - Within 1 Week Rosaura Barker PA [Med Staff - [facility] Practice Prof] - See Referral Note (Call upon discharge to schedule your hospital follow-up appointment with cardiology) Disposition Disposition (needs filled in before D/C Order can be placed): Home, Self Care
--- NOTE | 2022-07-09 14:18 | PCM.DC.SUM ---
Providers Date of Admission: 07/08/22 Date of Discharge: 07/09/22 Primary Care Physician: Dr. Stephanie Aguilar MD Consultations 07/08/22 10:55 Consult: Cardiology Routine Consulting Provider: Francy Crawford Reason for Consult: s/p STEMI and PCI EMERGENT Consult: No MD Notified: Yes Date Notified: 07/08/22 Time Notified: 10:55 Method of Notification: Verbal Reason For Visit: STEMI Diagnosis Discharge Diagnosis (1) History of ST elevation myocardial infarction (STEMI): Status: Chronic Code(s): I25.2 - Old myocardial infarction (2) History of coronary artery stent placement: Status: Chronic Code(s): Z95.5 - Presence of coronary angioplasty implant and graft (3) Hyperlipidemia: Status: Chronic Code(s): E78.5 - Hyperlipidemia, unspecified Plan #STEMI Status post stent to a 90% lesion in her diagonal Spoke with cardiology?aspirin, Brilinta and switch to aspirin and Plavix at home as they are unable to afford Brilinta Statin On telemetry Cardiology managing. No bruising at site of entry on right wrist appreciated 07/09: Denies worsening chest pain, no problems with her breathing. Tolerating medications. Once cleared for discharge from cardiology standpoint we will have her evaluated by crisis. We will switch from Brilinta to Plavix on discharge due to financial concerns voiced by Ms. Edwards and her #Anxiety/suicidal ideation Continue Haydee Has lorazepam on her home med list though it appears she just intermittently has received 3-day supplies over the past several years. She has had significant anxiety and is currently in a stressful situation so we will add 0.5 mg p.o. every 8 as needed of the Ativan 07/09: Was evaluated by social work yesterday and she was tearful and when inquired about her mental health she reported that she attempted suicide in 2019 and was placed in a psychiatric hospital for 10 days. When she had been asked if she had attempted suicide any other time she stated not that anyone knows about. She thinks about suicide daily and when asked about a plan by social work said not so much of a plan as an idea. And would not disclose this idea any further. Social work stepped out and reentered with collaborating social work and asked the same questions again and she answered the same until her spouse entered the room and she immediately stated I am done with conversation. Exited the room. I spoke with social work and given her history of suicide attempt, current stresses, suicidal ideation daily with developing plan that she would not disclose do not feel that she is safe, patient to have sitter and once cleared by cardiology for discharge will need evaluated by crisis. Suicide precautions. Medications at Discharge Home Medications aspirin 81 mg tablet,delayed release 81 mg PO DAILY@0800 #90 tabs 06/05/19 lorazepam 0.5 mg tablet 0.5 mg PO Q6H PRN Anxiety 09/04/19 rosuvastatin 10 mg tablet (Crestor) 10 mg PO DAILY #30 tabs 03/12/21 clopidogrel 75 mg tablet (Plavix) 75 mg PO DAILY #90 tabs 07/27/21 sertraline 50 mg tablet (Zoloft) 200 mg PO DAILY 08/17/21 nitroglycerin 0.4 mg sublingual tablet 0.4 mg sublingual Q5M PRN chest pain #14 tabs 04/04/22 metoprolol succinate 25 mg tablet,extended release 24 hr 25 mg PO DAILY 30 days #30 tabs 07/09/22 Hospital Course Procedures - (Stress test, cardiac cath with BRIT to D1) Summary of Care Provided Minutes Spent on Discharge: 25 Hospital Course: THAO EDWARDS, is a 52 F with a history of car disease and a STEMI in 2018 with a stent and anxiety who presented to [facility] 07/08/2022 for a stress test and had a STEMI in the stress lab.? She was taken to the Scheduling Coordinator and had a stent placed to a 90% lesion on her diagonal and she was transferred to the ICU.? Placed on aspirin, Brilinta, statin. Did well from a cardiac standpoint but did endorse on 07/08 to the social work faculty member that she has suicidal ideation and history of suicide attempt. She had a safety physician and suicide precautions. On the day of discharge she was denying SI and appeared euthymic. Primarily focused on wanting to go home. Cardiology cleared her medically for discharge and crisis saw her and did not feel she needed inpatient admission. Discharged home with the following instructions: DISCHARGE INSTRUCTIONS PLEASE READ ?? Your metoprolol tartrate that he took twice daily was changed to metoprolol succinate that you will take once daily, please only take metoprolol succinate 25 mg once daily and do not take metoprolol titrate ?Would advise smoking cessation ?Continue your aspirin and Plavix and it is important that you take these daily and consistently ?You will need to follow-up with cardiology upon discharge, contact information provided, please call upon discharge to schedule your hospital follow-up appointment ?If you have any thoughts of harming yourself please call to contact the National suicide prevention Lifeline.? You can also text HOME [phone] from anywhere in the [place], this is a crisis text line, or proceed to your nearest emergency department -Please call your primary care provider's office upon discharge to schedule a hospital follow up within 1 week. -For any concerning signs or symptoms please call 911 or proceed to the nearest emergency department Physical Exam Const alert and no apparent distress Constitutional Narrative: Oriented HEENT normocephalic and head/scalp atraumatic Eyes Eyes Narrative: EOM grossly intact, anicteric Neck supple Resp normal respiratory effort and clear to auscultation bilaterally Cardio regular rate and regular rhythm GI soft to palpation, non-tender and non-distended Extremity Extremity Narrative: No edema appreciated Neuro moves all extremities Neuro Narrative: No overt focal deficits appreciated Psych Psych Narrative: Cooperative Weight / BMI Weight Weight: 53.3 kg Body Mass Index (BMI) 18.6 ABG / Lab / Microbiology Data Result Diagrams: 07/09/22 04:50 07/09/22 04:50 Laboratory: Laboratory Results - last 24 hr 07/08/22 11:45: Urine Test Negative 07/09/22 04:50: WBC 5.3, RBC 3.68 L, Hgb 11.8 L, Hct 36.3 L, MCV 98.6, MCH 32.1 H, MCHC 32.5, RDW Std Deviation 46.4 H, RDW Coeff of Zuleyma 12.8, Plt Count 146 L, MPV 10.7, Immature Gran % (Auto) 0.200, Neut % (Auto) 56.8, Lymph % (Auto) 31.3, [place] % (Auto) 5.8, Eos % (Auto) 5.1 H, Baso % (Auto) 0.8, Absolute Neuts (auto) 3.0, Absolute Lymphs (auto) 1.67, Nucleated RBC % 0 07/09/22 04:50: Sodium 142, Potassium 4.1, Chloride 112 H, Carbon Dioxide 25.0, Anion Gap 5, BUN 15, Creatinine 0.70, Estim Creat Clear Calc 77.47, Est GFR (MDRD) Af Amer 114, Est GFR (MDRD) Non-Af 94, BUN/Creatinine Ratio 21.6 H, Glucose 86, Calcium 8.3 L, Total Bilirubin 0.50, AST 12 L, ALT 18, Alkaline Phosphatase 44 L, Total Protein 5.7 L, Albumin 3.0 L, Globulin 2.7, Albumin/Globulin Ratio 1.1, Triglycerides 53, Cholesterol 160, LDL Cholesterol 75, VLDL Cholesterol 11, HDL Cholesterol 74, TSH 1.64 07/09/22 04:50: Hemoglobin A1c 5.1 D/C Instructions Discharge Diet: - (DASH diet recommended) Meaningful Use Info Meaningful Use Diagnoses (Choose all that apply): AMI AMI/Post PCI/Angioplasty Aspirin given w/in 24hrs of arrival?: Yes ASA at discharge?: Yes Antiplatelet Therapy at Discharge:: Yes Statins at discharge?: Yes Landon/ARB at discharge?: No Reason Landon/ARB not ordered:: Not indicated (Borderline BP) Beta Aden at discharge?: Yes Done w/ Acute ID measure.: Yes Documented LVEF (%): 60 Discharge Plan Admission Admit Date/Time: 07/08/22 10:53 Primary Reason for Your Visit: Heart Attack Attending Provider: Naomi Castellon Primary Care Provider: Stephanie Aguilar Consulting Providers: Rosaura Barker ; Francy Crawford Instructions Patient Instructions: Know the Symptoms of Depression, Suicide Warning Signs What To Do, Suicide Recognize Own Warnings, Coronary Angioplasty Stenting Dc Additional Instructions / Restrictions: DISCHARGE INSTRUCTIONS PLEASE READ ? Your metoprolol tartrate that he took twice daily was changed to metoprolol succinate that you will take once daily, please only take metoprolol succinate 25 mg once daily and do not take metoprolol titrate ?Would advise smoking cessation ?Continue your aspirin and Plavix and it is important that you take these daily and consistently ?You will need to follow-up with cardiology upon discharge, contact information provided, please call upon discharge to schedule your hospital follow-up appointment ?If you have any thoughts of harming yourself please call to contact the National suicide prevention Lifeline. You can also text HOME [phone] from anywhere in the [place], this is a crisis text line, or proceed to your nearest emergency department -Please call your primary care provider's office upon discharge to schedule a hospital follow up within 1 week. -For any concerning signs or symptoms please call 911 or proceed to the nearest emergency department Discharge Orders/Prescriptions Prescriptions: New metoprolol succinate 25 mg Tablet Extended Release 24 Hr 25 mg PO DAILY 30 Days Qty: 30 0RF Continued lorazepam 0.5 mg tablet 0.5 mg PO Q6H PRN (Reason: Anxiety) Label Comments: TAKE 1 TABLET up to every 6 hours, as needed for severe anxiety. aspirin 81 MG tablet 81 mg PO DAILY@0800 Qty: 90 0RF sertraline [Zoloft] 50 mg tablet 200 mg PO DAILY nitroglycerin 0.4 mg tablet, sublingual 0.4 mg sublingual Q5M PRN (Reason: chest pain) Qty: 14 0RF Rx Instructions: do not exceed 3 doses per episode rosuvastatin [Crestor] 10 mg tablet 10 mg PO DAILY Qty: 30 11RF clopidogrel [Plavix] 75 mg tablet 75 mg PO DAILY Qty: 90 3RF Discontinued metoprolol tartrate 25 mg tablet 12.5 mg PO QHS Qty: 90 3RF Referrals / Follow Up: Stephanie Aguilar MD [Primary Care Provider] - Within 1 Week Rosaura Barker PA [Med Staff - [facility] Practice Prof] - See Referral Note (Call upon discharge to schedule your hospital follow-up appointment with cardiology) Disposition Disposition (needs filled in before D/C Order can be placed): Home, Self Care Charges/Coding Visit Charges Inpatient E&M: 85186 Disch Hosp
== END 2022-07-09 15:24 | disposition home or self-care (01) | DRG 247 ==
LOC: ICU 11:11
PROVIDERS: Admitting Provider Specialist; PCP Family Medicine; Referring Provider Specialist; Visit Provider Internal Medicine
DX: I21.3 ST elevation (STEMI) myocardial infarction of unspecified site (principal); R45.851 Suicidal ideations; I25.10 Atherosclerotic heart disease of native coronary artery without angina pectoris; E78.5 Hyperlipidemia, unspecified; F17.210 Nicotine dependence, cigarettes, uncomplicated; I25.2 Old myocardial infarction; F43.10 Post-traumatic stress disorder, unspecified; Z79.02 Long term (current) use of antithrombotics/antiplatelets; Z79.82 Long term (current) use of aspirin; Z79.899 Other long term (current) drug therapy; Z95.5 Presence of coronary angioplasty implant and graft
CPT/HCPCS: 78452; 80048; 80053; 80061; 80307; 81025; 83036; 84443; 84484; 85025; 85610; 92941; 93005; 93017; 93458; 99152; 99153; A9500; J7030; A4216; C1725; C1769; C1874; C1894; C9606; J2405; J2785; Q9967

== ENCOUNTER → 2022-08-22 | Outpatient (CLI) | payer BC, SELFPAY ==
[2019-08-27 11:30] VITALS: BMI 20.8
--- NOTE | 2022-08-22 14:04 | ECHOD_ITS ---
Reason For Study: POST STEMI Procedure This was a 2D Doppler, Color Flow transthoracic echocardiogram. Exam performed in department. Left Ventricle Normal LV size. Left ventricular systolic function is normal. The estimated ejection fraction is 60 %. Stage 2 diastolic dysfunction. No regional wall motion abnormalities noted. Right Ventricle Normal RV size. Normal systolic function. Atria Normal left atrium. Normal right atrium. Mitral Valve Bileaflet diffuse mitral valve thickening. Mild-Moderate (1-2+) eccentric mitral valve insufficiency. Tricuspid Valve Normal tricuspid valve. Mild tricuspid valve insufficiency. Pulmonary artery systolic pressure is 24 mmHg. Aortic Valve Trisinus/trileaflet aortic valve. Pulmonic Valve Normal pulmonic valve. Great Vessels Normal aortic root. The pulmonary artery is normal size. Normal inferior vena cava. Pericardium/Pleural Small pericardial effusion. MMode/2D Measurements & Calculations LVIDd: 4.6 cm IVSd: 0.56 cm Ao root diam: 2.6 cm LVIDs: 3.3 cm LVPWd: 0.61 cm RVDd: 2.2 cm FS: 27.1 % LAV(MOD-sp4): 34.4 ml LVAd ap4: 23.8 cm2 SV(MOD-sp4): 38.5 ml LVLd ap4: 7.3 cm EDV(MOD-sp4): 62.2 ml EDV(sp4-el): 66.1 ml LVAs ap4: 13.1 cm2 LVLs ap4: 5.7 cm ESV(MOD-sp4): 23.6 ml ESV(sp4-el): 25.4 ml EF(MOD-sp4): 62.0 % EF(sp4-el): 61.6 % SV(sp4-el): 40.7 ml LA A4 area: 15.8 cm2 LA dimension(2D): 2.7 cm RA A4 area: 9.8 cm2 Time Measurements MV dec time: 0.19 sec Doppler Measurements & Calculations MV E max hossein: 95.1 cm/sec Lat Peak E' Hossein: 9.8 cm/sec Med Peak E' Hossein: 9.0 cm/sec MV A max hossein: 61.6 cm/sec E/E' lat: 9.7 E/E' med: 10.6 MV E/A: 1.5 MV V2 max: 96.0 cm/sec Ao V2 max: 138.2 cm/sec MV max P.7 mmHg MV dec slope: 536.7 cm/sec2 Ao max P.6 mmHg MV V2 mean: 49.4 cm/sec Ao V2 mean: 97.6 cm/sec MV mean P.2 mmHg Ao mean P.3 mmHg MV V2 VTI: 28.6 cm Ao V2 VTI: 30.8 cm AV (velocity ratio): 0.77 LV V1 max: 118.7 cm/sec MR max hossein: 532.6 cm/sec TR max hossein: 229.6 cm/sec LV V1 max P.6 mmHg MR max P.5 mmHg TR max P.1 mmHg LV V1 mean P.1 mmHg LV V1 mean: 82.1 cm/sec LV V1 VTI: 23.7 cm ECHO/Echo Complete Interpretation Summary Normal LV size. Left ventricular systolic function is normal. The estimated ejection fraction is 60 %. Stage 2 diastolic dysfunction. Mild-Moderate (1-2+) eccentric mitral valve insufficiency. Ordering Physician: Miguel Vogt Referring Physician: JAYJAY VALENZUELA Performed By: Shannon Hough RCS
== END | disposition home or self-care (01) ==
PROVIDERS: PCP Family Medicine; Visit Provider Nurse Practitioner Family
DX: I25.10 Atherosclerotic heart disease of native coronary artery without angina pectoris (principal); E78.5 Hyperlipidemia, unspecified; I25.2 Old myocardial infarction
CPT/HCPCS: 93306

== ENCOUNTER → 2022-08-30 | Outpatient (CLI) | payer BC, SELFPAY ==
[2019-08-27 11:30] VITALS: BMI 20.8
--- NOTE | 2022-08-30 10:00 | CDU_ITS ---
Reason For Study: CAD hx, family hx Rt. Velocities/BP Lt. Velocities/BP Prox CCA 109.1/28.9 cm/sec. Prox CCA 105.8/32.2 cm/sec. Mid CCA 100.3/32.2 cm/sec. Mid CCA 102.5/32.2 cm/sec. Dist CCA 86.1/25.6 cm/sec. Dist CCA 97.4/40.7 cm/sec. Prox ICA 92.5/31.1 cm/sec. Prox ICA 97.4/40.7 cm/sec. Mid ICA 121.1/48.0 cm/sec. Mid ICA 80.2/32.3 cm/sec. Dist ICA 117.4/49.9 cm/sec. Dist ICA 90.0/38.4 cm/sec. Rt. ICA/CCA = 1.2. Lt. ICA/CCA = .9. Prox ECA 109.7/22.5 cm/sec. Prox ECA 152.1/37.1 cm/sec. Rt. Vert. 49.8/19.0 cm/sec. Lt. Vert. 37.2/13.9 cm/sec. Right Extracranial There is homogeneous, smooth atherosclerotic plaque noted in the right common carotid artery. There is heterogeneous, irregular atherosclerotic plaque noted in the right internal carotid artery. There is heterogeneous, irregular atherosclerotic plaque noted in the right external carotid artery. Antegrade flow is noted in the right vertebral artery. Left Extracranial There is homogeneous, smooth atherosclerotic plaque noted in the left common carotid artery. There is heterogeneous, irregular atherosclerotic plaque noted in the left internal carotid artery. There is homogeneous, smooth atherosclerotic plaque noted in the left external carotid artery. Antegrade flow is noted in the left vertebral artery. Procedure Carotid Duplex [id number]. This is a Carotid Duplex examination using B-mode, color flow and specral Doppler. The exam was diagnostic. Exam performed in department. VL/Carotid Duplex Ultrasound Interpretation Summary Mild (<50%) stenosis right extracranial internal carotid. Mild (<50%) stenosis left extracranial internal carotid. Patent and antegrade vertebrals bilaterally. Ordering Physician: Miguel Vogt Performed By: Nilson Jama RVT
== END | disposition home or self-care (01) ==
LOC: CVS 10:00
PROVIDERS: PCP Family Medicine; Referring Provider Nurse Practitioner Family; Visit Provider Nurse Practitioner Family
DX: I65.22 Occlusion and stenosis of left carotid artery (principal); E78.5 Hyperlipidemia, unspecified; I25.10 Atherosclerotic heart disease of native coronary artery without angina pectoris
CPT/HCPCS: 93880

== ENCOUNTER 2022-11-15 15:21 | Emergency (ER) | payer BC, SELFPAY ==
[2019-08-27 11:30] VITALS: BMI 20.8
[2022-11-15 15:21] VITALS: BP 132/90; PULSE 83; RESP 16; TEMP 36.6; O2SAT 100
== END 2022-11-15 15:30 | disposition left against medical advice (07) ==
LOC: ED 15:32
PROVIDERS: PCP Family Medicine
DX: Z53.21 Procedure and treatment not carried out due to patient leaving prior to being seen by health care provider (principal)

== ENCOUNTER → 2022-12-02 | Outpatient (CLI) | payer BC, SELFPAY ==
[2019-08-27 11:30] VITALS: BMI 20.8
--- NOTE | 2022-12-02 12:42 | RAD_ITS ---
EXAM: XR CHEST, 2 VIEWS CLINICAL INDICATION: SOB TECHNIQUE: Frontal and lateral views of the chest. COMPARISON: April 04, 2022 FINDINGS: LUNGS AND PLEURAL SPACES: Emphysema which is worse at the upper lobes. No consolidation or edema. No pneumothorax. No effusion. HEART: Unremarkable. Cardiac silhouette not enlarged. MEDIASTINUM: Central airways and mediastinal contour are unremarkable. BONES/JOINTS: Unremarkable. SOFT TISSUES: Unremarkable. RAD/Chest PA and Lateral IMPRESSION: No radiographic evidence of acute cardiopulmonary disease. Electronically Signed: Jonathan Vázquez MD at 5:00 EDT ,
[2022-12-02 13:35] LABS: Absolute Lymphocyte Count 1.32 X10^3/uL (0.83-4.51); Absolute Neutrophil Count 3.4 X10^3/uL (2.0-7.7); Basophil# 0.04 X10^3/uL; Basophil% 0.8 % (0-1); Eosinophil# 0.18 X10^3/uL; Eosinophils% 3.4 % (0-5); Hematocrit 44.3 % (37-47); Hemoglobin 14.3 g/dL (12.0-15.0); Lymphocyte # 1.32 X10^3/ul (0.83-4.51); Lymphocyte % 25.3 % (19-41); Mean Corp Hgb Conc 32.3 g/dL (32-36); Mean Corpuscular Hgb 32.2 pg (27.0-32.0); Mean Corpuscular Volume 99.8 fL (81-99); Mean Platelet Vol. 10.7 fl (6.2-12.0); Monocyte% 5.7 % (0-10); NRBC Flagged by Analyzer 0 % (0-5); Neutrophil # 3.36 X10^3/uL (2.7-7.7); Neutrophil % 64.4 % (47-70); Platelet Count 179 K/mm3 (150-450); RBC Distribution Width CV 12.7 % (11.6-14.6); RBC Distribution Width SD 46.7 fl (35.1-43.9); Red Blood Count 4.44 M/mm3 (4.2-5.4); White Blood Count 5.2 K/mm3 (4.4-11.0)
[2022-12-02 14:19] LABS: BNP,B-Type NATRIURETIC PEPTIDE 20.6 pg/mL (0-100)
[2022-12-02 14:31] LABS: BUN 13 mg/dL (7-18); Creatinine, Serum 0.85 mg/dL (0.55-1.02); Glucose 98 mg/dL (74-106)
[2022-12-02 14:32] LABS: Anion Gap 3 (5-15); BUN/Creat Ratio 15.3 RATIO (10-20); Calcium,Total 9.6 mg/dL (8.5-10.1); Chloride 105 mmol/L (98-107); EST Glomerular Filtration Rate 75 mL/min (>60); Est Glom Filt Rate - Afr Amer 90 mL/min (>60); Potassium 4.3 mmol/L (3.5-5.1); Sodium Level 138 mmol/L (136-145)
== END | disposition home or self-care (01) ==
PROVIDERS: PCP Family Medicine; Referring Provider Nurse Practitioner Family; Visit Provider Nurse Practitioner Family
DX: R06.02 Shortness of breath (principal); R53.83 Other fatigue; F17.200 Nicotine dependence, unspecified, uncomplicated
CPT/HCPCS: 36415; 71046; 80048; 83880; 84443; 85025

== ENCOUNTER → 2022-12-09 | Outpatient (CLI) | payer BC, SELFPAY ==
[2019-08-27 11:30] VITALS: BMI 20.8
--- NOTE | 2022-12-09 12:34 | PFTCOMP ---
COMPLETE PULMONARY FUNCTION TESTING REPORT Date December 09, 2022 Patient: Brianna Man Date of 1970 Referring provider: Miguel Vogt NP-C Indication: Fatigue, former [id number] smoker Spirometry pre and post bronchodilator showed: 1. No evidence of airway obstruction. 2. The positive bronchodilator response noted was an artifact of suboptimal and variable effort. There was no actual clinically significant bronchodilator response. 3. No evidence of restriction. 4. The patient did not meet standards of acceptability, reproducibility, or usability due to poor and variable patient effort. That said, baseline spirometry was normal. 5. Review of the flow volume loop morphology and volume-time curves corroborated the poor and variable patient effort, no significant expiratory obstruction, as well as not meeting technical standards. Lung volume studies by plethysmography showed 1. No evidence of restriction. 2. Mild hyperinflation may be present, clinical and radiographic correlation is recommended. Diffusing capacity by single breath carbon monoxide technique was normal. Sergo Riggs MD [facility] Pulmonary Medicine [facility] Date dictated December 09, 2022 1240 hrs.
== END | disposition home or self-care (01) ==
LOC: PSN 10:52
PROVIDERS: PCP Family Medicine; Referring Provider Nurse Practitioner Family; Visit Provider Nurse Practitioner Family
DX: R53.83 Other fatigue (principal); R06.09 Other forms of dyspnea; F17.200 Nicotine dependence, unspecified, uncomplicated
CPT/HCPCS: 94060; 94726; 94729

== ENCOUNTER 2023-02-02 21:55 | Inpatient (IN) | payer BC, SELFPAY ==
[2019-08-27 11:30] VITALS: BMI 20.8
[2023-02-02 21:56] VITALS: BP 106/71; PULSE 70; RESP 18; TEMP 35.9; O2SAT 99; BMI 18.1
--- NOTE | 2023-02-02 22:23 | EKG12_ITS ---
Test Reason : Dysrhythmia Blood Pressure : / mmHG Vent. Rate : 054 BPM Atrial Rate : 054 BPM P-R Int : 190 ms QRS Dur : 092 ms QT Int : 432 ms P-R-T Axes : 079 071 066 degrees QTc Int : 409 ms Sinus bradycardia Otherwise normal ECG Confirmed by MEGHANN BRENNAN, GUNNER ([id number]), newspaper editor WILFREDO LERMA ([id number]) on 02/06/2023 8:29:10 AM Referred By: Michel Confirmed By:JOVON ZAVALETA MD
[2023-02-02 22:27] VITALS: BP 110/69; PULSE 61
[2023-02-02 22:30] VITALS: BP 126/69
--- NOTE | 2023-02-02 22:31 | EX.ED.DYSGE1 ---
HPI History of Present Illness Chief Complaint: GI Bleed Detail of Chief Complaint: Bright red blood per rectum Informant: patient and spouse/S.O. Onset/Context/Timing Onset: Today and Yesterday (Yesterday patient reports her stool was black.) Context: Sudden Onset Timing: Intermittent Quality: Initially black stool today bright red blood with clots Location: GI Current Severity: Moderate Maximum Severity: Moderate Worsened by: Patient is on antiplatelet. Relieved by: Nothing Associated Symptoms Associated Symptoms: Near syncope Narrative Narrative: Patient is a 52-year-old woman with history of myocardial infarction, posttraumatic stress disorder, and hyperlipidemia who presents because of bright red blood per rectum. Upon questioning patient admits to black stool yesterday. She is on aspirin and Plavix. She states she is compliant with her medication. She is not on an anticoagulant. Yesterday she had near syncopal episode/syncopal episode. Patient denies headache. Patient does give orthostatic symptoms. Patient denies cardiac or respiratory symptoms. Patient denies hematuria, dysuria or frequency. Patient denies bruising easily. Prior similar symptoms: No Recent Illness/Hospitalization: No PFSH PFSH Medical History Atherosclerosis of coronary artery of [place] heart without angina pectoris Galactorrhea History of ST elevation myocardial infarction (STEMI) (07/08/22) History of sudden cardiac arrest successfully resuscitated (06/04/19) Hyperlipidemia PTSD (post-traumatic stress disorder) Status post hysteroscopy (05/21/19) Strabismic amblyopia, right eye Tobacco dependence Home Medications aspirin 81 mg tablet,delayed release 81 mg PO DAILY@0800 #90 tabs 06/05/19 [Rx Last Taken 07/12/19] lorazepam 0.5 mg tablet 0.5 mg PO Q6H PRN Anxiety 09/04/19 [History Last Taken Unknown] rosuvastatin 10 mg tablet (Crestor) 10 mg PO DAILY #30 tabs 03/12/21 [Rx Last Taken Unknown] sertraline 50 mg tablet (Zoloft) 200 mg PO DAILY 08/17/21 [History Last Taken Unknown] nitroglycerin 0.4 mg sublingual tablet 0.4 mg sublingual Q5M PRN chest pain #14 tabs 04/04/22 [Rx Last Taken Unknown] metoprolol succinate 25 mg tablet,extended release 24 hr 25 mg PO DAILY 30 days #30 tabs 07/09/22 [Rx Last Taken Unknown] clopidogrel 75 mg tablet (Plavix) 75 mg PO DAILY #90 tabs 08/16/22 [Rx Last Taken Unknown] buspirone 7.5 mg tablet 7.5 mg PO BID 12/02/22 [History Last Taken Unknown] ranolazine 500 mg tablet,extended release,12 hr (Ranexa) 500 mg PO BID #60 tabs 12/25/22 [Rx Last Taken Unknown] Allergy/AdvReac Type Severity Reaction Status Date / Time atorvastatin AdvReac Intermediate GI Verified 02/02/23 21:58 upset,nausea Family History Father Cancer Lung Grandmother Breast cancer Kidney disease Uncle Myocardial infarction Mother Myocardial infarction Surgical History H/O ovarian cystectomy History of bilateral breast biopsy History of coronary artery stent placement (07/08/22) Social History 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 Smoking Status: Current every day smoker tobacco type: e-cigarettes Tobacco: How many years used: 35 alcohol intake: never substance use type: does not use caffeine: Yes what type of physical activity do you participate in: none seatbelt use: sometimes do you feel safe at home: Yes additional social history: - [employer] ED Constitutional Constitutional ED: Denies chills, fever(s), subjective, sweats or weight loss Eyes Eyes: Denies blurry vision or change in vision ENT ENT ED: Denies ear pain or rhinorrhea Cardiovascular Cardiovascular: Reports other Details: Near syncope/syncope yesterday ; Denies chest pain, orthopnea, palpitations, paroxysmal nocturnal dyspnea or racing heartbeat Respiratory/Chest Respiratory/Chest: Reports dyspnea on exertion; Denies cough, dyspnea, orthopnea or paroxysmal nocturnal dyspnea Gastrointestinal Gastrointestinal: Reports abdominal pain, melena, nausea, vomiting and other Details: Hematochezia. Patient has vomited and reports no blood or coffee ground appearance to her emesis. ; Denies constipation or diarrhea Genitourinary Genitourinary ED: Denies dysuria or hematuria Musculoskeletal Musculoskeletal: Denies arthralgias, back pain or myalgias Integumentary Denies rash Neurologic Neurologic: Reports weakness; Denies paresthesias Psychiatric Psychiatric: Reports anxiety Endocrine Endocrinology: Denies cold intolerance or heat intolerance Hematologic/Lymphatic Hematologic/Lymphatic: Reports systems reviewed and no addt'l complaints, except as documented EXAM Physical Exam Const Vital Signs: 02/02/23 21:56 02/02/23 22:27 02/02/23 22:30 Temperature 96.6 F L Temperature Source Temporal Pulse Rate 70 Pulse Rate [Lying] 61 Respiratory Rate 18 Blood Pressure 106/71 Blood Pressure [Lying] 110/69 126/69 H Blood Pressure Mean 82 Blood Pressure Mean [Lying] 82 88 Pulse Ox 99 Oxygen Delivery Method Room Air 02/02/23 22:33 02/03/23 00:00 02/03/23 01:24 Temperature 97 F L Temperature Source Temporal Pulse Rate 55 L 61 Pulse Rate [Lying] 61 Respiratory Rate 16 10 L Blood Pressure 115/75 115/75 Blood Pressure [Lying] 118/75 Blood Pressure Mean 88 88 Blood Pressure Mean [Lying] 89 Pulse Ox 99 98 Oxygen Delivery Method Positive well developed and cachectic General Appearance ED: well developed, cachectic, NAD and pallor; Negative for cyanotic or diaphoretic Nutritional Appearance: cachectic HEENT Reports dry mucous membranes HEENT Narrative: Head is atraumatic normocephalic. Ears normal. Nares patent. Posterior pharynx is normal. Mouth ED: Yes dry mucous membranes Mouth: dry mucous membranes Eyes PERRL and EOMs intact bilaterally General Eye ED: Yes pale conjunctiva; Negative for scleral icterus Neck no lymphadenopathy, supple and no JVD Chest Wall inspection of chest normal and palpation of chest normal Resp normal respiratory effort and clear to auscultation bilaterally Cardio regular rate, regular rhythm, S1 normal heart sound, S2 normal heart sound and no murmurs GI normal to inspection, nondistended, normoactive bowel sounds and non-distended; Negative for non-tender or hepatosplenomegaly GI Narrative: Is no palpable pulsatile mass. There is no abdominal bruit. Rectal exam reveals evidence of prior hemorrhoids. There is no blood noted. On rectal exam there is what appears to be blood on my gloved finger. Auscultation: hyperactive bowel sounds Palpation: soft and tender epigastric Back/Spine no CVA tenderness Extremity normal to inspection Neuro oriented x3, CN's II-XII intact bilaterally and no sensory deficits noted Sensorium / Orientation: alert Psych Mood & Affect: anxious Skin no rashes or lesions noted, no wounds and No skin turgor normal General Skin Exam: pallor; Negative for jaundice MDM MDM MDM Narrative Medical decision making narrative: Suspect patient is not tachycardic since she is on beta-gm. With history of black stool yesterday and now bright red blood with clots suspect patient has most likely a lower GI bleed since she has vomited with no emesis or coffee-ground material noted. Will obtain appropriate blood work. She has been typed and screened. Prior records have been reviewed. As previously mentioned she is on Plavix and aspirin. Lab Data Attestation: I reviewed the patient's lab results. Lab results narrative: CBC is unremarkable with normal H&H. Coags are normal. Electrolyte panel is unremarkable with a normal BUN to creatinine ratio. Labs: Laboratory Results - last 24 hr 02/02/23 02/02/23 22:25 22:45 WBC 8.3 RBC 4.23 Hgb 13.7 Hct 41.7 MCV 98.6 MCH 32.4 H MCHC 32.9 RDW Std Deviation 44.7 H RDW Coeff of Zuleyma 12.3 Plt Count 188 MPV 11.0 Immature Gran % (Auto) 0.200 Neut % (Auto) 66.9 Lymph % (Auto) 23.2 Harvey % (Auto) 5.6 Eos % (Auto) 3.6 Baso % (Auto) 0.5 Absolute Neuts (auto) 5.5 Absolute Lymphs (auto) 1.92 Nucleated RBC % 0 PT 13.8 INR 1.1 APTT 30.9 Sodium 141 Potassium 3.7 Chloride 107 Carbon Dioxide 30.0 Anion Gap 4 L BUN 11 Creatinine 0.95 Estim Creat Clear Calc 57.52 Est GFR (MDRD) Af Amer 79 Est GFR (MDRD) Non-Af 66 BUN/Creatinine Ratio 11.6 Glucose 104 Lactic Acid 0.7 Calcium 9.6 Blood Type Cancelled A POSITIVE Antibody Screen Cancelled NEGATIVE EKG Initial EKG: Attestation: I personally reviewed and interpreted this EKG as follows: Interpretation: Sinus Bradycardia (Sinus bradycardia rate of 54 otherwise EKG is normal. VA interval is 190 ms. QRS duration 92 ms. QT duration 4 and 32 ms. [place] is normal.) Treatment and Re-Evaluation :: Since creatinine ratio is normal H&H is normal and to determine if the bleeding was coming from the hemorrhoid versus colon anoscopy was performed. Since there is blood noted above the scope suspect this is due to a GI bleed. Will contact hospitalist. If hospitalist would like me to speak with the special education preschool teacher, Dr. De Jesus I will contact him and ask for his recommendation. Procedures Other Procedures Procedure(s): There were no anoscope's available. Rigid sigmoidoscope was used. The rigid sigmoidoscope was inserted to approximately 10 to 12 cm. It was not inserted any further since there was no insufflation bulb. There is bloody material noted above the scope. There is no significant abnormality of the rectal mucosa. Patient does have a small hemorrhoid however there is no evidence of recent bleeding. Discharge Plan Dx/Rx/DC Orders Clinical Impression: Hyperlipidemia, Atherosclerosis of coronary artery of [place] heart without angina pectoris, Acute GI bleeding Disposition Disposition: Acute Care Hospital [facility]
[2023-02-02 22:33] VITALS: BP 118/75; PULSE 61
[2023-02-02 22:43] LABS: Absolute Lymphocyte Count 1.92 X10^3/uL (0.83-4.51); Absolute Neutrophil Count 5.5 X10^3/uL (2.0-7.7); Basophil# 0.04 X10^3/uL; Basophil% 0.5 % (0-1); Eosinophils% 3.6 % (0-5); Hematocrit 41.7 % (37-47); Hemoglobin 13.7 g/dL (12.0-15.0); Lymphocyte # 1.92 X10^3/ul (0.83-4.51); Lymphocyte % 23.2 % (19-41); Mean Corp Hgb Conc 32.9 g/dL (32-36); Mean Corpuscular Hgb 32.4 pg (27.0-32.0); Mean Corpuscular Volume 98.6 fL (81-99); Monocyte# 0.46 X10^3/uL; Monocyte% 5.6 % (0-10); NRBC Flagged by Analyzer 0 % (0-5); Neutrophil # 5.53 X10^3/uL (2.7-7.7); Neutrophil % 66.9 % (47-70); Platelet Count 188 K/mm3 (150-450); RBC Distribution Width CV 12.3 % (11.6-14.6); RBC Distribution Width SD 44.7 fl (35.1-43.9); Red Blood Count 4.23 M/mm3 (4.2-5.4); White Blood Count 8.3 K/mm3 (4.4-11.0)
[2023-02-02 22:50] LABS: International Normalized Ratio 1.1; Partial Thromboplast Time 30.9 Seconds (24.1-36.2); Prothrombin Time (Protime)PT. 13.8 SECONDS (11.7-14.9)
[2023-02-02 22:55] LABS: Anion Gap 4 (5-15); BUN 11 mg/dL (7-18); BUN/Creat Ratio 11.6 RATIO (10-20); Calcium,Total 9.6 mg/dL (8.5-10.1); Chloride 107 mmol/L (98-107); Creatinine, Serum 0.95 mg/dL (0.55-1.02); EST Glomerular Filtration Rate 66 mL/min (>60); Est Glom Filt Rate - Afr Amer 79 mL/min (>60); Estimated Creatinine Clearance 57.52 ml/min; Glucose 104 mg/dL (74-106); Potassium 3.7 mmol/L (3.5-5.1); Sodium Level 141 mmol/L (136-145)
[2023-02-02 23:07] LABS: Lactic Acid 0.7 mmol/L (0.4-1.9)
[2023-02-03] VITALS (15 sets, daily range): BP systolic 93–126; BP diastolic 40–85; PULSE 55–79; RESP 10–18; TEMP 36.1–36.8; O2SAT 96–99; BMI 18.7; BMI 18.6
--- NOTE | 2023-02-03 01:34 | HP.PCM.HOS_ITS ---
HPI - General General Date of Admission: 02/03/23 Date of Service: 02/03/23 Chief Complaint: Abdominal cramping, dark black stools as well as BRB. HPI Narrative The patient is a 52 y/o F w/ PMHx: HTN, HLD, PTSD/Anxiety and Depression, Strabi smus R eye, Tobacco use, Chronic BL LE edema, Cardiopulmonary arrest with Acute anterior STEMI s/p PCI LAD and follow-up 07/08/22 PCI proximal diagnoal 1 with chronic chest pain(at rest, midsternal, palpitations) and dyspnea with exertion of which cardiology per their notes are aware and has been managed medically who presents to the [facility] ED on 02/02/23 with history of onset black stools starting the day prior with eventual bright red blood per rectum specifically clots on both aspirin and Plavix given PCI history with a near syncopal sensation the day prior with lightheadedness and dizziness especially with positional changes with associated abdominal discomfort descirbeed as cramping worse in the BL LQ prompting ED evaluation. She does report that with her emesis it has been normal in appearance with no evidence of bright red blood or coffee-ground appearance. She also reports dyspnea with exertion and intermittent chest discomfort both of which are chronic for this patient. Workup in the ED included T96.6, heart rate 70, BP initially 106/71 with most recent repeat 118/75, respiratory rate 18, 99% on room air, CBC with WC 8.3, hemoglobin 13.7 with most recent noted prior to this 12/02/22 Hgb 14.3 at that time, platelet 188 without shift, unremarkable coags, BMP unremarkable, lactic acid pending, type and screen obtained, EKG was sinus bradycardia with no acute evidence of ische neris. Length discussion with patient and significant as patient specifically declined PRBC administration even if it was necessary to save her life. In the ED a rigid sigmoidoscope was used with noted bloody material above the scope with no significant abnormality of the rectal mucosa with a small hemorrhoid but no evidence of any recent bleeding per ED physician. Examples were given of hemorrhagic shock and still she maintains a no blood administration stance. She is not Holiness and this is not associated with cheondoism but despite discussions she fears blood born diseases. [facility] Medical History Anxiety and depression Atherosclerosis of coronary artery of [place] heart without angina pectoris Galactorrhea History of ST elevation myocardial infarction (STEMI) (07/08/22) History of sudden cardiac arrest successfully resuscitated (06/04/19) HTN (hypertension) Hyperlipidemia PTSD (post-traumatic stress disorder) Strabismic amblyopia, right eye Tobacco dependence Tobacco use Home Medications aspirin 81 mg tablet,delayed release 81 mg PO DAILY@0800 #90 tabs 06/05/19 [Rx Last Taken 07/12/19] lorazepam 0.5 mg tablet 0.5 mg PO Q6H PRN Anxiety 09/04/19 [History Last Taken Unknown] rosuvastatin 10 mg tablet (Crestor) 10 mg PO DAILY #30 tabs 03/12/21 [Rx Last Taken Unknown] sertraline 50 mg tablet (Zoloft) 200 mg PO DAILY 08/17/21 [History Last Taken Unknown] nitroglycerin 0.4 mg sublingual tablet 0.4 mg sublingual Q5M PRN chest pain #14 tabs 04/04/22 [Rx Last Taken Unknown] metoprolol succinate 25 mg tablet,extended release 24 hr 25 mg PO DAILY 30 days #30 tabs 07/09/22 [Rx Last Taken Unknown] clopidogrel 75 mg tablet (Plavix) 75 mg PO DAILY #90 tabs 08/16/22 [Rx Last Taken Unknown] buspirone 7.5 mg tablet 7.5 mg PO BID 12/02/22 [History Last Taken Unknown] ranolazine 500 mg tablet,extended release,12 hr (Ranexa) 500 mg PO BID #60 tabs 12/25/22 [Rx Last Taken Unknown] Allergy/AdvReac Type Severity Reaction Status Date / Time atorvastatin AdvReac Intermediate GI Verified 02/02/23 21:58 upset,nausea Family History Father Cancer Lung Grandmother Breast cancer Kidney disease Uncle Myocardial infarction Mother Myocardial infarction Surgical History (Updated 02/03/23 @ 01:[address] 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 HEENT: + R eye strabismus. Eyes: No visual loss, blurred vision, double vision or yellow sclerae. Ears, Nose, Throat: No hearing loss, sneezing, congestion, runny nose or sore throat. SKIN: No rash or itching, lesions, wounds. CARDIOVASCULAR: + Chronic chest pain, intermittent palpitations, edema, acute near syncope sensation with LH/dizziness, No orthopnea. RESPIRATORY: + Exertional shortness of breath. No cough or sputum, wheezing, hemoptysis. GASTROINTESTINAL: + anorexia, nausea, vomiting, BRBPR and melanotic stools, abdominal discomfort. GENITOURINARY: No dysuria, frequency, urgency or retention. NEUROLOGICAL: + LH/dizziness, near syncope. No headache, paralysis, ataxia, numbness or tingling in the extremities, focal weakness, change in bowel or bladder control, seizure. MUSCULOSKELETAL: + muscle, back pain, joint pain or stiffness. HEMATOLOGIC: + bleeding, easy bruising. LYMPHATICS: No enlarged nodes. No history of splenectomy. PSYCHIATRIC: + history of depression or anxiety. ENDOCRINOLOGIC: No reports of sweating, cold or heat intolerance. No polyuria or polydipsia. ALLERGIES: No history of asthma, hives, eczema or rhinitis. Vital Signs Vital Signs Vital Signs: 02/02/23 21:56 02/02/23 22:27 02/02/23 22:30 Temperature 96.6 F L Temperature Source Temporal Pulse Rate 70 Pulse Rate [Lying] 61 Respiratory Rate 18 Blood Pressure 106/71 Blood Pressure [Lying] 110/69 126/69 H Blood Pressure Mean 82 Blood Pressure Mean [Lying] 82 88 Pulse Ox 99 Oxygen Delivery Method Room Air 02/02/23 22:33 02/03/23 00:00 02/03/23 01:24 Temperature 97 F L Temperature Source Temporal Pulse Rate 55 L 61 Pulse Rate [Lying] 61 Respiratory Rate 16 10 L Blood Pressure 115/75 115/75 Blood Pressure [Lying] 118/75 Blood Pressure Mean 88 88 Blood Pressure Mean [Lying] 89 Pulse Ox 99 98 Oxygen Delivery Method Weight Weight: 115 lb 15.41 oz Body Mass Index (BMI) 18.1 Physical Exam Narrative Physical Examination: General: Awake, alert, oriented x 3 and cooperative, seated upright in the ED bed, fatigued otherwise no acute distress. Skin: Normal color, normal turgor, no icterus, no cyanosis. HEENT: AT/NC, EOMI, PERRLA, mildly dry MM, no carotid bruits or JVD noted. Lungs: Diminished, greater bases, proper effort, no rales, ronchi or wheezing. Heart: Mildly bradycardic with regular rhythm; no gallop, rub audible. Abdomen: Soft, discomfort to bilateral lower quadrants with no rebound or guar ding, no marked distention, hyperactive BS, no marked HSM appreciated. Extremities: No cyanosis, clubbing, or edema. Neurological: Patient awake, alert, oriented as noted, cognitive function intact; pupils equally reactive to light and accommodation, cranial nerves II- XII grossly normal, moving all 4 extremities, no focal deficits, strength moderately global decrease secondary to acute presentation complaints Psychiatric: Affect appears fatigued, no acute evidence of depressive or anxiety feelings but does have underlying history. Results Lab / Micro Data 02/02/23 22:25 02/02/23 22:25 Labs: Laboratory Results - last 24 hr 02/02/23 22:25: WBC 8.3, RBC 4.23, Hgb 13.7, Hct 41.7, MCV 98.6, MCH 32.4 H, MCHC 32.9, RDW Std Deviation 44.7 H, RDW Coeff of Zuleyma 12.3, Plt Count 188, MPV 11.0, Immature Gran % (Auto) 0.200, Neut % (Auto) 66.9, Lymph % (Auto) 23.2, Preston % (Auto) 5.6, Eos % (Auto) 3.6, Baso % (Auto) 0.5, Absolute Neuts (auto) 5.5, Absolute Lymphs (auto) 1.92, Nucleated RBC % 0, PT 13.8, INR 1.1, APTT 30.9, Sodium 141, Potassium 3.7, Chloride 107, Carbon Dioxide 30.0, Anion Gap 4 L, BUN 11, Creatinine 0.95, Estim Creat Clear Calc 57.52, Est GFR (MDRD) Af Amer 79, Est GFR (MDRD) Non-Af 66, BUN/Creatinine Ratio 11.6, Glucose 104, Lactic Acid 0.7, Calcium 9.6, Blood Type Cancelled, Antibody Screen Cancelled 02/02/23 22:45: Blood Type A POSITIVE, Antibody Screen NEGATIVE Assessment & Plan Assessment/Plan (1) Acute GI bleeding: PLAN: Plan The patient is a 52 y/o F w/ PMHx: HTN, HLD, PTSD/Anxiety and Depression, Strabismus R eye, Tobacco use, Chronic BL LE edema, Cardiopulmonary arrest with Acute anterior STEMI s/p PCI LAD and follow-up 07/08/22 PCI proximal diagnoal 1 with chronic chest pain(at rest, midsternal, palpitations) and dyspnea with exertion of which cardiology per their notes are aware and has been managed medically who presents to the [facility] ED on 02/02/23 with history of onset black stools starting the day prior with eventual bright red blood per rectum specifically clots on both aspirin and Plavix given PCI history with a near syncopal sensation the day prior with lightheadedness and dizziness especially with positional changes with associated abdominal discomfort descirbeed as cramping worse in the BL LQ prompting ED evaluation. #1. Acute GI Bleed w/ resultant Acute Blood Loss Anemia: Admission Hgb 13.7 only mild decreased from most recent 12/02/22 Hgb 14.3, will admit to [facility] given stable VS, maintain on IVFs, will obtain serial H+Hs, T+S obtained per ED but patient declines any PRBC administration even if it were necessary to safe her life which was discussed at length, will maintain on IV PPI, clears until midnight then n.p.o. status, gastroenterology consulted, pending. #2. CAD: Status post cardiopulmonary arrest with acute anterior STEMI at that time status post PCI LAD and a follow-up PCI to diagonal 1 at that time with chronic chest discomfort as well as dyspnea verified by cardiology notes which were reviewed, given unfortunately current presentation we will temporally hold aspirin and Plavix as patient is 6 months out until GI bleed further assessed with resumption once able, will continue metoprolol as BP allows, continue statin therapy. Will continue patient home chronic Ranexa regimen secondary to patient's chronic chest discomfort. #3. Anxiety and depression/PTSD: We will continue patient home sertraline, BuSpar scheduled twice daily and low-dose as needed lorazepam regimen. #4. Hypertension: Continue home regimen including metoprolol cautiously given orthostatic symptoms, PRN hydralazine. #5. Hyperlipidemia: Will continue patient on statin therapy. #6. Tobacco Abuse: Encouraged cessation, inpatient consultation per RT, NR if desired. #7. Chronic bilateral lower extremity edema: Snug Landon wraps with elevation. #8. DVT prophylaxis: SCDs given acute presentation #1 is noted. #9. CODE status: Patient does not have HCPOA or LW in place but her significant who is present would be her decision maker if neccessary. Expectially given her refusal of blood products, discussed CODE status at length including difference between FULL code, DNR-CCA and DNR-CC status. Following discussions about the differences in these status and despite her age although she does have co- morbidities as noted she requested DNR-CCA, no intubation status. Advanced Care Planning Face to Face Time: 16 minutes. Charges/Coding Visit Charges Inpatient E&M: 51297 Init Hosp L3 Procedures Hospitalists Procedures: 79892 Advncd Care Plan 30 Min
[2023-02-03] MEDS: 0.9% Normal Saline 1,000 ML 100 ML IV (02:53)
[2023-02-03] MEDS: 0.9% Saline Lock 10 ML Syringe IV (02:54)
[2023-02-03 06:54] LABS: Absolute Neutrophil Count 3.4 X10^3/uL (2.0-7.7); Basophil# 0.05 X10^3/uL; Basophil% 0.8 % (0-1); Eosinophil# 0.27 X10^3/uL; Eosinophils% 4.3 % (0-5); Hematocrit 34.9 % (37-47); Hemoglobin 11.5 g/dL (12.0-15.0); Lymphocyte % 33.8 % (19-41); Mean Corpuscular Hgb 33.3 pg (27.0-32.0); Mean Corpuscular Volume 101.2 fL (81-99); Mean Platelet Vol. 10.5 fl (6.2-12.0); Monocyte# 0.35 X10^3/uL; Monocyte% 5.6 % (0-10); NRBC Flagged by Analyzer 0 % (0-5); Neutrophil # 3.43 X10^3/uL (2.7-7.7); Neutrophil % 55.3 % (47-70); Platelet Count 147 K/mm3 (150-450); RBC Distribution Width CV 12.6 % (11.6-14.6); RBC Distribution Width SD 47.1 fl (35.1-43.9); Red Blood Count 3.45 M/mm3 (4.2-5.4); White Blood Count 6.2 K/mm3 (4.4-11.0)
[2023-02-03 07:23] LABS: ALB/GLOB Ratio 1.1 RATIO (0.9-2.4); AST(SGOT) 23 U/L (15-37); Alanine Aminotransfer ALT/SGPT 30 U/L (13-56); Alkaline Phosphatase 56 U/L (45-117); Anion Gap 0 (5-15); BUN 9 mg/dL (7-18); BUN/Creat Ratio 10.6 RATIO (10-20); Calcium,Total 8.6 mg/dL (8.5-10.1); Chloride 115 mmol/L (98-107); Creatinine, Serum 0.85 mg/dL (0.55-1.02); EST Glomerular Filtration Rate 74 mL/min (>60); Est Glom Filt Rate - Afr Amer 90 mL/min (>60); Estimated Creatinine Clearance 65.81 ml/min; Globulin 2.8 g/dL (2.2-4.2); Glucose 91 mg/dL (74-106); Potassium 4.3 mmol/L (3.5-5.1); Protein, Total 5.8 g/dL (6.4-8.2); Sodium Level 145 mmol/L (136-145)
--- NOTE | 2023-02-03 07:51 | EX.PCM.CON.G ---
HPI Consult Data Date of Consult: 02/02/23 HPI Narrative HPI Narrative: THAO EDWARDS, is a 52 F who presents with lower GI bleed. She has a history of myocardial infarction, posttraumatic stress disorder, and hyperlipidemia who presents because of bright red blood per rectum. Upon questioning patient admits to black stool yesterday. She is on aspirin and Plavix. She states she is compliant with her medication. She is not on an anticoagulant. Yesterday she had near syncopal episode/syncopal episode. Patient denies headache. Patient does give orthostatic symptoms. Patient denies cardiac or respiratory symptoms. Patient denies hematuria, dysuria or frequency. She also reports dyspnea with exertion and intermittent chest discomfort both of which are chronic for this patient. Workup in the ED included T96.6, heart rate 70, BP initially 106/71 with most recent repeat 118/75, respiratory rate 18, 99% on room air, CBC with WC 8.3, hemoglobin 13.7 with most recent noted prior to this 12/02/22 Hgb 14.3 at that time, platelet 188 without shift, unremarkable coags, BMP unremarkable, lactic acid pending, type and screen obtained, EKG was sinus bradycardia with no acute evidence of ischemia. Length discussion with patient and significant as patient specifically declined PRBC administration even if it was necessary to save her life. In the ED a rigid sigmoidoscope was used with noted bloody material above the scope with no significant abnormality of the rectal mucosa with a small hemorrhoid but no evidence of any recent bleeding per ED physician. PFSH Medical History Anxiety and depression Atherosclerosis of coronary artery of [place] heart without angina pectoris Galactorrhea History of ST elevation myocardial infarction (STEMI) (07/08/22) History of sudden cardiac arrest successfully resuscitated (06/04/19) HTN (hypertension) Hyperlipidemia PTSD (post-traumatic stress disorder) Strabismic amblyopia, right eye Tobacco dependence Tobacco use Home Medications aspirin 81 mg tablet,delayed release 81 mg PO DAILY@0800 #90 tabs 06/05/19 [Rx Last Taken 02/01/23] lorazepam 0.5 mg tablet 0.5 mg PO Q6H PRN Anxiety 09/04/19 [History Last Taken 12/27/22] rosuvastatin 10 mg tablet (Crestor) 10 mg PO DAILY #30 tabs 03/12/21 [Rx Last Taken 02/01/23] sertraline 50 mg tablet (Zoloft) 200 mg PO DAILY 08/17/21 [History Last Taken Unknown] nitroglycerin 0.4 mg sublingual tablet 0.4 mg sublingual Q5M PRN chest pain #14 tabs 04/04/22 [Rx Last Taken Unknown] metoprolol succinate 25 mg tablet,extended release 24 hr 25 mg PO DAILY 30 days #30 tabs 07/09/22 [Rx Last Taken 02/01/23] clopidogrel 75 mg tablet (Plavix) 75 mg PO DAILY #90 tabs 08/16/22 [Rx Last Taken 02/01/23] buspirone 7.5 mg tablet 7.5 mg PO BID check w md 12/02/22 [History Last Taken 02/01/23] ranolazine 500 mg tablet,extended release,12 hr (Ranexa) 500 mg PO BID #60 tabs 12/25/22 [Rx Last Taken 02/01/23] sertraline 100 mg tablet 200 mg PO DAILY depression 02/03/23 [History Last Taken 02/01/23] Allergy/AdvReac Type Severity Reaction Status Date / Time atorvastatin AdvReac Intermediate GI Verified 02/02/23 21:58 upset,nausea Family History Father Cancer Lung Grandmother Breast cancer Kidney disease Uncle Myocardial infarction Mother Myocardial infarction Surgical History H/O ovarian cystectomy History of bilateral breast biopsy History of coronary artery stent placement (07/08/22) History of hysterectomy Social History 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 HEENT: + R eye strabismus. Eyes: No visual loss, blurred vision, double vision or yellow sclerae. Ears, Nose, Throat: No hearing loss, sneezing, congestion, runny nose or sore throat. SKIN: No rash or itching, lesions, wounds. CARDIOVASCULAR: + Chronic chest pain, intermittent palpitations, edema, acute near syncope sensation with LH/dizziness, No orthopnea. RESPIRATORY: + Exertional shortness of breath. No cough or sputum, wheezing, hemoptysis. GASTROINTESTINAL: + anorexia, nausea, vomiting, BRBPR and melanotic stools, abdominal discomfort. GENITOURINARY: No dysuria, frequency, urgency or retention. NEUROLOGICAL: + LH/dizziness, near syncope. No headache, paralysis, ataxia, numbness or tingling in the extremities, focal weakness, change in bowel or bladder control, seizure. MUSCULOSKELETAL: + muscle, back pain, joint pain or stiffness. HEMATOLOGIC: + bleeding, easy bruising. LYMPHATICS: No enlarged nodes. No history of splenectomy. PSYCHIATRIC: + history of depression or anxiety. ENDOCRINOLOGIC: No reports of sweating, cold or heat intolerance. No polyuria or polydipsia. ALLERGIES: No history of asthma, hives, eczema or rhinitis. Physical Exam Const alert, oriented x3 and no apparent distress General Appearance: cooperative HEENT normocephalic, head/scalp atraumatic, moist oral mucous membranes and oropharynx normal Eyes PERRL Neck no lymphadenopathy, supple and no JVD Lymph Lymphatic: no lymphadenopathy noted and no lymphedema noted Resp normal respiratory effort, normal air movement and clear to auscultation bilaterally Cardio regular rate, regular rhythm, S1 normal heart sound, S2 normal heart sound and no murmurs GI normal to inspection, nondistended, normoactive bowel sounds, soft to palpation, non-tender and non-distended Extremity normal capillary refill, no clubbing, cyanosis or edema and no calf tenderness Skin General Skin Exam: no breakdown Neuro CN's II-XII intact bilaterally, no focal motor deficits, no sensory deficits noted and deep tendon reflexes 2+ bilaterally Motor Exam: strength 5/5 throughout Psych thought process normal and cooperative Appearance: appropriate Lab / Micro Data 02/03/23 06:29 02/03/23 06:29 Labs: Laboratory Results - last 24 hr 02/02/23 22:25: WBC 8.3, RBC 4.23, Hgb 13.7, Hct 41.7, MCV 98.6, MCH 32.4 H, MCHC 32.9, RDW Std Deviation 44.7 H, RDW Coeff of Zuleyma 12.3, Plt Count 188, MPV 11.0, Immature Gran % (Auto) 0.200, Neut % (Auto) 66.9, Lymph % (Auto) 23.2, Lee % (Auto) 5.6, Eos % (Auto) 3.6, Baso % (Auto) 0.5, Absolute Neuts (auto) 5.5, Absolute Lymphs (auto) 1.92, Nucleated RBC % 0, PT 13.8, INR 1.1, APTT 30.9, Sodium 141, Potassium 3.7, Chloride 107, Carbon Dioxide 30.0, Anion Gap 4 L, BUN 11, Creatinine 0.95, Estim Creat Clear Calc 57.52, Est GFR (MDRD) Af Amer 79, Est GFR (MDRD) Non-Af 66, BUN/Creatinine Ratio 11.6, Glucose 104, Lactic Acid 0.7, Calcium 9.6, Blood Type Cancelled, Antibody Screen Cancelled 02/02/23 22:45: Blood Type A POSITIVE, Antibody Screen NEGATIVE 02/03/23 06:29: WBC 6.2, RBC 3.45 L, Hgb 11.5 L, Hct 34.9 L, MCV 101.2 H, MCH 33.3 H, MCHC 33.0, RDW Std Deviation 47.1 H, RDW Coeff of Zuleyma 12.6, Plt Count 147 L, MPV 10.5, Immature Gran % (Auto) 0.200, Neut % (Auto) 55.3, Lymph % (Auto) 33.8, Lee % (Auto) 5.6, Eos % (Auto) 4.3, Baso % (Auto) 0.8, Absolute Neuts (auto) 3.4, Absolute Lymphs (auto) 2.10, Nucleated RBC % 0, Sodium 145, Potassium 4.3, Chloride 115 H, Carbon Dioxide 30.0, Anion Gap 0 L, BUN 9, Creatinine 0.85, Estim Creat Clear Calc 65.81, Est GFR (MDRD) Af Amer 90, Est GFR (MDRD) Non-Af 74, BUN/Creatinine Ratio 10.6, Glucose 91, Calcium 8.6, Total Bilirubin 0.70, AST 23, ALT 30, Alkaline Phosphatase 56, Total Protein 5.8 L, Albumin 3.0 L, Globulin 2.8, Albumin/Globulin Ratio 1.1 Assessment & Plan Assessment/Plan (1) Acute GI bleeding: PLAN: Plan The patient is a 52 y/o F Cardiopulmonary arrest with Acute anterior STEMI s/p PCI LAD d dyspnea with exertion of which cardiology per their notes are aware and has been managed medically who presents to the [facility] ED on 02/02/23 with history of onset black stools starting the day prior with eventual bright red blood per rectum specifically clots on both aspirin and Plavix given PCI history with a near syncopal sensation the day prior with lightheadedness and dizziness especially with positional changes with associated abdominal discomfort descirbeed as cramping worse in the BL LQ prompting ED evaluation. Acute GI Bleed w/ resultant Acute Blood Loss Anemia: Admission Hgb 13.7 only mild decreased from most recent 12/02/22 Hgb 14.3, patient will undergo an upper endoscopy and if that is normal then she will need a colonoscopy. Patient and the patient's family was explained alternatives, risk, benefits including not withstanding bleeding, infection, sepsis, perforation, need for emergent and . She will have an ASA of 3. Charges/Coding Visit Charges Inpatient E&M: 11171 Init Hosp L3
[2023-02-03] MEDS: Ranolazine 500 MG Tablet PO ×2 (08:48→22:24)
[2023-02-03] MEDS: Sertraline 100 MG Tablet 200 MG PO (08:49)
[2023-02-03] MEDS: busPIRone 5 MG Tablet 7.5 MG PO ×2 (08:49→22:24)
--- NOTE | 2023-02-03 10:02 | PN_ITS ---
Subjective Subjective Patient seen and examined. She was admitted with a complaint of rectal bleeding. She is being managed for lower GI bleed. She had no complaints today. Rectal bleeding hadnt recurred. She denied any fever, chills, chest pain, palpitations, dizziness, or any rectal bleeding. She denied any abdominal pain and any coffee ground emesis. Review of systems is otherwise negative. Her BP is running low today. Review of systems is otherwise negative. Objective Data Objective Data Vital Signs: Vital Signs Temp Pulse Resp BP Pulse Ox O2 Del Method 98.1 F 66 18 95/40 L 97 Room Air 02/03/23 08:40 02/03/23 08:55 02/03/23 08:40 02/03/23 08:55 02/03/23 08:40 02/03/23 08:46 Oxygen Delivery Method Room Air Weight: 118 lb 11.2 oz Body Mass Index (BMI) 18.6 Intake & Output: Intake and Output for Last 24 Hours 02/01/23 02/02/23 02/03/23 23:59 23:59 23:59 Intake Total 110 / 110 Balance 110 / 110 Lab / Micro Data 02/03/23 06:29 02/03/23 06:29 Labs: Laboratory Results - last 24 hr 02/02/23 22:25: WBC 8.3, RBC 4.23, Hgb 13.7, Hct 41.7, MCV 98.6, MCH 32.4 H, MCHC 32.9, RDW Std Deviation 44.7 H, RDW Coeff of Zuleyma 12.3, Plt Count 188, MPV 11.0, Immature Gran % (Auto) 0.200, Neut % (Auto) 66.9, Lymph % (Auto) 23.2, Eddy % (Auto) 5.6, Eos % (Auto) 3.6, Baso % (Auto) 0.5, Absolute Neuts (auto) 5.5, Absolute Lymphs (auto) 1.92, Nucleated RBC % 0, PT 13.8, INR 1.1, APTT 30.9, Sodium 141, Potassium 3.7, Chloride 107, Carbon Dioxide 30.0, Anion Gap 4 L, BUN 11, Creatinine 0.95, Estim Creat Clear Calc 57.52, Est GFR (MDRD) Af Amer 79, Est GFR (MDRD) Non-Af 66, BUN/Creatinine Ratio 11.6, Glucose 104, Lactic Acid 0.7, Calcium 9.6, Blood Type Cancelled, Antibody Screen Cancelled 02/02/23 22:45: Blood Type A POSITIVE, Antibody Screen NEGATIVE 02/03/23 06:29: WBC 6.2, RBC 3.45 L, Hgb 11.5 L, Hct 34.9 L, MCV 101.2 H, MCH 33.3 H, MCHC 33.0, RDW Std Deviation 47.1 H, RDW Coeff of Zuleyma 12.6, Plt Count 147 L, MPV 10.5, Immature Gran % (Auto) 0.200, Neut % (Auto) 55.3, Lymph % (A uto) 33.8, Eddy % (Auto) 5.6, Eos % (Auto) 4.3, Baso % (Auto) 0.8, Absolute Neuts (auto) 3.4, Absolute Lymphs (auto) 2.10, Nucleated RBC % 0, Sodium 145, Potassium 4.3, Chloride 115 H, Carbon Dioxide 30.0, Anion Gap 0 L, BUN 9, Creatinine 0.85, Estim Creat Clear Calc 65.81, Est GFR (MDRD) Af Amer 90, Est GFR (MDRD) Non-Af 74, BUN/Creatinine Ratio 10.6, Glucose 91, Calcium 8.6, Total Bilirubin 0.70, AST 23, ALT 30, Alkaline Phosphatase 56, Total Protein 5.8 L, Albumin 3.0 L, Globulin 2.8, Albumin/Globulin Ratio 1.1 Physical Exam Const alert, oriented x3 and no apparent distress General Appearance: cooperative HEENT normocephalic, head/scalp atraumatic, moist oral mucous membranes and oropharynx normal Eyes PERRL Neck no lymphadenopathy, supple and no JVD Lymph Lymphatic: no lymphadenopathy noted and no lymphedema noted Resp normal respiratory effort, normal air movement and clear to auscultation bilaterally Cardio regular rate, regular rhythm, S1 normal heart sound, S2 normal heart sound and no murmurs GI normal to inspection, nondistended, normoactive bowel sounds, soft to palpation, non-tender and non-distended Extremity normal capillary refill, no clubbing, cyanosis or edema and no calf tenderness Skin General Skin Exam: no breakdown Neuro CN's II-XII intact bilaterally, no focal motor deficits, no sensory deficits noted and deep tendon reflexes 2+ bilaterally Motor Exam: strength 5/5 throughout Psych thought process normal and cooperative Appearance: appropriate Assessment & Plan Assessment/Plan (1) Acute GI bleeding: PLAN: Plan #Acute lower GI bleed * admitted with a complaint of rectal bleeding. * Hb is down to 11.5 today. Hasnt had any more rectal bleeding since admission * GI on board. * currently NPO. ON IV PPI * * #CAD * s/p PCI with stents. She had a stents placed in June 2022 when she presented with chest pain which showed 90% stenosis in the proximal diagonal artery and placement of drug-eluting stent. She had had a previous stent placed in 2018 in her LAD * aspirin and plavix on hold. * on statin and metoprolol. * on ranexa * #THrombocytopenia * platelets are 147; were 188 on admission * Hb has also dropped down to 11.5 and wbc dropped to 6.2 from 8.3, so there may be a component of hemodilution. WIll monitor. * #Hypertension; on metoprolol. BP running low today, so will hold BP meds. #Hyperlipidemia: on statin #Nicotine dependence: counseled to quit. DVT prophylaxis: SCDs. Charges/Coding Visit Charges Inpatient E&M: 61346 Subs Hosp L2
--- NOTE | 2023-02-03 11:25 | CASEMGMT ---
RN?CM?CRM MARKETING SPECIALIST?CM?to room to meet with patient for initial transition planning/care coordination?assessment.?RN?CM?introduced self and role at [facility].? Pt voices understanding and consents to?assessment?at this time.? Pt resting in bed in no distress at this time.? Pt is A/O at this time and answers all questions appropriately.?? Care providers, pharmacy, and demographics verified/updated at this time. PCP: Dr Aguilar Specialists: [facility]/cardiology [facility]acy: [facility] Insurance: [place] Prescription Benefit:?Yes Living Will/HPOA:?Pt does not currently have LW/HCPOA and declines info at this time.? Pt made aware that she can contact as an out-pt and make appt in the future if she decides she would like to talk with someone about this or would like to utilize [facility] social work for advanced directive completion.? Given [employer] card with information and contact number. Pt expresses understanding.? LNOK: , Bud. Living Arrangements: Lives w/her in split-level home w/2 steps to enter. Pt is independent w/ADL's and manages her own meds. Pt/ share home mgnt tasks. Transportation:?Pt states drives self and states no transportation concerns at this time.? also drives. DME: ? Denies using any DME and denies needs.? HHC/SNF: No hx of either. Denes need for HHC and no needs identified. Pt wishes to return home and states has no concerns with going home at time of discharge.? PLAN:??Home w/spousal support and discharge plans in place. Vanna REESN?RN?CM
[2023-02-03] MEDS: 0.9% Normal Saline 1,000 ML 125 ML IV ×2 (11:59→19:45)
--- NOTE | 2023-02-03 13:28 | OP.CCLET_ITS ---
02/03/2023 Stephanie Aguilar [facility] [address] [address] Re : Upper GI endoscopy procedure for Brianna Man Dear Dr. Aguilar This procedure was performed on Friday, February 03, 2023. My impressions and recommendations are as follows: Impressions : - Normal esophagus. - Medium-sized hiatal hernia. 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 - Normal second portion of the duodenum. - No specimens collected. Recommendations : - [facility]. - Clear liquid diet today. -Endoscopic ultrasound for submucosal mass in the stomach -Colonoscopy to look for etiology of GI bleeding - Continue present medications. My findings are described in the full procedure note, which is enclosed. If I can be of further assistance, please feel free to contact me at . Sincerely, Da De Jesus, 02/03/2023 1:27:41 PM This report has been signed electronically.
--- NOTE | 2023-02-03 13:28 | OP.EGD_ITS ---
Patient Name: Brianna Man Procedure Date: 02/03/2023 1:01 PM Date of : 1970 Age: 52 Procedure: Upper GI endoscopy Indications: Hematochezia Providers: Da De Jesus DO Medicines: Monitored Anesthesia Care Patient Profile: This is a 52 year old female. Refer to note in patient chart for documentation of history and physical. Patient has symptoms of acute epigastric abdominal pain. Complications: No immediate complications. Procedure: Pre-Anesthesia Assessment: - Prior to the procedure, a History and Physical was performed, and patient medications and allergies were reviewed. The patient is competent. The risks and benefits of the procedure and the sedation options and risks were discussed with the patient. All questions were answered and informed consent was obtained. Patient identification and proposed procedure were verified by the physician in the pre-procedure area. Mental Status Examination: alert and oriented. Airway Examination: normal oropharyngeal airway and neck mobility. Respiratory Examination: clear to auscultation. CV Examination: normal. Prophylactic Antibiotics: The patient does not require prophylactic antibiotics. Prior Anticoagulants: The patient has taken no anticoagulant or antiplatelet agents except for NSAID medication. ASA Grade Assessment: II - A patient with mild systemic disease. After reviewing the risks and benefits, the patient was deemed in satisfactory condition to undergo the procedure. The anesthesia plan was to use monitored anesthesia care (MAC). Immediately prior to administration of medications, the patient was re-assessed for adequacy to receive sedatives. The heart rate, respiratory rate, oxygen saturations, blood pressure, adequacy of pulmonary ventilation, and response to care were monitored throughout the procedure. The physical status of the patient was re-assessed after the procedure. After obtaining informed consent, the endoscope was passed under direct vision. Throughout the procedure, the patient's blood pressure, pulse, and oxygen saturations were monitored continuously. The Endoscope was introduced through the mouth, and advanced to the second part of duodenum. The upper GI endoscopy was accomplished without difficulty. The patient tolerated the procedure well. Scope In: 1:11:56 PM Scope Out: 1:14:23 PM Total Procedure Duration Time 0 hours 2 minutes 27 seconds Findings: The examined esophagus was normal. A medium-sized hiatal hernia was present. A medium-sized, submucosal mass with no bleeding and no stigmata of recent bleeding was found in the stomach. The second portion of the duodenum was normal. Impression: - Normal esophagus. - Medium-sized hiatal hernia. 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 - Normal second portion of the duodenum. - No specimens collected. Recommendation: - [facility]. - Clear liquid diet today. -Endoscopic ultrasound for submucosal mass in the stomach -Colonoscopy to look for etiology of GI bleeding - Continue present medications. Procedure Code(s): --- Professional --- 67048, Esophagogastroduodenoscopy, flexible, transoral; diagnostic, including collection of specimen(s) by brushing or washing, when performed (separate procedure) CPT copyright 2021 [employer]. All rights reserved. The codes documented in this report are preliminary and upon american indian policy specialist review may be revised to meet current compliance requirements. Da De Jesus DO 02/03/2023 1:27:41 PM This report has been signed electronically. Number of Addenda: 0 Note Initiated On: 02/03/2023 1:01 PM
[2023-02-03] MEDS: Bisacodyl 5 MG Tablet 20 MG PO (14:19)
[2023-02-03] MEDS: Polyethylene Glycol 3350 BOWEL PREP PO (17:25)
[2023-02-03] MEDS: Atorvastatin Calcium 20 MG Tablet PO (22:25)
[2023-02-04] VITALS (13 sets, daily range): BP systolic 98–132; BP diastolic 55–78; PULSE 50–73; RESP 16–18; TEMP 36.7–37.3; O2SAT 98–100
--- NOTE | 2023-02-04 | COLBX_PTH ---
PATIENT: THAO EDWARDS LOC: [facility] U#:[id number] AGE/SX: 52/F ROOM: [facility] RE02/03/[address]: Dr. Mercedes Pappas MD : 1970 BED: 1 DIS: 02/04/2023 SPEC #: [id number] RECD: 02/06/23 08:00 STATUS: LATISHA REGume #: [id number] NICHOLE: 02/04/23 00:[address]: Da De Jesus DEPT: SURGICAL PATHOLOGY RECD BY: Lee Norton ENTERED: 02/06/23 09:10 SP TYPE: COLON BX OTHR DR: MD Dr. Stephanie Osborne MD Dr. Nana Yaa Koram, MD Tissues: A - COLON BIOPSY B - SPLENIC FLEXURE C - Sigmoid colon biopsy Procedures: Surgery Specimen Level IV Comments: @ Ordering doctor for SUIV edited from to @ by JEFF at 02/06/23 1431 @ Submitting doctor edited from to @ by RGOOD at 02/06/23 1431 HEADER OPERATION: Colonoscopy PRE-OP DIAGNOSIS: Acute GI bleeding TISSUE SUBMITTED: A - Appendiceal orifice biopsy, B - Splenic flexure biopsy, C - Sigmoid colon polyp MICROSCOPIC DIAGNOSIS A. Appendiceal orifice, biopsy: No pathologic change. B. Splenic flexure, biopsy: Consistent with ischemic colitis. C. Sigmoid colon polyp, biopsy: Fragments of tubular adenoma. AM:maribel 02/07/2023 MICROSCOPIC DESCRIPTION Slides are reviewed. GROSS DESCRIPTION A - Received in fixative is one container labeled with the patient's name and designated appendiceal orifice biopsy. The specimen consists of two irregular fragments of light martinez soft tissue that in aggregate measure 0.6 x 0.2 x 0.1 cm. The specimen is totally submitted in one cassette. B - Received in fixative is one container labeled with the patient's name and designated splenic flexure biopsy. The specimen consists of multiple irregular fragments of light martinez soft tissue that in aggregate measure 1.5 x 0.6 x 0.1 cm. The specimen is totally submitted in one cassette. C - Received in fixative is one container labeled with the patient's name and designated sigmoid colon polyp. The specimen consists of multiple irregular fragments of light martinez soft tissue that in aggregate measure 1.0 x 0.5 x 0.1 cm. The specimen is totally submitted in one cassette. / AM:maribel 02/06/2023 TC:3 CPT: 59239 x3
[2023-02-04 06:37] LABS: Absolute Lymphocyte Count 1.84 X10^3/uL (0.83-4.51); Absolute Neutrophil Count 2.8 X10^3/uL (2.0-7.7); Basophil# 0.03 X10^3/uL; Basophil% 0.6 % (0-1); Eosinophil# 0.25 X10^3/uL; Eosinophils% 4.8 % (0-5); Hematocrit 36.7 % (37-47); Hemoglobin 11.9 g/dL (12.0-15.0); Lymphocyte # 1.84 X10^3/ul (0.83-4.51); Lymphocyte % 35.4 % (19-41); Mean Corp Hgb Conc 32.4 g/dL (32-36); Mean Corpuscular Hgb 33.1 pg (27.0-32.0); Mean Corpuscular Volume 102.2 fL (81-99); Monocyte% 5.8 % (0-10); NRBC Flagged by Analyzer 0 % (0-5); Neutrophil # 2.77 X10^3/uL (2.7-7.7); Neutrophil % 53.2 % (47-70); Platelet Count 144 K/mm3 (150-450); RBC Distribution Width CV 12.7 % (11.6-14.6); RBC Distribution Width SD 47.4 fl (35.1-43.9); Red Blood Count 3.59 M/mm3 (4.2-5.4); White Blood Count 5.2 K/mm3 (4.4-11.0)
[2023-02-04 07:09] LABS: Anion Gap 3 (5-15); BUN 7 mg/dL (7-18); BUN/Creat Ratio 7.6 RATIO (10-20); Calcium,Total 8.8 mg/dL (8.5-10.1); Chloride 116 mmol/L (98-107); Creatinine, Serum 0.93 mg/dL (0.55-1.02); EST Glomerular Filtration Rate 67 mL/min (>60); Est Glom Filt Rate - Afr Amer 82 mL/min (>60); Estimated Creatinine Clearance 60.14 ml/min; Glucose 88 mg/dL (74-106); Sodium Level 146 mmol/L (136-145)
--- NOTE | 2023-02-04 08:01 | NURSING ---
patient off unit to endo at this time.
--- NOTE | 2023-02-04 09:00 | OP.CCLET_ITS ---
02/04/2023 Stephanie Aguilar [facility] [address] [address] Re : Colonoscopy procedure for Brianna Man Dear Dr. Aguilar This procedure was performed on Saturday, February 04, 2023. My impressions and recommendations are as follows: Impressions : - Localized moderate inflammation was found in the sigmoid colon, in the descending colon and at the splenic flexure secondary to left-sided colitis and secondary to ischemic colitis. Biopsied. - One 8 mm polyp in the sigmoid colon, removed with a hot snare. Resected and retrieved. - Congested mucosa at the appendiceal orifice. Biopsied. - Likely ischemic colitis secondary to cramping Recommendations : - Discharge patient to home. - Resume regular diet. - Continue present medications. - Await pathology results. -As needed dicyclomine to prevent cramping therefore hopefully preventing recurrent ischemic colitis - Repeat colonoscopy for surveillance. My findings are described in the full procedure note, which is enclosed. If I can be of further assistance, please feel free to contact me at . Sincerely, Da De Jesus, 02/04/2023 8:59:19 AM This report has been signed electronically.
--- NOTE | 2023-02-04 09:00 | OP.COLON_ITS ---
Patient Name: Brianna Man Procedure Date: 02/04/2023 7:38 AM Date of : 1970 Age: 52 Procedure: Colonoscopy Indications: Hematochezia Providers: Da De Jesus DO Medicines: Monitored Anesthesia Care Patient Profile: This is a 52 year old female. Refer to note in patient chart for documentation of history and physical. Last Colonoscopy: none. The patient's first colonoscopy is today. Complications: No immediate complications. Procedure: Pre-Anesthesia Assessment: - Prior to the procedure, a History and Physical was performed, and patient medications and allergies were reviewed. The patient is competent. The risks and benefits of the procedure and the sedation options and risks were discussed with the patient. All questions were answered and informed consent was obtained. Patient identification and proposed procedure were verified by the physician in the pre-procedure area. Mental Status Examination: alert and oriented. Airway Examination: normal oropharyngeal airway and neck mobility. Respiratory Examination: clear to auscultation. CV Examination: normal. Prophylactic Antibiotics: The patient does not require prophylactic antibiotics. Prior Anticoagulants: The patient has taken no anticoagulant or antiplatelet agents. ASA Grade Assessment: II - A patient with mild systemic disease. After reviewing the risks and benefits, the patient was deemed in satisfactory condition to undergo the procedure. The anesthesia plan was to use monitored anesthesia care (MAC). Immediately prior to administration of medications, the patient was re-assessed for adequacy to receive sedatives. The heart rate, respiratory rate, oxygen saturations, blood pressure, adequacy of pulmonary ventilation, and response to care were monitored throughout the procedure. The physical status of the patient was re-assessed after the procedure. After I obtained informed consent, the scope was passed under direct vision. Throughout the procedure, the patient's blood pressure, pulse, and oxygen saturations were monitored continuously. The Colonoscope was introduced through the anus and advanced to the terminal ileum. The colonoscopy was performed without difficulty. The patient tolerated the procedure well. The quality of the bowel preparation was adequate. The terminal ileum was photographed. Scope In: 8:22:41 AM Scope Withdrawal Time 0 hours 15 minutes 58 seconds Scope Out: 8:45:41 AM Total Procedure Duration Time 0 hours 23 minutes 0 seconds Findings: The perianal and digital rectal examinations were normal. Localized moderate inflammation characterized by erosions, erythema and friability was found in the sigmoid colon, in the descending colon and at the splenic flexure. Biopsies were taken with a cold forceps for histology. Verification of patient identification for the specimen was done. Estimated blood loss was minimal. An 8 mm polyp was found in the sigmoid colon. The polyp was sessile. The polyp was removed with a hot snare. Resection and retrieval were complete. Verification of patient identification for the specimen was done. Estimated blood loss was minimal. An area of moderately congested mucosa was found at the appendiceal orifice. Biopsies were taken with a cold forceps for histology. Verification of patient identification for the specimen was done. Estimated blood loss was minimal. Impression: - Localized moderate inflammation was found in the sigmoid colon, in the descending colon and at the splenic flexure secondary to left-sided colitis and secondary to ischemic colitis. Biopsied. - One 8 mm polyp in the sigmoid colon, removed with a hot snare. Resected and retrieved. - Congested mucosa at the appendiceal orifice. Biopsied. - Likely ischemic colitis secondary to cramping Recommendation: - Discharge patient to home. - Resume regular diet. - Continue present medications. - Await pathology results. -As needed dicyclomine to prevent cramping therefore hopefully preventing recurrent ischemic colitis - Repeat colonoscopy for surveillance. Procedure Code(s): --- Professional --- 16869, Colonoscopy, flexible; with removal of tumor(s), polyp(s), or other lesion(s) by snare technique 71587, 59, Colonoscopy, flexible; with biopsy, single or multiple CPT copyright 2021 [employer]. All rights reserved. The codes documented in this report are preliminary and upon remote medical coder review may be revised to meet current compliance requirements. Da De Jesus DO 02/04/2023 8:59:19 AM This report has been signed electronically. Number of Addenda: 0 Note Initiated On: 02/04/2023 7:38 AM
--- NOTE | 2023-02-04 09:30 | EKG12_ITS ---
Test Reason : POST OP CP Blood Pressure : / mmHG Vent. Rate : 051 BPM Atrial Rate : 051 BPM P-R Int : 180 ms QRS Dur : 094 ms QT Int : 436 ms P-R-T Axes : 071 062 065 degrees QTc Int : 401 ms Sinus bradycardia Otherwise normal ECG When compared with ECG of 02-FEB-2023 22:38, MANUAL COMPARISON REQUIRED, DATA IS UNCONFIRMED Confirmed by CHAO MCDANIEL ([id number]), editorial director WILFREDO LERMA ([id number]) on 02/14/2023 9:37:44 AM Referred By: CYNTHIA Confirmed By:CHAO MCDANIEL
--- NOTE | 2023-02-04 09:34 | SUR.PHASEI ---
PT WAS ABOUT TO BE TRANSFERRED BACK TO FLOOR WHEN SHE REPORTED CHEST DISCOMFORT. LAUREANO PAGED. NEW ORDERS RECEIVED. NOTIFIED MED SURG CHARGE NURSE ALSO.
[2023-02-04 10:07] LABS: Troponin-I HS 4 pg/mL (3.0-54.0)
--- NOTE | 2023-02-04 12:20 | NURSING ---
Both pt and her express discontent w/md decision to monitor overnight. This RN disc ekg/lab results, also stating although this is normal per pt report, she did just have anesthesia and a procedure. They continued to be frustrated, recounting husbands wait on MS3 w/out info on what was happening in the PACU, their abnormal wait for staff response on PCU and again mentioning this is normal for her. This RN stated we can't hold her against her will, again mentioning monitoring for her safety given am procedure. They state they will think about it.
--- NOTE | 2023-02-04 12:50 | NURSING ---
pt states she wants to go home. This RN reviewed as noted in previous note. AMA papers signed by pt and she ambulated to exit.
--- NOTE | 2023-02-04 14:32 | DS.PCM_ITS ---
Providers Date of Admission: 02/03/23 Date of Discharge: 02/04/23 Primary Care Physician: Dr. Stephanie Aguilar MD Consultations 02/03/23 02:14 Consult: Gastroenterology Routine Consulting Provider: [facility] Reason for Consult: GI bleed EMERGENT Consult: No MD Notified: Yes Date Notified: 02/03/23 Time Notified: 01:43 Method of Notification: Text Reason For Visit: GI bleed Diagnosis Discharge Diagnosis (1) Acute GI bleeding: Status: Acute Code(s): K92.2 - Gastrointestinal hemorrhage, unspecified Plan #Acute lower GI bleed * admitted with a complaint of rectal bleeding. * Hb is down to 11.5 today. Hasnt had any more rectal bleeding since admission * GI on board. * currently NPO. ON IV PPI * * #CAD * s/p PCI with stents. She had a stents placed in June 2022 when she presented with chest pain which showed 90% stenosis in the proximal diagonal artery and placement of drug-eluting stent. She had had a previous stent placed in 2018 in her LAD * aspirin and plavix on hold. * on statin and metoprolol. * on ranexa * #THrombocytopenia * platelets are 147; were 188 on admission * Hb has also dropped down to 11.5 and wbc dropped to 6.2 from 8.3, so there may be a component of hemodilution. WIll monitor. * #Hypertension; on metoprolol. BP running low today, so will hold BP meds. #Hyperlipidemia: on statin #Nicotine dependence: counseled to quit. DVT prophylaxis: SCDs. Medications at Discharge Home Medications aspirin 81 mg tablet,delayed release 81 mg PO DAILY@0800 #90 tabs 06/05/19 lorazepam 0.5 mg tablet 0.5 mg PO Q6H PRN Anxiety 09/04/19 rosuvastatin 10 mg tablet (Crestor) 10 mg PO DAILY #30 tabs 03/12/21 sertraline 50 mg tablet (Zoloft) 200 mg PO DAILY 08/17/21 nitroglycerin 0.4 mg sublingual tablet 0.4 mg sublingual Q5M PRN chest pain #14 tabs 04/04/22 metoprolol succinate 25 mg tablet,extended release 24 hr 25 mg PO DAILY 30 days #30 tabs 07/09/22 clopidogrel 75 mg tablet (Plavix) 75 mg PO DAILY #90 tabs 08/16/22 buspirone 7.5 mg tablet 7.5 mg PO BID smiley torres md 12/02/22 ranolazine 500 mg tablet,extended release,12 hr (Ranexa) 500 mg PO BID #60 tabs 12/25/22 sertraline 100 mg tablet 200 mg PO DAILY depression 02/03/23 dicyclomine 10 mg capsule 10 mg PO BID PRN abdominal pain #30 caps 02/04/23 Hospital Course Operations None Procedures Colonoscopy and EGD Summary of Care Provided Minutes Spent on Discharge: 55 Hospital Course: Patient is a 52-year-old lady with past medical history as outlined which includes history of CAD s/p PCI in June 2022 with stents to the proximal diagonal artery. She was admitted through the ED on 02/02/2023 with a complaint of recent onset of black stools the day before with progression to bright red blood per rectum with associated clots. Patient had been on aspirin and Plavix. On admission, hemoglobin was 13.7. Chemistries were unremarkable and EKG showed sinus bradycardia with no acute evidence of ischemia. She was admitted and managed for lower GI bleed. She had a rigid sigmoidoscopy done in the ED which showed bloody material above the scope with no significant abnormality of the rectal mucosa and a small hemorrhoid. She was hydrated with fluids and admitted and managed for lower GI bleed. Gastroenterology was consulted. 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 She had a colonoscopy on 02/04/2023 which showed localized moderate inflammation in the sigmoid colon, descending colon at the splenic flexure due to left-sided colitis and secondary to ischemic colitis and one 8 mm polyp in the sigmoid colon which was removed with a hot flash. Gastroenterology recommended patient being started on as needed dicyclomine to prevent cramping and prevent ischemic colitis. Patient developed chest pain whilst in the PACU after the colonoscopy. EKG done did not show any acute ST changes and showed mild sinus bradycardia which is chronic. Troponins were ordered. Initial troponin was negative. Patient requested to be discharged h ome as she said this chest pain was chronic. She was however counseled that in light of her developing the chest pain after the procedure was advisable for her to stay for the troponins to be cycled and see if the chest pain persisted. Patient was however not willing to stay and signed out AGAINST MEDICAL ADVICE on 02/04/2023. Patient was seen and examined in the PACU after colonoscopy. She did complain of the chest pain. She said it was pressure-like. She denied any shortness of breath, palpitations or dizziness, nausea vomiting or any other symptoms. Review of systems otherwise negative. Physical Exam Const alert, oriented x3 and no apparent distress General Appearance: cooperative and comfortable HEENT normocephalic, head/scalp atraumatic, hearing grossly normal bilaterally, moist oral mucous membranes and oropharynx normal Mouth: oral and palatal mucosa normal Eyes PERRL, EOMs intact bilaterally and conjunctivae normal Neck no lymphadenopathy, supple and no JVD Lymph Lymphatic: no lymphadenopathy noted and no lymphedema noted Resp normal respiratory effort, normal air movement and clear to auscultation bilaterally Cardio regular rate, regular rhythm, S1 normal heart sound, S2 normal heart sound and no murmurs GI normal to inspection, nondistended, normoactive bowel sounds, soft to palpation, non-tender and non-distended Extremity normal to inspection, full ROM, normal capillary refill, no clubbing, cyanosis or edema and no calf tenderness Skin no rashes or lesions noted General Skin Exam: no breakdown Neuro oriented x3, CN's II-XII intact bilaterally, moves all extremities, no focal motor deficits, no sensory deficits noted and deep tendon reflexes 2+ b ilaterally Sensorium / Orientation: awake and alert Motor Exam: strength 5/5 throughout Psych thought process normal and cooperative Appearance: appropriate Weight / BMI Weight Weight: 118 lb 11.2 oz Body Mass Index (BMI) 18.6 ABG / Lab / Microbiology Data 02/04/23 06:04 02/04/23 06:04 Laboratory: Laboratory Results - last 24 hr 02/04/23 06:04: WBC 5.2, RBC 3.59 L, Hgb 11.9 L, Hct 36.7 L, MCV 102.2 H, MCH 33.1 H, MCHC 32.4, RDW Std Deviation 47.4 H, RDW Coeff of Zuleyma 12.7, Plt Count 144 L, MPV 11.0, Immature Gran % (Auto) 0.200, Neut % (Auto) 53.2, Lymph % (Auto) 35.4, Murray % (Auto) 5.8, Eos % (Auto) 4.8, Baso % (Auto) 0.6, Absolute Neuts (auto) 2.8, Absolute Lymphs (auto) 1.84, Nucleated RBC % 0, Sodium 146 H, Potassium 4.0, Chloride 116 H, Carbon Dioxide 27.0, Anion Gap 3 L, BUN 7, Creatinine 0.93, Estim Creat Clear Calc 60.14, Est GFR (MDRD) Af Amer 82, Est GFR (MDRD) Non-Af 67, BUN/Creatinine Ratio 7.6 L, Glucose 88, Calcium 8.8 02/04/23 09:37: Troponin I High Sens 4 Meaningful Use Info Meaningful Use Diagnoses (Choose all that apply): None applicable Discharge Plan Admission Admit Date/Time: 02/03/23 01:42 Attending Provider: Mercedes Pappas Primary Care Provider: Stephanie Aguilar Consulting Providers: Brittni Irving Discharge Orders/Prescriptions Prescriptions: New dicyclomine 10 mg capsule 10 mg PO BID PRN (Reason: abdominal pain) Qty: 30 0RF Continued lorazepam 0.5 mg tablet 0.5 mg PO Q6H PRN (Reason: Anxiety) Patient Comments: TAKE 1 TABLET up to every 6 hours, as needed for severe anxiety. buspirone 7.5 mg tablet 7.5 mg PO BID aspirin 81 MG tablet 81 mg PO DAILY@0800 Qty: 90 0RF sertraline [Zoloft] 50 mg tablet 200 mg PO DAILY nitroglycerin 0.4 mg tablet, sublingual 0.4 mg sublingual Q5M PRN (Reason: chest pain) Qty: 14 0RF Rx Instructions: do not exceed 3 doses per episode metoprolol succinate 25 mg Tablet Extended Release 24 Hr 25 mg PO DAILY 30 Days Qty: 30 0RF Hold Instructions: Fatigue sertraline 100 mg tablet 200 mg PO DAILY Patient Comments: TAKE 2 TABLETS BY MOUTH ONCE DAILY rosuvastatin [Crestor] 10 mg tablet 10 mg PO DAILY Qty: 30 11RF clopidogrel [Plavix] 75 mg tablet 75 mg PO DAILY Qty: 90 3RF ranolazine [Ranexa] 500 mg tablet extended release 12 hr 500 mg PO BID Qty: 60 11RF Referrals / Follow Up: Stephanie Aguilar MD [Primary Care Provider] - Within 1 Week FriendDa DO [Med Staff - Active Staff] - Within 1 Week Disposition Disposition (needs filled in before D/C Order can be placed): Against Medical Advice Charges/Coding Visit Charges Inpatient E&M: 46663 Disch Hosp >30min
== END 2023-02-04 13:19 | disposition left against medical advice (07) | DRG 394 ==
LOC: ED 02-03 01:04 → MS3 02-03 01:47 → PCU 02-04 11:18
PROVIDERS: Anesthesiology; Internal Medicine Gastroenterology; Admitting Provider Family Medicine; Emergency Provider Emergency Medicine; PCP Family Medicine; Visit Provider Student in an Organized Health Care Education/Training Program
PROC: 0DJ08ZZ Inspection of Upper Intestinal Tract, Via Natural or Artificial Opening Endoscopic (ICD-10-PCS; CPT 43235; principal; 2023-02-03 12:40)
PROC: 0DJD8ZZ Inspection of Lower Intestinal Tract, Via Natural or Artificial Opening Endoscopic (ICD-10-PCS; CPT 45378; principal; 2023-02-04 08:00)
DX: K55.9 Vascular disorder of intestine, unspecified (principal); D62 Acute posthemorrhagic anemia; D69.6 Thrombocytopenia, unspecified; I10 Essential (primary) hypertension; E78.5 Hyperlipidemia, unspecified; I25.10 Atherosclerotic heart disease of native coronary artery without angina pectoris; R00.1 Bradycardia, unspecified; K44.9 Diaphragmatic hernia without obstruction or gangrene; I25.2 Old myocardial infarction; F17.290 Nicotine dependence, other tobacco product, uncomplicated; M79.89 Other specified soft tissue disorders; D13.1 Benign neoplasm of stomach; K63.5 Polyp of colon; F43.10 Post-traumatic stress disorder, unspecified; Z79.82 Long term (current) use of aspirin; Z79.02 Long term (current) use of antithrombotics/antiplatelets; Z79.899 Other long term (current) drug therapy; Z95.5 Presence of coronary angioplasty implant and graft; Z66 Do not resuscitate; R03.1 Nonspecific low blood-pressure reading; R07.9 Chest pain, unspecified; Z53.29 Procedure and treatment not carried out because of patient's decision for other reasons
CPT/HCPCS: 36415; 80048; 80053; 83605; 84484; 85025; 85610; 85730; 86850; 86900; 86901; 88305; 93005; 94668; 99285; 99406; J7030; A4216; J2405

== ENCOUNTER 2023-06-30 16:19 | Emergency (ER) | payer SELFPAY ==
[2019-08-27 11:30] VITALS: BMI 20.8
[2023-06-30] VITALS (7 sets, daily range): BP systolic 91–118; BP diastolic 63–94; PULSE 53–95; RESP 11–15; TEMP 36.8; O2SAT 94–100; BMI 16.7
[2023-06-30 17:39] LABS: Absolute Lymphocyte Count 1.88 X10^3/uL (0.83-4.51); Absolute Neutrophil Count 3.3 X10^3/uL (2.0-7.7); Basophil# 0.06 X10^3/uL; Eosinophil# 0.17 X10^3/uL; Hematocrit 40.4 % (37-47); Hemoglobin 13.5 g/dL (12.0-15.0); Lymphocyte # 1.88 X10^3/ul (0.83-4.51); Lymphocyte % 32.9 % (19-41); Mean Corp Hgb Conc 33.4 g/dL (32-36); Mean Corpuscular Hgb 31.9 pg (27.0-32.0); Mean Corpuscular Volume 95.5 fL (81-99); Mean Platelet Vol. 11.8 fl (6.2-12.0); Monocyte# 0.35 X10^3/uL; Monocyte% 6.1 % (0-10); NRBC Flagged by Analyzer 0 % (0-5); Neutrophil # 3.25 X10^3/uL (2.7-7.7); Neutrophil % 56.8 % (47-70); Platelet Count 187 K/mm3 (150-450); RBC Distribution Width CV 12.4 % (11.6-14.6); RBC Distribution Width SD 43.4 fl (35.1-43.9); Red Blood Count 4.23 M/mm3 (4.2-5.4); White Blood Count 5.7 K/mm3 (4.4-11.0)
--- NOTE | 2023-06-30 17:40 | RAD_ITS ---
EXAM: XR CHEST, 2 VIEWS CLINICAL INDICATION: chest pain TECHNIQUE: Frontal and lateral views of the chest. COMPARISON: No relevant prior studies available. FINDINGS: LUNGS AND PLEURAL SPACES: Unremarkable. No consolidation or edema. No pneumothorax. No effusion. HEART: Unremarkable. Cardiac silhouette not enlarged. MEDIASTINUM: Central airways and mediastinal contour are unremarkable. BONES/JOINTS: Unremarkable. No acute fracture. SOFT TISSUES: Unremarkable. RAD/Chest PA and Lateral IMPRESSION: No radiographic evidence of acute cardiopulmonary disease. Electronically Signed: Anderson Jenkins MD at 17:59 EST ,
[2023-06-30] MEDS: Morphine 4 MG/ML Syringe IV (17:47)
[2023-06-30] MEDS: Ondansetron 4 MG/2 ML Vial IV (17:47)
[2023-06-30 17:51] LABS: Anion Gap 1 (5-15); BUN 13 mg/dL (7-18); BUN/Creat Ratio 15.5 RATIO (10-20); Calcium,Total 9.3 mg/dL (8.5-10.1); Chloride 109 mmol/L (98-107); Creatinine, Serum 0.84 mg/dL (0.55-1.02); EST Glomerular Filtration Rate 76 mL/min (>60); Est Glom Filt Rate - Afr Amer 91 mL/min (>60); Estimated Creatinine Clearance 61.14 ml/min; Glucose 95 mg/dL (74-106); Sodium Level 139 mmol/L (136-145); Troponin-I HS (w/2H Reflex) 5 pg/mL (3.0-54.0)
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
--- OUTSIDE RECORDS SUMMARY | 2023-06-30 18:40 | XMS RPT_ITS | CCD ---
Author Name Unknown Address [address] [place] [address] Organization [facility] Care Team Providers Care Addiction Professional Name Role Phone MIGUELINA FARNSWORTH Unavailable Unavailable NO FAMILY PHYSICIAN, [phone] Unavailable Unavail able Results Test Name Value Interpretation Reference Range Facil ity Encounters Encounter Date Encounter Type Care Provider Facility Start: 02-14-2017 End: 02-14-2017 Emergency department patient visit MIGUELINA FARNSWORTH Facil [id number] Progress note 04-24-2021 Note Date & Type Note Facility 04-24-2021 Note HNO ID: [id number] Author: Yaquelin Luevano APRN.[facility] [facility] [facility] Service: ? Author Type: Nurse Practitioner Type: Progress Notes Filed: 04/24/2021 2:27 PM Note Text: Subjective The history is provided by the patient and the spouse. No educational sign language interpreter was used. EVELYN Edwards is a 50 year old female who presents today for CC of fatigue, cough, headache, sore throat and nasal drainage for 2 days. Symptoms include: Fever (?100.4F): No or Chills: No Cough: Yes Shortness of breath: No or Difficulty breathing: No Fatigue: Yes Muscle aches: No Headache: Yes New loss of smell or taste: Yes Sore throat: Yes Nasal congestion: Yes or Rhinorrhea: Yes Nausea: No or Vomiting: No Diarrhea: No OTC meds/remedies that patient has tried: none. High risk category assessment No high risk factors Exposures: Sick contacts? Yes Family or close contacts with confirmed/probable COVID-19 in last 14 days? Yes BP 120/68 Pulse 72 Temp 36.3 ?C (97.3 ?F) Resp 16 Wt 52.6 kg (116 lb) LMP 02/10/2016 SpO2 97% BMI 18.72 kg/m? Social History Tobacco Use - Smoking status: Current Every Day Smoker Packs/day: 0.50 Years: 20.00 Pack years: 10.00 Types: Cigarettes - Smokeless tobacco: Never Used Substance Use Topics - Alcohol use: No - Drug use: No PAST MEDICAL HISTORY Diagnosis Date - Anemia, unspecified 05/06/2008 Mild, PT/PTT Okay 05/03 - Anxiety - Degeneration of cervical intervertebral disc 11/25/2008 Disc-osteophyte complex and bulge at C5-C6 with mild narrowing of bilateral neural foramen on CT scan 11/01 - Depression - Other degenerative diseases of the basal ganglia - Other specified noninflammatory disorder of vagina 08/30 admitted - Syncope and collapse 05/06/2008 H/o weakness, dizziness and blurred vision. CT of head neg 05/02/08 ER report. - Unspecified protein-calorie malnutrition (HCC) 05/12/2008 Vitamin D deficiency with fragility fractures. I have confirmed and edited as necessary, the [facility] Review of Systems Constitutional: Positive for malaise/fatigue. Negative for chills and fever. HENT: Positive for congestion. Negative for ear pain, sinus pain and sore throat. Respiratory: Positive for cough. Negative for sputum production, shortness of breath and wheezing. Cardiovascular: Negative for chest pain. Musculoskeletal: Negative for myalgias. Neurological: Positive for headaches. Objective Physical Exam Vitals and nursing note reviewed. HENT: Head: Normocephalic and atraumatic. Right Ear: Tympanic membrane, ear canal and external ear normal. Left Ear: Tympanic membrane, ear canal and external ear normal. Nose: Mucosal edema, congestion and rhinorrhea present. Right Sinus: Maxillary sinus tenderness and frontal sinus tenderness present. Left Sinus: Maxillary sinus tenderness and frontal sinus tenderness present. Mouth/Throat: Pharynx: Uvula midline. Posterior oropharyngeal erythema (mild) present. No pharyngeal swelling, oropharyngeal exudate or uvula swelling. Cardiovascular: Rate and Rhythm: Normal rate and regular rhythm. Heart sounds: Normal heart sounds. Pulmonary: Effort: Pulmonary effort is normal. Breath sounds: Normal breath sounds. Lymphadenopathy: Head: Right side of head: No submental, submandibular or tonsillar adenopathy. Left side of head: No submental, submandibular or tonsillar adenopathy. Cervical: No cervical adenopathy. Skin: General: Skin is warm and dry. Neurological: Mental Status: She is alert. Psychiatric: Mood and Affect: Affect normal. ASSESSMENT/PLAN: 1. Suspected COVID-19 virus infection - ICD9: V01.79, ICD10: Z20.822 Home isolation Testing ordered Comfort measures discussed When to seek higher level of care Notified in 24-48 hours with results, available on 2018 CORONAVIRUS Diagnosis and treatment plan were discussed and questions were answered to the patient's satisfaction. Pt acknowledged understanding of concepts and follow up plan. Specific signs and symptoms that would indicate the need for higher level of care were discussed in detail warranting prompt ER evaluation. Yaquelin Luevano APRN.[facility] Summary Purpose Family History No Family History Records FoundNo Family History Records Found Advance Directives No Advanced Directives Records FoundNo Advanced Directives Records Found Additional Source Comments INFORMATION SOURCE (unrecogn ized section and content) DATE CREATED AUTHOR AUTHOR'S ORGANIZ ATION 08/10/2021 [facility] FOR RECORDS PERTAINING TO PATIENTS WHO ARE OR HAVE BEEN ENROLLED IN A CHEMICAL DEPENDENCY/SUBSTANCEABUSE PROGRAM, SOME INFORMATION MAY BE OMITTED. This clinical summary was aggregated from multiple sources. Caution should be exercised in using it in the provision of clinical care. This summary normalizes information from multiple sources, and as a consequence, information in this document may materially change the coding, format and clinical context of patient data. In addition, data may be omitted in some cases. CLINICAL DECISIONS SHOULD BE BASED ON THE PRIMARY CLINICAL RECORDS. [employer] provides no warranty or guarantee of the accuracy or completeness of information in this document.
[2023-06-30] MEDS: diazePAM 5 MG Tablet PO (19:22)
[2023-06-30 19:34] LABS: Reflex Troponin-HS? (from REC) Y
[2023-06-30 20:01] LABS: Troponin-I HS 6 pg/mL (3.0-54.0)
== END 2023-06-30 21:24 | disposition home or self-care (01) ==
PROVIDERS: Emergency Provider Emergency Medicine; PCP Family Medicine; Visit Provider Emergency Medicine
DX: S16.1XXA Strain of muscle, fascia and tendon at neck level, initial encounter (principal); E78.5 Hyperlipidemia, unspecified; M54.9 Dorsalgia, unspecified; I25.10 Atherosclerotic heart disease of native coronary artery without angina pectoris; Z95.5 Presence of coronary angioplasty implant and graft; Z79.02 Long term (current) use of antithrombotics/antiplatelets; Z79.82 Long term (current) use of aspirin; I10 Essential (primary) hypertension; F17.290 Nicotine dependence, other tobacco product, uncomplicated; R51.9 Headache, unspecified; V43.52XA Car driver injured in collision with other type car in traffic accident, initial encounter
CPT/HCPCS: 71046; 80048; 84484; 85025; 93005; 96374; 96375; 99285; J7030; A4216; J2405

== ENCOUNTER 2023-10-30 15:55 | Emergency (ER) | payer SELFPAY ==
[2019-08-27 11:30] VITALS: BMI 20.8
[2023-10-30] VITALS (10 sets, daily range): BP systolic 86–119; BP diastolic 51–63; PULSE 61–76; RESP 13–19; TEMP 36.2–36.7; O2SAT 96–98; BMI 16.6
--- NOTE | 2023-10-30 16:09 | EDS_ITS ---
HPI History of Present Illness Chief Complaint: Weakness PFSH PFS Medical History Anxiety and depression Atherosclerosis of coronary artery of [place] heart without angina pectoris Galactorrhea History of ST elevation myocardial infarction (STEMI) (07/08/22) History of sudden cardiac arrest successfully resuscitated (06/04/19) HTN (hypertension) Hyperlipidemia PTSD (post-traumatic stress disorder) Strabismic amblyopia, right eye Tobacco dependence Tobacco use Home Medications aspirin 81 mg tablet,delayed release 81 mg PO DAILY@0800 #90 tabs 06/05/19 [Rx Last Taken 02/01/23] lorazepam 0.5 mg tablet 0.5 mg PO Q6H PRN Anxiety 09/04/19 [History Last Taken 12/27/22] rosuvastatin 10 mg tablet (Crestor) 10 mg PO DAILY #30 tabs 03/12/21 [Rx Last Taken 02/01/23] nitroglycerin 0.4 mg sublingual tablet 0.4 mg sublingual Q5M PRN chest pain #14 tabs 04/04/22 [Rx Last Taken Unknown] metoprolol succinate 25 mg tablet,extended release 24 hr 25 mg PO DAILY 30 days #30 tabs 07/09/22 [Rx Last Taken 02/01/23] clopidogrel 75 mg tablet (Plavix) 75 mg PO DAILY #90 tabs 08/16/22 [Rx Last Taken 02/01/23] buspirone 7.5 mg tablet 7.5 mg PO BID check w md 12/02/22 [History Last Taken 02/01/23] sertraline 100 mg tablet 200 mg PO DAILY depression 02/03/23 [History Last Taken 02/01/23] dicyclomine 10 mg capsule 10 mg PO BID PRN abdominal pain #30 caps 02/04/23 [Rx Last Taken Unknown] ranolazine 500 mg tablet,extended release,12 hr (Ranexa) 1,000 mg (2 x 500 mg) PO BID #60 tabs 03/17/23 [Rx Last Taken Unknown] cyclobenzaprine 10 mg tablet 10 mg PO TID PRN Muscle Spasm #20 TABLETS 06/30/23 [Rx Last Taken Unknown] Allergy/AdvReac Type Severity Reaction Status Date / Time atorvastatin AdvReac Intermediate GI Verified 10/30/23 15:59 upset,nausea Family History Father Cancer Lung Grandmother Breast cancer Kidney disease Uncle Myocardial infarction Mother Myocardial infarction Surgical History H/O ovarian cystectomy History of bilateral breast biopsy History of coronary artery stent placement (07/08/22) History of hysterectomy Social History 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 Smoking Status: Current every day smoker tobacco type: e-cigarettes Tobacco: How many years used: 35 alcohol intake: never substance use type: does not use caffeine: Yes what type of physical activity do you participate in: none seatbelt use: sometimes do you feel safe at home: Yes additional social history: - Bud EXAM Physical Exam Const Vital Signs: 10/30/23 15:55 10/30/23 15:56 10/30/23 15:59 Temperature 97.2 F L 97.6 F L 97.6 F L Temperature Source Temporal Temporal Temporal Pulse Rate 76 76 76 Respiratory Rate 15 15 15 Respiratory Effort Respiratory Pattern Blood Pressure 86/62 L 86/62 L 86/62 L Blood Pressure Mean 70 70 70 Pulse Ox 97 97 98 Oxygen Delivery Method Room Air Room Air Room Air 10/30/23 16:05 10/30/23 16:12 10/30/23 16:59 Temperature 97.8 F Temperature Source Temporal Pulse Rate 61 Respiratory Rate 13 Respiratory Effort Normal Non-Labored Respiratory Pattern Normal Blood Pressure 101/63 107/61 Blood Pressure Mean 75 76 Pulse Ox 98 Oxygen Delivery Method Room Air 10/30/23 17:00 10/30/23 18:00 10/30/23 19:00 Temperature 97.8 F 98.0 F 97.9 F Temperature Source Temporal Temporal Temporal Pulse Rate 61 71 62 Respiratory Rate 13 14 19 H Respiratory Effort Respiratory Pattern Blood Pressure 107/61 119/51 L 103/61 Blood Pressure Mean 76 73 75 Pulse Ox 98 97 97 Oxygen Delivery Method Room Air Room Air Room Air MDM MDM MDM Narrative Medical decision making narrative: HISTORY OF PRESENT ILLNESS: 52-year-old female presents with diffuse weakness. States her legs gave out she fell earlier today. Notes has been vomiting bile for months. She further states I am disintegrating. She further states she has been slowly declining over the last several months with almost daily vomiting. She notes a green discoloration to her vomit. Denies any blood. Denies any head trauma. Denies any chest pain or shortness of breath. She notes diffuse abdominal pain. No focal weakness. REVIEW OF SYSTEMS: Pertinent positives: Weakness, nausea, vomiting Pertinent negatives: Focal weakness, chest pain PHYSICAL EXAM: Nursing triage notes reviewed, Vital signs reviewed Constitutional: please see [facility] HENT: MMM Eyes: Pupils equal round and reactive to light, Extraocular muscles intact Neck: No stridor, no JVD, full neck ROM Lungs: Clear to auscultation, No wheezing or rales. No increased work of breathing, no conversational dyspnea, no accessory muscle use, no nasal flaring. No respiratory distress noted Heart: Regular rate and rhythm, No murmurs, No rubs and No gallops, 2+ distal pulses (radial, femoral, posterior tibial) in all extremities Abdomen: Soft, there is no tenderness, rigidity, rebound or guarding, no obvious peritoneal signs, no palpable pulsatile abdominal masses, no auscultated abdominal bruit : No CVAT Extremities: No edema Neuro: No focal neurological deficits, cranial nerves II through XII intact, 5/5 strength in all extremities. Intact sensation to light touch in all extremities, 2+ reflexes bilateral patella tendons. Normal gait. No ataxia. Skin: No rash or lesions noted MEDICAL DECISION MAKING: Chief Complaint: Weakness, nausea vomiting External records reviewed: Reviewed prior colonoscopies, colonoscopy from January 2023 shows moderate inflammation in the sigmoid colon, secondary to ischemic colitis Factors affecting care: Hyperlipidemia, palpitations, CAD status post stent, PTSD, ischemic colitis Social determinants of health: Tobacco abuse History obtained from others: Family Consults: none [facility] Narrative: Patient was initially hypertensive otherwise afebrile. Exam without focal neurologic deficits, abdomen was diffusely tender without obvious peritoneal signs. No distention or pulsatile abdominal masses. I considered the following differential diagnosis: Head injury, ICH, dehydration, electro disturbance, anemia, pneumonia, bowel obstruction perforation ALL IMAGES (IF OBTAINED) HAVE BEEN PERSONALLY REVIEWED AND INTERPRETED BY MYSELF. EKG with normal sinus rhythm, normal axis, no intervals, no STEMI CBC without leukocytosis, anemia or thrombocytopenia CMP without evidence of acute kidney injury, significant electrolyte abnormality, anion gap, no evidence hepatobiliary pathology. High-sensitivity troponin is negative, no evidence of myocardial ischemia Urinalysis shows no evidence of urinary inflammation suggestive of UTI I have personally reviewed the patient's chest x-ray. Chest x-ray is unremarkable for pulmonary edema, pneumothorax, pneumonia or focal cardiopulmonary abnormality. CT scan of the brain shows no evidence of intracranial normality CT scan abdomen pelvis shows no evidence of obvious intra-abdominal surgical pathology The synthesis of the patient's history, physical exam, labs and imaging studies suggest no acute life-limiting etiology. Will give symptomatic treatment at home including Zofran and encouraged her to drink plenty of fluids and have her follow-up with GI doctors for further outpatient evaluation. The patient and/or family, caregivers express understanding. The patient and/or family, caregivers agrees with the plan. Shared decision making: I will have a discussion with the patient and or visitors regarding risk/benefits of further testing or admission. They will be made aware of of the risk/benefits inherent in this decision they will be given the opportunity to voice understanding. Total critical care time today provided was at least 0 minutes. This excludes separately billable procedures. Critical care time (if documented) is secondary to the patient having high probability of clinically significant/life threatening deterioration in the patient's condition which required my urgent intervention. Impression: 1. Nausea vomiting 2. Weakness 3. Dehydration Dispo: Discharge home This note was generated with [employer] dictation software. It may contain incorrect words, spelling, and punctuation that were not noted in review of the chart prior to signing. Lab Data Labs: Laboratory Results - last 24 hr 10/30/23 10/30/23 17:10 18:42 WBC 6.0 RBC 4.15 L Hgb 13.3 Hct 40.5 MCV 97.6 MCH 32.0 MCHC 32.8 RDW Std Deviation 45.4 H RDW Coeff of Zuleyma 12.7 Plt Count 185 MPV 10.7 Immature Gran % (Auto) 0.000 Neut % (Auto) 55.9 Lymph % (Auto) 30.2 [place] % (Auto) 7.6 Eos % (Auto) 5.3 H Baso % (Auto) 1.0 Absolute Neuts (auto) 3.4 Absolute Lymphs (auto) 1.82 Nucleated RBC % 0 Sodium 142 Potassium 3.8 Chloride 109 H Carbon Dioxide 30.0 Anion Gap 3 L BUN 14 Creatinine 0.76 Estim Creat Clear Calc 64.98 Est GFR (MDRD) Af Amer 103 Est GFR (MDRD) Non-Af 85 BUN/Creatinine Ratio 18.5 Glucose 93 Lactic Acid 0.7 Calcium 9.0 Total Bilirubin 0.50 Direct Bilirubin 0.10 AST 21 ALT 27 Alkaline Phosphatase 63 Troponin I High Sens 3 Total Protein 6.8 Albumin 3.5 Globulin 3.3 Lipase 39 Urine Color Yellow Urine Clarity Sl. Cloudy Urine pH 7.0 Ur Specific [employer] 1.015 Urine Protein 15 H Urine Glucose (UA) Normal Urine Ketones Negative Urine Occult Blood Negative Urine Nitrite Negative Urine Bilirubin Negative Urine Urobilinogen 1 H Ur Leukocyte Esterase 25 H Urine RBC 0 SEEN Urine WBC 0-5 SEEN Ur Squamous Epith Cells 0 SEEN Urine Bacteria RARE Urine Mucus 1+ Radiography Diagnostic Testing: Clinical Impression(s) from Imaging Studies Abdomen/Pelvis CT 10/30/23 16:29 IMPRESSION: Normal gallbladder not visualized which may be consistent with severely contracted state or prior surgery. If the patient has not had gallbladder surgery would recommend ultrasound for further evaluation Mild nonspecific ileus with fecal retention in colon.. No evidence for small bowel obstruction Right nephrolithiasis. Electronically Signed: Sharif Ayala MD at 19:19 EDT , Brain CT 10/30/23 16:29 IMPRESSION: Normal unenhanced CT scan of the brain. Electronically Signed: Sharif Ayala MD at 18:59 EDT , Chest X-Ray 10/30/23 17:27 IMPRESSION: Normal x-ray examination of the chest. Electronically Signed: Sharif Ayala MD at 18:08 EDT , Discharge Plan Triage Chief Complaint: Weakness ED Provider: Tom Perez Dx/Rx/DC Orders Prescriptions: No Action lorazepam 0.5 mg tablet 0.5 mg PO Q6H PRN (Reason: Anxiety) Patient Comments: TAKE 1 TABLET up to every 6 hours, as needed for severe anxiety. buspirone 7.5 mg tablet 7.5 mg PO BID ranolazine [Ranexa] 500 mg tablet extended release 12 hr 1,000 mg PO BID Qty: 60 11RF aspirin 81 MG tablet 81 mg PO DAILY@0800 Qty: 90 0RF nitroglycerin 0.4 mg tablet, sublingual 0.4 mg sublingual Q5M PRN (Reason: chest pain) Qty: 14 0RF Rx Instructions: do not exceed 3 doses per episode metoprolol succinate 25 mg Tablet Extended Release 24 Hr 25 mg PO DAILY 30 Days Qty: 30 0RF Hold Instructions: Fatigue cyclobenzaprine 10 mg tablet 10 mg PO TID PRN (Reason: Muscle Spasm) Qty: 20 0RF sertraline 100 mg tablet 200 mg PO DAILY Patient Comments: TAKE 2 TABLETS BY MOUTH ONCE DAILY dicyclomine 10 mg capsule 10 mg PO BID PRN (Reason: abdominal pain) Qty: 30 0RF rosuvastatin [Crestor] 10 mg tablet 10 mg PO DAILY Qty: 30 11RF clopidogrel [Plavix] 75 mg tablet 75 mg PO DAILY Qty: 90 3RF Primary Care Provider: Stephanie Aguilar Referrals: Stephanie Aguilar MD [Primary Care Provider] -
--- NOTE | 2023-10-30 16:29 | CT_ITS ---
STUDY: CT ABDOMEN AND PELVIS WITHOUT CONTRAST REASON FOR EXAM: Female, 53 years old. abdominal pain RADIATION DOSAGE (If Supplied By Facility): CTDIvol = ( 7.33 ) mGy, DLP = ( 359.12 ) mGycm TECHNIQUE: Transaxial images were obtained from the dome of the diaphragm to the symphysis pubis without oral contrast, and without intravenous contrast. Sagittal and coronal images were reconstructed. Individualized dose optimization techniques were used for this CT. COMPARISON: None. FINDINGS: The visualized lung bases are unremarkable. The visualized portions of the heart are within normal limits. Normal liver. Normal gallbladder not visualized possibly due to prior surgery or severely contracted state. If concern for gallbladder disease ultrasound recommended. Normal spleen. Normal pancreas. Normal bilateral adrenal glands. Tiny nonobstructing right renal calculus. No evidence for hydronephrosis or mass given limited study without contrast.. Normal left kidney. Normal visualized stomach. Minor ileus with diffuse fecal retention in the colon.. No evidence for acute appendicitis Minor atherosclerotic changes of the aorta without evidence for aneurysm. Normal inferior vena cava. Normal retroperitoneum. Normal urinary bladder. Normal abdominal wall. Lumbar spine demonstrates degenerative changes CT/Abdomen/Pelvis without Cont IMPRESSION: Normal gallbladder not visualized which may be consistent with severely contracted state or prior surgery. If the patient has not had gallbladder surgery would recommend ultrasound for further evaluation Mild nonspecific ileus with fecal retention in colon.. No evidence for small bowel obstruction Right nephrolithiasis. Electronically Signed: Sharif Ayala MD at 19:19 EDT ,
--- NOTE | 2023-10-30 16:29 | EKG12_ITS ---
Test Reason : WEAKNESS Blood Pressure : / mmHG Vent. Rate : 060 BPM Atrial Rate : 060 BPM P-R Int : 168 ms QRS Dur : 092 ms QT Int : 430 ms P-R-T Axes : 071 068 073 degrees QTc Int : 430 ms Normal sinus rhythm Normal ECG Confirmed by Corbin Schmitz ([id number]), videotape editor WILFREDO LERMA ([id number]) on 10/31/2023 10:01:39 AM Referred By: Confirmed By:Corbin Schmitz
--- NOTE | 2023-10-30 16:29 | CT_ITS ---
STUDY: CT BRAIN WITHOUT CONTRAST REASON FOR EXAM: Female, 53 years old. head trauma RADIATION DOSAGE (If Supplied By Facility): CTDIvol = ( 44.99 ) mGy, DLP = ( 745.49 ) mGycm TECHNIQUE: Transaxial CT imaging of the brain was performed without administration of intravenous contrast material. Individualized dose optimization techniques were used for this CT. COMPARISON: December 19, 2017. FINDINGS: Normal soft tissue structures. Normal calvarium. Normal size ventricles and extra-axial spaces for the patient''s age. Normal white matter tracts of the cerebral hemispheres. Normal basal ganglia and thalami. Normal brainstem. Normal cerebellum. There is no intracranial hemorrhage. There are no findings of an acute ischemic infarction. Normal visualized paranasal sinuses. No significant change since prior exam CT/Brain/Head without Contrast IMPRESSION: Normal unenhanced CT scan of the brain. Electronically Signed: Sharif Ayala MD at 18:59 EDT ,
[2023-10-30] MEDS: Ondansetron 4 MG/2 ML Vial IV (17:21)
[2023-10-30] MEDS: 0.9% Normal Saline (1000mL) 1,000 ML 1000 ML IV (17:21)
--- NOTE | 2023-10-30 17:27 | RAD_ITS ---
STUDY: X-RAY CHEST REASON FOR EXAM: Female, 53 years old. weakness TECHNIQUE: AP portable COMPARISON: June 30, 2023 FINDINGS: The lungs are clear and expanded. There is no demonstrated pleural abnormality. Normal size heart. Normal mediastinum and kadi. Normal visualized pulmonary arteries. Normal visualized aortic arch and descending thoracic aorta. Normal visualized thoracic spine. Normal visualized ribs, clavicles, and shoulders. There is no demonstrated abnormality of the visualized soft tissue structures of the upper abdomen. No significant change since prior exam RAD/Chest 1 View (Portable) IMPRESSION: Normal x-ray examination of the chest. Electronically Signed: Sharif Ayala MD at 18:08 EDT ,
[2023-10-30 17:29] LABS: Absolute Lymphocyte Count 1.82 X10^3/uL (0.83-4.51); Absolute Neutrophil Count 3.4 X10^3/uL (2.0-7.7); Basophil# 0.06 X10^3/uL; Eosinophil# 0.32 X10^3/uL; Eosinophils% 5.3 % (0-5); Hematocrit 40.5 % (37-47); Hemoglobin 13.3 g/dL (12.0-15.0); Lymphocyte # 1.82 X10^3/ul (0.83-4.51); Lymphocyte % 30.2 % (19-41); Mean Corp Hgb Conc 32.8 g/dL (32-36); Mean Corpuscular Volume 97.6 fL (81-99); Mean Platelet Vol. 10.7 fl (6.2-12.0); Monocyte# 0.46 X10^3/uL; Monocyte% 7.6 % (0-10); NRBC Flagged by Analyzer 0 % (0-5); Neutrophil # 3.37 X10^3/uL (2.7-7.7); Neutrophil % 55.9 % (47-70); Platelet Count 185 K/mm3 (150-450); RBC Distribution Width CV 12.7 % (11.6-14.6); RBC Distribution Width SD 45.4 fl (35.1-43.9); Red Blood Count 4.15 M/mm3 (4.2-5.4)
[2023-10-30 17:53] LABS: Lactic Acid 0.7 mmol/L (0.4-1.9)
[2023-10-30 17:56] LABS: AST(SGOT) 21 U/L (15-37); Alanine Aminotransfer ALT/SGPT 27 U/L (13-56); Albumin, Serum 3.5 g/dL (3.2-5.0); Alkaline Phosphatase 63 U/L (45-117); Anion Gap 3 (5-15); BUN 14 mg/dL (7-18); BUN/Creat Ratio 18.5 RATIO (10-20); Chloride 109 mmol/L (98-107); Creatinine, Serum 0.76 mg/dL (0.55-1.02); EST Glomerular Filtration Rate 85 mL/min (>60); Est Glom Filt Rate - Afr Amer 103 mL/min (>60); Estimated Creatinine Clearance 64.98 ml/min; Globulin 3.3 g/dL (2.2-4.2); Glucose 93 mg/dL (74-106); Lipase 39 U/L (13-75); Potassium 3.8 mmol/L (3.5-5.1); Protein, Total 6.8 g/dL (6.4-8.2); Sodium Level 142 mmol/L (136-145); Troponin-I HS 3 pg/mL (3.0-54.0)
[2023-10-30 18:50] LABS: Red Blood Cells-Urine 0 SEEN /hpf (0-5); Squamous Epithelial Cells - UA 0 SEEN /hpf (5-10)
[2023-10-30 18:51] LABS: Color, Urine Yellow (Yellow); Glucose, Dipstick Normal (Normal); Ketone-Dipstick Negative (Negative); Leukocyte Esterase-Dipstick 25 /ul (Negative); Nitrite-Dipstick Negative (Negative); Occult Blood-Urine Negative /ul (Negative); Protein-Dipstick 15 mg/dl (Negative); Specific Gravity, Urine 1.015 (1.002-1.030); Urine Bilirubin Dipstick Negative (Negative); Urine Clarity Sl. Cloudy (Clear); Urine Urobilinogen 1 mg/dl (Normal)
[2023-10-30 19:11] LABS: Bacteria RARE /hpf (None Seen); Mucous, Urine 1+ /hpf (<or=2+); White Blood Cells 0-5 SEEN /hpf (0-5)
== END 2023-10-30 20:35 | disposition home or self-care (01) ==
PROVIDERS: Emergency Provider Emergency Medicine; PCP Family Medicine; Visit Provider Emergency Medicine
DX: R11.2 Nausea with vomiting, unspecified (principal); R10.84 Generalized abdominal pain; F17.290 Nicotine dependence, other tobacco product, uncomplicated; F43.10 Post-traumatic stress disorder, unspecified; E86.0 Dehydration; I25.10 Atherosclerotic heart disease of native coronary artery without angina pectoris; E78.5 Hyperlipidemia, unspecified; K55.9 Vascular disorder of intestine, unspecified; I10 Essential (primary) hypertension; Z95.5 Presence of coronary angioplasty implant and graft; R53.1 Weakness
CPT/HCPCS: 70450; 71045; 74176; 80048; 80076; 81001; 83605; 83690; 84484; 85025; 93005; 96361; 96374; 99284; J7030; A4216; J2405